=== PATIENT | male | born 1965 | race Caucasian/White ===

== ENCOUNTER 2017-01-15 22:43 | Emergency (ER) | payer SELFPAY ==
[~2017-01-15] VITALS: Ht 190.5 cm; Wt 93.0 kg
[~2017-01-15 22:43] MED LIST: CYCL-36 PO; IBUP800T23 PO
[2017-01-15 22:45] VITALS: BP 154/90; PULSE 69; RESP 15; TEMP 98.2; O2SAT 97
--- NOTE | 2017-01-16 00:26 | PD ---
HPI Chief Complaint: Complaint Time Seen by Provider: 00:21 Travel History International Travel<30 days: No Contact w/Intl Traveler<30days: No Traveled to known affect area: No History of Present Illness HPI 51yo M with no significant PMH presents to the ED with c/o gross hematuria for 2 weeks. Denies any fever, chest pain, sob, n/v, abdominal pain, back pain, focal weakness or numbness. Denies nay malignancy or weight loss. Pt has not been evaluated for this before. PFSH Past Medical History Arthritis: Yes Cardiovascular Problems: No Diminished Hearing: No Gastrointestinal Disorders: No Glaucoma: Yes Hepatitis: Yes (HEP C) Musculoskeletal: Yes (CHRONIC BACK PAIN) Neurologic: No Reproductive: No Respiratory: No Integumentary: Yes Immunizations Current: No Sleep Apnea: No Tetanus Vaccination: < 5 Years Influenza Vaccination: No Past Surgical History Abdominal Surgery: No Cardiac Surgery: No Ear Surgery: No Eye Surgery: No Genitourinary Surgery: No Gynecologic Surgery: No Joint Replacement: No (RIGHT LEG SX S/P FALL (2006)) Oral Surgery: No Thoracic Surgery: No Tonsillectomy: Yes Other Surgery: Yes (R+ ANKLE Sx) Social History Alcohol Use: No Tobacco Use: Yes Substance Use: No Allergies-Medications (Allergen,Severity, Reaction): Coded Allergies: codeine (Unverified Allergy, Mild, NAUSEA, 01/01/17) iodine (Unverified Allergy, Unknown, 01/01/17) potassium iodide (Unverified Allergy, Unknown, 01/01/17) povidone-iodine (Unverified Allergy, Unknown, 01/01/17) sodium iodide (Unverified Allergy, Unknown, 01/01/17) sodium iodide (Unverified Allergy, Unknown, 01/01/17) Reported Meds & Prescriptions Reported Meds & Active Scripts Active Review of Systems Except as stated in HPI: all other systems reviewed are Neg Physical Exam Narrative GENERAL: 51yo M not in distress. SKIN: Focused skin assessment warm/dry. HEAD: Atraumatic. Normocephalic. EYES: Pupils equal and round. No scleral icterus. No injection or drainage. ENT: No nasal bleeding or discharge. Mucous membranes pink and moist. NECK: Trachea midline. No JVD. CARDIOVASCULAR: Regular rate and rhythm. No murmur appreciated. RESPIRATORY: No accessory muscle use. Clear to auscultation. Breath sounds equal bilaterally. GASTROINTESTINAL: Abdomen soft, non-tender, nondistended. No rebound tenderness or guarding. MUSCULOSKELETAL: No obvious deformities. No clubbing. No cyanosis. No edema. NEUROLOGICAL: Awake and alert. No obvious cranial nerve deficits. Motor grossly within normal limits. Normal speech. PSYCHIATRIC: Appropriate mood and affect; insight and judgment normal. Data Data Last Documented VS Vital Signs Date Time Temp Pulse Resp B/P (MAP) Pulse Ox O2 Delivery O2 Flow Rate FiO2 01/16/17 00:17 16 01/15/17 22:45 98.2 69 154/90 (111) 97 Room Air Orders Orders Urinalysis - C+S If Indicated (01/16/17 00:24) Ed Poc Ultrasound (01/16/17 ) Basic Metabolic Panel (Bmp) (01/16/17 02:21) Ct Abd/Pel W/O Iv Contrast (01/16/17 ) Labs Laboratory Tests Test 01/16/17 00:30 01/16/17 01:15 Urine Color LIGHT-RED Urine Turbidity HAZY Urine pH 5.5 Urine Specific [place] 1.026 Urine Protein 30 mg/dL Urine Glucose (UA) NEG mg/dL Urine Ketones NEG mg/dL Urine Occult Blood LARGE Urine Nitrite NEG Urine Bilirubin NEG Urine Urobilinogen 2.0 MG/DL Urine Leukocyte Esterase NEG Urine RBC 53 /hpf Urine WBC 4 /hpf Urine Squamous Epithelial Cells 1 /hpf Urine Amorphous Sediment RARE Urine Bacteria RARE /hpf Urine Mucus MOD /lpf Microscopic Urinalysis Comment CULT NOT INDICATED Blood Urea Nitrogen 21 MG/DL Creatinine 1.29 MG/DL Random Glucose 74 MG/DL Calcium Level 9.2 MG/DL Sodium Level 143 MEQ/L Potassium Level 3.6 MEQ/L Chloride Level 107 MEQ/L Carbon Dioxide Level 29.1 MEQ/L Anion Gap 7 MEQ/L Estimat Glomerular Filtration Rate 59 ML/MIN [facility] Medical Decision Making Medical Screen Exam Complete: Yes Emergency Medical Condition: Yes Differential Diagnosis Bladder tumor vs. renal malignancy vs. UTI vs. nephrolithiasis Narrative Course 51yo M presents with gross hematuria for 2 weeks. Pt has no other symptoms. Has not seen a physician in years. Denies any pain. UA showed large occult blood. WBC 4. No culture indicated. Bedside US showed abnormal right kidney so CT a/p ordered to further evaluate this. BMP showed normal creatinine at 1.29. CTa/p showed complex cystic lesion arising from right kidney. It measures approximately 10cm. This ideally should be further characterized with renal protocol MRI with and without contrast. A renal neoplasm could have this appearance. I informed pt of this finding. Pt has no insurance. Will do mandatory referral for urology and have pt return to ED if worsening symptoms. Procedures Procedure Narrative Emergency department urinary tract ultrasound was performed with patient consent. Curvilinear probe was used in the transverse and sagittal views in the bilateral flank and suprapubic region showing abnormal right kidney. No hydronephrosis in left kidney. Diagnosis Primary Impression: Right renal mass Referrals: Blayne Arrieta MD call for appointment Gross hematuria with CT showing cystic lesion from right kidney. Possible renal neoplasm. Patient Instructions: General Instructions Departure Forms: Tests/Procedures Additional Instructions: Please follow up with urology. The manager of case management will call you for appointment. Return to the ED if symptoms worsen. Med/Other Pt SpecificInfo: No Change to Meds Disposition: 01 DISCHARGE HOME Condition: Stable JinSushila Jan 16, 2017 00:26
[2017-01-16 01:06] LABS: BACTERIA, URINE RARE /hpf; BLOOD, URINE LARGE (NEG); COMMENT (UR) CULT NOT INDICATED; CULTURE IF INDICATED CULT NOT INDICATED; GLUCOSE,URINE NEG (NEG); KETONE, URINE NEG (NEG); MUCUS URINE MOD /lpf (OCC); NITRITE,URINE NEG (NEG); PH, URINE 5.5 (5.0-8.5); SQUAMOUS EPITHELIAL CELL URINE 1 /hpf (0-5)
[2017-01-16 01:07] LABS: URINE COLOR LIGHT-RED (YELLW/STRAW)
[2017-01-16 03:06] LABS: BICARBONATE 29.1 MEQ/L (21.0-32.0); POTASSIUM 3.6 MEQ/L (3.5-5.1)
--- NOTE | 2017-01-16 03:24 | RADRPT ---
EXAM DATE/TIME: 01/16/2017 02:37 [facility] COMPARISON: No previous studies available for comparison. INDICATIONS : Hematuria for two weeks. ORAL CONTRAST: No oral contrast ingested. RADIATION DOSE: 9.96 CTDIvol (mGy) MEDICAL HISTORY : Hepatitis C. SURGICAL HISTORY : None. ENCOUNTER: Initial ACUITY: 2 weeks PAIN SCALE: 0/10 LOCATION: All quadrants. TECHNIQUE: Volumetric scanning of the abdomen and pelvis was performed. Using automated exposure control and ad justment of the mA and/or kV according to patient size, radiation dose was kept as low as reasonably achievable to obtain optimal diagnostic quality images. DICOM format image data is available electro nically for review and comparison. FINDINGS: LOWER LUNGS: The visualized lower lungs are clear. LIVER: Homogeneous density without lesion. There is no dilation of the biliary tree. No calcified gallston es. SPLEEN: Normal size without lesion. PANCREAS: Within normal limits. KIDNEYS: Right kidney appears larger than the left and appears to contain a complex cystic and possibly solid lesion with calcification. Left kidney demonstrates no hydronephrosis or solid mass. There is a 2 mm nonobstructing stone in the left lower pole collecting system. ADRENAL GLANDS: Within normal limits. VASCULAR: There is no aortic aneurysm. BOWEL/MESENTERY: The stomach, small bowel, and colon demonstrate no acute abnormality. There is no free intraperitone al air or fluid. ABDOMINAL WALL: Within normal limits. RETROPERITONEUM: There is no lymphadenopathy. BLADDER: No wall thickening or mass. REPRODUCTIVE: Within normal limits. INGUINAL: There is no lymphadenopathy or hernia. MUSCULOSKELETAL: No acute abnormality is identified. CONCLUSION: 1. Complex cystic lesion arising from the right kidney. It measures approximately 10 cm. Suggest boaz elating with any prior imaging study to assess for change. This ideally should be further characteriz ed with renal protocol MRI with and without intravenous contrast. A renal neoplasm could have this ap pearance. 2. There is a 2 mm nonobstructing left renal stone. Andrew Mcdaniel MD on January 16, 2017 at 3:19 Board Certified Radiologist. This report was verified electronically.
== END 2017-01-16 04:09 | disposition home or self-care (01) ==
LOC: NEPC 22:43
DX: N28.89 Other specified disorders of kidney and ureter (principal); R31.0 Gross hematuria; M13.80 Other specified arthritis, unspecified site; H40.9 Unspecified glaucoma; Z72.0 Tobacco use; Z86.19 Personal history of other infectious and parasitic diseases; Z88.5 Allergy status to narcotic agent; Z88.8 Allergy status to other drugs, medicaments and biological substances
CPT/HCPCS: 74176; 80048; 81001; 99285

== ENCOUNTER 2017-06-24 00:58 | Emergency (ER) | payer SELFPAY ==
[~2017-06-24] VITALS: Ht 188 cm; Wt 91.0 kg
[2017-06-24 00:59] VITALS: BP 144/77; PULSE 66; RESP 20; TEMP 99.6; O2SAT 97
[2017-06-24] MEDS ORDERED: CLINDAMYCIN 900 MG/NS PREMIX 50 ML IV ONE (01:30)
[2017-06-24] MEDS ORDERED: SODIUM CHLOR 0.9% 1000 ML INJ 1,000 ML IV ONE (01:30)
[2017-06-24] MEDS ORDERED: ceFAZolin 2 GM PREMIX 50 ML IV ONE (01:30)
--- NOTE | 2017-06-24 01:42 | PD ---
HPI Chief Complaint: Cold / Flu Symptoms Time Seen by Provider: 01:07 Travel History International Travel<30 days: No Contact w/Intl Traveler<30days: No Traveled to known affect area: No History of Present Illness HPI The patient is a 51 year old male who presents to the [facility] emergency department with a history of reportedly multiple complaints. The first complaint is having wounds on his arms that are not healing. He reports that they seem to be spreading. 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 He reports that they continually seem to crust, however they are not draining. He denies having any known fevers , however he has had chills. He reports that these wounds have been gradually worsening over the last 2 months. He denies having any prior history of known skin infections or MRSA. The patient does however report having a history of IV drug use. He last used heroin yesterday. The patient's other complaint today is intermittent hematuria. He reports that this happens 1-2 times per week since last year. He reports that he was diagnosed with a renal mass and attempted to follow-up with Dr. Solis as an outpatient, however the appointment was never made. The patient reports that he was given a mandatory follow-up through the case management system as he is uninsured. Otherwise on review of systems, the patient reports having generalized weakness. He denies having any worsening cough or congestion, neck pain, chest pain, shortness of breath, abdominal pain, vomiting, diarrhea, urinary symptoms, or other neurologic symptoms. PFSH Past Medical History Narrative Medical The patient's past medical history is significant for hepatitis C, chronic back pain, glaucoma, diagnosis of a renal mass during his last evaluation in the emergency department in December 2016, history of IV drug use Arthritis: Yes Cardiovascular Problems: No Diminished Hearing: No Gastrointestinal Disorders: No Glaucoma: Yes Hepatitis: Yes (HEP C) Musculoskeletal: Yes (CHRONIC BACK PAIN) Neurologic: No Reproductive: No Respiratory: No Integumentary: Yes Immunizations Current: No Sleep Apnea: No Tetanus Vaccination: < 5 Years Influenza Vaccination: No Past Surgical History Narrative Surgical The patient's past surgical history is significant for right leg ORIF, tonsillectomy Abdominal Surgery: No Cardiac Surgery: No Ear Surgery: No Eye Surgery: No Genitourinary Surgery: No Gynecologic Surgery: No Oral Surgery: No Thoracic Surgery: No Tonsillectomy: Yes Other Surgery: Yes (R+ ANKLE Sx) Social History Alcohol Use: No Tobacco Use: Yes (one pack per day) Substance Use: Yes (IV drug use of heroin) Allergies-Medications (Allergen,Severity, Reaction): Coded Allergies: codeine (Unverified Allergy, Mild, NAUSEA, 06/24/17) iodine (Unverified Allergy, Unknown, 06/24/17) potassium iodide (Unverified Allergy, Unknown, 06/24/17) povidone-iodine (Unverified Allergy, Unknown, 06/24/17) sodium iodide (Unverified Allergy, Unknown, 06/24/17) sodium iodide (Unverified Allergy, Unknown, 06/24/17) Reported Meds & Prescriptions Reported Meds & Active Scripts Active Clindamycin (Clindamycin HCl) 300 Mg Cap 300 Mg PO Q6H Keflex (Cephalexin) 500 Mg Cap 500 Mg PO Q6H Review of Systems Except as stated in HPI: all other systems reviewed are Neg General / Constitutional: Positive: Chills, No: Fever Eyes: No: Visual changes HENT: No: Headaches, Rhinorrhea, Congestion Cardiovascular: No: Chest Pain or Discomfort Respiratory: No: Cough, Shortness of Breath Gastrointestinal: No: Nausea, Vomiting, Diarrhea, Abdominal Pain Genitourinary: No: Dysuria Musculoskeletal: Positive: Myalgias, No: Pain Skin: No Rash Neurologic: No: Weakness, Focal Abnormalities, Change in Mentation, Slurred Speech, Sensory Disturbance Psychiatric: No: Depression Endocrine: No: Polydipsia Hematologic/Lymphatic: No: Easy Bruising Physical Exam Narrative General: The patient is a well-developed well-nourished male in no acute distress. Head and Neck exam: Head is normocephalic atraumatic. Eyes: EOMI, pupils are equal round and reactive to light. Nose: Midline septum with pink mucous membranes Mouth: Dentition unremarkable. Moist mucus membranes. Posterior oropharynx is not erythematous. No tonsillar hypertrophy. Uvula midline. Airway patent. Neck: No palpable lymphadenopathy. No nuchal rigidity. No thyromegaly. Cardiovascular: Regular rate and rhythm without murmurs, gallops, or rubs. Lungs: Clear to auscultation bilaterally. No wheezes, rhonchi, or rales. Abdomen: Soft, without tenderness to palpation in all 4 quadrants of the abdomen. No guarding, rebound, or rigidity. Normal bowel sounds are audible. No tenderness on palpation of McBurney's point. Extremities: No clubbing, cyanosis, or edema. 2+ pulses in all 4 extremities. On examination of bilateral upper extremities patient has erythematous papules and nodules without any underlying fluctuance with overlying crusting noted. Back: No spinous process tenderness to palpation. No costovertebral angle tenderness to palpation. Neurologic Exam: Grossly nonfocal. Skin Exam: In addition to the rash described on his extremities, the patient has a few crusted lesions on his face. Intact skin that is warm and dry. Data Data Last Documented VS Vital Signs Date Time Temp Pulse Resp B/P (MAP) Pulse Ox O2 Delivery O2 Flow Rate FiO2 06/24/17 03:27 59 16 137/78 (97) 100 Room Air 06/24/17 00:59 99.6 Orders Orders Electrocardiogram (06/24/17 01:09) Complete Blood Count With Diff (06/24/17 01:09) Comprehensive Metabolic Panel (06/24/17 01:09) Prothrombin Time / Inr (Pt) (06/24/17 01:09) Act Partial Throm Time (Ptt) (06/24/17 01:09) C-Reactive Protein (Crp) (06/24/17 01:09) Lipase (06/24/17 01:09) Urinalysis - C+S If Indicated (06/24/17 01:09) Magnesium (Mg) (06/24/17 01:09) Chest, Single Ap (06/24/17 01:09) Iv Access Insert/Monitor (06/24/17 01:09) Ecg Monitoring (06/24/17 01:09) Oximetry (06/24/17 01:09) Influenzae A/B Antigen (06/24/17 01:20) Sodium Chlor 0.9% 1000 Ml Inj (Ns 1000 M (06/24/17 01:30) Cefazolin 2 Gm Premix (Ancef 2 Gm Premix (06/24/17 01:30) Clindamycin 900 Mg/Ns Premix (Cleocin 90 (06/24/17 01:30) Ct Abd/Pel W/O Iv Contrast (06/24/17 03:16) Mandatory Outpatient Referral (06/24/17 03:26) Labs Laboratory Tests Test 06/24/17 01:36 06/24/17 02:00 White Blood Count 8.4 TH/MM3 Red Blood Count 3.90 MIL/MM3 Hemoglobin 11.8 GM/DL Hematocrit 34.1 % Mean Corpuscular Volume 87.3 FL Mean Corpuscular Hemoglobin 30.3 PG Mean Corpuscular Hemoglobin Concent 34.7 % Red Cell Distribution Width 14.0 % Platelet Count 240 TH/MM3 Mean Platelet Volume 7.9 FL Neutrophils (%) (Auto) 65.9 % Lymphocytes (%) (Auto) 20.5 % Monocytes (%) (Auto) 9.7 % Eosinophils (%) (Auto) 2.8 % Basophils (%) (Auto) 1.1 % Neutrophils # (Auto) 5.6 TH/MM3 Lymphocytes # (Auto) 1.7 TH/MM3 Monocytes # (Auto) 0.8 TH/MM3 Eosinophils # (Auto) 0.2 TH/MM3 Basophils # (Auto) 0.1 TH/MM3 CBC Comment DIFF FINAL Differential Comment Prothrombin Time 12.2 SEC Prothromb Time International Ratio 1.2 RATIO Activated Partial Thromboplast Time 31.0 SEC Blood Urea Nitrogen 16 MG/DL Creatinine 1.14 MG/DL Random Glucose 129 MG/DL Total Protein 7.7 GM/DL Albumin 3.0 GM/DL Calcium Level 8.3 MG/DL Magnesium Level 1.9 MG/DL Alkaline Phosphatase 48 U/L Aspartate Amino Transf (AST/SGOT) 51 U/L Alanine Aminotransferase (ALT/SGPT) 49 U/L Total Bilirubin 0.5 MG/DL Sodium Level 138 MEQ/L Potassium Level 3.7 MEQ/L Chloride Level 105 MEQ/L Carbon Dioxide Level 28.1 MEQ/L Anion Gap 5 MEQ/L Estimat Glomerular Filtration Rate 68 ML/MIN C-Reactive Protein 2.26 MG/DL Lipase 131 U/L Urine Color YELLOW Urine Turbidity CLEAR Urine pH 5.5 Urine Specific [place] 1.025 Urine Protein 30 mg/dL Urine Glucose (UA) NEG mg/dL Urine Ketones NEG mg/dL Urine Occult Blood MOD Urine Nitrite NEG Urine Bilirubin NEG Urine Urobilinogen 2.0 MG/DL Urine Leukocyte Esterase NEG Urine RBC 5 /hpf Urine WBC 3 /hpf Urine Mucus FEW /lpf Microscopic Urinalysis Comment CULT NOT INDICATED MDM Medical Decision Making Medical Screen Exam Complete: Yes Emergency Medical Condition: Yes Medical Record Reviewed: Yes Interpretation(s) Last Impressions Chest X-Ray 06/24/17 0109 Signed Impressions: Service Date/Time: Saturday, June 24, 2017 01:13 - CONCLUSION: No acute cardiopulmonary abnormality is identified. Andrew Mcdaniel MD Differential Diagnosis Impetigo, versus MRSA skin infection, versus cellulitis, versus abscess, versus bacteremia, versus sepsis Narrative Course During the course of the patients emergency department visit, the patients history, examination, and differential diagnosis were reviewed with the patient. The patient was placed on a general machine operator with oximetry and frequent blood pressure monitoring. The patient had IV access obtained and blood work sent for analysis. Luanne, the oil field caser patient registration specialist this evening was consulted regarding this patient's case. She did review the electronic medical record regarding the patient's referral to the aquatic director. He was referred to Dr. Solis, however according to her record on February 28 is documented that he was a no-show for his appointment. An EKG was done on arrival that shows a sinus rhythm, bradycardic at 59, no acute ST segment elevation or depression, T waves are inverted in V1, QRS duration is 89 ms, QTC 412 ms. The patient was initially provided normal saline 1 L IV fluid bolus, clindamycin 900 mg IV, Ancef 2 g IV. The patients laboratory studies were reviewed and remarkable for a white count of 8.4, hemoglobin 11.8, platelets 240 with 9.7 monocytes, CMP is remarkable for a glucose of 129, calcium 8.3, magnesium 1.9, AST 51 and a patient with a known history of hepatitis C, C-reactive protein 2.26, albumin 3.0, lipase 131, PT 12.2, PTT 31.0, urinalysis shows moderate occult blood, 5 RBCs, culture not indicated. Influenza testing is negative. Radiology studies were reviewed and remarkable for a chest x-ray that shows no acute cardiopulmonary abnormality. A CT scan of the abdomen and pelvis was done to further evaluate, CT scan of the abdomen and pelvis without contrast shows a heterogeneous partially calcified right renal mass lesion. It appears to be 12 cm. A renal neoplasm could have this appearance and may explain the hematuria. This finding was present on the prior study in is either stable to slightly increased in size. This ideally should be further characterized with nonemergent renal protocol MRI with and without IV contrast. The patient was given a copy of his CT scan findings. The patient is given an outpatient lab slip for a renal protocol MRI with and without IV contrast. The patient was given a mandatory follow-up with the urologist through case management system. The patient's blood work was discussed with him. His hemoglobin has been stable in spite of intermittent hematuria. The patient is instructed regarding the importance of following up with the urologist as previously instructed as soon as possible. The patient had another mandatory follow-up with the outpatient urologist placed through case management. Regarding the patient's rash, the patient was continued on clindamycin and Keflex. The patient is instructed regarding the importance of keeping his wounds clean and dry. The patient is instructed to follow-up with these daily a clinic in 2 days for reexamination. The patient is resting comfortably and feels better, is alert and in no distress. The patients results and examination findings were discussed with the patient. The repeat examination is unremarkable and benign. The history, exam, diagnostic testing, and current condition do not suggest any significant pathology to warrant further testing, continued ED treatment, admission, or surgical evaluation at this point. The vital signs have been stable. The patient does not have uncontrollable pain, intractable vomiting, or other significant symptoms. The patient's condition is stable and appropriate for discharge. The patient will pursue further outpatient evaluation with a primary care physician or other designated or consulting physician as indicated in the discharge instructions. The patient expressed understanding and was agreeable with this plan. Diagnosis Primary Impression: Impetigo Additional Impressions: Hematuria Qualified Codes: R31.0 - Gross hematuria Right kidney mass Referrals: [facility] 2 days Urologist call for appointment Patient Instructions: General Instructions, Hematuria (ED), Impetigo (ED) Med/Other Pt SpecificInfo: Prescription(s) given Scripts Clindamycin (Clindamycin) 300 Mg Cap 300 MG PO Q6H for Infection, #39 CAP 0 Refills Prov: Liliya Christian MD 06/24/17 Cephalexin (Keflex) 500 Mg Cap 500 MG PO Q6H for Infection, #39 CAP 0 Refills Prov: Liliya Christian MD 06/24/17 Disposition: 01 DISCHARGE HOME Condition: Stable Liliya Christian MD Jun 24, 2017 01:41
--- NOTE | 2017-06-24 01:43 | RADRPT ---
EXAM DATE/TIME: 06/24/2017 01:13 [facility] COMPARISON: No previous studies available for comparison. INDICATIONS : Bilateral upper extremity infections, right renal cyst. MEDICAL HISTORY : Hepatitis C. SURGICAL HISTORY : None. ENCOUNTER: Initial ACUITY: 1 day PAIN SCORE: 0/10 LOCATION: Bilateral chest FINDINGS: Portable AP view of the chest demonstrates a normal-sized cardiac silhouette. No effusion, consolidat ion, or pneumothorax is visualized. The bones and soft tissues demonstrate no acute abnormality. CONCLUSION: No acute cardiopulmonary abnormality is identified. Andrew Mcdaniel MD on June 24, 2017 at 1:41 Board Certified Radiologist. This report was verified electronically.
[2017-06-24 01:48] LABS: AUTOMATED NEUTROPHIL # 5.6 TH/MM3 (1.8-7.7); BASOPHIL # 0.1 TH/MM3 (0-0.2); BASOPHIL % 1.1 % (0.0-2.0); EOSINOPHIL # 0.2 TH/MM3 (0-0.4); EOSINOPHIL % 2.8 % (0.0-4.0); HEMATOCRIT 34.1 % (39.0-51.0); HEMOGLOBIN 11.8 GM/DL (13.0-17.0); LYMPH % 20.5 % (9.0-44.0); LYMPHOCYTE # 1.7 TH/MM3 (1.0-4.8); MEAN CELL VOLUME 87.3 FL (80.0-100.0); MEAN CORPUSCULAR HEMOGLOBIN 30.3 PG (27.0-34.0); MEAN CORPUSCULAR HGB CONC 34.7 % (32.0-36.0); MEAN PLATELET VOLUME 7.9 FL (7.0-11.0); MONO % 9.7 % (0.0-8.0); MONOCYTE # 0.8 TH/MM3 (0-0.9); NEUT % 65.9 % (16.0-70.0); PLATELET COUNT 240 TH/MM3 (150-450); WHITE BLOOD COUNT 8.4 TH/MM3 (4.0-11.0)
[2017-06-24 02:00] LABS: INTERNATIONAL NORMALIZED RATIO 1.2 RATIO; PROTHROMBIN TIME - PATIENT 12.2 SEC (9.8-11.6)
[2017-06-24 02:11] LABS: AST (GOT) 51 U/L (15-37); BICARBONATE 28.1 MEQ/L (21.0-32.0); BLOOD UREA NITROGEN 16 MG/DL (7-18); CALCIUM 8.3 MG/DL (8.5-10.1); CHLORIDE 105 MEQ/L (98-107); CREATININE 1.14 MG/DL (0.60-1.30); GLOMERULAR FILTRATION RATE 68 ML/MIN (>89); GLUCOSE,RANDOM 129 MG/DL (74-106); MAGNESIUM 1.9 MG/DL (1.5-2.5); SODIUM (NA) 138 MEQ/L (136-145)
[2017-06-24 02:15] LABS: ALKALINE PHOSPHATASE 48 U/L (45-117); ALT (GPT) 49 U/L (12-78); C-REACTIVE PROTEIN 2.26 MG/DL (0.00-0.30); TOTAL BILIRUBIN ADULT 0.5 MG/DL (0.2-1.0); TOTAL PROTEIN 7.7 GM/DL (6.4-8.2)
[2017-06-24 02:44] LABS: BILIRUBIN, URINE NEG (NEG); BLOOD, URINE MOD (NEG); GLUCOSE,URINE NEG (NEG); KETONE, URINE NEG (NEG); MUCUS URINE FEW /lpf (OCC); NITRITE,URINE NEG (NEG); PH, URINE 5.5 (5.0-8.5); URINE COLOR YELLOW (YELLW/STRAW); URINE LEUKOCYTE ESTERASE NEG (NEG)
[2017-06-24 02:50] VITALS: O2SAT 98
[2017-06-24 03:27] VITALS: BP 137/78; PULSE 59; RESP 16; O2SAT 100
--- NOTE | 2017-06-24 03:49 | RADRPT ---
EXAM DATE/TIME: 06/24/2017 03:31 [facility] COMPARISON: CT ABDOMEN & PELVIS W/O CONTRAST, January 16, 2017, 2:37. INDICATIONS : Hematuria past 3 months. ORAL CONTRAST: No oral contrast ingested. RADIATION DOSE: 6.69 CTDIvol (mGy) MEDICAL HISTORY : Hepatitis C. Right renal mass SURGICAL HISTORY : None. ENCOUNTER: Initial ACUITY: 3 months PAIN SCALE: 0/10 LOCATION: abdomen TECHNIQUE: Volumetric scanning of the abdomen and pelvis was performed. Using automated exposure control and ad justment of the mA and/or kV according to patient size, radiation dose was kept as low as reasonably achievable to obtain optimal diagnostic quality images. DICOM format image data is available electro nically for review and comparison. FINDINGS: LOWER LUNGS: There is dependent atelectasis bilaterally. LIVER: Homogeneous density without a lesion appreciated on this noncontrast examination. There is no dilati on of the biliary tree. Gallbladder is nonvisualized. SPLEEN: Normal size without lesion. PANCREAS: Not well-visualized but no definite abnormality is seen. KIDNEYS: There is a heterogeneous appearing mass at the mid and lower pole of the right kidney with areas of c alcification. It measures up to 12.2 cm. There is a stable 2 mm nonobstructing left renal stone. Uret ers are not adequately visualized. ADRENAL GLANDS: Not well-visualized but no definite abnormality is seen. VASCULAR: There is no aortic aneurysm. BOWEL/MESENTERY: The stomach, small bowel, and colon demonstrate no acute abnormality. There is no free intraperitone al air or fluid. ABDOMINAL WALL: Within normal limits. RETROPERITONEUM: There is no lymphadenopathy. BLADDER: No wall thickening or mass. REPRODUCTIVE: Within normal limits. INGUINAL: There is no lymphadenopathy or hernia. MUSCULOSKELETAL: There are degenerative changes of the lumbar spine. CONCLUSION: 1. There is a heterogeneous partially calcified right renal mass lesion. It measures up to 12 cm. A r enal neoplasm could have this appearance and may explain the hematuria. This finding was present on t he prior study and is either stable to slightly increased in size. This ideally should be further eli racterized with nonemergent renal protocol MRI with and without intravenous contrast. 2. Stable 2 mm nonobstructing left renal stone. Andrew Mcdaniel MD on June 24, 2017 at 3:43 Board Certified Radiologist. This report was verified electronically.
[2017-06-24] MEDS ORDERED: CLIN300C5 PO (04:03)
[2017-06-24] MEDS ORDERED: CEPH-460 PO (04:03)
--- NOTE | 2017-06-24 22:05 | EKG ---
Date Performed: 06/24/2017 Time Performed: 01:33:08 PTAGE: 51 years EKG: SINUS BRADYCARDIA BORDERLINE ECG PREVIOUS TRACING : 01/06/2013 11.55 DOCTOR: Yao Ruth Interpretating Date/Time 06/24/2017 22:00:26
== END 2017-06-24 04:15 | disposition home or self-care (01) ==
LOC: NEPC 00:58
DX: L01.00 Impetigo, unspecified (principal); R31.0 Gross hematuria; N28.89 Other specified disorders of kidney and ureter; F17.200 Nicotine dependence, unspecified, uncomplicated; B19.20 Unspecified viral hepatitis C without hepatic coma; R53.1 Weakness; R00.1 Bradycardia, unspecified
CPT/HCPCS: 71045; 74176; 80053; 81001; 83690; 83735; 85025; 85610; 85730; 86140; 87804; 93005; 96361; 96374; 96375; 99285; J0690; J7030

== ENCOUNTER 2017-11-12 18:41 | Emergency (ER) | payer SELFPAY ==
[~2017-11-12] VITALS: Ht 188 cm; Wt 90.5 kg
[~2017-11-12 18:41] MED LIST changes: +CEPH-460 PO; +CLIN300C5 PO; -CYCL-36 PO; -IBUP800T23 PO
[2017-11-12 18:46] VITALS: BP 127/60; PULSE 64; RESP 18; TEMP 98.1; O2SAT 96
--- NOTE | 2017-11-12 20:06 | PD ---
HPI Chief Complaint: Skin Problem Time Seen by Provider: 19:51 Travel History International Travel<30 days: No Contact w/Intl Traveler<30days: No Traveled to known affect area: No History of Present Illness HPI 52-year-old male presents to the emergency department with complaint of abscess to his right antecubital area 2 days secondary to IV drug use. Denies fever, vomiting. Denies paresthesias, loss of sensation, decreased range of motion, decreased strength to the affected extremity. Has not taken any medications or try any treatments to alleviate his symptoms. Rates pain 2/10. Worse with palpation to the area. Better without any pressure to the area. Allergies as listed on the chart. No primary care provider. Denies significant past medical history. Does state that he thinks he probably has hepatitis C, but has not been diagnosed. Has no other medical complaints. No other modifying factors or associated signs and symptoms. PFSH Past Medical History Arthritis: Yes Cardiovascular Problems: No Diminished Hearing: No Gastrointestinal Disorders: No Glaucoma: Yes Hepatitis: Yes (HEP C) Musculoskeletal: Yes (CHRONIC BACK PAIN) Neurologic: No Reproductive: No Respiratory: No Integumentary: Yes Immunizations Current: No Sleep Apnea: No Past Surgical History Abdominal Surgery: No Cardiac Surgery: No Ear Surgery: No Eye Surgery: No Genitourinary Surgery: No Gynecologic Surgery: No Oral Surgery: No Thoracic Surgery: No Tonsillectomy: Yes Other Surgery: Yes (R+ ANKLE Sx) Social History Alcohol Use: No Tobacco Use: Yes (one pack per day) Substance Use: Yes (IV drug use of heroin) Allergies-Medications (Allergen,Severity, Reaction): Coded Allergies: codeine (Unverified Allergy, Mild, NAUSEA, 11/12/17) iodine (Unverified Allergy, Unknown, 11/12/17) potassium iodide (Unverified Allergy, Unknown, 11/12/17) povidone-iodine (Unverified Allergy, Unknown, 11/12/17) sodium iodide (Unverified Allergy, Unknown, 11/12/17) sodium iodide (Unverified Allergy, Unknown, 11/12/17) Reported Meds & Prescriptions Reported Meds & Active Scripts Active Ibuprofen 800 Mg Tab 800 Mg PO Q6HR PRN Bactrim DS (Sulfamethoxazole-Trimethoprim) 800-160 Mg Tab 1 Tab PO BID 10 Days Clindamycin (Clindamycin HCl) 300 Mg Cap 300 Mg PO Q6H Keflex (Cephalexin) 500 Mg Cap 500 Mg PO Q6H Review of Systems Except as stated in HPI: all other systems reviewed are Neg Physical Exam Narrative GENERAL: Well-nourished, well-developed patient, in no acute distress ; afebrile, nontoxic-appearing SKIN: There is an indurated area to the right antecubital which measures about 4 cm in diameter. It is fluctuant and there is pointing and a minimal amount of purulent drainage. There is a zone of inflammation around it but no lymphangitis. No palpable lymphadenopathy to the right inner bicep area or right axilla. Multiple track lang noted to bilateral arms. HEAD: Atraumatic. Normocephalic. EYES: Pupils equal and round. No scleral icterus. No injection or drainage. ENT: Mucosa pink and moist. Airway patent. NECK: Trachea midline. CARDIOVASCULAR: Regular rate. RESPIRATORY: No accessory muscle use. GASTROINTESTINAL: Flat. MUSCULOSKELETAL: No obvious deformities. No clubbing. No cyanosis. No edema. NEUROLOGICAL: Awake and alert. Oriented 3. No obvious cranial nerve deficits. Motor grossly within normal limits. Normal speech. PSYCHIATRIC: Appropriate mood and affect; insight and judgment normal. Data Data Last Documented VS Vital Signs Date Time Temp Pulse Resp B/P (MAP) Pulse Ox O2 Delivery O2 Flow Rate FiO2 11/12/17 18:46 98.1 64 18 127/60 (82) 96 Orders Orders Lidocaine Pf 1% Inj (Xylocaine-Mpf 1% In (11/12/17 20:15) Sulfamet-Trimeth Ds 800-160 Mg (Bactrim (11/12/17 20:15) Ibuprofen (Motrin) (11/12/17 20:15) Wound Culture And Gram Stain (11/12/17 20:07) Ed Discharge Order (11/12/17 20:15) [facility] Medical Decision Making Medical Screen Exam Complete: Yes Emergency Medical Condition: Yes Medical Record Reviewed: Yes Differential Diagnosis Abscess, IV site infiltration, hematoma, cellulitis Narrative Course 52-year-old male with an abscess to his right antecubital secondary to IV drug use. He is afebrile and nontoxic-appearing. Denies fever, vomiting. No lymphangitis. No lymphadenopathy to the right upper arm or axilla. See my procedure note for incision and drainage. Wound culture pending. Bactrim, ibuprofen administered in the ER. Instructed patient to return to the emergency department in 48 hours for abscess recheck and packing removal. Patient verbalized understanding and agreement. Instructed patient to follow up with primary care provider. Patient verbalizes understanding and agreement with treatment plan. Patient is medically cleared and stable for discharge. Discussed reasons to return to the emergency department. Patient agrees with treatment plan. The patients vital signs are stable and the patient is stable for outpatient follow-up and treatment. Patient discharged home, stable and in no acute distress. Procedures Procedure Narrative INCISION AND DRAINAGE OF ABSCESS: The area was prepped and was sterilely draped. A subcutaneous wheal of 1 % Xylocaine with a total number 3 mL was used to anesthetize the area properly. A number 11 scalpel was used to make a 1 -cm incision across the area of the abscess. The abscess was drained, complex loculations were broken down, and irrigated with normal saline. Cultures were obtained. Quarter inch iodoform packing was placed in the wound. Sterile dressing applied. Patient advised to have packing removed in two days. Diagnosis Primary Impression: Abscess of right arm Additional Impression: IV drug user Referrals: [facility] Primary Care Physician Patient Instructions: Abscess (ED), Abscess Follow-up (ED), Abscess Incision and Drainage (DC), General Instructions Additional Instructions: Complete full course of antibiotics Warm compresses to the affected area Keep area clean and dry Ibuprofen or Tylenol as directed and as needed for pain and inflammation Return to the emergency department in 48 hours for packing removal and abscess recheck Follow-up with primary care provider Return to emergency department immediately with worsening of symptoms Med/Other Pt SpecificInfo: Prescription(s) given Scripts Ibuprofen (Ibuprofen) 800 Mg Tab 800 MG PO Q6HR Y for PAIN, #30 TAB 0 Refills Prov: Va Ojeda 11/12/17 Sulfamethoxazole-Trimethoprim (Bactrim DS) 800-160 Mg Tab 1 TAB PO BID for Infection for 10 Days, #20 TAB 0 Refills Prov: Va Ojeda 11/12/17 Disposition: 01 DISCHARGE HOME Condition: Stable Va Ojeda Nov 12, 2017 20:06
[2017-11-12] MEDS ORDERED: BACT800T5 PO (20:15)
[2017-11-12] MEDS ORDERED: SULFAMETHOXAZOLE-TRIMETHOPRIM DS 800-160 MG TAB PO ONE (20:15)
[2017-11-12] MEDS ORDERED: IBUPROFEN 800 MG TAB PO ONE (20:15)
[2017-11-12] MEDS ORDERED: IBUP1TAB7 PO (20:15)
[2017-11-12] MEDS ORDERED: LIDOCAINE HCL 1% PF 30 ML VIAL INFIL ONE (20:15)
== END 2017-11-12 20:41 | disposition home or self-care (01) ==
LOC: NEPK 18:41
DX: L02.413 Cutaneous abscess of right upper limb (principal); B96.1 Klebsiella pneumoniae [K. pneumoniae] as the cause of diseases classified elsewhere; B95.7 Other staphylococcus as the cause of diseases classified elsewhere; F19.90 Other psychoactive substance use, unspecified, uncomplicated; F17.200 Nicotine dependence, unspecified, uncomplicated; Z87.19 Personal history of other diseases of the digestive system; Z87.39 Personal history of other diseases of the musculoskeletal system and connective tissue
CPT/HCPCS: 10060; 86403; 87070; 87077; 87186

== ENCOUNTER 2017-12-20 07:29 | Inpatient (IN) ==
[2017-12-20] MEDS ORDERED: Acetaminophen 325 MG Tablet PO ONE (07:56)
[2017-12-20] MEDS ORDERED: Sod Chloride 0.9% Inj 1,000 ML IV.SIG SCH (08:00)
--- NOTE | 2017-12-20 08:08 | ED ---
HPI General Chief complaint: Urogenital-Male Stated complaint: Abdominal Pain Time Seen by Provider: 12/20/17 07:56 Source: patient and EMS Mode of arrival: EMS Limitations: no limitations History of Present Illness HPI narrative: Patient is a 52 year old male who comes in complaining of abdominal pain and difficulty urinating. He says he was recently diagnosed with kidney cancer and has been urinating blood. He says he has not been able to urinate for the past day.Patient was found to be febrile by EMS, but he did not know he was febrile until then. He denies cough or cold symptoms. Denies any chest pain. He is a heroin abuser and last used IV drugs 3 days ago. He denies nausea or vomiting. Severity is moderate. Related Data Previous Rx's Medication Instructions Recorded baclofen 10 mg PO TID #30 tab 12/19/17 diclofenac sodium 75 mg PO BID #20 tab 12/19/17 lidocaine [Lidoderm] 1 patch TOPICAL DAILY #30 each 12/19/17 Allergies Allergy/AdvReac Type Severity Reaction Status Date / Time codeine Allergy Mild Itching Verified 12/20/17 07:49 iodine Allergy Unknown unknown Verified 12/20/17 07:49 potassium iodide Allergy Unknown unknown Verified 12/20/17 07:49 povidone-iodine Allergy Unknown unknown Verified 12/20/17 07:49 sodium iodide Allergy Unknown unknown Verified 12/20/17 07:49 sodium iodide Allergy Unknown unknown Verified 12/20/17 07:49 Review of Systems Except as stated in HPI: all other systems reviewed are negative Constitutional Reports fever(s) ENT Denies dizziness Cardiovascular Denies chest pain and Denies dyspnea Respiratory Denies cough Gastrointestinal Reports abdominal pain, Denies nausea and Denies vomiting Genitourinary Reports hematuria Musculoskeletal Denies myalgias and Denies arthralgias Integumentary/Breasts Reports lesions Neurologic Denies focal weakness PMFSH Medical History Medical History Ankle fracture, right (Acute) Heroin abuse (Acute) Kidney malignancy (Acute) Kidney mass (Acute) Social History Social History Substance History: Active Abuse Second Hand Smoke Exposure: Yes Smoking Status: Current every day smoker (1 pack/day x 30 years) Tobacco Type: Cigarettes How Often Do You Have a Drink Containing Alcohol: Never Recent Travel in [facility] within the Last 8 Weeks: No Recent Out of Country Travel within the Last 8 Weeks: No Substance Abuse Detail Heroin: Substance Use Status: Active Route Used Substance Abuse: Intravenously Reason for Use: Get High Immunization History Tetanus Immunization: <5 Years Hx Influenza Vaccine This Season: Yes Exam Narrative Exam Narrative: GENERAL: Awake and alert, in no acute distress. SKIN: Focused skin assessment warm/dry. Patient appears jaundice. HEAD: Atraumatic. Normocephalic. EYES: Pupils equal and round. No scleral icterus. ENT: Mucous membranes pink and moist. NECK: Trachea midline. No JVD. CARDIOVASCULAR: Regular rate and rhythm. No murmur appreciated. RESPIRATORY: No accessory muscle use. Clear to auscultation. Breath sounds equal bilaterally. GASTROINTESTINAL: Abdomen distended, tender to palpation over the bladder. MUSCULOSKELETAL: No obvious deformities. No clubbing. No cyanosis. No edema. NEUROLOGICAL: Awake and alert. No obvious cranial nerve deficits. Motor grossly within normal limits. Normal speech. PSYCHIATRIC: Appropriate mood and affect; insight and judgment normal. Course Initial Documented Vital Signs Temperature 98.3 F 12/20/17 07:40 Pulse Rate 79 12/20/17 07:40 Respiratory Rate 16 12/20/17 07:40 Blood Pressure 118/71 12/20/17 07:40 Pulse Oximetry 100 12/20/17 07:40 Last Documented Vital Signs Temperature 101.8 F H 12/20/17 16:00 Pulse Rate 76 12/20/17 16:00 Respiratory Rate 17 12/20/17 18:21 Blood Pressure 196/94 H 12/20/17 16:00 Pulse Oximetry 96 12/20/17 16:00 Medical Decision Making MDM Narrative Medical decision making narrative: A 52-year-old male who comes in complaining of abdominal pain and inability to urinate. Exam shows a distended, tender bladder. IV established, labs sent. Labs concerning for elevated white blood cell count. Patient is febrile. Patient given Tylenol, IV fluids, antibiotics. Chest x-ray shows possible left-sided pneumonia. Patient will be admitted for further management. Differential Diagnosis Differential Diagnosis: Sepsis versus pneumonia versus endocarditis versus UTI versus urinary obstruction Medical Records Medical records reviewed: Yes I reviewed the patient's medical records. Lab Data Lab results reviewed: Yes I reviewed the patient's lab results. Result diagrams: 12/20/17 16:58 12/20/17 08:10 Lab Results 12/20/17 12/20/17 12/20/17 Range/Units 08:10 08:10 08:10 WBC 21.3 H (4.0-11.0) th/mm3 RBC 3.24 L (4.50-5.90) mil/mm3 Hgb 9.4 L (13.0-17.0) gm/dL Hct 28.2 L (39.0-51.0) % MCV 87.0 (80.0-100.0) fL MCH 29.1 (27.0-34.0) pg MCHC 33.4 (32.0-36.0) % RDW 14.8 (11.6-17.2) % Plt Count 249 (150-450) th/mm3 MPV 8.3 (7.0-11.0) fL Neut % (Auto) 88.6 H (16.0-70.0) % Lymph % (Auto) 4.6 L (9.0-44.0) % Bond % (Auto) 6.2 (0.0-8.0) % Eos % (Auto) 0.1 (0.0-4.0) % Baso % (Auto) 0.5 (0.0-2.0) % Neut # (Auto) 18.9 H (1.8-7.7) th/mm3 Lymph # (Auto) 1.0 (1.0-4.8) th/mm3 Bond # (Auto) 1.3 H (0.0-0.9) th/mm3 Eos # (Auto) 0.0 (0.0-0.4) th/mm3 Baso # (Auto) 0.1 (0.0-0.2) th/mm3 WBC Differential . Differential Comment Auto diff final PT 12.7 H (9.8-11.6) sec INR 1.3 Ratio APTT 31.1 H (24.3-30.1) sec Sodium 136 (136-145) meq/L Potassium 3.8 (3.5-5.1) meq/L Chloride 103 (98-107) meq/L Carbon Dioxide 25.3 (21.0-32.0) meq/L Anion Gap 8 (5-15) meq/L BUN 12 (7-18) mg/dL Creatinine 1.35 H (0.60-1.30) mg/dL Estimated GFR 56 L (>89) mL/min Random Glucose 124 H (74-106) mg/dL Lactic Acid (0.4-2.0) mmol/L Calcium 8.3 L (8.5-10.1) mg/dL Total Bilirubin 0.9 (0.2-1.0) mg/dL AST 44 H (15-37) U/L ALT 36 (12-78) U/L Alkaline Phosphatase 55 (45-117) U/L Total Creatine Kinase 193 (39-308) U/L CK-MB (CK-2) 1.2 (0.5-3.6) ng/mL Troponin I 0.04 (0.02-0.05) ng/mL Total Protein 7.9 (6.4-8.2) g/dL Albumin 2.7 L (3.4-5.0) g/dL Lipase (73-393) U/L Urine Color (Yellw/Straw) Urine Clarity (Clear) Urine pH (5.0-8.5) Ur Specific [place] (1.002-1.035) Urine Protein (Neg-Trace) mg/dL Urine Glucose (UA) (Negative) mg/dL Urine Ketones (Negative) mg/dL Urine Occult Blood (Negative) Urine Nitrate (Negative) Urine Bilirubin (Negative) Urine Urobilinogen (Less than 2) mg/dL Ur Leukocyte Esterase (Negative) Urine RBC (0-3) /hpf Urine WBC (0-5) /hpf Ur Squamous Epith Cells (0-5) /hpf Urine Bacteria (None) /hpf Micro UA Comment Urine Culture Comments 12/20/17 12/20/17 12/20/17 Range/Units 08:10 08:10 08:10 WBC (4.0-11.0) th/mm3 RBC (4.50-5.90) mil/mm3 Hgb (13.0-17.0) gm/dL Hct (39.0-51.0) % MCV (80.0-100.0) fL MCH (27.0-34.0) pg MCHC (32.0-36.0) % RDW (11.6-17.2) % Plt Count (150-450) th/mm3 MPV (7.0-11.0) fL Neut % (Auto) (16.0-70.0) % Lymph % (Auto) (9.0-44.0) % Bond % (Auto) (0.0-8.0) % Eos % (Auto) (0.0-4.0) % Baso % (Auto) (0.0-2.0) % Neut # (Auto) (1.8-7.7) th/mm3 Lymph # (Auto) (1.0-4.8) th/mm3 Bond # (Auto) (0.0-0.9) th/mm3 Eos # (Auto) (0.0-0.4) th/mm3 Baso # (Auto) (0.0-0.2) th/mm3 WBC Differential Differential Comment PT (9.8-11.6) sec INR Ratio APTT (24.3-30.1) sec Sodium (136-145) meq/L Potassium (3.5-5.1) meq/L Chloride (98-107) meq/L Carbon Dioxide (21.0-32.0) meq/L Anion Gap (5-15) meq/L BUN (7-18) mg/dL Creatinine (0.60-1.30) mg/dL Estimated GFR (>89) mL/min Random Glucose (74-106) mg/dL Lactic Acid 2.1 H (0.4-2.0) mmol/L Calcium (8.5-10.1) mg/dL Total Bilirubin (0.2-1.0) mg/dL AST (15-37) U/L ALT (12-78) U/L Alkaline Phosphatase (45-117) U/L Total Creatine Kinase 195 (39-308) U/L CK-MB (CK-2) (0.5-3.6) ng/mL Troponin I (0.02-0.05) ng/mL Total Protein (6.4-8.2) g/dL Albumin (3.4-5.0) g/dL Lipase 69 L (73-393) U/L Urine Color Red (Yellw/Straw) Urine Clarity Cloudy H (Clear) Urine pH 6.0 (5.0-8.5) Ur Specific [place] 1.016 (1.002-1.035) Urine Protein 100 H (Neg-Trace) mg/dL Urine Glucose (UA) 50 (Negative) mg/dL Urine Ketones Negative (Negative) mg/dL Urine Occult Blood Large H (Negative) Urine Nitrate Negative (Negative) Urine Bilirubin Negative (Negative) Urine Urobilinogen Less than 2 (Less than 2) mg/dL Ur Leukocyte Esterase Negative (Negative) Urine RBC (0-3) /hpf Urine WBC 3 (0-5) /hpf Ur Squamous Epith Cells 2 (0-5) /hpf Urine Bacteria Moderate H (None) /hpf Micro UA Comment Culture indicated Urine Culture Comments Culture indicated 12/20/17 12/20/17 12/20/17 Range/Units 15:55 15:55 16:58 WBC (4.0-11.0) th/mm3 RBC (4.50-5.90) mil/mm3 Hgb 9.2 L (13.0-17.0) gm/dL Hct 27.4 L (39.0-51.0) % MCV (80.0-100.0) fL MCH (27.0-34.0) pg MCHC (32.0-36.0) % RDW (11.6-17.2) % Plt Count (150-450) th/mm3 MPV (7.0-11.0) fL Neut % (Auto) (16.0-70.0) % Lymph % (Auto) (9.0-44.0) % Bond % (Auto) (0.0-8.0) % Eos % (Auto) (0.0-4.0) % Baso % (Auto) (0.0-2.0) % Neut # (Auto) (1.8-7.7) th/mm3 Lymph # (Auto) (1.0-4.8) th/mm3 Bond # (Auto) (0.0-0.9) th/mm3 Eos # (Auto) (0.0-0.4) th/mm3 Baso # (Auto) (0.0-0.2) th/mm3 WBC Differential Differential Comment PT (9.8-11.6) sec INR Ratio APTT (24.3-30.1) sec Sodium (136-145) meq/L Potassium (3.5-5.1) meq/L Chloride (98-107) meq/L Carbon Dioxide (21.0-32.0) meq/L Anion Gap (5-15) meq/L BUN (7-18) mg/dL Creatinine (0.60-1.30) mg/dL Estimated GFR (>89) mL/min Random Glucose (74-106) mg/dL Lactic Acid 1.3 (0.4-2.0) mmol/L Calcium (8.5-10.1) mg/dL Total Bilirubin (0.2-1.0) mg/dL AST (15-37) U/L ALT (12-78) U/L Alkaline Phosphatase (45-117) U/L Total Creatine Kinase 106 (39-308) U/L CK-MB (CK-2) (0.5-3.6) ng/mL Troponin I 0.03 (0.02-0.05) ng/mL Total Protein (6.4-8.2) g/dL Albumin (3.4-5.0) g/dL Lipase (73-393) U/L Urine Color (Yellw/Straw) Urine Clarity (Clear) Urine pH (5.0-8.5) Ur Specific [place] (1.002-1.035) Urine Protein (Neg-Trace) mg/dL Urine Glucose (UA) (Negative) mg/dL Urine Ketones (Negative) mg/dL Urine Occult Blood (Negative) Urine Nitrate (Negative) Urine Bilirubin (Negative) Urine Urobilinogen (Less than 2) mg/dL Ur Leukocyte Esterase (Negative) Urine RBC (0-3) /hpf Urine WBC (0-5) /hpf Ur Squamous Epith Cells (0-5) /hpf Urine Bacteria (None) /hpf Micro UA Comment Urine Culture Comments Imaging Data Radiologist's impression: Abdomen/Pelvis CT 12/20/17 00:00 CONCLUSION: 1. Redemonstration of heterogeneous soft tissue mass arising from the inferior pole of the right kidney which appears grossly stable in size measuring up to 12.1 cm and contains coarse calcifications. 2. There is hyperdense material noted in the right renal collecting system and proximal ureter as well as dependently in the bladder. In the absence of recent contrast administration, findings are concerning for hemorrhage into the renal collecting system with bilateral hematoma. Clinical correlation is recommended. 3. Diffuse mesenteric edema and trace ascites. Head CT 12/20/17 00:00 CONCLUSION: Negative CT Head non contrast. . Chest X-Ray 12/20/17 07:56 CONCLUSION: 1. Subtle patchy airspace opacities in the left lower lung zone concerning for developing pneumonia in the appropriate clinical setting. Consider formal PA and lateral views if there is continued clinical uncertainty. Discharge Plan Discharge Disposition Patient Disposition: 30 Still Patient Discharge Condition Condition: Stable Discharge Details Diagnosis: Acute urinary obstruction, Pneumonia, Fever Physicians Team ED Provider: Jessica Roldan Primary Care Provider: Primary Care Jerri Soliman Attending Provider: Jesus Meyer Interventions Interventions: ED Discharge Assessment Last Done: 12/20/17 13:31 Vital Signs Last Done: 12/20/17 07:40 Status ED Status: Left Department Discharge Information Discharge Date/Time: 12/20/17 13:31
[2017-12-20 08:35] LABS: Baso # (Auto) 0.1 th/mm3 (0.0-0.2); Baso % (Auto) 0.5 % (0.0-2.0); Eos % (Auto) 0.1 % (0.0-4.0); Hematocrit 28.2 % (39.0-51.0); Hemoglobin 9.4 gm/dL (13.0-17.0); Lymph % (Auto) 4.6 % (9.0-44.0); Mean Corpuscular HGB Conc 33.4 % (32.0-36.0); Mean Corpuscular Hemoglobin 29.1 pg (27.0-34.0); Mean Platelet Volume 8.3 fL (7.0-11.0); Mono # (Auto) 1.3 th/mm3 (0.0-0.9); Mono % (Auto) 6.2 % (0.0-8.0); Neut # (Auto) 18.9 th/mm3 (1.8-7.7); Neut % (Auto) 88.6 % (16.0-70.0); Platelet Count 249 th/mm3 (150-450); Red Blood Count 3.24 mil/mm3 (4.50-5.90); Red Cell Distribution Width 14.8 % (11.6-17.2); White Blood Count 21.3 th/mm3 (4.0-11.0)
--- NOTE | 2017-12-20 08:41 | XR ---
EXAM DATE: 12/20/2017 8:29 AM EDT AGE/SEX: 52 years / Male INDICATIONS: Abdominal pain, fever, hematuria, and hematochezia. CLINICAL DATA: This is the patient's initial encounter. Patient reports that signs and symptoms have been present for 1 week and indicates a pain score of 9/10. MEDICAL/SURGICAL HISTORY: Hepatitis C. None. [place] [facility] [place]. . FINDINGS: Subtle patchy airspace opacities in the left lower lung zone. Cardiomediastinal contours are stable. Bony thorax is intact. CONCLUSION: 1. Subtle patchy airspace opacities in the left lower lung zone concerning for developing pneumonia in the appropriate clinical setting. Consider formal PA and lateral views if there is continued clini michelle uncertainty. Electronically signed by: Johnnie Roger MD 12/20/2017 8:39 AM EDT
[2017-12-20 08:45] LABS: Activated Partial Thrombo Time 31.1 sec (24.3-30.1); INR 1.3 Ratio; Prothrombin Time 12.7 sec (9.8-11.6)
[2017-12-20 08:58] LABS: Bacteria,Urine Moderate /hpf; Bilirubin,Urine Negative (Negative); Clarity,Urine Cloudy (Clear); Color,Urine Red (Yellw/Straw); Glucose,Urine (UA) 50 mg/dL (Negative); Leukocyte Esterase,Urine Negative (Negative); Nitrite,Urine Negative (Negative); Specific Gravity,Urine 1.016 (1.002-1.035); Squamous Epithelial Cell,Urine 2 /hpf (0-5)
[2017-12-20] MEDS ORDERED: Vancomycin Inj 1 GM/200 ML PIGGYBACK IV.SIG ONE (09:02)
[2017-12-20] MEDS ORDERED: Azithromycin Inj 500 MG in Sodium Chlor 0.9% Inj 250 ML IV.SIG ONE (09:02)
[2017-12-20 09:15] LABS: Albumin 2.7 g/dL (3.4-5.0); Anion Gap 8 meq/L (5-15); Aspartate Aminotransferase 44 U/L (15-37); Blood Urea Nitrogen 12 mg/dL (7-18); Calcium 8.3 mg/dL (8.5-10.1); Carbon Dioxide 25.3 meq/L (21.0-32.0); Chloride 103 meq/L (98-107); Glomerular Filtration Rate 56 mL/min (>89); Glucose,Random 124 mg/dL (74-106); Potassium 3.8 meq/L (3.5-5.1); Sodium 136 meq/L (136-145)
[2017-12-20] MEDS ORDERED: Vancomycin Inj 1,000 MG in Sodium Chlor 0.9% Inj 250 ML IV.SIG ONE (09:15)
[2017-12-20 09:16] LABS: Alanine Aminotransferase 36 U/L (12-78)
[2017-12-20 09:20] LABS: Alkaline Phosphatase 55 U/L (45-117); Creatine Kinase 193 U/L (39-308); Total Protein 7.9 g/dL (6.4-8.2); Troponin I 0.04 ng/mL (0.02-0.05)
[2017-12-20 09:35] LABS: Creatine Kinase MB 1.2 ng/mL (0.5-3.6)
--- NOTE | 2017-12-20 10:54 | P.HPFP ---
History of Present Illness Primary Care Physician: No Primary Care Physician <Jesus Meyer - 12/21/17 20:04> No Primary Care Physician <Sharri Canseco - 12/20/17 19:00> History of Present Illness: 52 y/o M, IVDU with hx of Renal Cell Carcinoma, presents meeting SEPSIS criteria and is found to have lung consolidation, renal hemorrhage and gross hematuria. Pt comes in because of no urination x 24 hours. The last time he urinated was yesterday morning and it was only a small amount. This has happened once before and he was admitted to the [facility] and left AMA. He has had decreased urination for about 3 months now. He has been having burning with urination and he thinks he had a UTI when he was at the hospital 1 month ago. He has not been experiencing any chills. He has been feeling increased fatigue, SOB - with productive black mucous starting 1 month ago. Patient complains of abdominal pain that is throbbing, he cannot characterize it well. He feels abdominal pain to light touch and also can feel the pain when he moves. His most severe pain is in his back between his scapula; he states the pain is so bad that he cannot sit up at all. He has had exquisite back pain 1 day. Denies any sick contacts. Denies CP. Denies any cough or shortness of breath. Denies any confusion or change in mental status. <Sharri Canseco - 12/20/17 19:00> - Diagnosis (1) Sepsis (2) Bacteremia (3) Renal hemorrhage, right (4) Renal cell carcinoma (5) IVDU (intravenous drug user) (6) Elevated serum creatinine (7) Nutrition, metabolism, and development symptoms <Jesus Meyer - 12/21/17 20:04> (1) Sepsis (2) Pneumonia (3) Renal hemorrhage, right (4) Renal cell carcinoma (5) IVDU (intravenous drug user) (6) Elevated serum creatinine (7) Nutrition, metabolism, and development symptoms <Sharri Canseco - 12/20/17 18:55> Inpatient Certification: I certify that the inpatient services were ordered in accordance with Medicare regulations governing the order. This includes certification that hospital inpatient services are reasonable and necessary and in the case of services not specified as inpatient-only under 42 CFR 419.22(n), that they are appropriately provided as inpatient services in accordance to with the 2-midnight benchmark under 43 CFR 412.3(e) <Jesus Meyer 12/21/17 19:53> Review of Systems Constitutional: Reports daytime sleepiness, Denies body ache(s) <Sharri Canseco 12/20/17 11:17> Eyes: Denies blurry vision [facility]> Cardiovascular: Denies chest pain, Denies chest pain at rest, Denies excessive sweating <Sharri Canseco 12/20/17 11:17> Respiratory: Reports change in phlegm color [facility] 12/20/17 11:17> Gastrointestinal: Reports abdominal pain, Denies black, tarry stools, Denies change in bowel habits <Sharri Canseco 12/20/17 11:17> Genitourinary: Reports blood in urine (x 3 months), Reports decreased urination <Sharri aCnseco 12/20/17 11:17> Musculoskeletal: Reports abnormal walking (walking awkward because of belly pain ) <Sharri Canseco 12/20/17 11:17> Psychiatric: Denies confusion, Denies memory loss, Denies mood swings <Sharri Canseco 12/20/17 11:17> PMFSH - History History Provided By: Patient <Sharri Canseco 12/20/17 10:54> - Medical History Medical History: Medical History (Last Updated 12/20/17 @ 11:16 by Sharri Canseco MD, R2) Ankle fracture, right Heroin abuse Kidney malignancy Kidney mass <BetsyJesus 12/21/17 19:53> Medical History (Last Updated 12/20/17 @ 11:16 by Sharri Canseco MD, R2) Ankle fracture, right Heroin abuse Kidney malignancy Kidney mass <Sharri Canseco 12/20/17 11:17> - Tobacco History Second Hand Smoke Exposure: Yes <Sharri Canseco 12/20/17 10:54> Tobacco Use In Past 30 Days: Yes <Sharri Canseco 12/20/17 10:54> Smoking Status: Current every day smoker (1 pack/day x 30 years) <Sharri Canseco 12/20/17 11:17> Tobacco Type: Cigarettes <Sharri Canseco 12/20/17 10:54> - Alcohol History How Often Do You Have a Drink Containing Alcohol: Never <Sharri Canseco 08/04 10:54> - Substance Use History Substance History: Active Abuse <Sharri Canseco 12/20/17 10:54> - Substance Use Type Heroin Status: Active <Sharri Canseco 12/20/17 10:54> Route Used: Intravenously <Sharri Canseco 12/20/17 10:54> Reason for Use: Get High <Sharri Canseco 12/20/17 10:54> - Travel History Recent Travel in the [facility] Within the Last 8 Weeks: No <Sharri Canseco 10:54> Recent Travel Out of the Country Within the Last 8 Weeks: No <Sharri Canseco 12/20/17 10:54> - Immunization History Tetanus Immunization: <5 Years <Sharri Canseco 12/20/17 10:54> Hx Influenza Vaccine This Season: Yes <Sharri Canseco 12/20/17 10:54> Medications and Allergies Allergies Allergy/AdvReac Type Severity Reaction Status Date / Time codeine Allergy Mild Itching Verified 12/20/17 07:49 iodine Allergy Unknown unknown Verified 12/20/17 07:49 potassium iodide Allergy Unknown unknown Verified 12/20/17 07:49 povidone-iodine Allergy Unknown unknown Verified 12/20/17 07:49 sodium iodide Allergy Unknown unknown Verified 12/20/17 07:49 sodium iodide Allergy Unknown unknown Verified 12/20/17 07:49 <Jesus Meyer - 12/21/17 20:04> Active Medications: Active Medications Acetaminophen (Tylenol) 650 mg PO Q4H PRN PRN Reason: Temp > 100.4 Last Admin: 12/20/17 16:29 Dose: 650 mg Al Hydroxide/Mg Hydroxide (Milk Of Magnesia Liq) 30 ml PO Q12H PRN PRN Reason: Mild Constipation Albuterol (Duoneb Neb (Prn)) 1 ampul NEB Q4HR NEB PRN PRN Reason: SHORTNESS OF BREATH/WHEEZING Bisacodyl (Dulcolax Supp) 10 mg RECTAL DAILY PRN PRN Reason: SEVERE CONSITIPATION Enalaprilat (Vasotec Inj) 1.25 mg IV.PUSH Q6H PRN PRN Reason: HYPERTENSION Last Admin: 12/20/17 16:53 Dose: 1.25 mg Flumazenil (Romazecon Inj) 0.2 mg IV.PUSH Q1M PRN PRN Reason: OVERSEDATION Haloperidol Lactate (Haldol Inj) 1 mg IV.PUSH Q15M PRN PRN Reason: for severe agitation Sodium Chloride (Ns Inj) 1,000 mls @ 130 mls/hr IV.CONT .Q7H42M YRN Last Admin: 12/21/17 12:31 Dose: 130 mls/hr Pharmacy Profile Note (Vancomycin Consult Pharmacy) 0 mls @ 0 mls/hr OTHER UNSCH YRN Piperacillin/Tazobactam/Dextrose (Zosyn 4.5 Gm Premix) 4.5 gm in 100 mls @ 200 mls/hr IV.SIG Q6H YRN Last Infusion: 12/21/17 15:59 Dose: Infused Vancomycin HCl 1,250 mg/ (Sodium Chloride) 262.5 mls @ 250 mls/hr IV.SIG Q12H YRN Last Infusion: 12/21/17 13:48 Dose: Infused Hydromorphone/Sodium Chloride (Dilaudid Blocking Machine Operator Second Inj) 6 mg in 30 mls @ 0 mls/hr TRANSPORTATION JOB TITLES UNSCH PRN PRN Reason: per TRANSPORTATION JOB TITLES parameters Last Admin: 12/21/17 17:44 Dose: 0 mls/hr Lactulose (Lactulose Liq) 30 ml PO DAILY PRN PRN Reason: SEVERE CONSITIPATION Lorazepam (Ativan) 1 mg PO Q4H PRN PRN Reason: for CIWA 8-10 Lorazepam (Ativan Inj) 2 mg IV.PUSH Q2H PRN PRN Reason: for CIWA 11-14 Lorazepam (Ativan Inj) 2 mg IV.PUSH Q1H PRN PRN Reason: for CIWA 15-20 Lorazepam (Ativan Inj) 2 mg IV.PUSH Q15M PRN PRN Reason: for CIWA > 20 Lorazepam (Ativan Inj) 1 mg IV.PUSH Q4H PRN PRN Reason: for CIWA 8-10 Lorazepam (Ativan) 2 mg PO Q2H PRN PRN Reason: for CIWA 11-14 Metoclopramide HCl (Reglan Inj) 5 mg IV.PUSH Q6H PRN; Protocol PRN Reason: NAUSEA OR VOMITING Miscellaneous Information ([facility] Ordered Lab Info) 0 each OTHER ONCE ONE Stop: 12/22/17 21:46 Naloxone HCl (Narcan Inj) 0.4 mg IV.PUSH PRN PRN PRN Reason: SEE LABEL COMMENTS Sennosides (Senokot) 17.2 mg PO Q12H PRN PRN Reason: Moderate Constipation Temazepam (Restoril) 15 mg PO HS PRN PRN Reason: INSOMNIA <Jesus Meyer - 12/21/17 20:04> Active Medications Sodium Chloride (Ns Inj) 1,000 mls @ 0 mls/hr IV.SIG .Q0M YRN Last Admin: 12/20/17 08:24 Dose: 999 mls/hr <Sharri Canseco - 12/20/17 10:54> Exam Vital signs: Vital Signs 12/20/17 20:00 12/21/17 00:00 12/21/17 04:00 Temperature 98.0 F 98.1 F 97.9 F Pulse Rate 70 73 70 Respiratory Rate 14 14 14 Blood Pressure 120/62 119/61 152/86 H Pulse Oximetry 95 95 97 12/21/17 08:00 12/21/17 09:03 12/21/17 09:04 Temperature 97.4 F L Pulse Rate 61 Respiratory Rate 17 10 L 17 Blood Pressure 164/100 H Pulse Oximetry 97 12/21/17 12:00 12/21/17 13:47 12/21/17 15:44 Temperature 97.4 F L Pulse Rate 60 Respiratory Rate 17 17 16 Blood Pressure 161/96 H Pulse Oximetry 98 12/21/17 16:00 12/21/17 17:13 12/21/17 17:41 Temperature 98.0 F Pulse Rate 67 Respiratory Rate 17 18 Blood Pressure 156/94 H Pulse Oximetry 95 95 12/21/17 18:51 Temperature Pulse Rate Respiratory Rate 17 Blood Pressure Pulse Oximetry Intake & Output 12/21/17 12/21/17 12/22/17 06:59 18:59 06:59 Intake Total 2200 / 2200 1462.5 / 1462.5 Output Total 2375 / 2375 Balance 2200 / 2200 -912.5 / -912.5 Weight 80.3 kg Intake: IV 2200 / 2200 1462.5 / 1462.5 NS Inj 1,000 ML @ 130 mls/hr IV 1999 / 1999 1000 / 1000 .CONT .Q7H42M YRN Rx#:[id number] Zosyn 4.5 GM Premix 4.5 gm In 200 / 200 200 / 200 100 ml @ 200 mls/hr IV.SIG Q6H YRN Rx#:[id number] Vancomycin Inj 1,250 MG In NS 262.5 / 262.5 Inj 250 ML @ 250 mls/hr IV.SIG Q12H YRN Rx#:[id number] Output: Urine 2375 / 2375 Other: Post Void Residual 400 # Voids 1 Date of Last Bowel Movement 12/18/17 <Jesus Meyer - 12/21/17 20:04> Vital Signs 12/20/17 07:40 12/20/17 07:42 Temperature 98.3 F 101.6 F H Pulse Rate 79 75 Respiratory Rate 16 14 Blood Pressure 118/71 157/92 H Pulse Oximetry 100 96 Intake & Output 12/19/17 12/20/17 12/20/17 18:59 06:59 18:59 Weight 90.718 kg <Sharri Canseco - 12/20/17 10:54> - Constitutional mild distress <Sharri Canseco - 12/20/17 19:00> - Routine HEENT Exam Head: Present: normocephalic, atraumatic <Sharri Canseco - 12/20/17 19:00> ENT: Present: mucous membranes dry <Sharri Canseco - 12/20/17 19:00> - Routine Neck Exam Absent: full ROM (Pain with motion of the neck to left and right, no pain with up-and-down motion), carotid bruit, tenderness, swelling, meningismus <Sharri Canseco - 12/20/17 19:00> - Routine Chest/Breast/Axilla Exam Chest wall: Absent: tenderness <Sharri Canseco - 12/20/17 19:00> - Routine Respiratory Exam Present: CTA bilaterally (Auscultated anteriorly). Absent: accessory muscle use , decreased breath sounds, diminished air movement <Michellees,Sharri - 19:00> - Routine Cardiovascular Exam Present: RRR, S1, S2, murmur (Loud 4 out of 6 systolic murmur) <[facility] 12/20/17 19:00> - Routine Abdominal Exam Present: normoactive bowel sounds, tenderness (Tender to mild palpation in all quadrants), distended, rebound (Possible rebound tenderness). Absent: soft < [facility] 12/20/17 19:00> - Routine Extremities Exam Present: full ROM, pulses intact, normal capillary refill. Absent: cyanosis, clubbing, edema, calf tenderness, So's sign <[facility] 12/20/17 19: 00> - Routine Skin Exam Present: intact, lesions (Lesions over both arms where his injection sites were , biggest is 1 cm x 1 cm, erythematous but no drainage). Absent: cyanosis < [facility] 12/20/17 19:00> - Routine Neurological Exam Present: alert, oriented X3, CN II-XII intact, altered mental status (Falls asleep during conversation). Absent: pronator drift <[facility] 19:00> Results - Labs Result diagrams: 12/21/17 16:00 12/21/17 03:47 <Jesus Meyer - 12/21/17 20:04> Abnormal lab results 12/20/17 12/20/17 12/21/17 Range/Units 08:10 22:40 03:47 WBC 17.8 H (4.0-11.0) th/mm3 RBC 3.47 L (4.50-5.90) mil/mm3 Hgb 10.0 L 10.0 L (13.0-17.0) gm/dL Hct 29.8 L 29.7 L (39.0-51.0) % Neut % (Auto) 84.6 H (16.0-70.0) % Lymph % (Auto) 7.9 L (9.0-44.0) % Neut # (Auto) 15.1 H (1.8-7.7) th/mm3 Caroline # (Auto) 1.2 H (0.0-0.9) th/mm3 PT (9.8-11.6) sec Estimated GFR (>89) mL/min Calcium (8.5-10.1) mg/dL Albumin (3.4-5.0) g/dL Urine Opiates Screen Pos H (Neg) Urine Cocaine Screen Pos H (Neg) 12/21/17 12/21/17 12/21/17 Range/Units 03:47 03:47 11:26 WBC (4.0-11.0) th/mm3 RBC (4.50-5.90) mil/mm3 Hgb 10.8 L (13.0-17.0) gm/dL Hct 32.5 L (39.0-51.0) % Neut % (Auto) (16.0-70.0) % Lymph % (Auto) (9.0-44.0) % Neut # (Auto) (1.8-7.7) th/mm3 Caroline # (Auto) (0.0-0.9) th/mm3 PT 12.3 H (9.8-11.6) sec Estimated GFR 78 L (>89) mL/min Calcium 7.8 L (8.5-10.1) mg/dL Albumin 2.1 L D (3.4-5.0) g/dL Urine Opiates Screen (Neg) Urine Cocaine Screen (Neg) 12/21/17 Range/Units 16:00 WBC (4.0-11.0) th/mm3 RBC (4.50-5.90) mil/mm3 Hgb 10.9 L (13.0-17.0) gm/dL Hct 32.9 L (39.0-51.0) % Neut % (Auto) (16.0-70.0) % Lymph % (Auto) (9.0-44.0) % Neut # (Auto) (1.8-7.7) th/mm3 Caroline # (Auto) (0.0-0.9) th/mm3 PT (9.8-11.6) sec Estimated GFR (>89) mL/min Calcium (8.5-10.1) mg/dL Albumin (3.4-5.0) g/dL Urine Opiates Screen (Neg) Urine Cocaine Screen (Neg) Short CBC 08/03/18 08/04/18 08/04/18 Range/Units 22:40 03:47 11:26 WBC 17.8 H (4.0-11.0) th/mm3 Hgb 10.0 L 10.0 L 10.8 L (13.0-17.0) gm/dL Hct 29.8 L 29.7 L 32.5 L (39.0-51.0) % Plt Count 255 (150-450) th/mm3 12/21/17 Range/Units 16:00 WBC (4.0-11.0) th/mm3 Hgb 10.9 L (13.0-17.0) gm/dL Hct 32.9 L (39.0-51.0) % Plt Count (150-450) th/mm3 BMP 12/21/17 03:47 Sodium 136 Potassium 3.7 Chloride 102 Carbon Dioxide 24.2 BUN 14 Creatinine 1.01 Calcium 7.8 L Cardiac Enzymes 12/20/17 Range/Units 22:40 Troponin I 0.03 (0.02-0.05) ng/mL Liver Function 12/21/17 Range/Units 03:47 Total Bilirubin 0.9 (0.2-1.0) mg/dL AST 29 (15-37) U/L ALT 25 (12-78) U/L Alkaline Phosphatase 55 (45-117) U/L Albumin 2.1 L D (3.4-5.0) g/dL <Jesus Meyer - 12/21/17 20:04> Abnormal lab results 12/20/17 12/20/17 12/20/17 Range/Units 08:10 08:10 08:10 WBC 21.3 H (4.0-11.0) th/mm3 RBC 3.24 L (4.50-5.90) mil/mm3 Hgb 9.4 L (13.0-17.0) gm/dL Hct 28.2 L (39.0-51.0) % Neut % (Auto) 88.6 H (16.0-70.0) % Lymph % (Auto) 4.6 L (9.0-44.0) % Neut # (Auto) 18.9 H (1.8-7.7) th/mm3 Caroline # (Auto) 1.3 H (0.0-0.9) th/mm3 PT 12.7 H (9.8-11.6) sec APTT 31.1 H (24.3-30.1) sec Creatinine 1.35 H (0.60-1.30) mg/dL Estimated GFR 56 L (>89) mL/min Random Glucose 124 H (74-106) mg/dL Lactic Acid (0.4-2.0) mmol/L Calcium 8.3 L (8.5-10.1) mg/dL AST 44 H (15-37) U/L Albumin 2.7 L (3.4-5.0) g/dL Urine Clarity (Clear) Urine Protein (Neg-Trace) mg/dL Urine Occult Blood (Negative) Urine Bacteria (None) /hpf 12/20/17 12/20/17 Range/Units 08:10 08:10 WBC (4.0-11.0) th/mm3 RBC (4.50-5.90) mil/mm3 Hgb (13.0-17.0) gm/dL Hct (39.0-51.0) % Neut % (Auto) (16.0-70.0) % Lymph % (Auto) (9.0-44.0) % Neut # (Auto) (1.8-7.7) th/mm3 Caroline # (Auto) (0.0-0.9) th/mm3 PT (9.8-11.6) sec APTT (24.3-30.1) sec Creatinine (0.60-1.30) mg/dL Estimated GFR (>89) mL/min Random Glucose (74-106) mg/dL Lactic Acid 2.1 H (0.4-2.0) mmol/L Calcium (8.5-10.1) mg/dL AST (15-37) U/L Albumin (3.4-5.0) g/dL Urine Clarity Cloudy H (Clear) Urine Protein 100 H (Neg-Trace) mg/dL Urine Occult Blood Large H (Negative) Urine Bacteria Moderate H (None) /hpf Short CBC 12/20/17 Range/Units 08:10 WBC 21.3 H (4.0-11.0) th/mm3 Hgb 9.4 L (13.0-17.0) gm/dL Hct 28.2 L (39.0-51.0) % Plt Count 249 (150-450) th/mm3 BMP 12/20/17 08:10 Sodium 136 Potassium 3.8 Chloride 103 Carbon Dioxide 25.3 BUN 12 Creatinine 1.35 H Calcium 8.3 L Cardiac Enzymes 12/20/17 Range/Units 08:10 Total Creatine Kinase 193 (39-308) U/L CK-MB (CK-2) 1.2 (0.5-3.6) ng/mL Troponin I 0.04 (0.02-0.05) ng/mL Liver Function 12/20/17 Range/Units 08:10 Total Bilirubin 0.9 (0.2-1.0) mg/dL AST 44 H (15-37) U/L ALT 36 (12-78) U/L Alkaline Phosphatase 55 (45-117) U/L Albumin 2.7 L (3.4-5.0) g/dL Urine 12/20/17 Range/Units 08:10 Urine Color Red (Yellw/Straw) Urine Clarity Cloudy H (Clear) Urine pH 6.0 (5.0-8.5) Ur Specific [place] 1.016 (1.002-1.035) Urine Protein 100 H (Neg-Trace) mg/dL Urine Glucose (UA) 50 (Negative) mg/dL <Sharri Canseco - 12/20/17 10:54> - Imaging Impressions Chest X-Ray 12/21/17 06:00 CONCLUSION: Negative examination. <Jesus Meyer - 12/21/17 20:04> Impressions Chest X-Ray 12/20/17 07:56 CONCLUSION: 1. Subtle patchy airspace opacities in the left lower lung zone concerning for developing pneumonia in the appropriate clinical setting. Consider formal PA and lateral views if there is continued clinical uncertainty. <Sharri Canseco - 12/20/17 10:54> Caprini VTE Risk Assessment Caprini VTE Risk Assessment: No/Low Risk (score <= 1) <Sharri Canseco - 12/20 19:00> Caprini Risk Assessment Model: Point Value = 1 Point Value = 2 Point Value = 3 Point Value = 5 Age 41-60 Minor surgery BMI > 25 kg/m2 Swollen legs Varicose veins or History of unexplained or recurrent spontaneous Oral contraceptives or hormone replacement Sepsis (< 1 month) Serious lung disease, including pneumonia (< 1 month) Abnormal pulmonary function Acute myocardial infarction Congestive heart failure (< 1 month) History of inflammatory bowel disease Medical patient at bed rest Age 61-74 Arthroscopic surgery Major open surgery (> 45 min) Laparoscopic surgery (> 45 min) Malignancy Confined to bed (> 72 hours) Immobilizing plaster cast Central venous access Age >= 75 History of VTE Family history of VTE Factor V Leiden Prothrombin [id number] Lupus anticoagulant Anticardiolipin antibodies Elevated serum homocysteine Heparin-induced thrombocytopenia Other congenital or acquired thrombophilia Stroke (< 1 month) Elective arthroplasty Hip, pelvis, or leg fracture Acute spinal cord injury (< 1 month) <Jesus Meyer - 12/21/17 20:04> Point Value = 1 Point Value = 2 Point Value = 3 Point Value = 5 Age 41-60 Minor surgery BMI > 25 kg/m2 Swollen legs Varicose veins or History of unexplained or recurrent spontaneous Oral contraceptives or hormone replacement Sepsis (< 1 month) Serious lung disease, including pneumonia (< 1 month) Abnormal pulmonary function Acute myocardial infarction Congestive heart failure (< 1 month) History of inflammatory bowel disease Medical patient at bed rest Age 61-74 Arthroscopic surgery Major open surgery (> 45 min) Laparoscopic surgery (> 45 min) Malignancy Confined to bed (> 72 hours) Immobilizing plaster cast Central venous access Age >= 75 History of VTE Family history of VTE Factor V Leiden Prothrombin 26363H Lupus anticoagulant Anticardiolipin antibodies Elevated serum homocysteine Heparin-induced thrombocytopenia Other congenital or acquired thrombophilia Stroke (< 1 month) Elective arthroplasty Hip, pelvis, or leg fracture Acute spinal cord injury (< 1 month) <Sharri Canseco - 12/20/17 10:54> Prophylaxis Regimen: Total Risk Factor Score Risk Level Prophylaxis Regimen 0-1 Low Early ambulation 2 Moderate Order ONE of the following: *Sequential Compression Device (SCD) *Heparin 5000 units SQ BID 3-4 Higher Order ONE of the following medications: *Heparin 5000 units SQ TID *Enoxaparin/Lovenox 40 mg SQ daily (WT < 150 kg, CrCl > 30 mL/min) *Enoxaparin/Lovenox 30 mg SQ daily (WT < 150 kg, CrCl > 10-29 mL/min) *Enoxaparin/Lovenox 30 mg SQ BID (WT < 150 kg, CrCl > 30 mL/min) AND/OR *Sequential Compression Device (SCD) 5 or more Highest Order ONE of the following medications: *Heparin 5000 units SQ TID (Preferred with Epidurals) *Enoxaparin/Lovenox 40 mg SQ daily (WT < 150 kg, CrCl > 30 mL/min) *Enoxaparin/Lovenox 30 mg SQ daily (WT < 150 kg, CrCl > 10-29 mL/min) *Enoxaparin/Lovenox 30 mg SQ BID (WT < 150 kg, CrCl > 30 mL/min) AND *Sequential Compression Device (SCD) <Jesus Meyer - 12/21/17 20:04> Total Risk Factor Score Risk Level Prophylaxis Regimen 0-1 Low Early ambulation 2 Moderate Order ONE of the following: *Sequential Compression Device (SCD) *Heparin 5000 units SQ BID 3-4 Higher Order ONE of the following medications: *Heparin 5000 units SQ TID *Enoxaparin/Lovenox 40 mg SQ daily (WT < 150 kg, CrCl > 30 mL/min) *Enoxaparin/Lovenox 30 mg SQ daily (WT < 150 kg, CrCl > 10-29 mL/min) *Enoxaparin/Lovenox 30 mg SQ BID (WT < 150 kg, CrCl > 30 mL/min) AND/OR *Sequential Compression Device (SCD) 5 or more Highest Order ONE of the following medications: *Heparin 5000 units SQ TID (Preferred with Epidurals) *Enoxaparin/Lovenox 40 mg SQ daily (WT < 150 kg, CrCl > 30 mL/min) *Enoxaparin/Lovenox 30 mg SQ daily (WT < 150 kg, CrCl > 10-29 mL/min) *Enoxaparin/Lovenox 30 mg SQ BID (WT < 150 kg, CrCl > 30 mL/min) AND *Sequential Compression Device (SCD) <Sharri Canseco - 12/20/17 10:54> Assessment and Plan - Assessment (1) Sepsis Code(s): A41.9 - Sepsis, unspecified organism Status: Acute (2) Bacteremia Code(s): R78.81 - Bacteremia Status: Acute (3) Renal hemorrhage, right Code(s): N28.89 - Other specified disorders of kidney and ureter Status: Acute (4) Renal cell carcinoma Code(s): C64.9 - Malignant neoplasm of unspecified kidney, except renal pelvis Status: Acute (5) IVDU (intravenous drug user) Code(s): F19.90 - Other psychoactive substance use, unspecified, uncomplicated Status: Acute (6) Elevated serum creatinine Code(s): R79.89 - Other specified abnormal findings of blood chemistry Status : Acute (7) Nutrition, metabolism, and development symptoms Code(s): R63.8 - Other symptoms and signs concerning food and fluid intake Status: Acute <Jesus Meyer - 12/21/17 20:04> (1) Sepsis Code(s): A41.9 - Sepsis, unspecified organism Status: Acute Plan: Febrile, WBC 21, possible consolidation on chest x-ray Treating empirically with vancomycin and Zosyn -If blood cultures negative or clinical improvement, will treat with Rocephin and azithromycin for community-acquired pneumonia Follow-up blood cultures Follow-up urine cultures Follow-up influenza A/B antigen Follow-up pneumococcal and Legionella urinary antigens Follow-up PA and lateral chest x-ray tomorrow Sputum cultures Nebs as needed (2) Pneumonia Code(s): J18.9 - Pneumonia, unspecified organism Status: Acute Plan: See plan above Chest x-ray: Subtle airspace opacities in left lower lung zone concerning for developing pneumonia, consider formal PA and lateral views if uncertain (3) Renal hemorrhage, right Code(s): N28.89 - Other specified disorders of kidney and ureter Status: Acute Plan: History of renal cell carcinoma, right kidney with hemorrhage into the kidney, gross hematuria Associated with pain in back, neck, abdomen Follow-up recommendations of urology; maintain catheter, IV fluids, TRANSPORTATION JOB TITLES for pain control, bedrest, H&H every 6 hours. For large H&H drop, may need to consult interventional radiology for embolization. If gross hematuria worsens, will place three-way catheter catheter IV fluids at maintenance Dilaudid TRANSPORTATION JOB TITLES Hemoglobin 9.4, will transfuse 1 unit for hemoglobin less than 7.0, will call interventional radiology for any large drop in hemoglobin CT: Right kidney hemorrhage (4) Renal cell carcinoma Code(s): C64.9 - Malignant neoplasm of unspecified kidney, except renal pelvis Status: Acute Plan: We will consult oncology once acutely stabilized (5) IVDU (intravenous drug user) Code(s): F19.90 - Other psychoactive substance use, unspecified, uncomplicated Status: Acute Plan: Signs of sepsis, IV drug user, 4/6 murmur on exam Echocardiogram: Normal Follow-up UDS Continue to monitor for signs of withdrawal CIWA protocol (6) Elevated serum creatinine Code(s): R79.89 - Other specified abnormal findings of blood chemistry Status : Acute Plan: Creat 1.35, increased from baseline 1.14-1.29 on previous visits Dehydration vs malignancy related Continue to f/u Creat IV hydration Avoid NSAIDs (7) Nutrition, metabolism, and development symptoms Code(s): R63.8 - Other symptoms and signs concerning food and fluid intake Status: Acute Plan: Fluids: IV fluids at maintenance Electrolytes:Continue to f/u and replete as needed Nutrition: Swallow eval before PO DVT ppx: SCDs only <Sharri Canseco - 12/20/17 18:55> - Assessment and Plan 52 y/o M, IVDU with hx of Renal Cell Carcinoma, presents meeting SEPSIS criteria and is found to have lung consolidation, renal hemorrhage and gross hematuria. <Sharri Canseco - 12/20/17 19:00>
[2017-12-20] MEDS ORDERED: Acetaminophen 325 MG Tablet PO PRN (11:34)
[2017-12-20] MEDS ORDERED: Temazepam 15 MG Capsule PO PRN (11:34)
[2017-12-20] MEDS ORDERED: Bisacodyl 10 MG Supp RECTAL PRN (11:34)
[2017-12-20] MEDS ORDERED: Vancomycin Consult Pharmacy 1 EACH OTHER SCH (11:59)
--- NOTE | 2017-12-20 13:42 | CT ---
EXAM DATE: 12/20/2017 1:38 PM EDT AGE/SEX: 52 years / Male INDICATIONS: Altered mental status. CLINICAL DATA: This is the patient's initial encounter. Patient reports that signs and symptoms have been present for 1 day and indicates a pain score of 0/10. MEDICAL/SURGICAL HISTORY: . kidney cancer, heroin abuse None. RADIATION DOSE: 64.63 CTDI (mGy) COMPARISON: No prior exams available for comparison. TECHNIQUE: CT of the head without contrast. Using automated exposure control and adjustment of the mA and/or kV according to patient size, radiation dose was kept as low as reasonably achievable to ob tain optimal diagnostic quality images. DICOM format image data is available electronically for revi ew and comparison. FINDINGS: Cerebrum: The ventricles are normal for age. No evidence of midline shift, mass lesion, hemorrhage or acute infarction. No extraaxial fluid collections are seen. Posterior Fossa: The cerebellum and brainstem are intact. The 4th ventricle is midline. The cerebe llopontine angle is unremarkable. Extracranial: The visualized portion of the orbits is intact. Skull: The calvaria is intact. No evidence of skull fracture. CONCLUSION: Negative CT Head non contrast. . Electronically signed by: Andrew Villalta MD 12/20/2017 1:40 PM EDT
[2017-12-20 13:45] LABS: Lipase 69 U/L (73-393)
[2017-12-20 13:47] LABS: Creatine Kinase 195 U/L (39-308)
--- NOTE | 2017-12-20 14:00 | CT ---
EXAM DATE: 12/20/2017 1:36 PM EDT AGE/SEX: 52 years / Male INDICATIONS: Abdomen and back pain. CLINICAL DATA: This is the patient's initial encounter. Patient reports that signs and symptoms have been present for 1 day and indicates a pain score of 10/10. MEDICAL/SURGICAL HISTORY: . kidney cancer, heroin abuse None. RADIATION DOSE: 8.04 CTDI (mGy) COMPARISON: [facility] [place], CT ABDOMEN & PELVIS W/O CONTRAST, 06/24/2017. . TECHNIQUE: Multiple contiguous axial images were obtained through the abdomen. Images were obtained using multiple row detector helical technique. Using automated exposure control and adjustment of the mA and/or kV according to patient size, radiation dose was kept as low as reasonably achievable to o btain optimal diagnostic quality images. DICOM format image data is available electronically for rev iew and comparison. FINDINGS: LOWER LUNGS: Patchy airspace consolidation in the lung bases bilaterally. LIVER: The liver has a homogeneous density without space-occupying lesion. There is no dilation of t he biliary tree. SPLEEN: Homogeneous density without enlargement. PANCREAS: Unremarkable without mass or calcification. KIDNEYS: There is redemonstration of a heterogeneously isointense mass arising from the inferior ashu e of the right kidney measuring up to 12.1 cm. There are regions of punctate calcifications centrally within the mass and overall appearance of the mass is unchanged. There is uniformly hyperdense mater ial noted in the renal collecting system and proximal ureter. Stable 2 mm calyceal calculus in the in ferior left kidney. ADRENAL GLANDS: Unremarkable. AORTA: Nicky-aneurysmal. BOWEL/MESENTERY: There is diffuse mesenteric edema with very trace free fluid primarily in the deep pelvis. There is seen throughout marginally dilated colon. Small bowel loops are normal in caliber. T here is no definitive pneumatosis or free air. ABDOMINAL WALL: Intact. RETROPERITONEUM: No evidence of adenopathy in the retrocrural, para-aortic, or deep pelvic regions. BLADDER: Bladder is largely decompressed from catheter. There is however hyperdense material t hat is slightly more heterogeneous in the posterior dependent bladder. REPRODUCTIVE: No abnormal masses or calcifications seen. BONY STRUCTURES: No significant focal lytic or blastic bony lesions. CONCLUSION: 1. Redemonstration of heterogeneous soft tissue mass arising from the inferior pole of the right kid morgan which appears grossly stable in size measuring up to 12.1 cm and contains coarse calcifications. 2. There is hyperdense material noted in the right renal collecting system and proximal ureter as we ll as dependently in the bladder. In the absence of recent contrast administration, findings are conc erning for hemorrhage into the renal collecting system with bilateral hematoma. Clinical correlation is recommended. 3. Diffuse mesenteric edema and trace ascites. Electronically signed by: Johnnie Roger MD 12/20/2017 1:59 PM EDT
[2017-12-20] MEDS: Piperacil/Tazo 4.5 GM Premix 4.5 GM/100 ML BAG IV.SIG SCH ×2 (15:42→22:56)
[2017-12-20] MEDS ORDERED: HYDROmorphone PF Inj 1 MG/ML Ampul IV.PUSH ONE (15:50)
[2017-12-20] MEDS ORDERED: Naloxone Inj 0.4 MG/ML Vial IV.PUSH PRN (15:50)
--- NOTE | 2017-12-20 16:12 | MB ---
cc: Johnny Fung DO DATE: 12/20/2017 HISTORY OF PRESENT ILLNESS: Mr. Granados is a pleasant 53-year-old male who has a history of renal cell carcinoma with a 12 cm right renal mass, who presented with diminished urine output and fever with abdominal pain. [facility], but left A[facility]. He also was not making much urine at the time and presently he has a catheter in place, which is draining efrain type urine. A CT scan also indicates that he does have some bleeding from the right kidney as well as some blood within the bladder also. His 16-Dutch catheter is presently draining. PAST MEDICAL HISTORY: He does have a history of hepatitis C with heroin abuse, renal cell mass. PAST SURGICAL HISTORY: Right ankle surgery. SOCIAL HISTORY: Presently smokes tobacco 1 pack a day for 30 years, but he does have active substance abuse history. FAMILY HISTORY: No family history of prostate cancer is noted. ALLERGIES: CODEINE, IODINE, POTASSIUM. MEDICATIONS: Please refer to the chart. REVIEW OF SYSTEMS: Notes abdominal pain, fever, difficulty with urination. Denies gait disturbances, bleeding disorders, chest pain, shortness of breath. The remaining review of systems were reviewed and were negative. PHYSICAL EXAMINATION: VITAL SIGNS: Presently, his temperature is 100.4, heart rate 77, respiratory rate 18, blood pressure 170/89, 100% on room air. GENERAL: He is a well-developed, well-nourished 52-year-old male, in moderate distress. HEENT: Normocephalic, atraumatic. Pupils equal, round, regular and reactive to light. Extraocular movements intact. NECK: Supple. HEART: Regular rate and rhythm. LUNGS: Diminished breath sounds bilaterally. ABDOMEN: Tense some guarding. Pain with palpation on the right side with a mass palpated. GENITOURINARY: Normal phallus. Testes descended. EXTREMITIES: Show no evidence of cyanosis, clubbing or edema. NEUROLOGIC: Cranial nerves 2-12 are intact. LABORATORY DATA: White count 21.3, hemoglobin 9.4, hematocrit 28.2, platelet count of 249. Sodium 136, potassium 3.8, chloride 103, CO2 of 25.3, BUN of 12, creatinine 1.35, glucose of 124. PT is 12.7, INR 1.3, PTT is 31.1. Urinalysis shows 3 white cells, numerous red cells. IMAGING STUDIES: CT scan again shows a 12 cm right renal mass with hemorrhage into the mass as well as into the bladder with evidence of gross hematuria. Chest x-ray showed patchy airspace opacities in the left lower lung zone concerning for development of pneumonia, but no lesions are identified. ASSESSMENT AND PLAN: A 52-year-old male with history of renal cell carcinoma involving the right kidney with hemorrhage into the kidney, as well as development of gross hematuria. Recommend maintaining the catheter now and start IV fluids. Would recommend a PROTOTYPE FABRICATOR for better pain control. The patient requires bedrest and serial hemoglobin and hematocrit every 8 hours. If bleeding becomes significant and hemoglobin drops, will need interventional radiology consultation with embolization and if gross hematuria worsens with clot retention, we will place a 22-Dutch 3-way catheter and start the patient on CBI if necessary. At present, we will continue with present drainage at this time. We will follow with you, and thank you for the consult and allowing me to participate in the care of this patient. DO BEVERLEY Henry/BEN , 03:52 PM , 03:58 PM
[2017-12-20 16:50] LABS: Troponin I 0.03 ng/mL (0.02-0.05)
[2017-12-20] MEDS ORDERED: HYDROmorphone PF Inj 2 MG/ML Vial IV.PUSH ONE (17:00)
[2017-12-20] MEDS: HYDROmorphone PCA Inj 6 MG/30 ML PCA.VIAL PCA PRN (17:06)
[2017-12-20] MEDS: Sod Chloride 0.9% Inj 1,000 ML IV.CONT SCH ×2 (17:29→22:56)
[2017-12-20 17:38] LABS: Hematocrit 27.4 % (39.0-51.0); Hemoglobin 9.2 gm/dL (13.0-17.0)
--- NOTE | 2017-12-20 17:39 | ECHRPT ---
Indication: CEREBRAL EMBOLISM CONCLUSIONS The left ventricular systolic function is normal with an estimated ejection fraction in the range of 60-65%. Normal left ventricular size. Wall thickness is normal. No regional wall motion abnormalities are present. Trace mitral valve regurgitation. There is trace tricuspid valve regurgitation. The estimated pulmonary arterial pressure is 30.3 mmHg. BP: / HR: Rhythm: Sinus MEASUREMENTS (Male / Female) Normal Values Technical Quality:Good 2D ECHO LV Diastolic Diameter PLAX 5.8 cm 4.2 - 5.9 / 3.9 - 5.3 cm LV Systolic Diameter PLAX 4.0 cm IVS Diastolic Thickness 1.2 cm 0.6 - 1.0 / 0.6 - 0.9 cm LVPW Diastolic Thickness 1.1 cm 0.6 - 1.0 / 0.6 - 0.9 cm LV Relative Wall Thickness 0.4 RV Internal Dim ED PLAX 2.7 cm LVOT Diameter 2.2 cm LA Systolic Diameter LX 3.5 cm 3.0 - 4.0 / 2.7 - 3.8 cm LV Ejection Fraction MOD 4C 67.1 % LV Ejection Fraction 4C AL 68.5 % M-MODE Aortic Root Diameter MM 2.4 cm LA Systolic Diameter MM 3.6 cm LA Ao Ratio MM 1.5 AV Cusp Separation MM 1.9 cm DOPPLER AV Peak Velocity 164.0 cm/s AV Peak Gradient 10.8 mmHg LVOT Peak Velocity 143.0 cm/s LVOT Peak Gradient 8.2 mmHg AV Area Cont Eq pk 3.3 cm MV Area PHT 5.5 cm Mitral E Point Velocity 108.0 cm/s Mitral A Point Velocity 87.9 cm/s Mitral E to A Ratio 1.2 LV E' Lateral Velocity 12.1 cm/s Mitral E to LV E' Lateral Ratio 8.9 LV E' Septal Velocity 8.5 cm/s Mitral E to LV E' Septal Ratio 12.7 TR Peak Velocity 225.0 cm/s TR Peak Gradient 20.3 mmHg Right Atrial Pressure 10.0 mmHg Pulmonary Artery Systolic Pressu 30.3 mmHg Right Ventricular Systolic Press 30.3 mmHg PV Peak Velocity 143.0 cm/s PV Peak Gradient 8.2 mmHg FINDINGS LEFT VENTRICLE The left ventricular systolic function is normal with an estimated ejection fraction in the range of 60-65%. Normal left ventricular size. Wall thickness is normal. No regional wall motion abnormalities are present. RIGHT VENTRICLE Normal right ventricular size and systolic function. LEFT ATRIUM The left atrial size is normal. RIGHT ATRIUM The right atrial size is normal. ATRIAL SEPTUM Normal atrial septal thickness without atrial level shunting by limited color doppler interrogation. AORTA The aortic root and proximal ascending aorta are normal in size on limited imaging. MITRAL VALVE Structurally normal mitral valve. Trace mitral valve regurgitation. AORTIC VALVE Trileaflet aortic valve. No aortic valve stenosis or regurgitation. TRICUSPID VALVE Structurally normal tricuspid valve. There is trace tricuspid valve regurgitation. The estimated pulmonary arterial pressure is 30.3 mmHg. PULMONARY VALVE No pulmonary valve regurgitation or stenosis. VESSELS The inferior vena cava is normal in size. PERICARDIUM No pericardial effusion. Lui Martino MD, FACC, FSCAI (Electronically Signed) Final Date:20 December 2017 17:38
[2017-12-20] MEDS ORDERED: LORazepam 1 MG Tablet PO PRN (18:45)
[2017-12-20] MEDS ORDERED: Haloperidol Inj 5 MG/ML Ampul IV.PUSH PRN (18:45)
[2017-12-20 20:53] LABS: Amphetamine Screen,Urine Neg (Neg); Barbiturate Screen,Urine Neg (Neg); Cannabinoid Screen,Urine Neg (Neg); Cocaine Screen,Urine Pos (Neg)
[2017-12-20 20:54] LABS: Opiate Screen,Urine Pos (Neg)
[2017-12-20 22:50] LABS: Hematocrit 29.8 % (39.0-51.0)
[2017-12-21] MEDS: HYDROmorphone PCA Inj 6 MG/30 ML PCA.VIAL PCA PRN ×5 (03:17→21:43)
[2017-12-21 04:24] LABS: Baso # (Auto) 0.1 th/mm3 (0.0-0.2); Baso % (Auto) 0.3 % (0.0-2.0); Eos # (Auto) 0.1 th/mm3 (0.0-0.4); Eos % (Auto) 0.4 % (0.0-4.0); Hematocrit 29.7 % (39.0-51.0); Lymph # (Auto) 1.4 th/mm3 (1.0-4.8); Lymph % (Auto) 7.9 % (9.0-44.0); Mean Corpuscular HGB Conc 33.6 % (32.0-36.0); Mean Corpuscular Hemoglobin 28.8 pg (27.0-34.0); Mean Corpuscular Volume 85.8 fL (80.0-100.0); Mean Platelet Volume 7.8 fL (7.0-11.0); Mono # (Auto) 1.2 th/mm3 (0.0-0.9); Mono % (Auto) 6.8 % (0.0-8.0); Neut # (Auto) 15.1 th/mm3 (1.8-7.7); Neut % (Auto) 84.6 % (16.0-70.0); Platelet Count 255 th/mm3 (150-450); Red Blood Count 3.47 mil/mm3 (4.50-5.90); Red Cell Distribution Width 14.9 % (11.6-17.2); White Blood Count 17.8 th/mm3 (4.0-11.0)
[2017-12-21 04:33] LABS: INR 1.2 Ratio; Prothrombin Time 12.3 sec (9.8-11.6)
[2017-12-21 05:00] LABS: Alanine Aminotransferase 25 U/L (12-78); Albumin 2.1 g/dL (3.4-5.0); Alkaline Phosphatase 55 U/L (45-117); Anion Gap 10 meq/L (5-15); Aspartate Aminotransferase 29 U/L (15-37); Blood Urea Nitrogen 14 mg/dL (7-18); Calcium 7.8 mg/dL (8.5-10.1); Carbon Dioxide 24.2 meq/L (21.0-32.0); Chloride 102 meq/L (98-107); Glomerular Filtration Rate 78 mL/min (>89); Glucose,Random 92 mg/dL (74-106); Potassium 3.7 meq/L (3.5-5.1); Sodium 136 meq/L (136-145)
[2017-12-21] MEDS: Piperacil/Tazo 4.5 GM Premix 4.5 GM/100 ML BAG IV.SIG SCH ×4 (05:15→21:36)
--- NOTE | 2017-12-21 08:48 | XR ---
EXAM DATE: 12/21/2017 8:40 AM EDT AGE/SEX: 52 years / Male INDICATIONS: Short of Breath CLINICAL DATA: This is the patient's subsequent encounter. Patient reports that signs and symptoms h ave been present for 2 days and indicates a pain score of 7/10. MEDICAL/SURGICAL HISTORY: Hepatitis C. None. COMPARISON: [facility] – [place], CHEST 1V SINGLE AP, 12/20/2017. . FINDINGS: A single AP view of the chest demonstrates the lungs to be symmetrically hypoinflated without evidenc e of mass, infiltrate or effusion. The cardiomediastinal contours are unremarkable. Osseous structu res are intact. CONCLUSION: Negative examination. Electronically signed by: Verna Horner MD 12/21/2017 8:46 AM EDT
[2017-12-21] MEDS: Sod Chloride 0.9% Inj 1,000 ML IV.CONT SCH ×3 (09:06→21:36)
[2017-12-21] MEDS: Vancomycin Inj 1,250 MG in Sodium Chlor 0.9% Inj 250 ML IV.SIG SCH ×2 (09:49→21:36)
--- NOTE | 2017-12-21 11:15 | P.PNFP ---
Subjective Interval history: Patient seen and examined bedside this morning. 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 He is feeling severe pain in his back and neck. He no longer has any abdominal pain. Denies any nausea vomiting. He is feeling chills and sweats. No chest pain or shortness of breath. <Sharri Canseco - 12/21/17 11:15> Results - Labs Result diagrams: 12/21/17 16:00 12/21/17 03:47 <Jesus Meyer - 12/21/17 20:02> Abnormal lab results 12/20/17 12/20/17 12/21/17 Range/Units 08:10 22:40 03:47 WBC 17.8 H (4.0-11.0) th/mm3 RBC 3.47 L (4.50-5.90) mil/mm3 Hgb 10.0 L 10.0 L (13.0-17.0) gm/dL Hct 29.8 L 29.7 L (39.0-51.0) % Neut % (Auto) 84.6 H (16.0-70.0) % Lymph % (Auto) 7.9 L (9.0-44.0) % Neut # (Auto) 15.1 H (1.8-7.7) th/mm3 [place] # (Auto) 1.2 H (0.0-0.9) th/mm3 PT (9.8-11.6) sec Estimated GFR (>89) mL/min Calcium (8.5-10.1) mg/dL Albumin (3.4-5.0) g/dL Urine Opiates Screen Pos H (Neg) Urine Cocaine Screen Pos H (Neg) 12/21/17 12/21/17 12/21/17 Range/Units 03:47 03:47 11:26 WBC (4.0-11.0) th/mm3 RBC (4.50-5.90) mil/mm3 Hgb 10.8 L (13.0-17.0) gm/dL Hct 32.5 L (39.0-51.0) % Neut % (Auto) (16.0-70.0) % Lymph % (Auto) (9.0-44.0) % Neut # (Auto) (1.8-7.7) th/mm3 [place] # (Auto) (0.0-0.9) th/mm3 PT 12.3 H (9.8-11.6) sec Estimated GFR 78 L (>89) mL/min Calcium 7.8 L (8.5-10.1) mg/dL Albumin 2.1 L D (3.4-5.0) g/dL Urine Opiates Screen (Neg) Urine Cocaine Screen (Neg) 12/21/17 Range/Units 16:00 WBC (4.0-11.0) th/mm3 RBC (4.50-5.90) mil/mm3 Hgb 10.9 L (13.0-17.0) gm/dL Hct 32.9 L (39.0-51.0) % Neut % (Auto) (16.0-70.0) % Lymph % (Auto) (9.0-44.0) % Neut # (Auto) (1.8-7.7) th/mm3 [place] # (Auto) (0.0-0.9) th/mm3 PT (9.8-11.6) sec Estimated GFR (>89) mL/min Calcium (8.5-10.1) mg/dL Albumin (3.4-5.0) g/dL Urine Opiates Screen (Neg) Urine Cocaine Screen (Neg) Short CBC 12/20/17 12/21/17 12/21/17 Range/Units 22:40 03:47 11:26 WBC 17.8 H (4.0-11.0) th/mm3 Hgb 10.0 L 10.0 L 10.8 L (13.0-17.0) gm/dL Hct 29.8 L 29.7 L 32.5 L (39.0-51.0) % Plt Count 255 (150-450) th/mm3 12/21/17 Range/Units 16:00 WBC (4.0-11.0) th/mm3 Hgb 10.9 L (13.0-17.0) gm/dL Hct 32.9 L (39.0-51.0) % Plt Count (150-450) th/mm3 BMP 12/21/17 03:47 Sodium 136 Potassium 3.7 Chloride 102 Carbon Dioxide 24.2 BUN 14 Creatinine 1.01 Calcium 7.8 L Cardiac Enzymes 12/20/17 Range/Units 22:40 Troponin I 0.03 (0.02-0.05) ng/mL Liver Function 12/21/17 Range/Units 03:47 Total Bilirubin 0.9 (0.2-1.0) mg/dL AST 29 (15-37) U/L ALT 25 (12-78) U/L Alkaline Phosphatase 55 (45-117) U/L Albumin 2.1 L D (3.4-5.0) g/dL <Jesus Meyer - 12/21/17 20:02> Abnormal lab results 12/20/17 12/20/17 12/20/17 Range/Units 08:10 08:10 16:58 WBC (4.0-11.0) th/mm3 RBC (4.50-5.90) mil/mm3 Hgb 9.2 L (13.0-17.0) gm/dL Hct 27.4 L (39.0-51.0) % Neut % (Auto) (16.0-70.0) % Lymph % (Auto) (9.0-44.0) % Neut # (Auto) (1.8-7.7) th/mm3 [place] # (Auto) (0.0-0.9) th/mm3 PT (9.8-11.6) sec Estimated GFR (>89) mL/min Calcium (8.5-10.1) mg/dL Albumin (3.4-5.0) g/dL Lipase 69 L (73-393) U/L Urine Opiates Screen Pos H (Neg) Urine Cocaine Screen Pos H (Neg) 12/20/17 12/21/17 12/21/17 Range/Units 22:40 03:47 03:47 WBC 17.8 H (4.0-11.0) th/mm3 RBC 3.47 L (4.50-5.90) mil/mm3 Hgb 10.0 L 10.0 L (13.0-17.0) gm/dL Hct 29.8 L 29.7 L (39.0-51.0) % Neut % (Auto) 84.6 H (16.0-70.0) % Lymph % (Auto) 7.9 L (9.0-44.0) % Neut # (Auto) 15.1 H (1.8-7.7) th/mm3 [place] # (Auto) 1.2 H (0.0-0.9) th/mm3 PT 12.3 H (9.8-11.6) sec Estimated GFR (>89) mL/min Calcium (8.5-10.1) mg/dL Albumin (3.4-5.0) g/dL Lipase (73-393) U/L Urine Opiates Screen (Neg) Urine Cocaine Screen (Neg) 12/21/17 Range/Units 03:47 WBC (4.0-11.0) th/mm3 RBC (4.50-5.90) mil/mm3 Hgb (13.0-17.0) gm/dL Hct (39.0-51.0) % Neut % (Auto) (16.0-70.0) % Lymph % (Auto) (9.0-44.0) % Neut # (Auto) (1.8-7.7) th/mm3 [place] # (Auto) (0.0-0.9) th/mm3 PT (9.8-11.6) sec Estimated GFR 78 L (>89) mL/min Calcium 7.8 L (8.5-10.1) mg/dL Albumin 2.1 L D (3.4-5.0) g/dL Lipase (73-393) U/L Urine Opiates Screen (Neg) Urine Cocaine Screen (Neg) Short CBC 12/20/17 12/20/17 12/21/17 Range/Units 16:58 22:40 03:47 WBC 17.8 H (4.0-11.0) th/mm3 Hgb 9.2 L 10.0 L 10.0 L (13.0-17.0) gm/dL Hct 27.4 L 29.8 L 29.7 L (39.0-51.0) % Plt Count 255 (150-450) th/mm3 BMP 12/21/17 03:47 Sodium 136 Potassium 3.7 Chloride 102 Carbon Dioxide 24.2 BUN 14 Creatinine 1.01 Calcium 7.8 L Cardiac Enzymes 12/20/17 12/20/17 12/20/17 Range/Units 08:10 15:55 22:40 Total Creatine Kinase 195 106 (39-308) U/L Troponin I 0.03 0.03 (0.02-0.05) ng/mL Liver Function 12/21/17 Range/Units 03:47 Total Bilirubin 0.9 (0.2-1.0) mg/dL AST 29 (15-37) U/L ALT 25 (12-78) U/L Alkaline Phosphatase 55 (45-117) U/L Albumin 2.1 L D (3.4-5.0) g/dL <Sharri Canseco - 12/21/17 11:15> - Imaging Impressions Chest X-Ray 12/21/17 06:00 CONCLUSION: Negative examination. <Jesus Meyer - 12/21/17 20:02> Impressions Abdomen/Pelvis CT 12/20/17 00:00 CONCLUSION: 1. Redemonstration of heterogeneous soft tissue mass arising from the inferior pole of the right kidney which appears grossly stable in size measuring up to 12.1 cm and contains coarse calcifications. 2. There is hyperdense material noted in the right renal collecting system and proximal ureter as well as dependently in the bladder. In the absence of recent contrast administration, findings are concerning for hemorrhage into the renal collecting system with bilateral hematoma. Clinical correlation is recommended. 3. Diffuse mesenteric edema and trace ascites. Head CT 12/20/17 00:00 CONCLUSION: Negative CT Head non contrast. . Chest X-Ray 12/21/17 06:00 CONCLUSION: Negative examination. <Sharri Canseco - 12/21/17 11:15> Physical Exam Vital signs: Vital Signs 12/21/17 00:00 12/21/17 04:00 12/21/17 08:00 Temperature 98.1 F 97.9 F 97.4 F L Pulse Rate 73 70 61 Respiratory Rate 14 14 17 Blood Pressure 119/61 152/86 H 164/100 H Pulse Oximetry 95 97 97 12/21/17 09:03 12/21/17 09:04 12/21/17 12:00 Temperature 97.4 F L Pulse Rate 60 Respiratory Rate 10 L 17 17 Blood Pressure 161/96 H Pulse Oximetry 98 12/21/17 13:47 12/21/17 15:44 12/21/17 16:00 Temperature 98.0 F Pulse Rate 67 Respiratory Rate 17 16 17 Blood Pressure 156/94 H Pulse Oximetry 95 12/21/17 17:13 12/21/17 17:41 12/21/17 18:51 Temperature Pulse Rate Respiratory Rate 18 17 Blood Pressure Pulse Oximetry 95 Intake & Output 12/21/17 12/21/17 12/22/17 06:59 18:59 06:59 Intake Total 2200 / 2200 1462.5 / 1462.5 Output Total 2375 / 2375 Balance 2200 / 2200 -912.5 / -912.5 Weight 80.3 kg Intake: IV 2200 / 2200 1462.5 / 1462.5 NS Inj 1,000 ML @ 130 mls/hr IV 2000 / 2000 1000 / 1000 .CONT .Q7H42M [facility] Rx#:[id number] Zosyn 4.5 GM Premix 4.5 gm In 200 / 200 200 / 200 100 ml @ 200 mls/hr IV.SIG Q6H [facility] Rx#:[id number] Vancomycin Inj 1,250 MG In NS 262.5 / 262.5 Inj 250 ML @ 250 mls/hr IV.SIG Q12H [facility] Rx#:[id number] Output: Urine 2375 / 2375 Other: Post Void Residual 400 # Voids 1 Date of Last Bowel Movement 12/18/17 <Jesus Meyer - 12/21/17 20:02> Vital Signs 12/20/17 12:28 12/20/17 16:00 12/20/17 18:21 Temperature 101.8 F H Pulse Rate 76 Respiratory Rate 20 17 Blood Pressure 196/94 H Pulse Oximetry 100 96 12/20/17 20:00 12/21/17 00:00 12/21/17 04:00 Temperature 98.0 F 98.1 F 97.9 F Pulse Rate 70 73 70 Respiratory Rate 14 14 14 Blood Pressure 120/62 119/61 152/86 H Pulse Oximetry 95 95 97 12/21/17 08:00 12/21/17 09:03 12/21/17 09:04 Temperature 97.4 F L Pulse Rate 61 Respiratory Rate 17 10 L 17 Blood Pressure 164/100 H Pulse Oximetry 97 Intake & Output 12/20/17 12/21/17 12/21/17 18:59 06:59 18:59 Intake Total 2300 / 2300 2200 / 2200 100 / 100 Output Total 1400 / 1400 Balance 900 / 900 2200 / 2200 100 / 100 Weight 80.3 kg 80.3 kg Intake: IV 1700 / 1700 2200 / 2200 100 / 100 NS Inj 1,000 ML @ 130 mls/hr IV 1999 / 1999 .CONT .Q7H42M [facility] Rx#:[id number] Azithromycin Inj 500 MG In NS 250 / 250 Inj 250 ML @ 250 mls/hr IV.SIG ONCE ONE Rx#:[id number] Zosyn 4.5 GM Premix 4.5 gm In 100 / 100 200 / 200 100 / 100 100 ml @ 200 mls/hr IV.SIG Q6H [facility] Rx#:[id number] NS Inj 1,000 ML @ Wide Open IV. 1000 / 1000 SIG .Q0M [facility] Rx#:[id number] Vancomycin Inj 1,000 MG In NS 250 / 250 Inj 250 ML @ 200 mls/hr IV.SIG ONCE ONE Rx#:[id number] Rocephin Inj 2,000 MG In NS Inj 100 / 100 100 ML @ 200 mls/hr IV.SIG ONCE ONE Rx#:[id number] Oral 600 / 600 Output: Urine Amount (Catheter) 1400 / 1400 Indwelling Urethral Catheter 1400 / 1400 Other: Post Void Residual 400 # Voids 1 Date of Last Bowel Movement 12/18/17 12/18/17 <Sharri Canseco - 12/21/17 11:15> - Constitutional no acute distress <Sharri Canseco 12/21/17 11:15> - Routine Respiratory Exam Present: CTA bilaterally. Absent: accessory muscle use, decreased breath sounds <Sharri Canseco 12/21/17 11:15> - Routine Cardiovascular Exam Present: RRR, S1, S2, murmur (4 out of 6 systolic murmur on exam, similar to previous exams) <Sharri Canseco 12/21/17 11:15> - Routine Abdominal Exam Present: soft, normoactive bowel sounds, distended (Less distended than yesterday, no tenderness on abdominal palpation). Absent: tenderness <Sharri Canseco 12/21/17 11:15> - Routine Extremities Exam Absent: clubbing, edema <Sharri Canseco 12/21/17 11:15> - Urinary Catheter Management Indwelling Urethral Catheter Cath placed during this visit: no <Jesus Meyer 12/21/17 20:02> yes <Sharri Canseco 12/21/17 11:15> Reason for continuing: Gross Hematuria <Sharri Canseco - 12/21/17 11:15> Insertion date: 12/20/17 <Sharri Canseco - 12/21/17 11:15> Insertion time: 08:10 <Sharri Canseco - 12/21/17 11:15> Assessment and Plan - Assessment (1) Sepsis Code(s): A41.9 - Sepsis, unspecified organism Status: Acute (2) Bacteremia Code(s): R78.81 - Bacteremia Status: Acute (3) Renal hemorrhage, right Code(s): N28.89 - Other specified disorders of kidney and ureter Status: Acute (4) Renal cell carcinoma Code(s): C64.9 - Malignant neoplasm of unspecified kidney, except renal pelvis Status: Acute (5) IVDU (intravenous drug user) Code(s): F19.90 - Other psychoactive substance use, unspecified, uncomplicated Status: Acute (6) Elevated serum creatinine Code(s): R79.89 - Other specified abnormal findings of blood chemistry Status : Acute (7) Nutrition, metabolism, and development symptoms Code(s): R63.8 - Other symptoms and signs concerning food and fluid intake Status: Acute <Jesus Meyer - 12/21/17 20:02> (1) Sepsis Code(s): A41.9 - Sepsis, unspecified organism Status: Acute Plan: Afebrile since 12/20 at 1600 WBC improved slightly to 17.8, bacteremia with gram- positive cocci as below On admission: Febrile, WBC 21 possible consolidation on initial chest x-ray, however repeat chest x-ray shows no infiltrate or effusion Blood cultures: Preliminary growing gram-positive cocci in pairs and clusters, follow-up ID Continue Vanc & Zosyn (12/20 - ) Follow-up blood cultures final micro Follow-up urine cultures: No growth in 24 hours Follow-up pneumococcal and Legionella urinary antigens: Presumptive negative (2) Bacteremia Code(s): R78.81 - Bacteremia Status: Acute Plan: See plan above (3) Renal hemorrhage, right Code(s): N28.89 - Other specified disorders of kidney and ureter Status: Acute Plan: History of renal cell carcinoma, right kidney with hemorrhage into the kidney, gross hematuria Associated with pain in back, neck, abdomen Follow-up recommendations of urology; maintain catheter, IV fluids, RPG PROGRAMMER ANALYST for pain control, bedrest, H&H every 6 hours. For large H&H drop, may need to consult interventional radiology for embolization. If gross hematuria worsens, will place three-way catheter catheter IV fluids at maintenance Dilaudid [employer] PROGRAMMER ANALYST Hemoglobin 9.4, will transfuse 1 unit for hemoglobin less than 7.0, will call interventional radiology for any large drop in hemoglobin CT: Right kidney hemorrhage (4) Renal cell carcinoma Code(s): C64.9 - Malignant neoplasm of unspecified kidney, except renal pelvis Status: Acute Plan: We will consult oncology once acutely stabilized (5) IVDU (intravenous drug user) Code(s): F19.90 - Other psychoactive substance use, unspecified, uncomplicated Status: Acute Plan: Signs of sepsis, IV drug user, 4/6 murmur on exam, bacteremia positive Echocardiogram: Normal UDS: Positive opiates, positive cocaine Continue to monitor for signs of withdrawal CIWA protocol (6) Elevated serum creatinine Code(s): R79.89 - Other specified abnormal findings of blood chemistry Status : Acute Plan: Resolved with IV hydration, creatinine 1.01 on 12/21 Creat 1.35, increased from baseline 1.14-1.29 on previous visits Dehydration vs malignancy related Continue to f/u Creat IV hydration Avoid NSAIDs (7) Nutrition, metabolism, and development symptoms Code(s): R63.8 - Other symptoms and signs concerning food and fluid intake Status: Acute Plan: Fluids: IV fluids at maintenance Electrolytes:Continue to f/u and replete as needed Nutrition: Swallow eval before PO DVT ppx: SCDs only, hemorrhages contraindication to anticoagulation <Sharri Canseco - 12/21/17 11:05> - Assessment and Plan 52 y/o M, IVDU with hx of Renal Cell Carcinoma, presents meeting SEPSIS criteria and is found to have lung consolidation, renal hemorrhage and gross hematuria. <Sharri Canseco 12/21/17 11:15> Discharge Planning: Pending IV antibiotic treatment plan for bacteremia, will likely need to DC on IV transfusion plan, and the long-term plan for large renal hemorrhage <Sharri Canseco 12/21/17 11:15> - Attending Attestation The exam, history, and the medical decision-making described in the above note were completed with the assistance of the resident physician. I reviewed and agree with the findings presented. I attest that I had a [id number] encounter with the patient on the same day, and personally performed and documented my assessment and findings in the medical record.Zeny CESAR <Jesus Meyer - 12/21/17 20:02>
[2017-12-21 12:01] LABS: Hematocrit 32.5 % (39.0-51.0); Hemoglobin 10.8 gm/dL (13.0-17.0)
--- NOTE | 2017-12-21 13:36 | P.PNURO ---
Subjective Patient symptoms today: Pt seen and examined. Feeling better. Hungry Objective Vital Signs: Vital Signs 12/20/17 16:00 12/20/17 18:21 12/20/17 20:00 Temperature 101.8 F H 98.0 F Pulse Rate 76 70 Respiratory Rate 20 17 14 Blood Pressure 196/94 H 120/62 Pulse Oximetry 96 95 12/21/17 00:00 12/21/17 04:00 12/21/17 08:00 Temperature 98.1 F 97.9 F 97.4 F L Pulse Rate 73 70 61 Respiratory Rate 14 14 17 Blood Pressure 119/61 152/86 H 164/100 H Pulse Oximetry 95 97 97 12/21/17 09:03 12/21/17 09:04 12/21/17 12:00 Temperature 97.4 F L Pulse Rate 60 Respiratory Rate 10 L 17 17 Blood Pressure 161/96 H Pulse Oximetry 98 Intake & Output 12/20/17 12/21/17 12/21/17 18:59 06:59 18:59 Intake Total 2300 / 2300 2200 / 2200 1100 / 1100 Output Total 1400 / 1400 Balance 900 / 900 2200 / 2200 1100 / 1100 Weight 80.3 kg 80.3 kg Intake: IV 1700 / 1700 2200 / 2200 1100 / 1100 NS Inj 1,000 ML @ 130 mls/hr IV 2000 / 2000 1000 / 1000 .CONT .Q7H42M [facility] Rx#:[id number] Azithromycin Inj 500 MG In NS 250 / 250 Inj 250 ML @ 250 mls/hr IV.SIG ONCE ONE Rx#:[id number] Zosyn 4.5 GM Premix 4.5 gm In 100 / 100 200 / 200 100 / 100 100 ml @ 200 mls/hr IV.SIG Q6H [facility] Rx#:[id number] NS Inj 1,000 ML @ Wide Open IV. 1000 / 1000 SIG .Q0M [facility] Rx#:[id number] Vancomycin Inj 1,000 MG In NS 250 / 250 Inj 250 ML @ 200 mls/hr IV.SIG ONCE ONE Rx#:[id number] Rocephin Inj 2,000 MG In NS Inj 100 / 100 100 ML @ 200 mls/hr IV.SIG ONCE ONE Rx#:[id number] Oral 600 / 600 Output: Urine Amount (Catheter) 1400 / 1400 Indwelling Urethral Catheter 1400 / 1400 Other: Post Void Residual 400 # Voids 1 Date of Last Bowel Movement 12/18/17 12/18/17 Result Diagrams: 12/21/17 11:26 12/21/17 03:47 Imaging: Impressions Abdomen/Pelvis CT 12/20/17 00:00 CONCLUSION: 1. Redemonstration of heterogeneous soft tissue mass arising from the inferior pole of the right kidney which appears grossly stable in size measuring up to 12.1 cm and contains coarse calcifications. 2. There is hyperdense material noted in the right renal collecting system and proximal ureter as well as dependently in the bladder. In the absence of recent contrast administration, findings are concerning for hemorrhage into the renal collecting system with bilateral hematoma. Clinical correlation is recommended. 3. Diffuse mesenteric edema and trace ascites. Head CT 12/20/17 00:00 CONCLUSION: Negative CT Head non contrast. . Chest X-Ray 12/21/17 06:00 CONCLUSION: Negative examination. Medications and IVs: Active Medications Generic Name Dose Route Start Last Admin Trade Name Freq PRN Reason Stop Dose Admin Acetaminophen 650 mg 12/20/17 11:34 12/20/17 16:29 Tylenol PO 650 mg Q4H PRN Administration Temp > 100.4 Al Hydroxide/Mg Hydroxide 30 ml 12/20/17 11:34 Milk Of Magnesia Liq PO Q12H PRN Mild Constipation Albuterol 1 ampul 12/20/17 18:35 Duoneb Neb (Prn) NEB Q4HR NEB PRN SHORTNESS OF BREATH/WHEEZING Bisacodyl 10 mg 12/20/17 11:34 Dulcolax Supp RECTAL DAILY PRN SEVERE CONSITIPATION Enalaprilat 1.25 mg 12/20/17 16:43 12/20/17 16:53 Vasotec Inj IV.PUSH 1.25 mg Q6H PRN Administration HYPERTENSION Flumazenil 0.2 mg 12/20/17 18:45 Romazecon Inj IV.PUSH Q1M PRN OVERSEDATION Haloperidol Lactate 1 mg 12/20/17 18:45 Haldol Inj IV.PUSH Q15M PRN for severe agitation Sodium Chloride 1,000 mls @ 130 mls/hr 12/20/17 12:00 12/21/17 12:31 Ns Inj IV.CONT 130 mls/hr .Q7H42M [facility] Administration Pharmacy Profile Note 0 mls @ 0 mls/hr 12/20/17 11:59 Vancomycin Consult Pharmacy OTHER UNSCH YRN As Directed Piperacillin/Tazobactam/Dextrose 4.5 gm in 100 mls @ 200 mls/hr 12/20/17 14: 00 12/21/17 10:18 Zosyn 4.5 Gm Premix IV.SIG Infused Q6H [facility] Infusion Vancomycin HCl 1,250 mg/ 262.5 mls @ 250 mls/hr 12/21/17 10:00 12/21/17 09:49 Sodium Chloride IV.SIG 250 mls/hr Q12H [facility] Administration Hydromorphone/Sodium Chloride 6 mg in 30 mls @ 0 mls/hr 12/21/17 11:18 12:15 Dilaudid Hand Spring Repairer Inj TIRE BAGGER 0 mls/hr UNSCH PRN Administration per TIRE BAGGER parameters 0 MG/HR Lactulose 30 ml 12/20/17 11:34 Lactulose Liq PO DAILY PRN SEVERE CONSITIPATION Lorazepam 1 mg 12/20/17 18:45 Ativan PO Q4H PRN for CIWA 8-10 Lorazepam 2 mg 12/20/17 18:45 Ativan Inj IV.PUSH Q2H PRN for CIWA 11-14 Lorazepam 2 mg 12/20/17 18:45 Ativan Inj IV.PUSH Q1H PRN for CIWA 15-20 Lorazepam 2 mg 12/20/17 18:45 Ativan Inj IV.PUSH Q15M PRN for CIWA > 20 Lorazepam 1 mg 12/20/17 18:45 Ativan Inj IV.PUSH Q4H PRN for CIWA 8-10 Lorazepam 2 mg 12/20/17 18:45 Ativan PO Q2H PRN for CIWA 11-14 Metoclopramide HCl 5 mg 12/20/17 11:34 Reglan Inj IV.PUSH Q6H PRN NAUSEA OR VOMITING Protocol Miscellaneous Information 0 each 12/22/17 21:45 [facility] Ordered Lab Info OTHER 12/22/17 21:46 ONCE ONE Naloxone HCl 0.4 mg 12/20/17 15:50 Narcan Inj IV.PUSH PRN PRN SEE LABEL COMMENTS Sennosides 17.2 mg 12/20/17 11:34 Senokot PO Q12H PRN Moderate Constipation Temazepam 15 mg 12/20/17 11:34 Restoril PO HS PRN INSOMNIA Objective Remarks: Abd:soft,less tender and less distended Urine is clearing Assessment and Plan - Plan Right renal bleed due to RCC Continue supportive measures for now. Hgb stable at 10.
--- NOTE | 2017-12-21 14:00 | ECG ---
Date Performed: 12/20/2017 Time Performed: 20:19:27 PTAGE: 52 years EKG: Sinus rhythm WITH OCCASIONAL VENTRICULAR PREMATURE COMPLEXES BORDERLINE ECG PREVIOUS TRACING : 12/20/2017 15.22 DOCTOR: Franny Guerrero Interpretating Date/Time 12/21/2017 13:58:41
--- NOTE | 2017-12-21 14:21 | ECG ---
Date Performed: 12/20/2017 Time Performed: 15:22:01 PTAGE: 52 years EKG: Sinus rhythm NORMAL ECG Since the PREVIOUS TRACING , no significant change noted PREVIOUS TRACIN06/24/2017 01.33 DOCTOR: Franny Guerrero Interpretating Date/Time 12/21/2017 14:19:42
[2017-12-21 16:20] LABS: Hematocrit 32.9 % (39.0-51.0); Hemoglobin 10.9 gm/dL (13.0-17.0)
[2017-12-21 22:53] LABS: Hemoglobin 11.1 gm/dL (13.0-17.0)
[2017-12-22] MEDS: HYDROmorphone PCA Inj 6 MG/30 ML PCA.VIAL PCA PRN ×3 (02:50→17:43)
[2017-12-22] MEDS: Piperacil/Tazo 4.5 GM Premix 4.5 GM/100 ML BAG IV.SIG SCH ×4 (02:54→20:10)
--- NOTE | 2017-12-22 03:49 | P.PNADD ---
Addendum to Inpatient Note Additional information: 52 year old male H diabetes admitted for lymphedema infection. Complained of sharp chest pain 10/10 that began an hour ago. Started with back spasms and now sharp pain in center of his chest. Spreading to his left arm. History of IV drug and alcohol abuse and tobacco use. Complaining of some shortness of breath , palpitations, and diaphoresis. According to nursing CWA 1-2 throughout today. VS: 175/101 HR 83 O2 97% Exam: General: anxious, distress Cardiac: RRR no murmurs Extremities: 2+radial pulses bilaterally Pulm: clear breath sounds bilaterally, no wheezes or rales MSK: tenderness to palpation of center of chest but no tenderness with pressure of stethoscope, no peripheral edema A/P: 52 year old male [facility] diabetes admitted for lymphedema infection presenting with chest pain. DDx aortic dissection, OK, withdrawl, PE, musculoskeletal, anxiety. EKG not suggestive of OK. Troponins ordered. Pressures elevated acutely and back pain suggesting possible dissection. x-ray and CTA chest pending. No shortness of breath on exam and O2 saturation wnl so PE less likely. -Pain regimen dilaudid 6mg PRN taking 1-2 hrs -EKG: no ST elevations, some peak T waves -Troponin and CK stat -Chest x-ray wet read: bilateral infiltrates, possible mediastinal widening, waiting official read -CTA chest; allergy to contrast (itching); given Benadryl
[2017-12-22] MEDS: Sod Chloride 0.9% Inj 1,000 ML IV.CONT SCH ×3 (04:16→17:49)
--- NOTE | 2017-12-22 04:49 | XR ---
EXAM DATE: 12/22/2017 3:35 AM EDT AGE/SEX: 52 years / Male INDICATIONS: Increased chest pain and shortness of breath. CLINICAL DATA: This is the patient's subsequent encounter. Patient reports that signs and symptoms h ave been present for 1 day and indicates a pain score of 10/10. MEDICAL/SURGICAL HISTORY: . Hepatitis C. None. COMPARISON: [facility], CHEST 1V SINGLE AP, 12/21/2017. [facility], CHEST 1V SINGLE AP, 12/20/2017. . FINDINGS: There is a nonconsolidative infiltrate in the left lower lung which causes a blurring of the left hea rt border. Both hemidiaphragms well delineated. The heart is normal in size. The right lung is clear. CONCLUSION: Small infiltrate in the lingula without consolidation. Electronically signed by: Kenton Frankel MD 12/22/2017 4:48 AM EDT
--- NOTE | 2017-12-22 05:01 | CT ---
EXAM DATE: 12/22/2017 4:51 AM EDT AGE/SEX: 52 years / Male INDICATIONS: Abdomen and back pain. Evaluate for aneurysm. CLINICAL DATA: This is the patient's subsequent encounter. Patient reports that signs and symptoms h ave been present for 2 days and indicates a pain score of 7/10. MEDICAL/SURGICAL HISTORY: . Renal cancer Substance abuse None. RADIATION DOSE: 16.84 CTDI (mGy) [place] [facility] [place]EL[place]/O CONTRAST[place] 12/20/2017. . TECHNIQUE: Volumetric scanning was performed using a multi-row detector CT scanner during bolus infu sourav of 100 ml Omnipaque 350 (iohexol) nonionic water-soluble contrast as a single exam dose. The d dilma was post processed with a variety of visualization algorithms including full volume maximum inten sity projection, multi-planar sliding thin slab reformation, curved planar reformation, and surface r endering techniques. Using automated exposure control and adjustment of the mA and/or kV according t o patient size, radiation dose was kept as low as reasonably achievable to obtain optimal diagnostic quality images. DICOM format image data is available electronically for review and comparison. FINDINGS: Lungs: Bilateral subsegmental consolidation or atelectasis with air bronchograms. No significant ple ural effusion. Mediastinum: No abnormally enlarged lymph nodes by CT criteria. No axillary or hilar abnormalities a re identified. Abdomen: The liver, gallbladder, pancreas, and spleen are grossly intact. The left kidney is a vanna l appearance. Prior CT scans have demonstrated a greater than 12 cm mass arising from the right kidne y. There is a heterogeneous pattern of enhancement scattered throughout this mass and the blood suppl y arises from the right renal artery confirming that this is a renal tumor. Mild amount of ascites ab out the upper abdomen tracking into the pelvis Pelvis: catheter. Moderate amount of free fluid similar to prior. Thoracic Aorta: The thoracic aortic root is normal with normal branching of the great vessels. Ther e is no evidence of aneurysm or dissection. Abdominal Aorta: The aorta is normal in caliber without aneurysm or dissection. The renal arteries are patent bilaterally. The proximal celiac and superior mesenteric arteries are patent and normal i n diameter. Pelvic Vessels: The internal iliac and external iliac vessels are patent without aneurysm or stenosi s. CONCLUSION: 1. Normal CTA of the thoracic and abdominal aorta. 2. Greater than 12 cm right renal mass derives its blood supply from the right renal artery. Electronically signed by: Kenton Frankel MD 12/22/2017 5:00 AM EDT
[2017-12-22 05:19] LABS: Baso # (Auto) 0.1 th/mm3 (0.0-0.2); Baso % (Auto) 0.5 % (0.0-2.0); Eos # (Auto) 0.2 th/mm3 (0.0-0.4); Eos % (Auto) 1.3 % (0.0-4.0); Hematocrit 29.6 % (39.0-51.0); Hemoglobin 10.1 gm/dL (13.0-17.0); Lymph # (Auto) 1.3 th/mm3 (1.0-4.8); Lymph % (Auto) 7.9 % (9.0-44.0); Mean Corpuscular Hemoglobin 29.1 pg (27.0-34.0); Mean Corpuscular Volume 85.5 fL (80.0-100.0); Mean Platelet Volume 7.8 fL (7.0-11.0); Mono # (Auto) 1.1 th/mm3 (0.0-0.9); Neut # (Auto) 13.5 th/mm3 (1.8-7.7); Neut % (Auto) 83.3 % (16.0-70.0); Platelet Count 287 th/mm3 (150-450); Red Blood Count 3.46 mil/mm3 (4.50-5.90); Red Cell Distribution Width 15.3 % (11.6-17.2); White Blood Count 16.2 th/mm3 (4.0-11.0)
[2017-12-22 05:26] LABS: Troponin I 0.02 ng/mL (0.02-0.05)
[2017-12-22 05:33] LABS: Albumin 1.9 g/dL (3.4-5.0); Anion Gap 10 meq/L (5-15); Aspartate Aminotransferase 30 U/L (15-37); Blood Urea Nitrogen 18 mg/dL (7-18); Calcium 7.9 mg/dL (8.5-10.1); Carbon Dioxide 21.8 meq/L (21.0-32.0); Chloride 99 meq/L (98-107); Glomerular Filtration Rate 76 mL/min (>89); Glucose,Random 102 mg/dL (74-106); Potassium 3.8 meq/L (3.5-5.1); Sodium 131 meq/L (136-145)
[2017-12-22 05:34] LABS: Alanine Aminotransferase 21 U/L (12-78)
[2017-12-22 05:37] LABS: Alkaline Phosphatase 48 U/L (45-117); Total Protein 6.6 g/dL (6.4-8.2)
--- NOTE | 2017-12-22 08:40 | ECG ---
Date Performed: 12/22/2017 Time Performed: 03:34:14 PTAGE: 52 years EKG: Sinus rhythm Septal T wave changes are nonspecific Borderline ECG Since the PREVIOUS TRACING , no significant change noted PREVIOUS TRACIN12/20/2017 20.19 DOCTOR: Franny Guerrero Interpretating Date/Time 12/22/2017 08:39:13
--- NOTE | 2017-12-22 10:56 | P.PNFP ---
Subjective Interval history: Patient seen and examined bedside this morning. Patient was seen overnight for chest pain. He states that his severe back pain and neck pain is not radiating to the chest. He does not have any abdominal pain. ACS workup was done and repeat CT was done, revealing no abnormalities. He states that the Dilaudid SECRETARIAL TEACHER is not enough pain medication for his pain. He has been eating and drinking small amounts without difficulty. He continues to be bedrest. Results - Labs Result diagrams: 12/22/17 04:47 12/22/17 04:47 Abnormal lab results 12/21/17 12/21/17 12/21/17 Range/Units 11:26 16:00 22:23 WBC (4.0-11.0) th/mm3 RBC (4.50-5.90) mil/mm3 Hgb 10.8 L 10.9 L 11.1 L (13.0-17.0) gm/dL Hct 32.5 L 32.9 L 33.0 L (39.0-51.0) % Neut % (Auto) (16.0-70.0) % Lymph % (Auto) (9.0-44.0) % Neut # (Auto) (1.8-7.7) th/mm3 Grady # (Auto) (0.0-0.9) th/mm3 Sodium (136-145) meq/L Estimated GFR (>89) mL/min Calcium (8.5-10.1) mg/dL Total Creatine Kinase (39-308) U/L Albumin (3.4-5.0) g/dL 12/22/17 12/22/17 12/22/17 Range/Units 04:47 04:47 04:47 WBC 16.2 H (4.0-11.0) th/mm3 RBC 3.46 L (4.50-5.90) mil/mm3 Hgb 10.1 L (13.0-17.0) gm/dL Hct 29.6 L (39.0-51.0) % Neut % (Auto) 83.3 H (16.0-70.0) % Lymph % (Auto) 7.9 L (9.0-44.0) % Neut # (Auto) 13.5 H (1.8-7.7) th/mm3 Grady # (Auto) 1.1 H (0.0-0.9) th/mm3 Sodium 131 L (136-145) meq/L Estimated GFR 76 L (>89) mL/min Calcium 7.9 L (8.5-10.1) mg/dL Total Creatine Kinase 32 L (39-308) U/L Albumin 1.9 L (3.4-5.0) g/dL Short CBC 12/21/17 12/21/17 12/21/17 Range/Units 11:26 16:00 22:23 WBC (4.0-11.0) th/mm3 Hgb 10.8 L 10.9 L 11.1 L (13.0-17.0) gm/dL Hct 32.5 L 32.9 L 33.0 L (39.0-51.0) % Plt Count (150-450) th/mm3 12/22/17 Range/Units 04:47 WBC 16.2 H (4.0-11.0) th/mm3 Hgb 10.1 L (13.0-17.0) gm/dL Hct 29.6 L (39.0-51.0) % Plt Count 287 (150-450) th/mm3 BMP 12/22/17 04:47 Sodium 131 L Potassium 3.8 Chloride 99 Carbon Dioxide 21.8 BUN 18 Creatinine 1.03 Calcium 7.9 L Cardiac Enzymes 12/22/17 Range/Units 04:47 Total Creatine Kinase 32 L (39-308) U/L Troponin I 0.02 (0.02-0.05) ng/mL Liver Function 12/22/17 Range/Units 04:47 Total Bilirubin 0.7 (0.2-1.0) mg/dL AST 30 (15-37) U/L ALT 21 (12-78) U/L Alkaline Phosphatase 48 (45-117) U/L Albumin 1.9 L (3.4-5.0) g/dL - Imaging Impressions Thoracic Aorta CT 12/22/17 00:00 CONCLUSION: 1. Normal CTA of the thoracic and abdominal aorta. 2. Greater than 12 cm right renal mass derives its blood supply from the right renal artery. Chest X-Ray 12/22/17 03:12 CONCLUSION: Small infiltrate in the lingula without consolidation. Physical Exam Vital signs: Vital Signs 12/21/17 12:00 12/21/17 13:47 12/21/17 15:44 Temperature 97.4 F L Pulse Rate 60 Respiratory Rate 17 17 16 Blood Pressure 161/96 H Pulse Oximetry 98 12/21/17 16:00 12/21/17 17:13 12/21/17 17:41 Temperature 98.0 F Pulse Rate 67 Respiratory Rate 17 18 Blood Pressure 156/94 H Pulse Oximetry 95 95 12/21/17 18:51 12/21/17 20:25 12/22/17 00:16 Temperature 98.6 F 100.6 F H Pulse Rate 68 68 Respiratory Rate 17 18 17 Blood Pressure 168/90 H 168/94 H Pulse Oximetry 96 95 12/22/17 03:00 12/22/17 06:00 12/22/17 08:00 Temperature 98.1 F Pulse Rate 83 66 Respiratory Rate 22 17 Blood Pressure 175/101 H 200/102 H 171/97 H Pulse Oximetry 97 97 Intake & Output 12/21/17 12/22/17 12/22/17 18:59 06:59 18:59 Intake Total 1462.5 / 1462.5 1560 / 1560 Output Total 2375 / 2375 2199 / 0 Balance -912.5 / -912.5 -640 / -640 Weight 80 kg Intake: IV 1462.5 / 1462.5 1200 / 1200 NS Inj 1,000 ML @ 130 mls/hr IV 1000 / 1000 1000 / 1000 .CONT .Q7H42M YRN Rx#:[id number] Zosyn 4.5 GM Premix 4.5 gm In 200 / 200 200 / 200 100 ml @ 200 mls/hr IV.SIG Q6H YRN Rx#:[id number] Vancomycin Inj 1,250 MG In NS 262.5 / 262.5 Inj 250 ML @ 250 mls/hr IV.SIG Q12H YRN Rx#:[id number] Oral 360 / 360 Output: Urine 2375 / 2375 Urine Amount (Catheter) 2199 / 2199 Indwelling Urethral Catheter 2199 / 2199 - Constitutional mild distress - Routine HEENT Exam Head: Present: normocephalic - Detailed Chest Wall Exam Chest wall: Absent: crepitus, rib tenderness, costochondral junction tenderness - Routine Respiratory Exam Present: CTA bilaterally. Absent: accessory muscle use, decreased breath sounds - Routine Cardiovascular Exam Present: RRR, S1, S2. Absent: murmur - Routine Abdominal Exam Present: soft, normoactive bowel sounds. Absent: tenderness, guarding, firm - Routine Extremities Exam Absent: clubbing, edema - Urinary Catheter Management Indwelling Urethral Catheter Cath placed during this visit: yes Reason for continuing: Gross Hematuria Insertion date: 12/20/17 Insertion time: 08:10 Assessment and Plan - Assessment (1) Sepsis Code(s): A41.9 - Sepsis, unspecified organism Status: Acute Plan: Afebrile since 12/20 at 1600, WBC improving slightly daily from 21-16 today, bacteremia with MSSA On admission: Febrile, WBC 21 possible consolidation on initial chest x-ray, however repeat chest x-ray shows no infiltrate or effusion Blood cultures: Preliminary methicillin sensitive Staphylococcus aureus, follow- up final ID Continue Vanc & Zosyn (12/20 - ) Follow-up blood cultures final micro Follow-up urine cultures: No growth in 48 hours Follow-up pneumococcal and Legionella urinary antigens: Negative (2) Bacteremia Code(s): R78.81 - Bacteremia Status: Acute Plan: See plan above (3) Renal hemorrhage, right Code(s): N28.89 - Other specified disorders of kidney and ureter Status: Acute Plan: History of renal cell carcinoma, right kidney with hemorrhage into the kidney, gross hematuria Associated with pain in back, neck, abdomen Follow-up recommendations of urology; maintain catheter, IV fluids, SECRETARIAL TEACHER for pain control, bedrest, H&H every 6 hours. For large H&H drop, may need to consult interventional radiology for embolization. If gross hematuria worsens, will place three-way catheter catheter IV fluids at maintenance Dilaudid SECRETARIAL TEACHER, adding baclofen for pain management Hemoglobin stable 48 hours at 10.1 this morning, will transfuse 1 unit for hemoglobin less than 7.0, will call interventional radiology for any large drop in hemoglobin CT: Right kidney hemorrhage (4) Renal cell carcinoma Code(s): C64.9 - Malignant neoplasm of unspecified kidney, except renal pelvis Status: Acute Plan: We will consult oncology once acutely stabilized (5) IVDU (intravenous drug user) Code(s): F19.90 - Other psychoactive substance use, unspecified, uncomplicated Status: Acute Plan: Signs of sepsis, IV drug user, 4/6 murmur on exam, bacteremia positive Echocardiogram: Normal UDS: Positive opiates, positive cocaine Continue to monitor for signs of withdrawal CIWA protocol (6) Elevated serum creatinine Code(s): R79.89 - Other specified abnormal findings of blood chemistry Status : Acute Plan: Resolved with IV hydration, creatinine 1.01 on 12/21 Creat 1.35, increased from baseline 1.14-1.29 on previous visits Dehydration vs malignancy related Continue to f/u Creat IV hydration Avoid NSAIDs (7) Nutrition, metabolism, and development symptoms Code(s): R63.8 - Other symptoms and signs concerning food and fluid intake Status: Acute Plan: Fluids: IV fluids at maintenance, p.o. fluids as tolerated Electrolytes: Slightly hyponatremic with sodium 131, follow-up repeat CMP stat and will DC IV fluids for continued hyponatremia Nutrition: P.o. as tolerated DVT ppx: SCDs only, hemorrhages contraindication to anticoagulation - Assessment and Plan 52 y/o M, IVDU with hx of Renal Cell Carcinoma, presents meeting SEPSIS criteria and is found to have lung consolidation, renal hemorrhage and gross hematuria. Discharge Planning: Pending IV antibiotic treatment plan for bacteremia, will likely need to DC on IV transfusion plan, and the long-term plan for large renal hemorrhage
[2017-12-22] MEDS ORDERED: Naloxone Inj 0.4 MG/ML Vial IV.PUSH PRN (11:09)
[2017-12-22] MEDS: Vancomycin Inj 1,250 MG in Sodium Chlor 0.9% Inj 250 ML IV.SIG SCH ×2 (11:41→23:55)
[2017-12-22 12:35] LABS: Alanine Aminotransferase 24 U/L (12-78); Anion Gap 7 meq/L (5-15); Aspartate Aminotransferase 24 U/L (15-37); Blood Urea Nitrogen 17 mg/dL (7-18); Calcium 7.8 mg/dL (8.5-10.1); Carbon Dioxide 27.2 meq/L (21.0-32.0); Chloride 99 meq/L (98-107); Glomerular Filtration Rate 80 mL/min (>89); Glucose,Random 101 mg/dL (74-106); Potassium 3.9 meq/L (3.5-5.1); Sodium 133 meq/L (136-145)
[2017-12-22 12:38] LABS: Alkaline Phosphatase 81 U/L (45-117)
--- NOTE | 2017-12-22 12:57 | P.PNURO ---
Subjective Patient symptoms today: Pt seen and examined. c/o some chest pain. VS are stable. B/P is elevated. Objective Vital Signs: Vital Signs 12/21/17 13:47 12/21/17 15:44 12/21/17 16:00 Temperature 98.0 F Pulse Rate 67 Respiratory Rate 17 16 17 Blood Pressure 156/94 H Pulse Oximetry 95 12/21/17 17:13 12/21/17 17:41 12/21/17 18:51 Temperature Pulse Rate Respiratory Rate 18 17 Blood Pressure Pulse Oximetry 95 12/21/17 20:25 12/22/17 00:16 12/22/17 03:00 Temperature 98.6 F 100.6 F H Pulse Rate 68 68 83 Respiratory Rate 18 17 22 Blood Pressure 168/90 H 168/94 H 175/101 H Pulse Oximetry 96 95 97 12/22/17 06:00 12/22/17 08:00 12/22/17 12:00 Temperature 98.1 F 98.1 F Pulse Rate 66 64 Respiratory Rate 17 17 Blood Pressure 200/102 H 171/97 H 179/99 H Pulse Oximetry 97 98 Intake & Output 12/21/17 12/22/17 12/22/17 18:59 06:59 18:59 Intake Total 1462.5 / 1462.5 2560 / 2560 262.5 / 262.5 Output Total 2375 / 2375 2200 / 2200 Balance -912.5 / -912.5 360 / 360 262.5 / 262.5 Weight 80 kg Intake: IV 1462.5 / 1462.5 2200 / 2200 262.5 / 262.5 NS Inj 1,000 ML @ 130 mls/hr IV 1000 / 1000 1999 / 1999 .CONT .Q7H42M YRN Rx#:[id number] Zosyn 4.5 GM Premix 4.5 gm In 200 / 200 200 / 200 100 ml @ 200 mls/hr IV.SIG Q6H YRN Rx#:[id number] Vancomycin Inj 1,250 MG In NS 262.5 / 262.5 262.5 / 262.5 Inj 250 ML @ 250 mls/hr IV.SIG Q12H YRN Rx#:[id number] Oral 360 / 360 Output: Urine 2375 / 2375 Urine Amount (Catheter) 0 / 0 Indwelling Urethral Catheter 2199 / 2200 Result Diagrams: 12/22/17 04:47 12/22/17 12:05 Imaging: Impressions Thoracic Aorta CT 12/22/17 00:00 CONCLUSION: 1. Normal CTA of the thoracic and abdominal aorta. 2. Greater than 12 cm right renal mass derives its blood supply from the right renal artery. Chest X-Ray 12/22/17 03:12 CONCLUSION: Small infiltrate in the lingula without consolidation. Medications and IVs: Active Medications Generic Name Dose Route Start Last Admin Trade Name Freq PRN Reason Stop Dose Admin Acetaminophen 650 mg 12/20/17 11:34 12/20/17 16:29 Tylenol PO 650 mg Q4H PRN Administration Temp > 100.4 Hydrocodone Bitart/Acetaminophen 1 tab 12/22/17 12:00 12/22/17 11:41 Procious 5/325 PO 1 tab Q6H YRN Administration Al Hydroxide/Mg Hydroxide 30 ml 12/20/17 11:34 Milk Of Magnesia Liq PO Q12H PRN Mild Constipation Albuterol 1 ampul 12/20/17 18:35 Duoneb Neb (Prn) NEB Q4HR NEB PRN SHORTNESS OF BREATH/WHEEZING Baclofen 5 mg 12/22/17 11:00 Lioresal PO Q8HR YRN Bisacodyl 10 mg 12/20/17 11:34 Dulcolax Supp RECTAL DAILY PRN SEVERE CONSITIPATION Diphenhydramine HCl 25 mg 12/22/17 03:51 12/22/17 04:15 Benadryl PO 25 mg Q6H PRN Administration ITCHING Enalaprilat 1.25 mg 12/20/17 16:43 12/20/17 16:53 Vasotec Inj IV.PUSH 1.25 mg Q6H PRN Administration HYPERTENSION Flumazenil 0.2 mg 12/20/17 18:45 Romazecon Inj IV.PUSH Q1M PRN OVERSEDATION Haloperidol Lactate 1 mg 12/20/17 18:45 Haldol Inj IV.PUSH Q15M PRN for severe agitation Sodium Chloride 1,000 mls @ 130 mls/hr 12/20/17 12:00 12/22/17 11:44 Ns Inj IV.CONT 130 mls/hr .Q7H42M YRN Administration Pharmacy Profile Note 0 mls @ 0 mls/hr 12/20/17 11:59 Vancomycin Consult Pharmacy OTHER UNSCH YRN As Directed Piperacillin/Tazobactam/Dextrose 4.5 gm in 100 mls @ 200 mls/hr 12/20/17 14: 00 12/22/17 08:18 Zosyn 4.5 Gm Premix IV.SIG 100 mls/hr Q6H YRN Administration Vancomycin HCl 1,250 mg/ 262.5 mls @ 250 mls/hr 12/21/17 10:00 12/22/17 11:41 Sodium Chloride IV.SIG 250 mls/hr Q12H YRN Administration Hydromorphone/Sodium Chloride 6 mg in 30 mls @ 0 mls/hr 12/21/17 11:18 08:13 Dilaudid Tax Accountant Inj BENCH LATHE OPERATOR 0 mls/hr UNSCH PRN Administration per BENCH LATHE OPERATOR parameters 0 MG/HR Lactulose 30 ml 12/20/17 11:34 Lactulose Liq PO DAILY PRN SEVERE CONSITIPATION Lorazepam 1 mg 12/20/17 18:45 Ativan PO Q4H PRN for CIWA 8-10 Lorazepam 2 mg 12/20/17 18:45 Ativan Inj IV.PUSH Q2H PRN for CIWA 11-14 Lorazepam 2 mg 12/20/17 18:45 Ativan Inj IV.PUSH Q1H PRN for CIWA 15-20 Lorazepam 2 mg 12/20/17 18:45 Ativan Inj IV.PUSH Q15M PRN for CIWA > 20 Lorazepam 1 mg 12/20/17 18:45 Ativan Inj IV.PUSH Q4H PRN for CIWA 8-10 Lorazepam 2 mg 12/20/17 18:45 Ativan PO Q2H PRN for CIWA 11-14 Metoclopramide HCl 5 mg 12/20/17 11:34 Reglan Inj IV.PUSH Q6H PRN NAUSEA OR VOMITING Protocol Miscellaneous 1 each 12/22/17 11:07 Pill Splitter OTHER UNSCH PRN SEE LABEL COMMENTS Miscellaneous Information 0 each 12/22/17 21:45 [facility] Ordered Lab Info OTHER 12/22/17 21:46 ONCE ONE Naloxone HCl 0.4 mg 12/20/17 15:50 Narcan Inj IV.PUSH PRN PRN SEE LABEL COMMENTS Naloxone HCl 0.4 mg 12/22/17 11:09 Narcan Inj IV.PUSH UNSCH PRN SEE LABEL COMMENTS Sennosides 17.2 mg 12/20/17 11:34 Senokot PO Q12H PRN Moderate Constipation Temazepam 15 mg 12/20/17 11:34 Restoril PO HS PRN INSOMNIA Objective Remarks: Abd:soft,less tender and less distended Urine is clearing 8/ Abd:soft,less tender and less distended Urine is clearing Assessment and Plan - Plan Right renal bleed due to RCC Continue supportive measures for now. Hgb stable at 10. 8/5 52 y.o. with right RCC with hemorrhage. Hbg has been stable. Pt with CP and elevated B/P Continue with conservative measures for now. Tolerating diet. Pt will need medical/cardiac clearance prior to OR intervention. This can be done as an outpt. If to be done during this admission will need clearance first.
[2017-12-22] MEDS: Baclofen 10 MG Tablet PO SCH ×3 (14:05→23:56)
[2017-12-22] MEDS ORDERED: Pharmacy Ordered Lab Info OTHER ONE (21:45)
[2017-12-23] MEDS: Sod Chloride 0.9% Inj 1,000 ML IV.CONT SCH ×4 (02:35→23:46)
[2017-12-23] MEDS: Piperacil/Tazo 4.5 GM Premix 4.5 GM/100 ML BAG IV.SIG SCH ×4 (02:35→21:31)
[2017-12-23] MEDS: HYDROmorphone PCA Inj 6 MG/30 ML PCA.VIAL PCA PRN ×4 (03:58→23:45)
[2017-12-23] MEDS: Baclofen 10 MG Tablet PO SCH ×3 (05:39→21:31)
--- NOTE | 2017-12-23 08:54 | P.PNURO ---
Subjective Patient symptoms today: PT seen and examined.c/o back pain. No abdominal pain. Objective Vital Signs: Vital Signs 12/22/17 12:00 12/22/17 16:00 12/22/17 20:00 Temperature 98.1 F 98.0 F Pulse Rate 64 62 68 Respiratory Rate 17 17 Blood Pressure 179/99 H 183/102 H Pulse Oximetry 98 97 12/22/17 20:13 12/22/17 21:07 12/23/17 00:15 Temperature 97.9 F 98.4 F Pulse Rate 68 62 Respiratory Rate 17 17 Blood Pressure 190/109 H 181/99 H 187/103 H Pulse Oximetry 95 98 12/23/17 02:17 12/23/17 02:29 Temperature 98.5 F Pulse Rate 71 Respiratory Rate 20 20 Blood Pressure 174/96 H Pulse Oximetry 95 Intake & Output 12/22/17 12/23/17 12/23/17 18:59 06:59 18:59 Intake Total 2845.0 / 2845.0 1680 / 1680 Output Total 3975 / 3975 3000 / 3000 Balance -1130.0 / -1130.0 -1320 / -1320 Weight 80 kg Intake: IV 1725.0 / 1725.0 1100 / 1100 NS Inj 1,000 ML @ 130 mls/hr IV 1000 / 1000 1000 / 1000 .CONT .Q7H42M YRN Rx#:[id number] Zosyn 4.5 GM Premix 4.5 gm In 200 / 200 100 / 100 100 ml @ 200 mls/hr IV.SIG Q6H YRN Rx#:[id number] Vancomycin Inj 1,250 MG In NS 525.0 / 525.0 Inj 250 ML @ 250 mls/hr IV.SIG Q12H YRN Rx#:[id number] Oral 1120 / 1120 580 / 580 Output: Urine 3975 / 3975 Urine Amount (Catheter) 3000 / 3000 Indwelling Urethral Catheter 3000 / 3000 Other: # Bowel Movements 1 Result Diagrams: 12/22/17 04:47 12/22/17 12:05 Imaging: Impressions Chest X-Ray 12/21/17 06:00 CONCLUSION: Negative examination. Medications and IVs: Active Medications Generic Name Dose Route Start Last Admin Trade Name Freq PRN Reason Stop Dose Admin Acetaminophen 650 mg 12/20/17 11:34 08/03/18 16:29 Tylenol PO 650 mg Q4H PRN Administration Temp > 100.4 Hydrocodone Bitart/Acetaminophen 1 tab 12/22/17 12:00 12/23/17 05:38 Thurston 5/325 PO 1 tab Q6H YRN Administration Al Hydroxide/Mg Hydroxide 30 ml 12/20/17 11:34 Milk Of Magnesia Liq PO Q12H PRN Mild Constipation Albuterol 1 ampul 12/20/17 18:35 Duoneb Neb (Prn) NEB Q4HR NEB PRN SHORTNESS OF BREATH/WHEEZING Baclofen 5 mg 12/22/17 11:00 12/23/17 05:39 Lioresal PO 5 mg Q8HR YRN Administration Bisacodyl 10 mg 12/20/17 11:34 Dulcolax Supp RECTAL DAILY PRN SEVERE CONSITIPATION Diphenhydramine HCl 25 mg 12/22/17 03:51 12/22/17 04:15 Benadryl PO 25 mg Q6H PRN Administration ITCHING Enalaprilat 1.25 mg 12/20/17 16:43 12/23/17 01:17 Vasotec Inj IV.PUSH 1.25 mg Q6H PRN Administration HYPERTENSION Flumazenil 0.2 mg 12/20/17 18:45 Romazecon Inj IV.PUSH Q1M PRN OVERSEDATION Haloperidol Lactate 1 mg 12/20/17 18:45 Haldol Inj IV.PUSH Q15M PRN for severe agitation Sodium Chloride 1,000 mls @ 130 mls/hr 12/20/17 12:00 12/23/17 02:35 Ns Inj IV.CONT 130 mls/hr .Q7H42M YRN Administration Pharmacy Profile Note 0 mls @ 0 mls/hr 12/20/17 11:59 Vancomycin Consult Pharmacy OTHER [facility] As Directed Piperacillin/Tazobactam/Dextrose 4.5 gm in 100 mls @ 200 mls/hr 12/20/17 14: 00 12/23/17 03:45 Zosyn 4.5 Gm Premix IV.SIG 0 mls/hr Q6H YRN Infusion Vancomycin HCl 1,250 mg/ 262.5 mls @ 250 mls/hr 12/21/17 10:00 12/22/17 23:55 Sodium Chloride IV.SIG 250 mls/hr Q12H YRN Administration Hydromorphone/Sodium Chloride 6 mg in 30 mls @ 0 mls/hr 12/21/17 11:18 05:49 Dilaudid Egg Breaking Machine Operator Inj ASSISTANT PRODUCER 0 mls/hr UNSCH PRN Administration per ASSISTANT PRODUCER parameters 0 MG/HR Lactulose 30 ml 12/20/17 11:34 Lactulose Liq PO DAILY PRN SEVERE CONSITIPATION Lorazepam 1 mg 12/20/17 18:45 Ativan PO Q4H PRN for CIWA 8-10 Lorazepam 2 mg 12/20/17 18:45 Ativan Inj IV.PUSH Q2H PRN for CIWA 11-14 Lorazepam 2 mg 12/20/17 18:45 Ativan Inj IV.PUSH Q1H PRN for CIWA 15-20 Lorazepam 2 mg 12/20/17 18:45 Ativan Inj IV.PUSH Q15M PRN for CIWA > 20 Lorazepam 1 mg 12/20/17 18:45 Ativan Inj IV.PUSH Q4H PRN for CIWA 8-10 Lorazepam 2 mg 12/20/17 18:45 Ativan PO Q2H PRN for CIWA 11-14 Metoclopramide HCl 5 mg 12/20/17 11:34 Reglan Inj IV.PUSH Q6H PRN NAUSEA OR VOMITING Protocol Miscellaneous 1 each 12/22/17 11:07 Pill Splitter OTHER UNSCH PRN SEE LABEL COMMENTS Naloxone HCl 0.4 mg 12/20/17 15:50 Narcan Inj IV.PUSH PRN PRN SEE LABEL COMMENTS Naloxone HCl 0.4 mg 12/22/17 11:09 Narcan Inj IV.PUSH UNSCH PRN SEE LABEL COMMENTS Sennosides 17.2 mg 12/20/17 11:34 Senokot PO Q12H PRN Moderate Constipation Temazepam 15 mg 12/20/17 11:34 Restoril PO HS PRN INSOMNIA Objective Remarks: Abd:soft,less tender and less distended Urine is clearing 8 Abd:soft,less tender and less distended Urine is clearing 8/6 Abd:soft,less tender and less distended Urine is blood tinged Assessment and Plan - Plan Right renal bleed due to RCC Continue supportive measures for now. Hgb stable at 10. 8/5 52 y.o. with right RCC with hemorrhage. Hbg has been stable. Pt with CP and elevated B/P Continue with conservative measures for now. Tolerating diet. Pt will need medical/cardiac clearance prior to OR intervention. This can be done as an outpt. If to be done during this admission will need clearance first. 12/23 52 y.o. with right RCC with hemorrhage. Hbg has been stable. Pt to get OOB today to be irrigated to help clear urine.
--- NOTE | 2017-12-23 09:21 | P.PNFP ---
Subjective Interval history: Patient was seen and examined at bedside this morning. Overnight, patient had bouts of hypertension with systolic blood pressures in the 190s. He was asymptomatic and given clonidine 0.1 mg one time dose. This morning his blood pressure remains high in the 190s systolic and Vasotec was given early in an attempt to control the blood pressures. He still remains asymptomatic. In regards to his overall pain, he states that his pain is feeling much better today. He still complains of chest pain, but is is less painful than yesterday. The location of his pain is in the middle of his chest and it does not radiate. He continues to inquire about his renal mass, and when he will have surgery for it. He denies any shortness of breath, abdominal pain, leg pain. is still in place and draining well. All questions and concerns were answered at bedside. Results - Labs Result diagrams: 12/23/17 09:16 12/23/17 09:16 Abnormal lab results 12/22/17 12/22/17 Range/Units 12:05 22:00 Sodium 133 L (136-145) meq/L Estimated GFR 80 L (>89) mL/min Calcium 7.8 L (8.5-10.1) mg/dL Albumin 2.0 L (3.4-5.0) g/dL Vancomycin Trough 13.4 H (5.0-10.0) mcg/mL BMP 12/22/17 12:05 Sodium 133 L Potassium 3.9 Chloride 99 Carbon Dioxide 27.2 BUN 17 Creatinine 0.99 Calcium 7.8 L Liver Function 12/22/17 Range/Units 12:05 Total Bilirubin 0.6 (0.2-1.0) mg/dL AST 24 (15-37) U/L ALT 24 (12-78) U/L Alkaline Phosphatase 81 (45-117) U/L Albumin 2.0 L (3.4-5.0) g/dL - Imaging Impressions Chest X-Ray 12/21/17 06:00 CONCLUSION: Negative examination. Physical Exam Vital signs: Vital Signs 12/22/17 12:00 12/22/17 16:00 12/22/17 20:00 Temperature 98.1 F 98.0 F Pulse Rate 64 62 68 Respiratory Rate 17 17 Blood Pressure 179/99 H 183/102 H Pulse Oximetry 98 97 12/22/17 20:13 12/22/17 21:07 12/23/17 00:15 Temperature 97.9 F 98.4 F Pulse Rate 68 62 Respiratory Rate 17 17 Blood Pressure 190/109 H 181/99 H 187/103 H Pulse Oximetry 95 98 12/23/17 02:17 12/23/17 02:29 Temperature 98.5 F Pulse Rate 71 Respiratory Rate 20 20 Blood Pressure 174/96 H Pulse Oximetry 95 Intake & Output 12/22/17 12/23/17 12/23/17 18:59 06:59 18:59 Intake Total 2845.0 / 2845.0 1680 / 1680 Output Total 3975 / 3975 3000 / 3000 Balance -1130.0 / -1130.0 -1320 / -1320 Weight 80 kg Intake: IV 1725.0 / 1725.0 1100 / 1100 NS Inj 1,000 ML @ 130 mls/hr IV 1000 / 1000 1000 / 1000 .CONT .Q7H42M YRN Rx#:[id number] Zosyn 4.5 GM Premix 4.5 gm In 200 / 200 100 / 100 100 ml @ 200 mls/hr IV.SIG Q6H YRN Rx#:[id number] Vancomycin Inj 1,250 MG In NS 525.0 / 525.0 Inj 250 ML @ 250 mls/hr IV.SIG Q12H YRN Rx#:[id number] Oral 1120 / 1120 580 / 580 Output: Urine 3975 / 3975 Urine Amount (Catheter) 3000 / 3000 Indwelling Urethral Catheter 3000 / 3000 Other: # Bowel Movements 1 - Routine HEENT Exam Head: Present: normocephalic, atraumatic - Detailed Chest Wall Exam Comments: Parasternal tenderness to palpation. - Routine Respiratory Exam Present: CTA bilaterally Comments: Anterior auscultation. Patient unable to sit up due to pain. - Routine Cardiovascular Exam Present: RRR, S1, S2, murmur Comments: Grade 3 out of 5 systolic murmur appreciated over the left sternal border. - Routine Abdominal Exam Present: normoactive bowel sounds, distended - Routine Neurological Exam Present: alert, oriented X3 - Urinary Catheter Management Indwelling Urethral Catheter Cath placed during this visit: yes Reason for continuing: Gross Hematuria Insertion date: 12/20/17 Insertion time: 08:10 Assessment and Plan - Assessment (1) Sepsis Code(s): A41.9 - Sepsis, unspecified organism Status: Acute Plan: Afebrile since 12/20 at 1600, WBC improving slightly daily from 21-16 yesterday, bacteremia with MSSA. Pending a.m. labs. On admission: Febrile, WBC 21 possible consolidation on initial chest x-ray, however repeat chest x-ray shows no infiltrate or effusion Blood cultures: Final methicillin sensitive Staphylococcus aureus, pansensitive. Continue Vanc & Zosyn (12/20 -day 4) Blood cultures reordered today. urine cultures: No growth in 48 hours Follow-up pneumococcal and Legionella urinary antigens: Negative (2) Bacteremia Code(s): R78.81 - Bacteremia Status: Acute Plan: See plan above (3) Hypertension Code(s): I10 - Essential (primary) hypertension Status: Acute Plan: Patient has had episodes of hypertension overnight, systolics [id number]. No history of hypertension per patient. Possibly due to withdrawal versus chronic hypertension. Vasotec 1.25 mg q6 as needed for systolics above 180. Clonidine 0.1 mg every 6 as needed for systolics above 160. Continue to monitor vital signs every 4. (4) Renal hemorrhage, right Code(s): N28.89 - Other specified disorders of kidney and ureter Status: Acute Plan: History of renal cell carcinoma, right kidney with hemorrhage into the kidney, gross hematuria Associated with pain in back, neck, abdomen Follow-up recommendations of urology; maintain catheter, IV fluids, COMMISSIONED DEFENCE FORCE OFFICER for pain control, bedrest, H&H every 6 hours. For large H&H drop, may need to consult interventional radiology for embolization. If gross hematuria worsens, will place three-way catheter catheter IV fluids at maintenance Dilaudid COMMISSIONED DEFENCE FORCE OFFICER, [place] 5 mg, baclofen for pain management Hemoglobin stable 48 hours at 10.1 this morning, will transfuse 1 unit for hemoglobin less than 7.0, will call interventional radiology for any large drop in hemoglobin CT: Right kidney hemorrhage (5) Renal cell carcinoma Code(s): C64.9 - Malignant neoplasm of unspecified kidney, except renal pelvis Status: Acute Plan: We will consult oncology once acutely stabilized (6) IVDU (intravenous drug user) Code(s): F19.90 - Other psychoactive substance use, unspecified, uncomplicated Status: Acute Plan: Signs of sepsis, IV drug user, 4/6 murmur on exam, bacteremia positive Echocardiogram: Normal UDS: Positive opiates, positive cocaine Continue to monitor for signs of withdrawal CIWA protocol (7) Elevated serum creatinine Code(s): R79.89 - Other specified abnormal findings of blood chemistry Status : Acute Plan: Resolved with IV hydration, creatinine 0.99 on 86 Creat 1.35, increased from baseline 1.14-1.29 on previous visits Dehydration vs malignancy related Continue to f/u Creat IV hydration Avoid NSAIDs (8) Nutrition, metabolism, and development symptoms Code(s): R63.8 - Other symptoms and signs concerning food and fluid intake Status: Acute Plan: Fluids: IV fluids at maintenance, p.o. fluids as tolerated Electrolytes: Slightly hyponatremic with sodium 133, increased from 131, follow- up repeat CMP. Continue to monitor. Nutrition: P.o. as tolerated DVT ppx: SCDs only, hemorrhages contraindication to anticoagulation - Assessment and Plan 52 y/o M, IVDU with hx of Renal Cell Carcinoma, presents meeting SEPSIS criteria and is found to have lung consolidation, renal hemorrhage and gross hematuria.
[2017-12-23] MEDS: Vancomycin Inj 1,250 MG in Sodium Chlor 0.9% Inj 250 ML IV.SIG SCH (09:55)
[2017-12-23 09:56] LABS: Baso # (Auto) 0.1 th/mm3 (0.0-0.2); Eos # (Auto) 0.1 th/mm3 (0.0-0.4); Eos % (Auto) 1.2 % (0.0-4.0); Hematocrit 32.2 % (39.0-51.0); Lymph # (Auto) 1.5 th/mm3 (1.0-4.8); Lymph % (Auto) 13.3 % (9.0-44.0); Mean Corpuscular HGB Conc 34.2 % (32.0-36.0); Mean Corpuscular Hemoglobin 28.8 pg (27.0-34.0); Mean Corpuscular Volume 84.2 fL (80.0-100.0); Mean Platelet Volume 7.8 fL (7.0-11.0); Mono # (Auto) 0.9 th/mm3 (0.0-0.9); Mono % (Auto) 7.5 % (0.0-8.0); Neut # (Auto) 8.8 th/mm3 (1.8-7.7); Platelet Count 334 th/mm3 (150-450); Red Blood Count 3.82 mil/mm3 (4.50-5.90); White Blood Count 11.4 th/mm3 (4.0-11.0)
[2017-12-23 10:24] LABS: Albumin 2.1 g/dL (3.4-5.0); Anion Gap 10 meq/L (5-15); Aspartate Aminotransferase 28 U/L (15-37); Blood Urea Nitrogen 13 mg/dL (7-18); Calcium 8.3 mg/dL (8.5-10.1); Carbon Dioxide 24.5 meq/L (21.0-32.0); Chloride 101 meq/L (98-107); Glomerular Filtration Rate Greater Than 89 mL/min (>89); Glucose,Random 127 mg/dL (74-106); Potassium 3.5 meq/L (3.5-5.1); Sodium 135 meq/L (136-145)
[2017-12-23 10:40] LABS: Alanine Aminotransferase 21 U/L (12-78); Alkaline Phosphatase 42 U/L (45-117); Total Protein 7.2 g/dL (6.4-8.2)
[2017-12-23] MEDS: Vancomycin Inj 1,500 MG in Sodium Chlor 0.9% Inj 500 ML IV.SIG SCH (21:31)
[2017-12-24] MEDS: Piperacil/Tazo 4.5 GM Premix 4.5 GM/100 ML BAG IV.SIG SCH ×4 (01:55→21:43)
[2017-12-24] MEDS: HYDROmorphone PCA Inj 6 MG/30 ML PCA.VIAL PCA PRN (04:04)
[2017-12-24] MEDS: Baclofen 10 MG Tablet PO SCH ×3 (05:04→21:43)
--- NOTE | 2017-12-24 08:59 | P.PNFP ---
Subjective Interval history: Patient seen and examined at bedside this morning. He states that he is doing well today and that his pain is well controlled. Overnight he had an episode of lower abdominal pain that resolved with a passage of a blood clots through the catheter. He still complains of intermittent chest pain that is present when he touches his sternum. His is draining light red blood and is become clearer than yesterday. He denies any shortness of breath, abdominal pain , fevers, night sweats, chills, leg pain. Results - Labs Result diagrams: 12/24/17 14:37 12/24/17 14:37 Abnormal lab results 12/23/17 12/23/17 12/23/17 Range/Units 09:16 09:16 09:50 WBC 11.4 H (4.0-11.0) th/mm3 RBC 3.82 L (4.50-5.90) mil/mm3 Hgb 11.0 L (13.0-17.0) gm/dL Hct 32.2 L (39.0-51.0) % Neut % (Auto) 77.0 H (16.0-70.0) % Neut # (Auto) 8.8 H (1.8-7.7) th/mm3 Sodium 135 L (136-145) meq/L POC Glucose 137 H (68-110) mg/dl Random Glucose 127 H (74-106) mg/dL Calcium 8.3 L (8.5-10.1) mg/dL Alkaline Phosphatase 42 L (45-117) U/L Albumin 2.1 L (3.4-5.0) g/dL Short CBC 12/23/17 Range/Units 09:16 WBC 11.4 H (4.0-11.0) th/mm3 Hgb 11.0 L (13.0-17.0) gm/dL Hct 32.2 L (39.0-51.0) % Plt Count 334 (150-450) th/mm3 BMP 12/23/17 09:16 Sodium 135 L Potassium 3.5 Chloride 101 Carbon Dioxide 24.5 BUN 13 Creatinine 0.88 Calcium 8.3 L Liver Function 12/23/17 Range/Units 09:16 Total Bilirubin 0.6 (0.2-1.0) mg/dL AST 28 (15-37) U/L ALT 21 (12-78) U/L Alkaline Phosphatase 42 L (45-117) U/L Albumin 2.1 L (3.4-5.0) g/dL Physical Exam Vital signs: Vital Signs 12/23/17 10:30 12/23/17 12:00 12/23/17 16:00 Temperature 97.5 F L 98.0 F Pulse Rate 63 77 Respiratory Rate 16 20 18 Blood Pressure 181/102 H 142/89 H Pulse Oximetry 97 96 12/23/17 20:00 12/24/17 03:56 12/24/17 04:00 Temperature 98 F 98 F Pulse Rate 63 59 L 57 L Respiratory Rate 18 18 17 Blood Pressure 189/99 H 190/95 H 178/98 H Pulse Oximetry 97 97 12/24/17 06:00 12/24/17 08:00 12/24/17 08:33 Temperature 98.7 F Pulse Rate 61 Respiratory Rate 18 20 Blood Pressure 181/98 H 185/99 H Pulse Oximetry 92 L Intake & Output 12/23/17 12/24/17 12/24/17 18:59 06:59 18:59 Intake Total 3680 / 3680 1200 / 1200 Output Total 3975 / 3975 5400 / 5400 Balance -295 / -295 -4200 / -4200 Intake: IV 2200 / 2200 1200 / 1200 NS Inj 1,000 ML @ 130 mls/hr IV 2000 / 2000 1000 / 1000 .CONT .Q7H42M YRN Rx#:[id number] Zosyn 4.5 GM Premix 4.5 gm In 200 / 200 200 / 200 100 ml @ 200 mls/hr IV.SIG Q6H YRN Rx#:[id number] Oral 1480 / 1480 Output: Urine 3975 / 3975 Urine Amount (Catheter) 5400 / 5400 Indwelling Urethral Catheter 5400 / 5400 Other: Post Void Residual 400 Bladder Irrigation Fluid - Amount Instilled Indwelling Urethral Catheter 100 # Voids 1 Date of Last Bowel Movement 12/18/17 # Bowel Movements 0 Narrative: Well-appearing male, laying comfortably in bed, in no acute distress. - Constitutional no acute distress - Routine HEENT Exam Head: Present: normocephalic, atraumatic - Detailed Chest Wall Exam Comments: Parasternal tenderness to palpation. - Routine Respiratory Exam Present: CTA bilaterally - Routine Cardiovascular Exam Present: RRR, S1, S2, murmur Comments: Grade 3 out of 5 systolic murmur appreciated over the left sternal border. - Routine Abdominal Exam Present: soft, normoactive bowel sounds - Urinary Catheter Management Indwelling Urethral Catheter Cath placed during this visit: yes Reason for continuing: Hourly intake/output Insertion date: 12/20/17 Insertion time: 08:10 Assessment and Plan - Assessment (1) Sepsis Code(s): A41.9 - Sepsis, unspecified organism Status: Acute Plan: Afebrile since 12/20 at 1600, WBC trending downwards from 11.4-11 today. Bacteremia with MSSA. Resolving. Repeat blood cultures: Negative day 1 preliminary. Continue Vanc & Zosyn (12/20 -day 5) On admission: Febrile, WBC 21 possible consolidation on initial chest x-ray, however repeat chest x-ray shows no infiltrate or effusion Blood cultures: Final methicillin sensitive Staphylococcus aureus, pansensitive. urine cultures: No growth in 48 hours Follow-up pneumococcal and Legionella urinary antigens: Negative (2) Bacteremia Code(s): R78.81 - Bacteremia Status: Acute Plan: See plan above (3) Hypertension Code(s): I10 - Essential (primary) hypertension Status: Acute Plan: Patient still continues to have episodes of hypertension overnight, systolics [id number]. Asymptomatic. No history of hypertension per patient. Possibly due to withdrawal versus chronic hypertension. Vasotec 1.25 mg q6 prn Clonidine 0.1 mg scheduled every 12. Continue to monitor vital signs every 4. (4) Costochondritis Code(s): M94.0 - Chondrocostal junction syndrome [[place]] Status: Acute Plan: Sternal chest pain that is elicited with palpation parasternally. Continue with pain control: Dilaudid PROTECTION CONSULTANT, [place], baclofen. Unable to give NSAIDs for therapy due to kidney function. Continue to monitor. (5) Renal hemorrhage, right Code(s): N28.89 - Other specified disorders of kidney and ureter Status: Acute Plan: History of renal cell carcinoma, right kidney with hemorrhage into the kidney, gross hematuria Associated with pain in back, neck, abdomen Follow-up recommendations of urology; maintain catheter, IV fluids, PROTECTION CONSULTANT for pain control, bedrest, H&H every 6 hours. For large H&H drop, may need to consult interventional radiology for embolization. If gross hematuria worsens, will place three-way catheter catheter: Now draining light red to clear urine. IV fluids at maintenance Dilaudid PROTECTION CONSULTANT, [place] 5 mg, baclofen for pain management Hemoglobin stable. CT: Right kidney hemorrhage (6) Renal cell carcinoma Code(s): C64.9 - Malignant neoplasm of unspecified kidney, except renal pelvis Status: Acute Plan: We will consult oncology once acutely stabilized (7) IVDU (intravenous drug user) Code(s): F19.90 - Other psychoactive substance use, unspecified, uncomplicated Status: Acute Plan: Signs of sepsis, IV drug user, 4/6 murmur on exam, bacteremia positive Echocardiogram: Normal UDS: Positive opiates, positive cocaine Continue to monitor for signs of withdrawal CIWA protocol (8) Elevated serum creatinine Code(s): R79.89 - Other specified abnormal findings of blood chemistry Status : Resolved Plan: Resolved with IV hydration, creatinine 0.99 on 6 Creat 1.35, increased from baseline 1.14-1.29 on previous visits Dehydration vs malignancy related Continue to f/u Creat IV hydration Avoid NSAIDs (9) Nutrition, metabolism, and development symptoms Code(s): R63.8 - Other symptoms and signs concerning food and fluid intake Status: Acute Plan: Fluids: IV fluids at maintenance, p.o. fluids as tolerated Electrolytes: Monitor and replete as needed. Nutrition: P.o. as tolerated DVT ppx: SCDs only, hemorrhages contraindication to anticoagulation - Assessment and Plan 52 y/o M, IVDU with hx of Renal Cell Carcinoma, presents meeting SEPSIS criteria and is found to have lung consolidation, renal hemorrhage and gross hematuria.
[2017-12-24] MEDS: Sod Chloride 0.9% Inj 1,000 ML IV.CONT SCH ×2 (09:26→16:13)
--- NOTE | 2017-12-24 09:35 | P.PNURO ---
Subjective Patient symptoms today: Pt seen and examined. Feels better. No abdominal pain. Urine now clear. Objective Vital Signs: Vital Signs 12/23/17 10:30 12/23/17 12:00 12/23/17 16:00 Temperature 97.5 F L 98.0 F Pulse Rate 63 77 Respiratory Rate 16 20 18 Blood Pressure 181/102 H 142/89 H Pulse Oximetry 97 96 12/23/17 20:00 12/24/17 03:56 12/24/17 04:00 Temperature 98 F 98 F Pulse Rate 63 59 L 57 L Respiratory Rate 18 18 17 Blood Pressure 189/99 H 190/95 H 178/98 H Pulse Oximetry 97 97 12/24/17 06:00 12/24/17 08:00 12/24/17 08:33 Temperature 98.7 F Pulse Rate 61 Respiratory Rate 18 20 Blood Pressure 181/98 H 185/99 H Pulse Oximetry 92 L Intake & Output 12/23/17 12/24/17 12/24/17 18:59 06:59 18:59 Intake Total 3680 / 3680 1200 / 1200 1000 / 1000 Output Total 3975 / 3975 5400 / 5400 Balance -295 / -295 -4200 / -4200 1000 / 1000 Intake: IV 2200 / 2200 1200 / 1200 1000 / 1000 NS Inj 1,000 ML @ 130 mls/hr IV 2000 / 2000 1000 / 1000 1000 / 1000 .CONT .Q7H42M [facility] Rx#:[id number] Zosyn 4.5 GM Premix 4.5 gm In 200 / 200 200 / 200 100 ml @ 200 mls/hr IV.SIG Q6H [facility] Rx#:[id number] Oral 1480 / 1480 Output: Urine 3975 / 3975 Urine Amount (Catheter) 5400 / 5400 Indwelling Urethral Catheter 5400 / 5400 Other: Post Void Residual 400 Bladder Irrigation Fluid - Amount Instilled Indwelling Urethral Catheter 100 # Voids 1 Date of Last Bowel Movement 12/18/17 # Bowel Movements 0 Result Diagrams: 12/23/17 09:16 12/23/17 09:16 Medications and IVs: Active Medications Generic Name Dose Route Start Last Admin Trade Name Freq PRN Reason Stop Dose Admin Acetaminophen 650 mg 12/20/17 11:34 12/20/17 16:29 Tylenol PO 650 mg Q4H PRN Administration Temp > 100.4 Hydrocodone Bitart/Acetaminophen 1 tab 12/22/17 12:00 12/24/17 05:03 [place] 5/325 PO 1 tab Q6H YRN Administration Al Hydroxide/Mg Hydroxide 30 ml 12/20/17 11:34 Milk Of Magnesia Liq PO Q12H PRN Mild Constipation Albuterol 1 ampul 12/20/17 18:35 Duoneb Neb (Prn) NEB Q4HR NEB PRN SHORTNESS OF BREATH/WHEEZING Baclofen 5 mg 12/22/17 11:00 12/24/17 05:04 Lioresal PO 5 mg Q8HR YRN Administration Bisacodyl 10 mg 12/20/17 11:34 Dulcolax Supp RECTAL DAILY PRN SEVERE CONSITIPATION Clonidine HCl 0.1 mg 12/23/17 10:33 12/24/17 08:32 Catapres PO 0.1 mg Q6H PRN Administration BLOOD PRESSURE MANAGEMENT Clonidine HCl 0.1 mg 12/24/17 09:00 12/24/17 09:27 Catapres PO Not Given Q12HR [facility] Diphenhydramine HCl 25 mg 12/22/17 03:51 12/22/17 04:15 Benadryl PO 25 mg Q6H PRN Administration ITCHING Enalaprilat 1.25 mg 12/20/17 16:43 12/24/17 04:04 Vasotec Inj IV.PUSH 1.25 mg Q6H PRN Administration HYPERTENSION Flumazenil 0.2 mg 12/20/17 18:45 Romazecon Inj IV.PUSH Q1M PRN OVERSEDATION Haloperidol Lactate 1 mg 12/20/17 18:45 Haldol Inj IV.PUSH Q15M PRN for severe agitation Sodium Chloride 1,000 mls @ 130 mls/hr 12/20/17 12:00 12/24/17 09:26 Ns Inj IV.CONT 130 mls/hr .Q7H42M YRN Administration Pharmacy Profile Note 0 mls @ 0 mls/hr 12/20/17 11:59 Vancomycin Consult Pharmacy OTHER UNSCH YRN As Directed Piperacillin/Tazobactam/Dextrose 4.5 gm in 100 mls @ 200 mls/hr 12/20/17 14: 00 12/24/17 08:32 Zosyn 4.5 Gm Premix IV.SIG 200 mls/hr Q6H YRN Administration Hydromorphone/Sodium Chloride 6 mg in 30 mls @ 0 mls/hr 12/21/17 11:18 04:04 Dilaudid Pellet Mill Operator Inj MANAGER NUCLEAR 0 mls/hr UNSCH PRN Administration per MANAGER NUCLEAR parameters 0 MG/HR Vancomycin HCl 1,500 mg/ 515 mls @ 250 mls/hr 12/23/17 22:00 12/23/17 21:31 Sodium Chloride IV.SIG 250 mls/hr Q12H YRN Administration Lactulose 30 ml 12/20/17 11:34 Lactulose Liq PO DAILY PRN SEVERE CONSITIPATION Lorazepam 1 mg 12/20/17 18:45 Ativan PO Q4H PRN for CIWA 8-10 Lorazepam 2 mg 12/20/17 18:45 Ativan Inj IV.PUSH Q2H PRN for CIWA 11-14 Lorazepam 2 mg 12/20/17 18:45 Ativan Inj IV.PUSH Q1H PRN for CIWA 15-20 Lorazepam 2 mg 12/20/17 18:45 Ativan Inj IV.PUSH Q15M PRN for CIWA > 20 Lorazepam 1 mg 12/20/17 18:45 Ativan Inj IV.PUSH Q4H PRN for CIWA 8-10 Lorazepam 2 mg 12/20/17 18:45 Ativan PO Q2H PRN for CIWA 11-14 Metoclopramide HCl 5 mg 12/20/17 11:34 Reglan Inj IV.PUSH Q6H PRN NAUSEA OR VOMITING Protocol Miscellaneous 1 each 12/22/17 11:07 Pill Splitter OTHER UNSCH PRN SEE LABEL COMMENTS Miscellaneous Information 0 each 12/25/17 09:45 [facility] [place] [facility] Ordered Lab Info OTHER 12/25/17 09:46 ONCE ONE Naloxone HCl 0.4 mg 12/20/17 15:50 Narcan Inj IV.PUSH PRN PRN SEE LABEL COMMENTS Naloxone HCl 0.4 mg 12/22/17 11:09 Narcan Inj IV.PUSH UNSCH PRN SEE LABEL COMMENTS Sennosides 17.2 mg 12/20/17 11:34 Senokot PO Q12H PRN Moderate Constipation Temazepam 15 mg 12/20/17 11:34 Restoril PO HS PRN INSOMNIA Objective Remarks: Abd:soft,less tender and less distended Urine is clearing 12/22 Abd:soft,less tender and less distended Urine is clearing 12/23 Abd:soft,less tender and less distended Urine is blood tinged 12/24 Abd:soft,nt,nd with clear urine Assessment and Plan - Plan Right renal bleed due to RCC Continue supportive measures for now. Hgb stable at 10. 12/22 52 y.o. with right RCC with hemorrhage. Hbg has been stable. Pt with CP and elevated B/P Continue with conservative measures for now. Tolerating diet. Pt will need medical/cardiac clearance prior to OR intervention. This can be done as an outpt. If to be done during this admission will need clearance first. 12/23 52 y.o. with right RCC with hemorrhage. Hbg has been stable. Pt to get OOB today to be irrigated to help clear urine. 12/24 52 y.o male with h/o RCC with hemorrhage. No further active bleeding. Void trial today. Pt OOB Stop MANAGER NUCLEAR PT to f/u as outpt for right radical nephrectomy. No evidence of metastatic disease.
[2017-12-24] MEDS: Vancomycin Inj 1,500 MG in Sodium Chlor 0.9% Inj 500 ML IV.SIG SCH ×2 (11:01→21:43)
[2017-12-24] MEDS ORDERED: HYDROmorphone PF Inj 2 MG/ML Vial IV.PUSH PRN (11:44)
[2017-12-24 15:01] LABS: Baso # (Auto) 0.1 th/mm3 (0.0-0.2); Baso % (Auto) 0.7 % (0.0-2.0); Eos # (Auto) 0.2 th/mm3 (0.0-0.4); Eos % (Auto) 1.9 % (0.0-4.0); Hematocrit 30.6 % (39.0-51.0); Hemoglobin 10.3 gm/dL (13.0-17.0); Lymph # (Auto) 1.6 th/mm3 (1.0-4.8); Lymph % (Auto) 14.4 % (9.0-44.0); Mean Corpuscular HGB Conc 33.8 % (32.0-36.0); Mean Corpuscular Hemoglobin 28.9 pg (27.0-34.0); Mean Corpuscular Volume 85.6 fL (80.0-100.0); Mean Platelet Volume 7.5 fL (7.0-11.0); Mono % (Auto) 9.6 % (0.0-8.0); Neut % (Auto) 73.4 % (16.0-70.0); Platelet Count 348 th/mm3 (150-450); Red Blood Count 3.57 mil/mm3 (4.50-5.90); Red Cell Distribution Width 15.3 % (11.6-17.2)
[2017-12-24 15:23] LABS: Calcium 8.1 mg/dL (8.5-10.1); Carbon Dioxide 26.3 meq/L (21.0-32.0); Potassium 3.5 meq/L (3.5-5.1)
[2017-12-25] MEDS: Piperacil/Tazo 4.5 GM Premix 4.5 GM/100 ML BAG IV.SIG SCH ×4 (03:33→21:00)
[2017-12-25] MEDS: Baclofen 10 MG Tablet PO SCH ×3 (06:13→21:01)
[2017-12-25] MEDS ORDERED: Pharmacy Ordered Lab Info OTHER ONE (09:45)
--- NOTE | 2017-12-25 09:55 | P.PNURO ---
Subjective Patient symptoms today: Pt seen and examined. States that his hematuria has returned. Will await bladder scan results. May need [address] weinberg. Objective Vital Signs: Vital Signs 12/24/17 12:00 12/24/17 13:17 12/24/17 16:00 Temperature 99.4 F 98.5 F Pulse Rate 56 L 55 L Respiratory Rate 16 20 18 Blood Pressure 163/98 H 156/85 H Pulse Oximetry 99 97 12/24/17 16:12 12/24/17 20:00 12/25/17 04:00 Temperature 97.8 F 97.9 F Pulse Rate 57 L 54 L Respiratory Rate 20 16 16 Blood Pressure 145/89 H 126/74 Pulse Oximetry 97 98 Intake & Output 12/24/17 12/25/17 12/25/17 18:59 06:59 18:59 Intake Total 3455 / 3455 1100 / 1100 100 / 100 Balance 3455 / 3455 1100 / 1100 100 / 100 Intake: IV 2715 / 2715 1100 / 1100 100 / 100 NS Inj 1,000 ML @ 130 mls/hr IV 2000 / 2000 1000 / 1000 .CONT .Q7H42M YRN Rx#:[id number] Zosyn 4.5 GM Premix 4.5 gm In 200 / 200 100 / 100 100 / 100 100 ml @ 200 mls/hr IV.SIG Q6H YRN Rx#:[id number] Vancomycin Inj 1,500 MG In NS 515 / 515 Inj 500 ML @ 250 mls/hr IV.SIG Q12H YRN Rx#:[id number] Oral 740 / 740 Other: # Voids 2 # Bowel Movements 1 1 Result Diagrams: 12/24/17 14:37 12/24/17 14:37 Medications and IVs: Active Medications Generic Name Dose Route Start Last Admin Trade Name Freq PRN Reason Stop Dose Admin Acetaminophen 650 mg 12/20/17 11:34 12/20/17 16:29 Tylenol PO 650 mg Q4H PRN Administration Temp > 100.4 Hydrocodone Bitart/Acetaminophen 1 tab 12/22/17 12:00 12/24/17 23:37 [place] 5/325 PO 1 tab Q6H YRN Administration Al Hydroxide/Mg Hydroxide 30 ml 12/20/17 11:34 Milk Of Magnesia Liq PO Q12H PRN Mild Constipation Albuterol 1 ampul 12/20/17 18:35 Duoneb Neb (Prn) NEB Q4HR NEB PRN SHORTNESS OF BREATH/WHEEZING Baclofen 5 mg 12/22/17 11:00 12/25/17 06:13 Lioresal PO 5 mg Q8HR YRN Administration Bisacodyl 10 mg 12/20/17 11:34 Dulcolax Supp RECTAL DAILY PRN SEVERE CONSITIPATION Clonidine HCl 0.1 mg 12/23/17 10:33 12/24/17 08:32 Catapres PO 0.1 mg Q6H PRN Administration BLOOD PRESSURE MANAGEMENT Clonidine HCl 0.1 mg 12/24/17 09:00 12/25/17 08:22 Catapres PO 0.1 mg Q12HR YRN Administration Diphenhydramine HCl 25 mg 12/22/17 03:51 12/22/17 04:15 Benadryl PO 25 mg Q6H PRN Administration ITCHING Enalaprilat 1.25 mg 12/20/17 16:43 12/24/17 04:04 Vasotec Inj IV.PUSH 1.25 mg Q6H PRN Administration HYPERTENSION Flumazenil 0.2 mg 12/20/17 18:45 Romazecon Inj IV.PUSH Q1M PRN OVERSEDATION Haloperidol Lactate 1 mg 12/20/17 18:45 Haldol Inj IV.PUSH Q15M PRN for severe agitation Hydromorphone HCl 1 mg 12/24/17 11:44 Dilaudid Pf Inj IV.PUSH Q4H PRN SEE COMMENTS Sodium Chloride 1,000 mls @ 130 mls/hr 12/20/17 12:00 12/25/17 06:59 Ns Inj IV.CONT Infused .Q7H42M [facility] Infusion Pharmacy Profile Note 0 mls @ 0 mls/hr 12/20/17 11:59 Vancomycin Consult Pharmacy OTHER UNSCH [facility] As Directed Piperacillin/Tazobactam/Dextrose 4.5 gm in 100 mls @ 200 mls/hr 12/20/17 14: 00 12/25/17 08:19 Zosyn 4.5 Gm Premix IV.SIG 200 mls/hr Q6H YRN Administration Vancomycin HCl 1,500 mg/ 515 mls @ 250 mls/hr 12/23/17 22:00 12/24/17 21:43 Sodium Chloride IV.SIG 250 mls/hr Q12H YRN Administration Lactulose 30 ml 12/20/17 11:34 Lactulose Liq PO DAILY PRN SEVERE CONSITIPATION Lorazepam 1 mg 12/20/17 18:45 Ativan PO Q4H PRN for CIWA 8-10 Lorazepam 2 mg 12/20/17 18:45 Ativan Inj IV.PUSH Q2H PRN for CIWA 11-14 Lorazepam 2 mg 12/20/17 18:45 Ativan Inj IV.PUSH Q1H PRN for CIWA 15-20 Lorazepam 2 mg 12/20/17 18:45 Ativan Inj IV.PUSH Q15M PRN for CIWA > 20 Lorazepam 1 mg 12/20/17 18:45 Ativan Inj IV.PUSH Q4H PRN for CIWA 8-10 Lorazepam 2 mg 12/20/17 18:45 Ativan PO Q2H PRN for CIWA 11-14 Metoclopramide HCl 5 mg 12/20/17 11:34 Reglan Inj IV.PUSH Q6H PRN NAUSEA OR VOMITING Protocol Miscellaneous 1 each 12/22/17 11:07 Pill Splitter OTHER UNSCH PRN SEE LABEL COMMENTS Naloxone HCl 0.4 mg 12/20/17 15:50 Narcan Inj IV.PUSH PRN PRN SEE LABEL COMMENTS Naloxone HCl 0.4 mg 12/22/17 11:09 Narcan Inj IV.PUSH UNSCH PRN SEE LABEL COMMENTS Sennosides 17.2 mg 12/20/17 11:34 Senokot PO Q12H PRN Moderate Constipation Temazepam 15 mg 12/20/17 11:34 Restoril PO HS PRN INSOMNIA Objective Remarks: Abd:soft,less tender and less distended Urine is clearing 12/22 Abd:soft,less tender and less distended Urine is clearing 12/23 Abd:soft,less tender and less distended Urine is blood tinged 12/24 Abd:soft,nt,nd Weinberg with clear urine 12/25 Abd:soft,nt,nd Assessment and Plan - Plan Right renal bleed due to RCC Continue supportive measures for now. Hgb stable at 10. 8/5 52 y.o. with right RCC with hemorrhage. Hbg has been stable. Pt with CP and elevated B/P Continue with conservative measures for now. Tolerating diet. Pt will need medical/cardiac clearance prior to OR intervention. This can be done as an outpt. If to be done during this admission will need clearance first. 12/23 52 y.o. with right RCC with hemorrhage. Hbg has been stable. Pt to get OOB today Weinberg to be irrigated to help clear urine. 12/24 52 y.o male with h/o RCC with hemorrhage. No further active bleeding. Void trial today. Pt OOB Stop [facility]IDAR[facility] PT to f/u as outpt for right radical nephrectomy. No evidence of metastatic disease. 12/25 52 y.o male with h/o RCC with hemorrhage. Will check H/H now Bladder scan pt. If >600cc will need weinberg. May need embolization by IR if still bleeding
--- NOTE | 2017-12-25 10:45 | P.PNFP ---
Subjective Interval history: Patient seen and examined this morning. No acute events overnight. Patient reports feeling about the same as yesterday. Reports pain is 7 out of 10. Mainly his right lower groin. Endorses hematuria. States pain is improving. 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 Denies any chest pain, shortness of breath, leg pain. Results - Labs Result diagrams: 12/24/17 14:37 12/24/17 14:37 Abnormal lab results 12/24/17 12/24/17 Range/Units 14:37 14:37 RBC 3.57 L (4.50-5.90) mil/mm3 Hgb 10.3 L (13.0-17.0) gm/dL Hct 30.6 L (39.0-51.0) % Neut % (Auto) 73.4 H (16.0-70.0) % [place] % (Auto) 9.6 H (0.0-8.0) % Neut # (Auto) 8.0 H (1.8-7.7) th/mm3 [place] # (Auto) 1.0 H (0.0-0.9) th/mm3 Estimated GFR 76 L (>89) mL/min Calcium 8.1 L (8.5-10.1) mg/dL Short CBC 12/24/17 Range/Units 14:37 WBC 11.0 (4.0-11.0) th/mm3 Hgb 10.3 L (13.0-17.0) gm/dL Hct 30.6 L (39.0-51.0) % Plt Count 348 (150-450) th/mm3 BMP 12/24/17 14:37 Sodium 140 Potassium 3.5 Chloride 107 Carbon Dioxide 26.3 BUN 13 Creatinine 1.03 Calcium 8.1 L Physical Exam Vital signs: Vital Signs 12/24/17 12:00 12/24/17 13:17 12/24/17 16:00 Temperature 99.4 F 98.5 F Pulse Rate 56 L 55 L Respiratory Rate 16 20 18 Blood Pressure 163/98 H 156/85 H Pulse Oximetry 99 97 12/24/17 16:12 12/24/17 20:00 12/25/17 04:00 Temperature 97.8 F 97.9 F Pulse Rate 57 L 54 L Respiratory Rate 20 16 16 Blood Pressure 145/89 H 126/74 Pulse Oximetry 97 98 12/25/17 08:00 Temperature 98.0 F Pulse Rate 49 L Respiratory Rate 16 Blood Pressure 108/66 Pulse Oximetry 97 Intake & Output 12/24/17 12/25/17 12/25/17 18:59 06:59 18:59 Intake Total 3455 / 3455 1100 / 1100 100 / 100 Balance 3455 / 3455 1100 / 1100 100 / 100 Intake: IV 2715 / 2715 1100 / 1100 100 / 100 NS Inj 1,000 ML @ 130 mls/hr IV 2000 / 2000 1000 / 1000 .CONT .Q7H42M YRN Rx#:[id number] Zosyn 4.5 GM Premix 4.5 gm In 200 / 200 100 / 100 100 / 100 100 ml @ 200 mls/hr IV.SIG Q6H YRN Rx#:[id number] Vancomycin Inj 1,500 MG In NS 515 / 515 Inj 500 ML @ 250 mls/hr IV.SIG Q12H YRN Rx#:[id number] Oral 740 / 740 Other: # Voids 2 # Bowel Movements 1 1 Narrative: GENERAL: SKIN: Warm and dry. CARDIOVASCULAR: Regular rate and rhythm. RESPIRATORY: No accessory muscle use. Clear to auscultation. Breath sounds equal bilaterally. GASTROINTESTINAL: Abdomen soft, nondistended. Hepatic and splenic margins not palpable. Mildly tender in RLQ. MUSCULOSKELETAL: Extremities without clubbing, cyanosis, or edema. NEUROLOGICAL: Awake and alert. PSYCHIATRIC: Appropriate mood and affect; insight and judgment normal. - Urinary Catheter Management Indwelling Urethral Catheter Cath placed during this visit: yes, but has since been removed by the nurse Reason for continuing: Hourly intake/output Insertion date: 12/20/17 Insertion time: 08:10 Removal date: 12/24/17 Removal time: 11:00 Assessment and Plan - Assessment (1) Sepsis Code(s): A41.9 - Sepsis, unspecified organism Status: Acute Plan: Afebrile since 12/20 at 1600, WBC trending downwards from 11.4-11 today. Bacteremia with MSSA. Resolving. Repeat blood cultures: Negative day 1 preliminary. Continue Vanc & Zosyn (12/20 - ) On admission: Febrile, WBC 21 possible consolidation on initial chest x-ray, however repeat chest x-ray shows no infiltrate or effusion Blood cultures: Final methicillin sensitive Staphylococcus aureus, pansensitive. urine cultures: No growth in 48 hours Follow-up pneumococcal and Legionella urinary antigens: Negative (2) Bacteremia Code(s): R78.81 - Bacteremia Status: Acute Plan: See plan above repeat blood cultures NGTD (3) Hypertension Code(s): I10 - Essential (primary) hypertension Status: Acute Plan: Improving BP overnight, down to 108/66 this AM Vasotec 1.25 mg q6 prn Clonidine 0.1 mg scheduled every 12. Continue to monitor vital signs every 4. (4) Costochondritis Code(s): M94.0 - Chondrocostal junction syndrome [Tietze] Status: Acute Plan: Sternal chest pain that is elicited with palpation parasternally. Continue with pain control: [place], baclofen. Unable to give NSAIDs for therapy due to kidney function. Continue to monitor. (5) Renal hemorrhage, right Code(s): N28.89 - Other specified disorders of kidney and ureter Status: Acute Plan: History of renal cell carcinoma, right kidney with hemorrhage into the kidney, gross hematuria Associated with pain in back, neck, abdomen Follow-up recommendations of urology; maintain catheter, IV fluids, BIOINFORMAT[employer] ENGINEER for pain control, bedrest, H&H every 6 hours. For large H&H drop, may need to consult interventional radiology for embolization. If gross hematuria worsens, will place three-way catheter catheter: Now draining light red to clear urine. IV fluids at maintenance [place] 5 mg, baclofen for pain management Hemoglobin stable. CT: Right kidney hemorrhage (6) Renal cell carcinoma Code(s): C64.9 - Malignant neoplasm of unspecified kidney, except renal pelvis Status: Acute Plan: We will consult oncology once acutely stabilized (7) IVDU (intravenous drug user) Code(s): F19.90 - Other psychoactive substance use, unspecified, uncomplicated Status: Acute Plan: Signs of sepsis, IV drug user, 4/6 murmur on exam, bacteremia positive Echocardiogram: Normal UDS: Positive opiates, positive cocaine Continue to monitor for signs of withdrawal CIWA protocol (8) Nutrition, metabolism, and development symptoms Code(s): R63.8 - Other symptoms and signs concerning food and fluid intake Status: Acute Plan: Fluids: IV fluids at maintenance, p.o. fluids as tolerated Electrolytes: Monitor and replete as needed. Nutrition: P.o. as tolerated DVT ppx: SCDs only, hemorrhages contraindication to anticoagulation - Assessment and Plan 52 y/o M, IVDU with hx of Renal Cell Carcinoma, presents meeting SEPSIS criteria and is found to have lung consolidation, renal hemorrhage and gross hematuria.
[2017-12-25 11:53] LABS: Hematocrit 25.9 % (39.0-51.0); Hemoglobin 8.7 gm/dL (13.0-17.0); Mean Corpuscular HGB Conc 33.4 % (32.0-36.0); Mean Corpuscular Hemoglobin 28.8 pg (27.0-34.0); Mean Corpuscular Volume 86.3 fL (80.0-100.0); Mean Platelet Volume 7.7 fL (7.0-11.0); Platelet Count 329 th/mm3 (150-450); Red Blood Count 3.01 mil/mm3 (4.50-5.90); Red Cell Distribution Width 15.2 % (11.6-17.2)
[2017-12-25] MEDS ORDERED: Vancomycin Inj 1,500 MG in Sodium Chlor 0.9% Inj 500 ML IV.SIG SCH (14:00)
[2017-12-25] MEDS: Sod Chloride 0.9% Inj 1,000 ML IV.CONT SCH (15:44)
[2017-12-25 16:04] LABS: Activated Partial Thrombo Time 26.9 sec (24.3-30.1); INR 1.1 Ratio
[2017-12-25 20:32] LABS: Hematocrit 25.9 % (39.0-51.0); Hemoglobin 8.9 gm/dL (13.0-17.0)
[2017-12-26 04:47] LABS: Baso # (Auto) 0.1 th/mm3 (0.0-0.2); Baso % (Auto) 1.3 % (0.0-2.0); Eos # (Auto) 0.3 th/mm3 (0.0-0.4); Eos % (Auto) 2.8 % (0.0-4.0); Hemoglobin 9.6 gm/dL (13.0-17.0); Lymph # (Auto) 2.2 th/mm3 (1.0-4.8); Lymph % (Auto) 20.6 % (9.0-44.0); Mean Corpuscular HGB Conc 34.3 % (32.0-36.0); Mean Corpuscular Hemoglobin 29.2 pg (27.0-34.0); Mean Platelet Volume 7.9 fL (7.0-11.0); Mono # (Auto) 0.9 th/mm3 (0.0-0.9); Mono % (Auto) 8.3 % (0.0-8.0); Neut # (Auto) 7.3 th/mm3 (1.8-7.7); Platelet Count 396 th/mm3 (150-450); Red Blood Count 3.29 mil/mm3 (4.50-5.90); Red Cell Distribution Width 15.2 % (11.6-17.2); White Blood Count 10.9 th/mm3 (4.0-11.0)
[2017-12-26 05:01] LABS: Calcium 8.7 mg/dL (8.5-10.1); Carbon Dioxide 24.8 meq/L (21.0-32.0); Potassium 3.7 meq/L (3.5-5.1)
[2017-12-26] MEDS: Baclofen 10 MG Tablet PO SCH ×3 (05:38→21:00)
[2017-12-26] MEDS: Vancomycin Inj 1,250 MG in Sodium Chlor 0.9% Inj 250 ML IV.SIG SCH ×2 (05:38→16:32)
[2017-12-26] MEDS: Piperacil/Tazo 4.5 GM Premix 4.5 GM/100 ML BAG IV.SIG SCH ×4 (05:44→19:39)
--- NOTE | 2017-12-26 10:42 | P.PNFP ---
Subjective Interval history: Patient seen and examined this morning bedside. Patient continues to state that his pain is much improved from days prior. He has been n.p.o. since midnight in anticipation of the procedure with IR today. He has been up and walking, however has not yet gotten the shower. He denies any new chest pains or difficulties breathing. No acute events overnight. No fever/chills. Results - Labs Result diagrams: 12/26/17 03:58 12/26/17 03:58 Abnormal lab results 12/25/17 12/25/17 12/25/17 Range/Units 10:30 13:17 19:22 RBC 3.01 L (4.50-5.90) mil/mm3 Hgb 8.7 L 8.9 L (13.0-17.0) gm/dL Hct 25.9 L 25.9 L (39.0-51.0) % [place] % (Auto) (0.0-8.0) % Estimated GFR (>89) mL/min Vancomycin Trough 18.9 H (5.0-10.0) mcg/mL 12/26/17 12/26/17 Range/Units 03:58 03:58 RBC 3.29 L (4.50-5.90) mil/mm3 Hgb 9.6 L (13.0-17.0) gm/dL Hct 28.0 L (39.0-51.0) % [place] % (Auto) 8.3 H (0.0-8.0) % Estimated GFR 84 L (>89) mL/min Vancomycin Trough (5.0-10.0) mcg/mL Short CBC 12/25/17 12/25/17 12/26/17 Range/Units 10:30 19:22 03:58 WBC 10.0 10.9 (4.0-11.0) th/mm3 Hgb 8.7 L 8.9 L 9.6 L (13.0-17.0) gm/dL Hct 25.9 L 25.9 L 28.0 L (39.0-51.0) % Plt Count 329 396 (150-450) th/mm3 BMP 12/26/17 03:58 Sodium 139 Potassium 3.7 Chloride 107 Carbon Dioxide 24.8 BUN 16 Creatinine 0.95 Calcium 8.7 Physical Exam Vital signs: Vital Signs 12/25/17 12:00 08/08/18 20:00 12/25/17 20:39 Temperature 97.8 F 98.1 F Pulse Rate 48 L 53 L Respiratory Rate 18 18 18 Blood Pressure 117/73 153/80 H Pulse Oximetry 98 97 12/26/17 00:07 12/26/17 04:44 Temperature 97.6 F 97.7 F Pulse Rate 86 54 L Respiratory Rate 18 18 Blood Pressure 136/77 154/94 H Pulse Oximetry 99 97 Intake & Output 12/25/17 12/26/17 12/26/17 18:59 06:59 18:59 Intake Total 300 / 300 100 / 100 Output Total 1200 / 1200 2800 / 2800 Balance -900 / -900 -2700 / -2700 Weight 80 kg Intake: IV 300 / 300 100 / 100 Zosyn 4.5 GM Premix 4.5 gm In 300 / 300 100 / 100 100 ml @ 200 mls/hr IV.SIG Q6H YRN Rx#:[id number] Output: Urine 1200 / 1200 2800 / 2800 Other: # Voids 3 Date of Last Bowel Movement 12/18/17 - Constitutional no acute distress - Detailed Chest Wall Exam Comments: Patient's mild chest pain is easily reproduced on palpation of the chest wall - Routine Respiratory Exam Present: CTA bilaterally - Routine Cardiovascular Exam Present: RRR, S1, S2. Absent: murmur - Routine Abdominal Exam Present: soft, normoactive bowel sounds, tenderness (Patient continues to have tenderness to deep palpation over right lower quadrant) - Routine Skin Exam Present: intact. Absent: cyanosis, erythema - Routine Neurological Exam Present: alert, oriented X3, CN II-XII intact - Urinary Catheter Management Indwelling Urethral Catheter Cath placed during this visit: yes, but has since been removed by the nurse Reason for continuing: Hourly intake/output Insertion date: 12/20/17 Insertion time: 08:10 Removal date: 12/24/17 Removal time: 11:00 Assessment and Plan - Assessment (1) Sepsis Code(s): A41.9 - Sepsis, unspecified organism Status: Acute Plan: Afebrile since 12/20 at 1600, WBC trending downwards from 11.4-10.9 today. Bacteremia with MSSA on 12/20. Resolving. Repeat blood cultures: Negative day 2 preliminary. Continue Vanc & Zosyn (12/20 - ) On admission: Febrile, WBC 21 possible consolidation on initial chest x-ray, however repeat chest x-ray shows no infiltrate or effusion Blood cultures: Final methicillin sensitive Staphylococcus aureus, pansensitive. urine cultures: No growth in 48 hours Follow-up pneumococcal and Legionella urinary antigens: Negative (2) Bacteremia Code(s): R78.81 - Bacteremia Status: Acute Plan: See plan above repeat blood cultures NGTD (3) Hypertension Code(s): I10 - Essential (primary) hypertension Status: Acute Plan: Improving BP Vasotec 1.25 mg q6 prn Clonidine 0.1 mg scheduled every 12. Continue to monitor vital signs every 4. (4) Costochondritis Code(s): M94.0 - Chondrocostal junction syndrome [Tietze] Status: Acute Plan: Sternal chest pain that is elicited with palpation parasternally. Continue with pain control: [place], baclofen. Unable to give NSAIDs for therapy due to kidney function. Continue to monitor. (5) Renal hemorrhage, right Code(s): N28.89 - Other specified disorders of kidney and ureter Status: Acute Plan: History of renal cell carcinoma, right kidney with hemorrhage into the kidney, gross hematuria Associated with pain in back, neck, abdomen Follow-up recommendations of urology; H&H dropped yesterday to 8.7 from 10.3, failed voiding trial yesterday, with bladder scan over 800 cc, three-way catheter placed, going to IR for embolization today and will discuss right radical nephrectomy following. IV fluids at maintenance [place] 5 mg, baclofen for pain management Hemoglobin stable. CT: Right kidney hemorrhage (6) Renal cell carcinoma Code(s): C64.9 - Malignant neoplasm of unspecified kidney, except renal pelvis Status: Acute Plan: urology for right radical nephrectomy We will consider consult to oncology for management (7) IVDU (intravenous drug user) Code(s): F19.90 - Other psychoactive substance use, unspecified, uncomplicated Status: Acute Plan: Signs of sepsis, IV drug user, 4/6 murmur on exam, bacteremia positive Echocardiogram: Normal UDS: Positive opiates, positive cocaine Continue to monitor for signs of withdrawal CIWA protocol (8) Nutrition, metabolism, and development symptoms Code(s): R63.8 - Other symptoms and signs concerning food and fluid intake Status: Acute Plan: Fluids: IV fluids at maintenance, p.o. fluids as tolerated Electrolytes: Monitor and replete as needed. Nutrition: P.o. as tolerated DVT ppx: SCDs only, hemorrhages contraindication to anticoagulation - Assessment and Plan 52 y/o M, IVDU with hx of Renal Cell Carcinoma, presents meeting SEPSIS criteria and is found to have lung consolidation, renal hemorrhage and gross hematuria. Discharge Planning: Pending IV antibiotic treatment plan for bacteremia, will likely need to DC on IV transfusion plan, and the long-term plan for large renal hemorrhage
[2017-12-26] MEDS ORDERED: fentaNYL Citrate Inj 250 MCG/5 ML Ampul ONE (11:24)
[2017-12-26] MEDS ORDERED: Ketorolac Inj 30 MG/ML (IVP) Vial ONE ×2 (12:38→13:29)
[2017-12-26] MEDS ORDERED: fentaNYL Citrate Inj 100 MCG/2 ML Ampul ONE (13:23)
--- NOTE | 2017-12-26 14:21 | P.RAD ---
Post Procedure Progress Note - Pre Procedure Diagnosis (1) Renal hemorrhage, right (2) Renal cell carcinoma - Post Procedure Diagnosis (1) Renal hemorrhage, right (2) Renal cell carcinoma - Procedure Information Procedure Date: 12/26/17 Supervising Radiologist: Davion Srivastava MD Estimated blood loss (mL): 5 Anesthesia: Analgesia, Conscious Sedation, Other - Plan of Activity Patient to Unit: ROPU Patient Condition: Good See PACS Report for procedural detail/treatment. Vascular - Arterial Procedure right Renal Procedure: Embolization (Main and 2 accessory vessels to right kidney. Main vessel showed no normal vascularity and was entirely embolized. LP accessory showed norm vascularity inferiorly. 2 more proximal branches selectively embolized. Upper pole accessory appeared to supply normal upper pole parenchyma )
[2017-12-26] MEDS ORDERED: Naloxone Inj 0.4 MG/ML Vial IV.PUSH PRN (14:25)
[2017-12-26] MEDS: Sod Chloride 0.9% Inj 1,000 ML IV.CONT SCH ×3 (20:53→21:00)
[2017-12-27] MEDS: Piperacil/Tazo 4.5 GM Premix 4.5 GM/100 ML BAG IV.SIG SCH ×4 (01:44→20:17)
[2017-12-27] MEDS: Vancomycin Inj 1,250 MG in Sodium Chlor 0.9% Inj 250 ML IV.SIG SCH ×2 (03:00→17:01)
[2017-12-27 03:19] LABS: Alanine Aminotransferase 26 U/L (12-78); Albumin 1.9 g/dL (3.4-5.0); Anion Gap 6 meq/L (5-15); Aspartate Aminotransferase 32 U/L (15-37); Blood Urea Nitrogen 17 mg/dL (7-18); Calcium 8.3 mg/dL (8.5-10.1); Carbon Dioxide 25.5 meq/L (21.0-32.0); Chloride 110 meq/L (98-107); Glomerular Filtration Rate 78 mL/min (>89); Glucose,Random 87 mg/dL (74-106); Potassium 3.8 meq/L (3.5-5.1); Sodium 141 meq/L (136-145)
[2017-12-27 03:21] LABS: Alkaline Phosphatase 35 U/L (45-117); Total Protein 6.4 g/dL (6.4-8.2); Vancomycin,Trough 15.4 mcg/mL (5.0-10.0)
[2017-12-27] MEDS ORDERED: Pharmacy Ordered Lab Info OTHER ONE (03:45)
[2017-12-27 06:09] LABS: Baso # (Auto) 0.1 th/mm3 (0.0-0.2); Baso % (Auto) 1.1 % (0.0-2.0); Eos # (Auto) 0.2 th/mm3 (0.0-0.4); Eos % (Auto) 2.2 % (0.0-4.0); Hematocrit 24.8 % (39.0-51.0); Hemoglobin 8.3 gm/dL (13.0-17.0); Lymph % (Auto) 21.6 % (9.0-44.0); Mean Corpuscular HGB Conc 33.7 % (32.0-36.0); Mean Platelet Volume 7.9 fL (7.0-11.0); Mono # (Auto) 0.9 th/mm3 (0.0-0.9); Mono % (Auto) 9.6 % (0.0-8.0); Neut # (Auto) 6.1 th/mm3 (1.8-7.7); Neut % (Auto) 65.5 % (16.0-70.0); Platelet Count 347 th/mm3 (150-450); Red Blood Count 2.88 mil/mm3 (4.50-5.90); Red Cell Distribution Width 15.6 % (11.6-17.2); White Blood Count 9.3 th/mm3 (4.0-11.0)
[2017-12-27] MEDS: HYDROmorphone PCA Inj 6 MG/30 ML PCA.VIAL PCA PRN ×3 (06:33→21:36)
[2017-12-27] MEDS: Baclofen 10 MG Tablet PO SCH ×3 (06:34→21:45)
[2017-12-27] MEDS: Sod Chloride 0.9% Inj 1,000 ML IV.CONT SCH ×4 (06:34→20:17)
--- NOTE | 2017-12-27 08:17 | IR ---
EXAM DATE: 12/26/2017 2:45 PM EDT AGE/SEX: 52 years / Male INDICATIONS: Patient presents with kidney cancer in need of embolization to control bleeding. CLINICAL DATA: This is the patient's initial encounter. Patient reports that signs and symptoms have been present for 1 week and indicates a pain score of 4/10. MEDICAL/SURGICAL HISTORY: . Kidney cancer, heroin abuse . COMPARISON: [facility], CTA THOR ABD AORTA W CONTRAST W 3D, 12/22/2017. . FLUORO TIME (min): 21.3 IMAGE SERIES: 16 ACCESS SITE: Right femoral artery SEDATION TIME (min): 110 CONTRAST (cc): 100cc Visipaque (iodixanol) right jugular where is Mr. Hinojosa is extensive mural thrombus within the patient's is Dr. Srivastava radiology suite to the nurse taking care of Mr. Hinojosa and [address] Srivastava radiology Mr. Hinojosa was doing helica l disease is his hematuria D the heart but is not bright red of the orbits. [place] of [place] is 2 no evidence of CABG are again thank you very much MEDICATION(S): 6.5mg midazolam (Versed) IV 325mcg fentanyl (Sublimaze) IV 60mg Toradol DEVICE(S): Right accessory renal artery .018 3mmx2.mm tornado Right accessory renal artery .018 3mmx2.mm tornado Right renal artery PVA Right renal artery .035 [id number] tornado Right renal artery 035 [id number] tornado Right renal artery Gelfoam . . PROCEDURE : 1. Ultrasound-guided puncture of the access site. 2. Conscious sedation with continuous EKG and Oximetry monitoring. 3. Angiography of the upper pole accessory right renal artery. 4. Angiography of the main right renal artery 5. Angiography of the second-order branch vessels of the lower pole accessory x2. 6. PVA and coil embolization of the second-order branch vessels of the lower pole accessory vessel x 2. 7. PVA, Gelfoam and coil embolization of the main right renal artery. 8. Vascular closure device-Perclose, right common femoral artery. The risks, benefits and alternatives to the procedure were explained and verbal and written consent w as obtained. The site was prepped in sterile fashion. Full sterile technique was used, including ca p, mask, sterile gloves and gown and a large sterile sheet. Hand hygiene and 2% chlorhexidine and/or betadine/alcohol prep was utilized per protocol for cutaneous antisepsis. Sterile gel and sterile p robe cover were utilized for ultrasound guidance. The skin and subcutaneous tissues were infiltrated with local anesthetic solution. With ultrasound and fluoroscopic guidance the selected artery was punctured and a vascular sheath was placed. A hook catheter was used to select the upper pole accessory right renal artery. Contrast injection sh owed normal branching vessels to the upper pole with no tumoral vascularity. The hook catheter was then moved to the lower pole accessory branch. Contrast injection showed 3 al r branches. The proximal and middle branches both appear to supply tumoral vascularity to the large r ight renal mass. The lower pole branch showed normal branching vasculature to the lower pole of the [place]. A high flow renegade microcatheter was used to select each of the proximal 2 branches. Each br anch was injected with positive contrast to confirm position then embolized with 200-500 um PVA parti cles and 3 mm Tornado coils. Final run showed effective embolization of the 2 abnormal branches with preservation of flow to the normal appearing inferior pole. The hook catheter was then used to select the main right renal artery. Contrast injection showed exte nsive abnormal tumoral vascularity throughout the territory of the main right renal artery. Therefore , the entire vein was embolized with a large amount of 200 500 um PVA followed up by a series of 7 mm Tornado coils and Gelfoam to cessation of antegrade flow. The puncture site was closed with the closure device listed above hemostasis was obtained. The patien t tolerated the procedure well and there were no complications. Conscious sedation was performed with the prescribed dosages and duration as above in the presence of an independent trained radiology nurse to assist in the monitoring of the patient. EKG and oximetry remained stable throughout the procedure. CONCLUSION: 1. Patient has a main right with 2 accessory renal arteries. The upper pole accessory appears to sup ply a normal upper pole cortex. 2. The lower pole accessory appear to supply the normal lower pole with 2 branch vessels showing virgilio oral vascularity. The 2 branch vessels were subselected and embolized as described above. 3. Main right renal artery shows extensive tumoral vascularity. The entire vessel was embolized with a series of PVA particles, Gelfoam and coils as detailed above. Electronically signed by: Davion Srivastava MD 12/27/2017 8:16 AM EDT
--- NOTE | 2017-12-27 11:09 | P.PNFP ---
Subjective Interval history: Patient seen and evaluated at bedside this morning. He went to IR yesterday and had his embolization of R kidney procedure with no complications. Patient is laying comfortably in bed and denies any pain. He is interested in learning more about the methadone clinic, and is inquiring about his surgery for his kidneys. He denies any chest pain, shortness of breath, abdominal pain, problems with urination or defecation. The has been removed, he states that his urinary discharge is still bloody but not as bloody as it was initially. <Salma Davenport - 12/27/17 11:58> Results - Labs Result diagrams: 12/27/17 04:48 12/27/17 02:45 <Jesus Meyer - 12/27/17 16:15> Abnormal lab results 12/27/17 12/27/17 Range/Units 02:45 04:48 RBC 2.88 L (4.50-5.90) mil/mm3 Hgb 8.3 L (13.0-17.0) gm/dL Hct 24.8 L (39.0-51.0) % [place] % (Auto) 9.6 H (0.0-8.0) % Chloride 110 H (98-107) meq/L Estimated GFR 78 L (>89) mL/min Calcium 8.3 L (8.5-10.1) mg/dL Alkaline Phosphatase 35 L (45-117) U/L Albumin 1.9 L (3.4-5.0) g/dL Vancomycin Trough 15.4 H (5.0-10.0) mcg/mL Short CBC 12/27/17 Range/Units 04:48 WBC 9.3 (4.0-11.0) th/mm3 Hgb 8.3 L (13.0-17.0) gm/dL Hct 24.8 L (39.0-51.0) % Plt Count 347 (150-450) th/mm3 BMP 12/27/17 02:45 Sodium 141 Potassium 3.8 Chloride 110 H Carbon Dioxide 25.5 BUN 17 Creatinine 1.01 Calcium 8.3 L Liver Function 12/27/17 Range/Units 02:45 Total Bilirubin 0.3 (0.2-1.0) mg/dL AST 32 (15-37) U/L ALT 26 (12-78) U/L Alkaline Phosphatase 35 L (45-117) U/L Albumin 1.9 L (3.4-5.0) g/dL <Jesus Meyer - 12/27/17 16:15> Abnormal lab results 12/27/17 12/27/17 Range/Units 02:45 04:48 RBC 2.88 L (4.50-5.90) mil/mm3 Hgb 8.3 L (13.0-17.0) gm/dL Hct 24.8 L (39.0-51.0) % [place] % (Auto) 9.6 H (0.0-8.0) % Chloride 110 H (98-107) meq/L Estimated GFR 78 L (>89) mL/min Calcium 8.3 L (8.5-10.1) mg/dL Alkaline Phosphatase 35 L (45-117) U/L Albumin 1.9 L (3.4-5.0) g/dL Vancomycin Trough 15.4 H (5.0-10.0) mcg/mL Short CBC 12/27/17 Range/Units 04:48 WBC 9.3 (4.0-11.0) th/mm3 Hgb 8.3 L (13.0-17.0) gm/dL Hct 24.8 L (39.0-51.0) % Plt Count 347 (150-450) th/mm3 BMP 12/27/17 02:45 Sodium 141 Potassium 3.8 Chloride 110 H Carbon Dioxide 25.5 BUN 17 Creatinine 1.01 Calcium 8.3 L Liver Function 12/27/17 Range/Units 02:45 Total Bilirubin 0.3 (0.2-1.0) mg/dL AST 32 (15-37) U/L ALT 26 (12-78) U/L Alkaline Phosphatase 35 L (45-117) U/L Albumin 1.9 L (3.4-5.0) g/dL <Salma Davenport - 12/27/17 11:09> - Imaging Impressions Renal Arteriogram 12/26/17 00:00 CONCLUSION: 1. Patient has a main right with 2 accessory renal arteries. The upper pole accessory appears to supply a normal upper pole cortex. 2. The lower pole accessory appear to supply the normal lower pole with 2 branch vessels showing tumoral vascularity. The 2 branch vessels were subselected and embolized as described above. 3. Main right renal artery shows extensive tumoral vascularity. The entire vessel was embolized with a series of PVA particles, Gelfoam and coils as detailed above. <Jesus Meyer - 12/27/17 16:15> Impressions Renal Arteriogram 12/26/17 00:00 CONCLUSION: 1. Patient has a main right with 2 accessory renal arteries. The upper pole accessory appears to supply a normal upper pole cortex. 2. The lower pole accessory appear to supply the normal lower pole with 2 branch vessels showing tumoral vascularity. The 2 branch vessels were subselected and embolized as described above. 3. Main right renal artery shows extensive tumoral vascularity. The entire vessel was embolized with a series of PVA particles, Gelfoam and coils as detailed above. <Salma Davenport - 12/27/17 11:09> Physical Exam Vital signs: Vital Signs 12/26/17 20:00 12/27/17 00:00 12/27/17 04:00 Temperature 97.9 F 97.7 F 98.1 F Pulse Rate 49 L 67 65 Respiratory Rate 18 18 18 Blood Pressure 129/77 132/73 142/84 H Pulse Oximetry 98 99 96 12/27/17 08:00 12/27/17 08:16 12/27/17 12:00 Temperature 97.8 F 97.9 F Pulse Rate 50 L 50 L Respiratory Rate 16 16 16 Blood Pressure 139/85 123/78 Pulse Oximetry 98 99 12/27/17 13:45 12/27/17 16:03 Temperature Pulse Rate Respiratory Rate 20 18 Blood Pressure Pulse Oximetry Intake & Output 12/26/17 12/27/17 12/27/17 18:59 06:59 18:59 Intake Total 100 / 100 1965.0 / 1965.0 1100 / 1100 Output Total 450 / 450 1500 / 1500 600 / 600 Balance -350 / -350 465.0 / 465.0 500 / 500 Weight 81 kg Intake: IV 100 / 100 1725.0 / 1725.0 1100 / 1100 NS Inj 1,000 ML @ 130 mls/hr IV 1000 / 1000 1000 / 1000 .CONT .Q7H42M YRN Rx#:[id number] Zosyn 4.5 GM Premix 4.5 gm In 100 / 100 200 / 200 100 / 100 100 ml @ 200 mls/hr IV.SIG Q6H YRN Rx#:[id number] Vancomycin Inj 1,250 MG In NS 525.0 / 525.0 Inj 250 ML @ 250 mls/hr IV.SIG Q12H YRN Rx#:[id number] Oral 240 / 240 Output: Urine 450 / 450 1500 / 1500 600 / 600 Other: Date of Last Bowel Movement 12/25/17 # Bowel Movements 0 <Jesus Meyer - 12/27/17 16:15> Vital Signs 12/26/17 14:00 12/26/17 14:30 12/26/17 16:00 Temperature 98.6 F 97.5 F L Pulse Rate 45 L 52 L 48 L Respiratory Rate 16 16 18 Blood Pressure 183/100 H 158/95 H 165/90 H Pulse Oximetry 99 96 99 12/26/17 20:00 12/27/17 00:00 12/27/17 04:00 Temperature 97.9 F 97.7 F 98.1 F Pulse Rate 49 L 67 65 Respiratory Rate 18 18 18 Blood Pressure 129/77 132/73 142/84 H Pulse Oximetry 98 99 96 12/27/17 08:00 12/27/17 08:16 Temperature 97.8 F Pulse Rate 50 L Respiratory Rate 16 16 Blood Pressure 139/85 Pulse Oximetry 98 Intake & Output 12/26/17 12/27/17 12/27/17 18:59 06:59 18:59 Intake Total 100 / 100 1965.0 / 1965.0 1000 / 1000 Output Total 450 / 450 1500 / 1500 600 / 600 Balance -350 / -350 465.0 / 465.0 400 / 400 Weight 81 kg Intake: IV 100 / 100 1725.0 / 1725.0 1000 / 1000 NS Inj 1,000 ML @ 130 mls/hr IV 1000 / 1000 1000 / 1000 .CONT .Q7H42M YRN Rx#:[id number] Zosyn 4.5 GM Premix 4.5 gm In 100 / 100 200 / 200 100 ml @ 200 mls/hr IV.SIG Q6H YRN Rx#:[id number] Vancomycin Inj 1,250 MG In NS 525.0 / 525.0 Inj 250 ML @ 250 mls/hr IV.SIG Q12H YRN Rx#:[id number] Oral 240 / 240 Output: Urine 450 / 450 1500 / 1500 600 / 600 Other: Date of Last Bowel Movement 12/25/17 # Bowel Movements 0 <Laqua,Salma - 12/27/17 11:09> - Routine HEENT Exam Head: Present: normocephalic, atraumatic <Salma Davenport - 12/27/17 11:09> - Routine Respiratory Exam Present: CTA bilaterally <Salma Davenport 12/27/17 11:09> - Routine Cardiovascular Exam Present: RRR, S1, S2, murmur <Salma Davenport 12/27/17 11:09> - Routine Abdominal Exam Present: soft, normoactive bowel sounds. Absent: tenderness, distended <Salma Davenport - 12/27/17 11:09> - Urinary Catheter Management Indwelling Urethral Catheter Cath placed during this visit: no <BetsyJesus - 12/27/17 16:15> yes, but has since been removed by the nurse <Salma Davenport - 12/27/17 11:59> Reason for continuing: Hourly intake/output <Salma Davenport - 12/27/17 11:09> Insertion date: 12/20/17 <Salma Davenport - 12/27/17 11:09> Insertion time: 08:10 <Salma Davenport - 12/27/17 11:09> Removal date: 12/24/17 <Salma Davenport - 12/27/17 11:09> Removal time: 11:00 <Salma Davenport - 12/27/17 11:09> Assessment and Plan - Assessment (1) Sepsis Code(s): A41.9 - Sepsis, unspecified organism Status: Acute (2) Bacteremia Code(s): R78.81 - Bacteremia Status: Acute (3) Hypertension Code(s): I10 - Essential (primary) hypertension Status: Acute (4) Costochondritis Code(s): M94.0 - Chondrocostal junction syndrome [Tietze] Status: Acute (5) Renal hemorrhage, right Code(s): N28.89 - Other specified disorders of kidney and ureter Status: Acute (6) Renal cell carcinoma Code(s): C64.9 - Malignant neoplasm of unspecified kidney, except renal pelvis Status: Acute (7) IVDU (intravenous drug user) Code(s): F19.90 - Other psychoactive substance use, unspecified, uncomplicated Status: Acute (8) Nutrition, metabolism, and development symptoms Code(s): R63.8 - Other symptoms and signs concerning food and fluid intake Status: Acute <Jesus Meyer - 12/27/17 16:15> (1) Sepsis Code(s): A41.9 - Sepsis, unspecified organism Status: Acute Plan: Afebrile since 12/20 at 1600, WBC trending downwards from 10.9 to 9.3 today. Bacteremia with MSSA on 12/20. Resolving. Repeat blood cultures: Negative day 4 preliminary. Continue Vanc & Zosyn (12/20 - ) for 10 days On admission: Febrile, WBC 21 possible consolidation on initial chest x-ray, however repeat chest x-ray shows no infiltrate or effusion Blood cultures: Final methicillin sensitive Staphylococcus aureus, pansensitive. urine cultures: No growth in 48 hours Follow-up pneumococcal and Legionella urinary antigens: Negative (2) Bacteremia Code(s): R78.81 - Bacteremia Status: Acute Plan: See plan above repeat blood cultures NGTD (3) Hypertension Code(s): I10 - Essential (primary) hypertension Status: Acute Plan: Improving BP Vasotec 1.25 mg q6 prn Clonidine 0.1 mg scheduled every 12. Continue to monitor vital signs every 4. (4) Costochondritis Code(s): M94.0 - Chondrocostal junction syndrome [Tietze] Status: Acute Plan: Sternal chest pain that is elicited with palpation parasternally. Continue with pain control: Mccune, baclofen. Unable to give NSAIDs for therapy due to kidney function. Continue to monitor. (5) Renal hemorrhage, right Code(s): N28.89 - Other specified disorders of kidney and ureter Status: Acute Plan: History of renal cell carcinoma, right kidney with hemorrhage into the kidney, gross hematuria Associated with pain in back, neck, abdomen s/p renal embolization of R kidney yesterday. Pt asymptomatic today, comfortable. removed. Voiding appropriately. Follow-up recommendations of urology to discuss right radical nephrectomy. IV fluids at maintenance Mccune 5 mg, baclofen for pain management Hemoglobin stable. CT: Right kidney hemorrhage (6) Renal cell carcinoma Code(s): C64.9 - Malignant neoplasm of unspecified kidney, except renal pelvis Status: Acute Plan: urology for right radical nephrectomy We will consider consult to oncology for management (7) IVDU (intravenous drug user) Code(s): F19.90 - Other psychoactive substance use, unspecified, uncomplicated Status: Acute Plan: Signs of sepsis, IV drug user, 4/6 murmur on exam, bacteremia positive Echocardiogram: Normal UDS: Positive opiates, positive cocaine Continue to monitor for signs of withdrawal CIWA protocol Discuss with Case Management about Methadone Clinic. (8) Nutrition, metabolism, and development symptoms Code(s): R63.8 - Other symptoms and signs concerning food and fluid intake Status: Acute Plan: Fluids: IV fluids at maintenance, p.o. fluids as tolerated Electrolytes: Monitor and replete as needed. Nutrition: P.o. as tolerated DVT ppx: SCDs only, hemorrhages contraindication to anticoagulation <Salma Davenport - 12/27/17 11:59> - Assessment and Plan 52 y/o M, IVDU with hx of Renal Cell Carcinoma, presents meeting SEPSIS criteria and is found to have lung consolidation, renal hemorrhage and gross hematuria. <Salma Davenport - 12/27/17 11:09> - Attending Attestation The exam, history, and the medical decision-making described in the above note were completed with the assistance of the resident physician. I reviewed and agree with the findings presented. I attest that I had a [id number] encounter with the patient on the same day, and personally performed and documented my assessment and findings in the medical record.Zeny CESAR <Jesus Meyer - 12/27/17 16:15>
--- NOTE | 2017-12-27 23:59 | P.CON ---
History of Present Illness Service: Oncology Consult date: 12/27/17 Primary Care Provider: No Primary Care Physician History of Present Illness: This is a 52-year-old male who is homeless. He presented to the emergency department with abdominal pain and hematuria. He states that he was found to have a kidney mass approximately 1 year ago. He does not have established health care. He states that at that time he had presented to the [facility] in [facility]. On admission he was found to be septic and had lung consolidation. He was found to have positive blood cultures with MSSA on 2017. He has been treated with broad-spectrum antibiotics. Patient was seen by urology. He has undergone right radical nephrectomy. I do not see any pathology results thus far. The patient admits to smoking 1 pack of cigarettes every day for the past 30+ years. He also has a history of IV drug abuse. Review of Systems All other systems reviewed negative except as stated in HPI PMFSH - History History Provided By: Patient - Medical History Medical History: Medical History (Last Reviewed 12/27/17 @ 23:59 by Garett Marroquin MD) Ankle fracture, right Heroin abuse Kidney malignancy Kidney mass - Tobacco History Second Hand Smoke Exposure: Yes Tobacco Use In Past 30 Days: Yes Smoking Status: Current every day smoker (1 pack/day x 30 years) Tobacco Type: Cigarettes - Alcohol History How Often Do You Have a Drink Containing Alcohol: Never - Substance Use History Substance History: Active Abuse - Substance Use Type Heroin Status: Active Route Used: Intravenously Reason for Use: Get High - Travel History Recent Travel in the [place] Within the Last 8 Weeks: No Recent Travel Out of the Country Within the Last 8 Weeks: No - Immunization History Tetanus Immunization: <5 Years Hx Influenza Vaccine This Season: Yes Medications and Allergies Active Medications: Active Medications Acetaminophen (Tylenol) 650 mg PO Q4H PRN PRN Reason: Temp > 100.4 Last Admin: 12/20/17 16:29 Dose: 650 mg Hydrocodone Bitart/Acetaminophen ([place] 5/325) 1 tab PO Q6H YRN Last Admin: 12/27/17 23:47 Dose: Not Given Al Hydroxide/Mg Hydroxide (Milk Of Magnesia Liq) 30 ml PO Q12H PRN PRN Reason: Mild Constipation Albuterol (Duoneb Neb (Prn)) 1 ampul NEB Q4HR NEB PRN PRN Reason: SHORTNESS OF BREATH/WHEEZING Baclofen (Lioresal) 5 mg PO Q8HR [facility] Last Admin: 12/27/17 21:45 Dose: 5 mg Bisacodyl (Dulcolax Supp) 10 mg RECTAL DAILY PRN PRN Reason: SEVERE CONSITIPATION Clonidine HCl (Catapres) 0.1 mg PO Q6H PRN PRN Reason: BLOOD PRESSURE MANAGEMENT Last Admin: 12/26/17 16:32 Dose: 0.1 mg Clonidine HCl (Catapres) 0.1 mg PO Q12HR [facility] Last Admin: 12/27/17 21:44 Dose: Not Given Diphenhydramine HCl (Benadryl) 25 mg PO Q6H PRN PRN Reason: ITCHING Last Admin: 12/22/17 04:15 Dose: 25 mg Enalaprilat (Vasotec Inj) 1.25 mg IV.PUSH Q6H PRN PRN Reason: HYPERTENSION Last Admin: 12/24/17 04:04 Dose: 1.25 mg Flumazenil (Romazecon Inj) 0.2 mg IV.PUSH Q1M PRN PRN Reason: OVERSEDATION Haloperidol Lactate (Haldol Inj) 1 mg IV.PUSH Q15M PRN PRN Reason: for severe agitation Hydromorphone HCl (Dilaudid Pf Inj) 1 mg IV.PUSH Q4H PRN PRN Reason: SEE COMMENTS Sodium Chloride (Ns Inj) 1,000 mls @ 130 mls/hr IV.CONT .Q7H42M [facility] Last Admin: 12/27/17 20:17 Dose: 130 mls/hr Pharmacy Profile Note (Vancomycin Consult Pharmacy) 0 mls @ 0 mls/hr OTHER UNSCH [facility] Piperacillin/Tazobactam/Dextrose (Zosyn 4.5 Gm Premix) 4.5 gm in 100 mls @ 200 mls/hr IV.SIG Q6H [facility] Last Admin: 12/27/17 20:17 Dose: 200 mls/hr Vancomycin HCl 1,250 mg/ (Sodium Chloride) 262.5 mls @ 250 mls/hr IV.SIG Q12H [facility] Last Infusion: 12/27/17 19:16 Dose: Infused Hydromorphone/Sodium Chloride (Dilaudid [employer] Worker Inj) 6 mg in 30 mls @ 0 mls/hr [employer] UNSCH PRN PRN Reason: per [employer]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 parameters Last Admin: 12/27/17 21:36 Dose: 0 mls/hr Lactulose (Lactulose Liq) 30 ml PO DAILY PRN PRN Reason: SEVERE CONSITIPATION Lorazepam (Ativan) 1 mg PO Q4H PRN PRN Reason: for CIWA 8-10 Lorazepam (Ativan Inj) 2 mg IV.PUSH Q2H PRN PRN Reason: for CIWA 11-14 Lorazepam (Ativan Inj) 2 mg IV.PUSH Q1H PRN PRN Reason: for CIWA 15-20 Lorazepam (Ativan Inj) 2 mg IV.PUSH Q15M PRN PRN Reason: for CIWA > 20 Lorazepam (Ativan Inj) 1 mg IV.PUSH Q4H PRN PRN Reason: for CIWA 8-10 Lorazepam (Ativan) 2 mg PO Q2H PRN PRN Reason: for CIWA 11-14 Metoclopramide HCl (Reglan Inj) 5 mg IV.PUSH Q6H PRN; Protocol PRN Reason: NAUSEA OR VOMITING Miscellaneous (Pill Splitter) 1 each OTHER UNSCH PRN PRN Reason: SEE LABEL COMMENTS Miscellaneous Information ([facility] Ordered Lab Info) 0 each OTHER ONCE ONE Stop: 12/29/17 03:46 Naloxone HCl (Narcan Inj) 0.4 mg IV.PUSH PRN PRN PRN Reason: SEE LABEL COMMENTS Sennosides (Senokot) 17.2 mg PO Q12H PRN PRN Reason: Moderate Constipation Temazepam (Restoril) 15 mg PO HS PRN PRN Reason: INSOMNIA Allergies Allergy/AdvReac Type Severity Reaction Status Date / Time codeine Allergy Mild Itching Verified 12/20/17 07:49 iodine Allergy Unknown unknown Verified 12/20/17 07:49 potassium iodide Allergy Unknown unknown Verified 12/20/17 07:49 povidone-iodine Allergy Unknown unknown Verified 12/20/17 07:49 sodium iodide Allergy Unknown unknown Verified 12/20/17 07:49 sodium iodide Allergy Unknown unknown Verified 12/20/17 07:49 Physical Exam Vital signs: Vital Signs 12/27/17 00:00 12/27/17 04:00 12/27/17 08:00 Temperature 97.7 F 98.1 F 97.8 F Pulse Rate 67 65 50 L Respiratory Rate 18 18 16 Blood Pressure 132/73 142/84 H 139/85 Pulse Oximetry 99 96 98 12/27/17 08:16 12/27/17 12:00 12/27/17 13:45 Temperature 97.9 F Pulse Rate 50 L Respiratory Rate 16 16 20 Blood Pressure 123/78 Pulse Oximetry 99 12/27/17 16:00 12/27/17 16:03 12/27/17 19:15 Temperature 98.4 F Pulse Rate 53 L Respiratory Rate 16 18 18 Blood Pressure 128/65 Pulse Oximetry 98 12/27/17 20:00 Temperature 98.3 F Pulse Rate 55 L Respiratory Rate 17 Blood Pressure 135/71 Pulse Oximetry 98 Intake & Output 12/27/17 12/27/17 12/28/17 06:59 18:59 06:59 Intake Total 1965.0 / 1965.0 3700 / 3700 1362.5 / 1362.5 Output Total 1500 / 1500 600 / 600 Balance 465.0 / 465.0 3100 / 3100 1362.5 / 1362.5 Weight 81 kg Intake: IV 1725.0 / 1725.0 2100 / 2100 1362.5 / 1362.5 NS Inj 1,000 ML @ 130 mls/hr IV 1000 / 1000 2000 / 2000 1000 / 1000 .CONT .Q7H42M YRN Rx#:[id number] Zosyn 4.5 GM Premix 4.5 gm In 200 / 200 100 / 100 100 / 100 100 ml @ 200 mls/hr IV.SIG Q6H YRN Rx#:[id number] Vancomycin Inj 1,250 MG In NS 525.0 / 525.0 262.5 / 262.5 Inj 250 ML @ 250 mls/hr IV.SIG Q12H YRN Rx#:[id number] Oral 240 / 240 1600 / 1600 Output: Urine 1500 / 1500 600 / 600 Other: # Voids 3 - Constitutional no acute distress, thin, cachectic - Routine HEENT Exam Head: Present: normocephalic - Routine Neck Exam Present: supple - Routine Respiratory Exam Present: CTA bilaterally - Routine Cardiovascular Exam Present: RRR, S1, S2 - Routine Abdominal Exam Present: soft, normoactive bowel sounds - Routine Extremities Exam Present: full ROM, pulses intact, normal capillary refill - Routine Skin Exam Present: intact, dry, warm - Routine Neurological Exam Present: alert, oriented X3, CN II-XII intact - Urinary Catheter Management Indwelling Urethral Catheter Cath placed during this visit: yes, but has since been removed by the nurse Reason for continuing: Hourly intake/output Insertion date: 12/20/17 Insertion time: 08:10 Removal date: 12/24/17 Removal time: 11:00 Assessment and Plan - Assessment (1) Sepsis Code(s): A41.9 - Sepsis, unspecified organism Status: Acute (2) Pneumonia Code(s): J18.9 - Pneumonia, unspecified organism Status: Acute (3) Renal hemorrhage, right Code(s): N28.89 - Other specified disorders of kidney and ureter Status: Acute (4) Renal cell carcinoma Code(s): C64.9 - Malignant neoplasm of unspecified kidney, except renal pelvis Status: Acute (5) IVDU (intravenous drug user) Code(s): F19.90 - Other psychoactive substance use, unspecified, uncomplicated Status: Acute (6) Elevated serum creatinine Code(s): R79.89 - Other specified abnormal findings of blood chemistry Status : Resolved (7) Nutrition, metabolism, and development symptoms Code(s): R63.8 - Other symptoms and signs concerning food and fluid intake Status: Acute (8) Acute urinary obstruction Code(s): N13.9 - Obstructive and reflux uropathy, unspecified Status: Acute - Plan Assessment/Plan: This is a 52-year-old male who is homeless. He presented to the emergency department with hematuria and abdominal pain. A CT scan revealed a right kidney mass with hemorrhage. He has undergone right-sided nephrectomy. Patient was found to be septic with MSSA bacteremia. He is currently being treated with IV antibiotics. He has a history of IV drug abus: #1 right kidney mass #1 right kidney mass consistent with renal cell carcinoma--however the final pathology results are pending. - I would recommend obtaining a CT scan of the chest to rule out any metastatic disease. This should be with contrast. - If the pathology and imaging reveals that this disease was localized to the kidney, no additional adjuvant treatment is indicated. - He will need to be followed-with serial CT scans in the outpatient setting. #2 MSSA bacteremia with sepsis -Currently treated with IV antibiotics #3 history of IV drug abuse #4 anemia which is normocytic, likely due to renal hemorrhage -Obtain anemia studies -Obtain a stool Hemoccult This patient will need a follow-up in the oncology clinic. once he is medically stable, he could be discharged from the hospital.
[2017-12-28] MEDS: Piperacil/Tazo 4.5 GM Premix 4.5 GM/100 ML BAG IV.SIG SCH ×4 (02:06→21:50)
[2017-12-28] MEDS: Vancomycin Inj 1,250 MG in Sodium Chlor 0.9% Inj 250 ML IV.SIG SCH ×2 (04:12→16:01)
[2017-12-28 05:33] LABS: % Iron Saturation 6.2 % (20-50)
[2017-12-28] MEDS: Baclofen 10 MG Tablet PO SCH ×4 (05:50→21:56)
[2017-12-28] MEDS: Sod Chloride 0.9% Inj 1,000 ML IV.CONT SCH ×4 (05:50→21:51)
--- NOTE | 2017-12-28 10:55 | CT ---
EXAM DATE: 12/28/2017 10:48 AM EDT AGE/SEX: 52 years / Male INDICATIONS: Renal cell carcinoma staging. CLINICAL DATA: This is the patient's initial encounter. Patient reports that signs and symptoms have been present for 1 day and indicates a pain score of 0/10. MEDICAL/SURGICAL HISTORY: Renal cell carcinoma. None. RADIATION DOSE: 8.92 CTDI (mGy) COMPARISON: [facility], CT ABDOMEN & PELVIS W/O CONTRAST, 12/20/2017. . TECHNIQUE: Multiple contiguous axial images were obtained through the chest without contrast. Image s were obtained in suspended respiration using multiple row detector helical technique. Using automa padmini exposure control and adjustment of the mA and/or kV according to patient size, radiation dose was kept as low as reasonably achievable to obtain optimal diagnostic quality images. DICOM format imag e data is available electronically for review and comparison. FINDINGS: Lungs: Minimal bibasilar consolidation Mediastinum: There is good visualization of the great vessels of the middle mediastinum. No evidenc e of mediastinal or hilar adenopathy/mass. Pleurae: Tiny bilateral pleural effusions. Axillae: Unremarkable. Bony Structures: Unremarkable. Miscellaneous: The examination was extended to include the upper abdomen, and both adrenal glands ar e normal in size and configuration. Abnormal appearance of right kidney not completely visualized. CONCLUSION: 1. Minimal bibasilar consolidation. 2. Tiny bilateral pleural effusions. 3. No masses are seen. Electronically signed by: Moses Chiu MD 12/28/2017 10:54 AM EDT
[2017-12-28 15:24] LABS: Baso # (Auto) 0.1 th/mm3 (0.0-0.2); Eos # (Auto) 0.2 th/mm3 (0.0-0.4); Eos % (Auto) 1.3 % (0.0-4.0); Hematocrit 28.2 % (39.0-51.0); Hemoglobin 9.7 gm/dL (13.0-17.0); Lymph # (Auto) 1.8 th/mm3 (1.0-4.8); Lymph % (Auto) 12.6 % (9.0-44.0); Mean Corpuscular HGB Conc 34.2 % (32.0-36.0); Mean Corpuscular Hemoglobin 28.9 pg (27.0-34.0); Mean Corpuscular Volume 84.5 fL (80.0-100.0); Mean Platelet Volume 7.9 fL (7.0-11.0); Mono # (Auto) 1.5 th/mm3 (0.0-0.9); Mono % (Auto) 10.1 % (0.0-8.0); Neut # (Auto) 10.9 th/mm3 (1.8-7.7); Platelet Count 469 th/mm3 (150-450); Red Blood Count 3.34 mil/mm3 (4.50-5.90); Red Cell Distribution Width 15.2 % (11.6-17.2); White Blood Count 14.6 th/mm3 (4.0-11.0)
--- NOTE | 2017-12-28 15:25 | CT ---
EXAM DATE: 12/28/2017 3:18 PM EDT AGE/SEX: 52 years / Male INDICATIONS: Right lower quadrant pain, patient states pain has been severe since renal embolization yesterday. CLINICAL DATA: This is the patient's initial encounter. Patient reports that signs and symptoms have been present for 2 days and indicates a pain score of 10/10. MEDICAL/SURGICAL HISTORY: Hypertension. Renal cell carcinoma. Substance abuse. None. RADIATION DOSE: 15.13 CTDI (mGy) COMPARISON: [facility], CT ABDOMEN & PELVIS W/O CONTRAST, 12/20/2017. . TECHNIQUE: Multiple contiguous axial images were obtained through the abdomen. Images were obtained using multiple row detector helical technique. Using automated exposure control and adjustment of the mA and/or kV according to patient size, radiation dose was kept as low as reasonably achievable to o btain optimal diagnostic quality images. DICOM format image data is available electronically for rev iew and comparison. Lack of IV contrast limits the diagnosis for certain organ pathology. FINDINGS: Lower Lungs: Bibasilar atelectasis. Liver: The liver has a homogeneous density without space-occupying lesion. There is no dilation of th e biliary tree. Stable compared to the prior study. No evidence of ascites. Spleen: Homogeneous density without enlargement. Pancreas: Unremarkable without mass or calcification. Kidneys: Status post embolization of the right kidney. Right kidney is prominent in size but stable compared to the prior examination. The left kidney is grossly unremarkable. No hydronephrosis. Adrenal Glands: Unremarkable. Aorta: The aorta and proximal iliac vessels are grossly unremarkable without aneurysmal dilation. Bowel/Mesentery: The bowel loops are grossly unremarkable. The cecum and sigmoid colon have a normal configuration. There is a moderate amount of stool throughout the colon. There is no evidence of ирина e air. No free fluid is seen. Abdominal Wall: There is nonspecific edema throughout the body wall suggestive of some anasarca. Retroperitoneum: No evidence of adenopathy in the retrocrural, para-aortic, or deep pelvic regions. Bladder: There continues to be either residual contrast or stone in the base of the urinary bladder. Otherwise, the urinary bladder is unremarkable. Reproductive Organs: No abnormal masses or calcifications seen. Inguinal: The inguinal region is unremarkable without evidence of adenopathy. Bony Structures: Unremarkable. CONCLUSION: 1. Status post embolization of the right kidney without significant change compared to the prior exa mination. No free fluid or loculated fluid collections are seen in the abdomen. 2. Bibasilar atelectasis. 3. Nonspecific edema throughout the body wall suggestive of anasarca. 4. Residual contrast versus stone in the base of the urinary bladder. Electronically signed by: Michael Malagon MD 12/28/2017 3:24 PM EDT
[2017-12-28 15:44] LABS: Calcium 8.5 mg/dL (8.5-10.1); Potassium 3.2 meq/L (3.5-5.1)
[2017-12-28] MEDS: HYDROmorphone PCA Inj 6 MG/30 ML PCA.VIAL PCA PRN ×2 (16:18→23:21)
--- NOTE | 2017-12-28 19:56 | P.PNFP ---
Subjective Interval history: Patient seen and examined bedside this morning. Patient is continuing to eat and drink without difficulty. He is ambulating and has taken a shower. He denies any abdominal pain. His pain is well managed on his current medications. Denies any chest pain, shortness of breath, dizziness. No acute events overnight. <Sharri Canseco - 12/28/17 19:55> Results - Labs Result diagrams: 12/28/17 14:16 12/28/17 14:16 <Amber Navarrete - 12/29/17 11:37> Abnormal lab results 12/28/17 12/28/17 12/29/17 Range/Units 14:16 14:16 03:50 WBC 14.6 H (4.0-11.0) th/mm3 RBC 3.34 L (4.50-5.90) mil/mm3 Hgb 9.7 L (13.0-17.0) gm/dL Hct 28.2 L (39.0-51.0) % Plt Count 469 H D (150-450) th/mm3 Neut % (Auto) 75.0 H (16.0-70.0) % [place] % (Auto) 10.1 H (0.0-8.0) % Neut # (Auto) 10.9 H (1.8-7.7) th/mm3 [place] # (Auto) 1.5 H (0.0-0.9) th/mm3 Potassium 3.2 L (3.5-5.1) meq/L Estimated GFR 74 L (>89) mL/min Vancomycin Trough 16.1 H (5.0-10.0) mcg/mL Short CBC 12/28/17 Range/Units 14:16 WBC 14.6 H (4.0-11.0) th/mm3 Hgb 9.7 L (13.0-17.0) gm/dL Hct 28.2 L (39.0-51.0) % Plt Count 469 H D (150-450) th/mm3 BMP 12/28/17 14:16 Sodium 138 Potassium 3.2 L Chloride 101 D Carbon Dioxide 29.0 BUN 12 Creatinine 1.06 Calcium 8.5 <Amber Navarrete - 12/29/17 11:37> Abnormal lab results 12/28/17 12/28/17 12/28/17 Range/Units 04:29 14:16 14:16 WBC 14.6 H (4.0-11.0) th/mm3 RBC 3.34 L (4.50-5.90) mil/mm3 Hgb 9.7 L (13.0-17.0) gm/dL Hct 28.2 L (39.0-51.0) % Plt Count 469 H D (150-450) th/mm3 Neut % (Auto) 75.0 H (16.0-70.0) % [place] % (Auto) 10.1 H (0.0-8.0) % Neut # (Auto) 10.9 H (1.8-7.7) th/mm3 [place] # (Auto) 1.5 H (0.0-0.9) th/mm3 Potassium 3.2 L (3.5-5.1) meq/L Estimated GFR 74 L (>89) mL/min Iron 18 L (65-175) mcg/dL % Saturation 6.2 L (20-50) % Vitamin B12 1264 H (193-986) pg/mL Short CBC 12/28/17 Range/Units 14:16 WBC 14.6 H (4.0-11.0) th/mm3 Hgb 9.7 L (13.0-17.0) gm/dL Hct 28.2 L (39.0-51.0) % Plt Count 469 H D (150-450) th/mm3 BMP 12/28/17 14:16 Sodium 138 Potassium 3.2 L Chloride 101 D Carbon Dioxide 29.0 BUN 12 Creatinine 1.06 Calcium 8.5 <Sharri Canseco - 12/28/17 19:55> - Imaging Impressions Abdomen/Pelvis CT 12/28/17 14:33 CONCLUSION: 1. Status post embolization of the right kidney without significant change compared to the prior examination. No free fluid or loculated fluid collections are seen in the abdomen. 2. Bibasilar atelectasis. 3. Nonspecific edema throughout the body wall suggestive of anasarca. 4. Residual contrast versus stone in the base of the urinary bladder. <Amber Navarrete - 12/29/17 11:37> Impressions Chest CT 12/28/17 00:00 CONCLUSION: 1. Minimal bibasilar consolidation. 2. Tiny bilateral pleural effusions. 3. No masses are seen. Abdomen/Pelvis CT 12/28/17 14:33 CONCLUSION: 1. Status post embolization of the right kidney without significant change compared to the prior examination. No free fluid or loculated fluid collections are seen in the abdomen. 2. Bibasilar atelectasis. 3. Nonspecific edema throughout the body wall suggestive of anasarca. 4. Residual contrast versus stone in the base of the urinary bladder. <Sharri Canseco - 12/28/17 19:55> Physical Exam Vital signs: Vital Signs 12/28/17 12:00 12/28/17 12:09 12/28/17 16:00 Temperature 99.3 F 98.5 F Pulse Rate 64 67 Respiratory Rate 20 18 18 Blood Pressure 160/93 H 166/94 H Pulse Oximetry 95 97 12/28/17 20:00 12/29/17 00:00 12/29/17 04:00 Temperature 99.0 F 97.8 F 98.1 F Pulse Rate 55 L 56 L 54 L Respiratory Rate 16 16 16 Blood Pressure 133/66 132/70 108/60 Pulse Oximetry 97 97 97 Intake & Output 12/28/17 12/29/17 12/29/17 18:59 06:59 18:59 Intake Total 2362.5 / 2362.5 2100 / 2100 1362.5 / 1362.5 Output Total 800 / 800 400 / 400 Balance 1562.5 / 1562.5 1700 / 1700 1362.5 / 1362.5 Intake: IV 2362.5 / 2362.5 2099 / 2099 1362.5 / 1362.5 NS Inj 1,000 ML @ 130 mls/hr IV 1999 / 1999 1999 / 1999 1000 / 1000 .CONT .Q7H42M YRN Rx#:[id number] Zosyn 4.5 GM Premix 4.5 gm In 100 / 100 100 / 100 100 / 100 100 ml @ 200 mls/hr IV.SIG Q6H YRN Rx#:[id number] Vancomycin Inj 1,250 MG In NS 262.5 / 262.5 262.5 / 262.5 Inj 250 ML @ 250 mls/hr IV.SIG Q12H YRN Rx#:[id number] Output: Urine 800 / 800 400 / 400 Other: # Voids 3 <Amber Navarrete - 12/29/17 11:37> Vital Signs 12/27/17 20:00 12/28/17 00:00 12/28/17 04:00 Temperature 98.3 F 98.5 F 98.6 F Pulse Rate 56 L 58 L 65 Respiratory Rate 17 17 17 Blood Pressure 135/71 157/81 H 135/82 Pulse Oximetry 98 95 94 L 12/28/17 07:51 12/28/17 08:30 12/28/17 12:00 Temperature 98.4 F 99.3 F Pulse Rate 56 L 64 Respiratory Rate 18 16 20 Blood Pressure 147/85 H 160/93 H Pulse Oximetry 98 95 12/28/17 12:09 12/28/17 16:00 Temperature 98.5 F Pulse Rate 67 Respiratory Rate 18 18 Blood Pressure 166/94 H Pulse Oximetry 97 Intake & Output 12/28/17 12/28/17 12/29/17 06:59 18:59 06:59 Intake Total 3065.0 / 3065.0 1999 Output Total 2500 / 2500 800 / 800 Balance 565.0 / 565.0 1200 / 1200 Weight 81.5 kg Intake: IV 2825.0 / 2825.0 1999 NS Inj 1,000 ML @ 130 mls/hr IV 1999 .CONT .Q7H42M YRN Rx#:[id number] Zosyn 4.5 GM Premix 4.5 gm In 300 / 300 100 ml @ 200 mls/hr IV.SIG Q6H YRN Rx#:[id number] Vancomycin Inj 1,250 MG In NS 525.0 / 525.0 Inj 250 ML @ 250 mls/hr IV.SIG Q12H YRN Rx#:[id number] Oral 240 / 240 Output: Urine 2500 / 2500 800 / 800 Other: # Voids 3 <Sharri Canseco - 12/28/17 19:55> - Constitutional no acute distress <Sharri Canseco - 12/28/17 19:55> - Routine HEENT Exam Head: Present: normocephalic <Sharri Canseco - 12/28/17 19:55> - Routine Respiratory Exam Present: CTA bilaterally. Absent: accessory muscle use, decreased breath sounds , respiratory distress <Sharri Canseco - 12/28/17 19:55> - Routine Cardiovascular Exam Present: RRR, S1, S2, murmur (4 out of 6 holosystolic murmur) <Sharri Canseco 12/28/17 19:55> - Routine Abdominal Exam Present: soft, normoactive bowel sounds. Absent: tenderness <AjithSharri 12/28/17 19:55> - Routine Neurological Exam Present: alert, oriented X3 <Sharri Canseco 12/28/17 19:55> - Urinary Catheter Management Indwelling Urethral Catheter Cath placed during this visit: no <LandonAmber M - 12/29/17 11:37> yes, but has since been removed by the nurse <MatheusnikostuSharri 12/28/17 19:55> Reason for continuing: Hourly intake/output <AjithSharri 12/28/17 19:55> Insertion date: 12/20/17 <MatheusnikostuMarkieSharri 12/28/17 19:55> Insertion time: 08:10 <MatheusnikostuMarkieSharri 12/28/17 19:55> Removal date: 12/24/17 <MatheusnikostuSharri 12/28/17 19:55> Removal time: 11:00 <MatheusnikostuSharri 12/28/17 19:55> Assessment and Plan - Assessment (1) Sepsis Code(s): A41.9 - Sepsis, unspecified organism Status: Acute (2) Bacteremia Code(s): R78.81 - Bacteremia Status: Acute (3) Hypertension Code(s): I10 - Essential (primary) hypertension Status: Acute (4) Renal hemorrhage, right Code(s): N28.89 - Other specified disorders of kidney and ureter Status: Acute (5) Renal cell carcinoma Code(s): C64.9 - Malignant neoplasm of unspecified kidney, except renal pelvis Status: Acute (6) IVDU (intravenous drug user) Code(s): F19.90 - Other psychoactive substance use, unspecified, uncomplicated Status: Acute (7) Nutrition, metabolism, and development symptoms Code(s): R63.8 - Other symptoms and signs concerning food and fluid intake Status: Acute <LandonZhenAmber M - 12/29/17 11:37> (1) Sepsis Code(s): A41.9 - Sepsis, unspecified organism Status: Acute Plan: Afebrile since 12/20 at 1600, WBC increased to 14.6 today, from 9.3 yesterday Bacteremia with MSSA on 12/20. Repeat blood cultures 12/23: Negative day 5, final negative Continue Vanc & Zosyn (12/20 - ) On admission: Febrile, WBC 21 possible consolidation on initial chest x-ray, however repeat chest x-ray shows no infiltrate or effusion Blood cultures: Final methicillin sensitive Staphylococcus aureus, pansensitive. urine cultures: No growth in 48 hours Follow-up pneumococcal and Legionella urinary antigens: Negative (2) Bacteremia Code(s): R78.81 - Bacteremia Status: Acute Plan: See plan above repeat blood cultures NGTD (3) Hypertension Code(s): I10 - Essential (primary) hypertension Status: Acute Plan: Borderline BPs over the last 24 hours Vasotec 1.25 mg q6 prn Clonidine 0.1 mg scheduled every 12 --> increase to clonidine 0.1 mg every 8 hours scheduled Continue to monitor vital signs every 4. (4) Costochondritis Code(s): M94.0 - Chondrocostal junction syndrome [Tietze] Status: Acute Plan: Sternal chest pain that is elicited with palpation parasternally. Continue with pain control: [place], baclofen, Dilaudid KENO DEALER available for pain. Unable to give NSAIDs for therapy due to kidney function. Continue to monitor. (5) Renal hemorrhage, right Code(s): N28.89 - Other specified disorders of kidney and ureter Status: Acute Plan: History of renal cell carcinoma, right kidney with hemorrhage into the kidney, gross hematuria Associated with pain in back, neck, abdomen s/p renal embolization of R kidney on 12/26. Pt asymptomatic today, comfortable. removed. Voiding appropriately. Follow-up recommendations of urology to discuss right radical nephrectomy. IV fluids at maintenance [place] 5 mg, baclofen for pain management Hemoglobin stable. CT: Right kidney hemorrhage (6) Renal cell carcinoma Code(s): C64.9 - Malignant neoplasm of unspecified kidney, except renal pelvis Status: Acute Plan: urology for right radical nephrectomy Follow-up recommendations of oncology, continue to follow-up pathology and CT scans for metastasis (7) IVDU (intravenous drug user) Code(s): F19.90 - Other psychoactive substance use, unspecified, uncomplicated Status: Acute Plan: Signs of sepsis, IV drug user, 4/6 murmur on exam, bacteremia positive Echocardiogram: Normal UDS: Positive opiates, positive cocaine Continue to monitor for signs of withdrawal CIWA protocol Discuss with Case Management about Methadone Clinic. (8) Nutrition, metabolism, and development symptoms Code(s): R63.8 - Other symptoms and signs concerning food and fluid intake Status: Acute Plan: Fluids: IV fluids at maintenance, p.o. fluids as tolerated Electrolytes: Monitor and replete as needed. Nutrition: P.o. as tolerated DVT ppx: SCDs only, hemorrhages contraindication to anticoagulation <Sharri Canseco - 12/28/17 19:40> - Assessment and Plan 52 y/o M, IVDU with hx of Renal Cell Carcinoma, presents meeting SEPSIS criteria and is found to have lung consolidation, renal hemorrhage and gross hematuria. <Sharri Canseco - 12/28/17 19:55> Discharge Planning: Pending IV antibiotic treatment plan for bacteremia, will likely need to DC on IV transfusion plan, and the long-term plan for large renal hemorrhage <Sharri Canseco - 12/28/17 19:55> - Attending Attestation The exam, history, and the medical decision-making described in the above note were completed with the assistance of the resident physician. I reviewed and agree with the findings presented. I attest that I had a [id number] encounter with the patient on the same day, and personally performed and documented my assessment and findings in the medical record. When I saw him later in the day he had new excruciating abdominal pain and went back on his KENO DEALER pump. <Amber Navarrete - 12/29/17 11:37>
[2017-12-29] MEDS: Piperacil/Tazo 4.5 GM Premix 4.5 GM/100 ML BAG IV.SIG SCH ×4 (02:21→19:52)
[2017-12-29] MEDS: HYDROmorphone PCA Inj 6 MG/30 ML PCA.VIAL PCA PRN ×4 (03:27→18:12)
[2017-12-29] MEDS ORDERED: Pharmacy Ordered Lab Info OTHER ONE (03:45)
[2017-12-29] MEDS: Vancomycin Inj 1,250 MG in Sodium Chlor 0.9% Inj 250 ML IV.SIG SCH ×2 (03:50→17:08)
[2017-12-29] MEDS: Sod Chloride 0.9% Inj 1,000 ML IV.CONT SCH ×4 (05:45→19:52)
[2017-12-29] MEDS: Baclofen 10 MG Tablet PO SCH ×3 (05:45→22:30)
--- NOTE | 2017-12-29 10:31 | P.PNFP ---
Subjective Interval history: Patient seen and examined this morning. No acute events overnight. 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 Still having pain in his right lower groin region. Denies any nausea or vomiting. Endorses appetite. Awaiting surgery. Denies any fever or chills, chest pain, shortness of breath, leg pain. <Silvestre Oneil - 12/29/17 10:30> Results - Labs Result diagrams: 12/28/17 14:16 12/28/17 14:16 <Amber Navarrete - 12/29/17 11:38> Abnormal lab results 12/28/17 12/28/17 12/29/17 Range/Units 14:16 14:16 03:50 WBC 14.6 H (4.0-11.0) th/mm3 RBC 3.34 L (4.50-5.90) mil/mm3 Hgb 9.7 L (13.0-17.0) gm/dL Hct 28.2 L (39.0-51.0) % Plt Count 469 H D (150-450) th/mm3 Neut % (Auto) 75.0 H (16.0-70.0) % [place] % (Auto) 10.1 H (0.0-8.0) % Neut # (Auto) 10.9 H (1.8-7.7) th/mm3 [place] # (Auto) 1.5 H (0.0-0.9) th/mm3 Potassium 3.2 L (3.5-5.1) meq/L Estimated GFR 74 L (>89) mL/min Vancomycin Trough 16.1 H (5.0-10.0) mcg/mL Short CBC 12/28/17 Range/Units 14:16 WBC 14.6 H (4.0-11.0) th/mm3 Hgb 9.7 L (13.0-17.0) gm/dL Hct 28.2 L (39.0-51.0) % Plt Count 469 H D (150-450) th/mm3 BMP 12/28/17 14:16 Sodium 138 Potassium 3.2 L Chloride 101 D Carbon Dioxide 29.0 BUN 12 Creatinine 1.06 Calcium 8.5 <Amber Navarrete - 12/29/17 11:38> Abnormal lab results 12/28/17 12/28/17 12/29/17 Range/Units 14:16 14:16 03:50 WBC 14.6 H (4.0-11.0) th/mm3 RBC 3.34 L (4.50-5.90) mil/mm3 Hgb 9.7 L (13.0-17.0) gm/dL Hct 28.2 L (39.0-51.0) % Plt Count 469 H D (150-450) th/mm3 Neut % (Auto) 75.0 H (16.0-70.0) % [place] % (Auto) 10.1 H (0.0-8.0) % Neut # (Auto) 10.9 H (1.8-7.7) th/mm3 [place] # (Auto) 1.5 H (0.0-0.9) th/mm3 Potassium 3.2 L (3.5-5.1) meq/L Estimated GFR 74 L (>89) mL/min Vancomycin Trough 16.1 H (5.0-10.0) mcg/mL Short CBC 12/28/17 Range/Units 14:16 WBC 14.6 H (4.0-11.0) th/mm3 Hgb 9.7 L (13.0-17.0) gm/dL Hct 28.2 L (39.0-51.0) % Plt Count 469 H D (150-450) th/mm3 BMP 12/28/17 14:16 Sodium 138 Potassium 3.2 L Chloride 101 D Carbon Dioxide 29.0 BUN 12 Creatinine 1.06 Calcium 8.5 <Silvestre Oneil - 12/29/17 10:30> - Imaging Impressions Abdomen/Pelvis CT 12/28/17 14:33 CONCLUSION: 1. Status post embolization of the right kidney without significant change compared to the prior examination. No free fluid or loculated fluid collections are seen in the abdomen. 2. Bibasilar atelectasis. 3. Nonspecific edema throughout the body wall suggestive of anasarca. 4. Residual contrast versus stone in the base of the urinary bladder. <Amber Navarrete - 12/29/17 11:38> Impressions Chest CT 12/28/17 00:00 CONCLUSION: 1. Minimal bibasilar consolidation. 2. Tiny bilateral pleural effusions. 3. No masses are seen. Abdomen/Pelvis CT 12/28/17 14:33 CONCLUSION: 1. Status post embolization of the right kidney without significant change compared to the prior examination. No free fluid or loculated fluid collections are seen in the abdomen. 2. Bibasilar atelectasis. 3. Nonspecific edema throughout the body wall suggestive of anasarca. 4. Residual contrast versus stone in the base of the urinary bladder. <Silvestre Oneil - 12/29/17 10:30> Physical Exam Vital signs: Vital Signs 12/28/17 12:00 12/28/17 12:09 12/28/17 16:00 Temperature 99.3 F 98.5 F Pulse Rate 64 67 Respiratory Rate 20 18 18 Blood Pressure 160/93 H 166/94 H Pulse Oximetry 95 97 12/28/17 20:00 12/29/17 00:00 12/29/17 04:00 Temperature 99.0 F 97.8 F 98.1 F Pulse Rate 55 L 56 L 54 L Respiratory Rate 16 16 16 Blood Pressure 133/66 132/70 108/60 Pulse Oximetry 97 97 97 Intake & Output 12/28/17 12/29/17 12/29/17 18:59 06:59 18:59 Intake Total 2362.5 / 2362.5 2100 / 2100 1362.5 / 1362.5 Output Total 800 / 800 400 / 400 Balance 1562.5 / 1562.5 1700 / 1700 1362.5 / 1362.5 Intake: IV 2362.5 / 2362.5 2100 / 2100 1362.5 / 1362.5 NS Inj 1,000 ML @ 130 mls/hr IV 1999 / 1999 1999 / 1999 1000 / 1000 .CONT .Q7H42M YRN Rx#:[id number] Zosyn 4.5 GM Premix 4.5 gm In 100 / 100 100 / 100 100 / 100 100 ml @ 200 mls/hr IV.SIG Q6H YRN Rx#:[id number] Vancomycin Inj 1,250 MG In NS 262.5 / 262.5 262.5 / 262.5 Inj 250 ML @ 250 mls/hr IV.SIG Q12H YRN Rx#:[id number] Output: Urine 800 / 800 400 / 400 Other: # Voids 3 <Amber Navarrete - 12/29/17 11:38> Vital Signs 12/28/17 12:00 12/28/17 12:09 12/28/17 16:00 Temperature 99.3 F 98.5 F Pulse Rate 64 67 Respiratory Rate 18 Blood Pressure 160/93 H 166/94 H Pulse Oximetry 95 97 12/28/17 20:00 12/29/17 00:00 12/29/17 04:00 Temperature 99.0 F 97.8 F 98.1 F Pulse Rate 55 L 56 L 54 L Respiratory Rate 16 16 16 Blood Pressure 133/66 132/70 108/60 Pulse Oximetry 97 97 97 Intake & Output 12/28/17 12/29/17 12/29/17 18:59 06:59 18:59 Intake Total 2362.5 / 2362.5 2100 / 2100 1362.5 / 1362.5 Output Total 800 / 800 400 / 400 Balance 1562.5 / 1562.5 1700 / 1700 1362.5 / 1362.5 Intake: IV 2362.5 / 2362.5 2099 / 2100 1362.5 / 1362.5 NS Inj 1,000 ML @ 130 mls/hr IV 1999 / 1999 1999 / 1999 1000 / 1000 .CONT .Q7H42M YRN Rx#:[id number] Zosyn 4.5 GM Premix 4.5 gm In 100 / 100 100 / 100 100 / 100 100 ml @ 200 mls/hr IV.SIG Q6H YRN Rx#:[id number] Vancomycin Inj 1,250 MG In NS 262.5 / 262.5 262.5 / 262.5 Inj 250 ML @ 250 mls/hr IV.SIG Q12H YRN Rx#:[id number] Output: Urine 800 / 800 400 / 400 Other: # Voids 3 <Silvestre Oneil - 12/29/17 10:30> Narrative: GENERAL: lying in bed, NAD SKIN: Warm and dry. CARDIOVASCULAR: Regular rate and rhythm. RESPIRATORY: No accessory muscle use. Clear to auscultation. Breath sounds equal bilaterally. GASTROINTESTINAL: Abdomen soft, nondistended. Tender in RLQ MUSCULOSKELETAL: Extremities without clubbing, cyanosis, or edema. BACK: Right CVA tenderness NEUROLOGICAL: Awake and alert. PSYCHIATRIC: Appropriate mood and affect; insight and judgment normal. <Silvestre Oneil - 12/29/17 10:30> - Urinary Catheter Management Indwelling Urethral Catheter Cath placed during this visit: no <Amber Navarrete - 12/29/17 11:38> yes, but has since been removed by the nurse <Silvestre Oneil - 12/29/17 10:30> Reason for continuing: Hourly intake/output <Silvestre Oneil - 12/29/17 10:30 > Insertion date: 12/20/17 <Silvestre Oneil - 12/29/17 10:30> Insertion time: 08:10 <Silvestre Oneil - 12/29/17 10:30> Removal date: 12/24/17 <Silvestre Oneil - 12/29/17 10:30> Removal time: 11:00 <Silvestre Oneil - 12/29/17 10:30> Assessment and Plan - Assessment (1) Sepsis Code(s): A41.9 - Sepsis, unspecified organism Status: Acute (2) Bacteremia Code(s): R78.81 - Bacteremia Status: Acute (3) Hypertension Code(s): I10 - Essential (primary) hypertension Status: Acute (4) Renal hemorrhage, right Code(s): N28.89 - Other specified disorders of kidney and ureter Status: Acute (5) Renal cell carcinoma Code(s): C64.9 - Malignant neoplasm of unspecified kidney, except renal pelvis Status: Acute (6) IVDU (intravenous drug user) Code(s): F19.90 - Other psychoactive substance use, unspecified, uncomplicated Status: Acute (7) Nutrition, metabolism, and development symptoms Code(s): R63.8 - Other symptoms and signs concerning food and fluid intake Status: Acute <Amber Navarrete - 12/29/17 11:38> (1) Sepsis Code(s): A41.9 - Sepsis, unspecified organism Status: Acute Plan: Afebrile since 12/20 at 1600, WBC elevated yesterday, awaiting CBC today Bacteremia with MSSA on 12/20. Repeat blood cultures 12/23: Negative day 5, final negative Continue Vanc & Zosyn (12/20 - ) ID consulted for possible antibiotic recs and possible surgery On admission: Febrile, WBC 21 possible consolidation on initial chest x-ray, however repeat chest x-ray shows no infiltrate or effusion Blood cultures: Final methicillin sensitive Staphylococcus aureus, pansensitive. urine cultures: No growth in 48 hours pneumococcal and Legionella urinary antigens: Negative (2) Bacteremia Code(s): R78.81 - Bacteremia Status: Acute Plan: See plan above repeat blood cultures NGTD (3) Hypertension Code(s): I10 - Essential (primary) hypertension Status: Acute Plan: Borderline BPs over the last 24 hours Vasotec 1.25 mg q6 prn Clonidine 0.1 mg scheduled every 12 --> increase to clonidine 0.1 mg every 8 hours scheduled Continue to monitor vital signs every 4. (4) Renal hemorrhage, right Code(s): N28.89 - Other specified disorders of kidney and ureter Status: Acute Plan: History of renal cell carcinoma, right kidney with hemorrhage into the kidney, gross hematuria Associated with pain in back, neck, abdomen s/p renal embolization of R kidney on 12/26. Pt asymptomatic today, comfortable. removed. Voiding appropriately. Follow-up recommendations of urology to discuss right radical nephrectomy. IV fluids at maintenance [place] 5 mg, baclofen for pain management Hemoglobin stable. CT: Right kidney hemorrhage (5) Renal cell carcinoma Code(s): C64.9 - Malignant neoplasm of unspecified kidney, except renal pelvis Status: Acute Plan: Urology for right radical nephrectomy Follow-up recommendations of oncology, continue to follow-up pathology and CT scans for metastasis (6) IVDU (intravenous drug user) Code(s): F19.90 - Other psychoactive substance use, unspecified, uncomplicated Status: Acute Plan: Signs of sepsis, IV drug user, 4/6 murmur on exam, bacteremia positive Echocardiogram: Normal UDS: Positive opiates, positive cocaine Continue to monitor for signs of withdrawal CIWA protocol Discuss with Case Management about Methadone Clinic. (7) Nutrition, metabolism, and development symptoms Code(s): R63.8 - Other symptoms and signs concerning food and fluid intake Status: Acute Plan: Fluids: IV fluids at maintenance, p.o. fluids as tolerated Electrolytes: Monitor and replete as needed. Nutrition: P.o. as tolerated DVT ppx: SCDs only, hemorrhages contraindication to anticoagulation <Silvestre Oneil - 12/29/17 10:20> - Assessment and Plan 52 y/o M, IVDU with hx of Renal Cell Carcinoma, presents meeting SEPSIS criteria and is found to have lung consolidation, renal hemorrhage and gross hematuria. <Silvestre Oneil - 12/29/17 10:30> - Attending Attestation The exam, history, and the medical decision-making described in the above note were completed with the assistance of the resident physician. I reviewed and agree with the findings presented. I attest that I had a [id number] encounter with the patient on the same day, and personally performed and documented my assessment and findings in the medical record. 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 He should be able to come off the pump and get back to normal once he has his nephrectomy. Will also consult infectious disease as he did have 4 out of 4 positive blood cultures for staph aureus fortunately not MRSA <Amber Navarrete - 12/29/17 11:38>
--- NOTE | 2017-12-29 10:55 | P.PNADD ---
Addendum to Inpatient Note Additional information: 52 y/o M, IVDU with hx of Renal Cell Carcinoma, presented for decreased urinary output met SEPSIS criteria and was found to have lung consolidation, renal hemorrhage and gross hematuria. Patient was febrile, white blood cell count of 21 and was started on vancomycin and Zosyn. Blood cultures came back positive for staph aureus. CT showed 12 cm renal cell carcinoma with right kidney hemorrhage. During his hospital course he was hypertensive which was controlled with scheduled Vasotec scheduled. Urology was consulted and recommended IV fluids, MANNEQUIN MOLD MAKER for pain control and to continue to monitor his H&H. He had a right kidney embolization done per urology recommendations. Urology also recommended a nephrectomy once patient was medically stable. Oncology was consulted and is aware of the case. He is currently stable, WC normal, continuing on vancomycin and Zosyn since 12/20. His second blood cultures have returned negative. Infectious disease was consulted to appreciate recommendations on length of antibiotic therapy. Awaiting urology's recommendation on possible nephrectomy whether inpatient or outpatient. Case management is working on a possible methadone clinic since patient has a history of IV drug use.
[2017-12-29] MEDS ORDERED: Potassium Chloride 10 MEQ ER Capsule PO ONE (11:00)
[2017-12-29 15:08] LABS: Baso # (Auto) 0.1 th/mm3 (0.0-0.2); Eos # (Auto) 0.3 th/mm3 (0.0-0.4); Eos % (Auto) 2.4 % (0.0-4.0); Hematocrit 24.1 % (39.0-51.0); Hemoglobin 8.2 gm/dL (13.0-17.0); Lymph % (Auto) 17.8 % (9.0-44.0); Mean Corpuscular HGB Conc 34.3 % (32.0-36.0); Mean Corpuscular Volume 84.6 fL (80.0-100.0); Mean Platelet Volume 7.8 fL (7.0-11.0); Mono # (Auto) 1.3 th/mm3 (0.0-0.9); Mono % (Auto) 11.3 % (0.0-8.0); Neut # (Auto) 7.6 th/mm3 (1.8-7.7); Neut % (Auto) 67.5 % (16.0-70.0); Platelet Count 384 th/mm3 (150-450); Red Blood Count 2.85 mil/mm3 (4.50-5.90); White Blood Count 11.3 th/mm3 (4.0-11.0)
[2017-12-29 15:47] LABS: Anion Gap 9 meq/L (5-15); Aspartate Aminotransferase 41 U/L (15-37); Blood Urea Nitrogen 11 mg/dL (7-18); Calcium 8.1 mg/dL (8.5-10.1); Carbon Dioxide 24.4 meq/L (21.0-32.0); Chloride 105 meq/L (98-107); Glomerular Filtration Rate 74 mL/min (>89); Glucose,Random 144 mg/dL (74-106); Potassium 3.7 meq/L (3.5-5.1); Sodium 138 meq/L (136-145)
[2017-12-29 15:48] LABS: Alanine Aminotransferase 30 U/L (12-78)
[2017-12-29 15:50] LABS: Alkaline Phosphatase 43 U/L (45-117)
[2017-12-30] MEDS: HYDROmorphone PCA Inj 6 MG/30 ML PCA.VIAL PCA PRN ×3 (00:23→17:07)
[2017-12-30] MEDS: Piperacil/Tazo 4.5 GM Premix 4.5 GM/100 ML BAG IV.SIG SCH ×3 (02:14→13:00)
[2017-12-30] MEDS: Sod Chloride 0.9% Inj 1,000 ML IV.CONT SCH ×3 (02:15→21:32)
[2017-12-30] MEDS: Vancomycin Inj 1,250 MG in Sodium Chlor 0.9% Inj 250 ML IV.SIG SCH (03:13)
[2017-12-30] MEDS: Baclofen 10 MG Tablet PO SCH ×3 (05:46→21:27)
--- NOTE | 2017-12-30 11:24 | P.CONID ---
History of Present Illness Service: ID Consult date: 12/30/17 Requesting Physician: Salma Davenport Reason for Consult: Katlin REIDA Primary Care Provider: No Primary Care Physician History of Present Illness: 52 yo male with advanced R renal cancer presented to the hospital with abdominal pain and difficulty urinating. He has a 12 cm right renal mass, He presented with diminished urine output and fever with abdominal pain. He was recently admitted in the past to [facility], but left AMA. He also was not making much urine at the time and presently he has a catheter in place, which is draining efrain type urine. A CT scan also indicates that he does have some bleeding from the right kidney as well as some blood within the bladder also. He underwent embolisation procedure and currently denies any bleeding His blood clx were positive for MSSA 08/21. Urine culture no growth Pt admittes to IVDU including right before admisision Denies back pain Repeat blood clx negative - final Review of Systems All other systems reviewed negative except as stated in HPI PMFSH - History History Provided By: Patient - Medical History Medical History: Medical History (Last Reviewed 12/30/17 @ 13:56 by Sherry Martino MD) Ankle fracture, right Heroin abuse Kidney malignancy Kidney mass - Tobacco History Second Hand Smoke Exposure: Yes Tobacco Use In Past 30 Days: Yes Smoking Status: Current every day smoker (1 pack/day x 30 years) Tobacco Type: Cigarettes - Alcohol History How Often Do You Have a Drink Containing Alcohol: Never - Substance Use History Substance History: Active Abuse - Substance Use Type Heroin Status: Active Route Used: Intravenously Reason for Use: Get High - Travel History Recent Travel in the [place] Within the Last 8 Weeks: No Recent Travel Out of the Country Within the Last 8 Weeks: No - Immunization History Tetanus Immunization: <5 Years Hx Influenza Vaccine This Season: Yes Medications and Allergies Active Medications: Active Medications Acetaminophen (Tylenol) 650 mg PO Q4H PRN PRN Reason: Temp > 100.4 Last Admin: 12/20/17 16:29 Dose: 650 mg Hydrocodone Bitart/Acetaminophen ([place] 5/325) 1 tab PO Q6H YRN Last Admin: 12/30/17 05:46 Dose: 1 tab Al Hydroxide/Mg Hydroxide (Milk Of Magnesia Liq) 30 ml PO Q12H PRN PRN Reason: Mild Constipation Albuterol (Duoneb Neb (Prn)) 1 ampul NEB Q4HR NEB PRN PRN Reason: SHORTNESS OF BREATH/WHEEZING Baclofen (Lioresal) 5 mg PO Q8HR [facility] Last Admin: 12/30/17 05:46 Dose: 5 mg Bisacodyl (Dulcolax Supp) 10 mg RECTAL DAILY PRN PRN Reason: SEVERE CONSITIPATION Clonidine HCl (Catapres) 0.1 mg PO Q6H PRN PRN Reason: BLOOD PRESSURE MANAGEMENT Last Admin: 12/28/17 12:49 Dose: 0.1 mg Clonidine HCl (Catapres) 0.1 mg PO Q8HR [facility] Last Admin: 12/30/17 05:47 Dose: Not Given Diphenhydramine HCl (Benadryl) 25 mg PO Q6H PRN PRN Reason: ITCHING Last Admin: 12/22/17 04:15 Dose: 25 mg Enalaprilat (Vasotec Inj) 1.25 mg IV.PUSH Q6H PRN PRN Reason: HYPERTENSION Last Admin: 12/24/17 04:04 Dose: 1.25 mg Flumazenil (Romazecon Inj) 0.2 mg IV.PUSH Q1M PRN PRN Reason: OVERSEDATION Haloperidol Lactate (Haldol Inj) 1 mg IV.PUSH Q15M PRN PRN Reason: for severe agitation Hydromorphone HCl (Dilaudid Pf Inj) 1 mg IV.PUSH Q4H PRN PRN Reason: SEE COMMENTS Sodium Chloride (Ns Inj) 1,000 mls @ 130 mls/hr IV.CONT .Q7H42M [facility] Last Admin: 12/30/17 02:15 Dose: 130 mls/hr Pharmacy Profile Note (Vancomycin Consult Pharmacy) 0 mls @ 0 mls/hr [facility] Piperacillin/Tazobactam/Dextrose (Zosyn 4.5 Gm Premix) 4.5 gm in 100 mls @ 200 mls/hr IV.SIG Q6H [facility] Last Admin: 12/30/17 09:27 Dose: 200 mls/hr Vancomycin HCl 1,250 mg/ (Sodium Chloride) 262.5 mls @ 250 mls/hr IV.SIG Q12H [facility] Last Admin: 12/30/17 03:13 Dose: 250 mls/hr Hydromorphone/Sodium Chloride (Dilaudid Test Fixture Assembler Inj) 6 mg in 30 mls @ 0 mls/hr [employer] UNSCH PRN PRN Reason: per [employer] parameters Last Admin: 12/30/17 10:50 Dose: 0 mls/hr Lactulose (Lactulose Liq) 30 ml PO DAILY PRN PRN Reason: SEVERE CONSITIPATION Lorazepam (Ativan) 1 mg PO Q4H PRN PRN Reason: for CIWA 8-10 Lorazepam (Ativan Inj) 2 mg IV.PUSH Q2H PRN PRN Reason: for CIWA 11-14 Lorazepam (Ativan Inj) 2 mg IV.PUSH Q1H PRN PRN Reason: for CIWA 15-20 Lorazepam (Ativan Inj) 2 mg IV.PUSH Q15M PRN PRN Reason: for CIWA > 20 Lorazepam (Ativan Inj) 1 mg IV.PUSH Q4H PRN PRN Reason: for CIWA 8-10 Lorazepam (Ativan) 2 mg PO Q2H PRN PRN Reason: for CIWA 11-14 Metoclopramide HCl (Reglan Inj) 5 mg IV.PUSH Q6H PRN; Protocol PRN Reason: NAUSEA OR VOMITING Miscellaneous (Pill Splitter) 1 each OTHER UNSCH PRN PRN Reason: SEE LABEL COMMENTS Naloxone HCl (Narcan Inj) 0.4 mg IV.PUSH PRN PRN PRN Reason: SEE LABEL COMMENTS Potassium Chloride (Klor-Con 10) 40 meq PO DAILY YRN Last Admin: 12/30/17 09:27 Dose: 40 meq Sennosides (Senokot) 17.2 mg PO Q12H PRN PRN Reason: Moderate Constipation Temazepam (Restoril) 15 mg PO HS PRN PRN Reason: INSOMNIA Allergies Allergy/AdvReac Type Severity Reaction Status Date / Time codeine Allergy Mild Itching Verified 12/20/17 07:49 iodine Allergy Unknown unknown Verified 12/20/17 07:49 potassium iodide Allergy Unknown unknown Verified 12/20/17 07:49 povidone-iodine Allergy Unknown unknown Verified 12/20/17 07:49 sodium iodide Allergy Unknown unknown Verified 12/20/17 07:49 sodium iodide Allergy Unknown unknown Verified 12/20/17 07:49 Exam Vital signs: Vital Signs 12/29/17 12:00 12/29/17 15:54 12/29/17 19:40 Temperature 98.3 F 99.4 F Pulse Rate 55 L 71 66 Respiratory Rate 18 18 Blood Pressure 109/70 116/68 Pulse Oximetry 98 98 12/29/17 20:00 12/29/17 23:10 12/30/17 00:00 Temperature 99.1 F 99.9 F H Pulse Rate 68 63 71 Respiratory Rate 18 18 Blood Pressure 132/77 128/63 Pulse Oximetry 98 95 12/30/17 04:00 12/30/17 08:00 Temperature 99.0 F 98.1 F Pulse Rate 84 59 L Respiratory Rate 18 17 Blood Pressure 140/75 128/77 Pulse Oximetry 99 97 Intake & Output 12/29/17 12/30/17 12/30/17 18:59 06:59 18:59 Intake Total 3722.5 / 3722.5 1465 / 1465 Output Total 1900 / 1900 1400 / 1400 Balance 1822.5 / 1822.5 65 / 65 Intake: IV 2562.5 / 2562.5 1465 / 1465 NS Inj 1,000 ML @ 130 mls/hr IV 1999 / 1999 1000 / 1000 .CONT .Q7H42M YRN Rx#:[id number] Zosyn 4.5 GM Premix 4.5 gm In 300 / 300 200 / 200 100 ml @ 200 mls/hr IV.SIG Q6H YRN Rx#:[id number] Vancomycin Inj 1,250 MG In NS 262.5 / 262.5 265 / 265 Inj 250 ML @ 250 mls/hr IV.SIG Q12H YRN Rx#:[id number] Oral 1160 / 1160 Output: Urine 1900 / 1900 1400 / 1400 Other: Date of Last Bowel Movement 12/29/17 # Bowel Movements 1 - Constitutional no acute distress, mild distress, thin - Routine HEENT Exam Head: Present: normocephalic, atraumatic Eye: Present: EOMI, PERRL ENT: Present: mucous membranes moist, oropharynx clear Comments: poor dentition - Routine Neck Exam Present: supple, full ROM - Routine Respiratory Exam Present: CTA bilaterally Comments: good effort - Routine Cardiovascular Exam Present: RRR, S1, S2 Comments: no murmurs, rubs or gallops - Routine Abdominal Exam Present: soft, normoactive bowel sounds Comments: not tender not disteded no organomegaly or masses - Routine Extremities Exam Comments: no cyanosis, clubbing or edema - Routine Skin Exam Present: intact, dry, warm - Routine Neurological Exam Present: alert, oriented X3, CN II-XII intact, moving all extremities, vision grossly intact, hearing grossly intact, normal speech - Routine Psychiatric Exam Present: normal affect, normal thought process Results - Labs CBC & Chem 7: 12/30/17 11:09 12/30/17 11:09 Labs: Laboratory Results - last 24 hr 12/29/17 12/29/17 14:18 14:18 WBC 11.3 H RBC 2.85 L Hgb 8.2 L Hct 24.1 L MCV 84.6 MCH 29.0 MCHC 34.3 RDW 15.0 Plt Count 384 MPV 7.8 Neut % (Auto) 67.5 Lymph % (Auto) 17.8 [place] % (Auto) 11.3 H Eos % (Auto) 2.4 Baso % (Auto) 1.0 Neut # (Auto) 7.6 Lymph # (Auto) 2.0 [place] # (Auto) 1.3 H Eos # (Auto) 0.3 Baso # (Auto) 0.1 WBC Differential . Differential Comment Auto diff final Sodium 138 Potassium 3.7 Chloride 105 Carbon Dioxide 24.4 Anion Gap 9 BUN 11 Creatinine 1.05 Estimated GFR 74 L Random Glucose 144 H Calcium 8.1 L Total Bilirubin 0.3 AST 41 H ALT 30 Alkaline Phosphatase 43 L Total Protein 7.0 D Albumin 2.0 L - Imaging Abdomen/Pelvis CT 12/20/17 00:00 CONCLUSION: 1. Redemonstration of heterogeneous soft tissue mass arising from the inferior pole of the right kidney which appears grossly stable in size measuring up to 12.1 cm and contains coarse calcifications. 2. There is hyperdense material noted in the right renal collecting system and proximal ureter as well as dependently in the bladder. In the absence of recent contrast administration, findings are concerning for hemorrhage into the renal collecting system with bilateral hematoma. Clinical correlation is recommended. 3. Diffuse mesenteric edema and trace ascites. Head CT 12/20/17 00:00 CONCLUSION: Negative CT Head non contrast. . Chest X-Ray 12/20/17 07:56 CONCLUSION: 1. Subtle patchy airspace opacities in the left lower lung zone concerning for developing pneumonia in the appropriate clinical setting. Consider formal PA and lateral views if there is continued clinical uncertainty. Chest X-Ray 12/21/17 06:00 CONCLUSION: Negative examination. Thoracic Aorta CT 12/22/17 00:00 CONCLUSION: 1. Normal CTA of the thoracic and abdominal aorta. 2. Greater than 12 cm right renal mass derives its blood supply from the right renal artery. Chest X-Ray 12/22/17 03:12 CONCLUSION: Small infiltrate in the lingula without consolidation. Renal Arteriogram 12/26/17 00:00 CONCLUSION: 1. Patient has a main right with 2 accessory renal arteries. The upper pole accessory appears to supply a normal upper pole cortex. 2. The lower pole accessory appear to supply the normal lower pole with 2 branch vessels showing tumoral vascularity. The 2 branch vessels were subselected and embolized as described above. 3. Main right renal artery shows extensive tumoral vascularity. The entire vessel was embolized with a series of PVA particles, Gelfoam and coils as detailed above. Chest CT 12/28/17 00:00 CONCLUSION: 1. Minimal bibasilar consolidation. 2. Tiny bilateral pleural effusions. 3. No masses are seen. Abdomen/Pelvis CT 12/28/17 14:33 CONCLUSION: 1. Status post embolization of the right kidney without significant change compared to the prior examination. No free fluid or loculated fluid collections are seen in the abdomen. 2. Bibasilar atelectasis. 3. Nonspecific edema throughout the body wall suggestive of anasarca. 4. Residual contrast versus stone in the base of the urinary bladder. Assessment and Plan - Plan Renal cancer MSSA sepsis on presentation - risk factors: active IVDU 2 D echo change zosyn , vanco to oxacillin
[2017-12-30 11:40] LABS: Hematocrit 24.2 % (39.0-51.0); Hemoglobin 8.3 gm/dL (13.0-17.0); Mean Corpuscular HGB Conc 34.3 % (32.0-36.0); Mean Corpuscular Volume 84.4 fL (80.0-100.0); Mean Platelet Volume 7.7 fL (7.0-11.0); Platelet Count 420 th/mm3 (150-450); Red Blood Count 2.87 mil/mm3 (4.50-5.90); Red Cell Distribution Width 15.1 % (11.6-17.2)
[2017-12-30 12:05] LABS: Calcium 8.2 mg/dL (8.5-10.1); Carbon Dioxide 27.7 meq/L (21.0-32.0); Potassium 3.8 meq/L (3.5-5.1)
--- NOTE | 2017-12-30 12:17 | P.PNFP ---
Subjective Interval history: Pt seen and evaluated this morning with attending physician and senior resident. Pt reports feeling well, and wants to know when he can leave. He is able to eat and drink without problems, ambulate, and is having regular BM and urine output. He reports pain is well controlled on VENEER MARKER. He denies any fever, chills, or shortness of breath. <Obdulio Aleja Spann V - 12/30/17 14:36> Results - Labs Result diagrams: 01/01/18 15:00 01/01/18 04:34 <Amber Navarrete M - 01/01/18 16:17> Abnormal lab results 01/01/18 01/01/18 01/01/18 Range/Units 04:34 04:34 15:00 RBC 2.56 L 2.91 L (4.50-5.90) mil/mm3 Hgb 7.5 L 8.3 L (13.0-17.0) gm/dL Hct 21.5 L 25.1 L (39.0-51.0) % Plt Count 458 H (150-450) th/mm3 Hale % (Auto) 10.6 H (0.0-8.0) % Estimated GFR 88 L (>89) mL/min Calcium 8.1 L (8.5-10.1) mg/dL AST 38 H (15-37) U/L Alkaline Phosphatase 36 L (45-117) U/L Albumin 1.8 L (3.4-5.0) g/dL Short CBC 01/01/18 01/01/18 Range/Units 04:34 15:00 WBC 7.6 7.6 (4.0-11.0) th/mm3 Hgb 7.5 L 8.3 L (13.0-17.0) gm/dL Hct 21.5 L 25.1 L (39.0-51.0) % Plt Count 420 458 H (150-450) th/mm3 BMP 01/01/18 04:34 Sodium 141 Potassium 3.6 Chloride 107 Carbon Dioxide 27.9 BUN 12 Creatinine 0.91 Calcium 8.1 L Liver Function 01/01/18 Range/Units 04:34 Total Bilirubin 0.3 (0.2-1.0) mg/dL AST 38 H (15-37) U/L ALT 32 (12-78) U/L Alkaline Phosphatase 36 L (45-117) U/L Albumin 1.8 L (3.4-5.0) g/dL <LandonAmber M - 01/01/18 16:17> Abnormal lab results 12/29/17 12/29/17 12/30/17 Range/Units 14:18 14:18 11:09 WBC 11.3 H (4.0-11.0) th/mm3 RBC 2.85 L 2.87 L (4.50-5.90) mil/mm3 Hgb 8.2 L 8.3 L (13.0-17.0) gm/dL Hct 24.1 L 24.2 L (39.0-51.0) % Hale % (Auto) 11.3 H (0.0-8.0) % Hale # (Auto) 1.3 H (0.0-0.9) th/mm3 Estimated GFR 74 L (>89) mL/min Random Glucose 144 H (74-106) mg/dL Calcium 8.1 L (8.5-10.1) mg/dL AST 41 H (15-37) U/L Alkaline Phosphatase 43 L (45-117) U/L Albumin 2.0 L (3.4-5.0) g/dL Short CBC 12/29/17 12/30/17 Range/Units 14:18 11:09 WBC 11.3 H 11.0 (4.0-11.0) th/mm3 Hgb 8.2 L 8.3 L (13.0-17.0) gm/dL Hct 24.1 L 24.2 L (39.0-51.0) % Plt Count 384 420 (150-450) th/mm3 [facility] 12/29/17 14:18 Sodium 138 Potassium 3.7 Chloride 105 Carbon Dioxide 24.4 BUN 11 Creatinine 1.05 Calcium 8.1 L Liver Function 12/29/17 Range/Units 14:18 Total Bilirubin 0.3 (0.2-1.0) mg/dL AST 41 H (15-37) U/L ALT 30 (12-78) U/L Alkaline Phosphatase 43 L (45-117) U/L Albumin 2.0 L (3.4-5.0) g/dL <Aleja Carroll V - 12/30/17 12:17> Physical Exam Vital signs: Vital Signs 12/31/17 20:00 12/31/17 20:13 01/01/18 00:00 Temperature 98.2 F 97.8 F Pulse Rate 56 L 63 55 L Respiratory Rate 18 18 Blood Pressure 113/66 Pulse Oximetry 97 97 01/01/18 00:33 01/01/18 01:19 01/01/18 04:00 Temperature 97.7 F Pulse Rate 51 L Respiratory Rate 17 17 18 Blood Pressure 121/75 Pulse Oximetry 98 01/01/18 06:33 01/01/18 08:00 01/01/18 12:00 Temperature 98.2 F 98.4 F Pulse Rate 58 L 54 L Respiratory Rate 17 16 18 Blood Pressure 142/82 H 137/78 Pulse Oximetry 98 98 01/01/18 12:05 Temperature Pulse Rate Respiratory Rate 18 Blood Pressure Pulse Oximetry Intake & Output 12/31/17 01/01/18 01/01/18 18:59 06:59 18:59 Intake Total 1812.5 / 1812.5 1640 / 1640 1200 / 1200 Output Total 1300 / 1300 600 / 600 Balance 1812.5 / 1812.5 340 / 340 600 / 600 Weight 84.6 kg Intake: IV 562.5 / 562.5 1400 / 1400 1200 / 1200 NS Inj 1,000 ML @ 130 mls/hr IV 1000 / 1000 1000 / 1000 .CONT .Q7H42M [facility] Rx#:[id number] Prostaphlin Inj 2 GM In NS Inj 200 / 200 400 / 400 200 / 200 100 ML @ 200 mls/hr IV.SIG Q4H YRN Rx#:[id number] Oral 1250 / 1250 240 / 240 Output: Urine 1300 / 1300 600 / 600 Other: Date of Last Bowel Movement 12/29/17 12/29/17 # Bowel Movements 1 <LandonAmber M - 01/01/18 16:17> Vital Signs 12/29/17 12:00 12/29/17 15:54 12/29/17 19:40 Temperature 98.3 F 99.4 F Pulse Rate 55 L 71 66 Respiratory Rate 18 18 Blood Pressure 109/70 116/68 Pulse Oximetry 98 98 12/29/17 20:00 12/29/17 23:10 12/30/17 00:00 Temperature 99.1 F 99.9 F H Pulse Rate 68 63 71 Respiratory Rate 18 18 Blood Pressure 132/77 128/63 Pulse Oximetry 98 95 12/30/17 04:00 12/30/17 08:00 12/30/17 09:27 Temperature 99.0 F 98.1 F Pulse Rate 84 59 L 59 L Respiratory Rate 18 17 Blood Pressure 140/75 128/77 Pulse Oximetry 99 97 Intake & Output 12/29/17 12/30/17 12/30/17 18:59 06:59 18:59 Intake Total 3722.5 / 3722.5 1465 / 1465 Output Total 1900 / 1900 1400 / 1400 Balance 1822.5 / 1822.5 65 / 65 Intake: IV 2562.5 / 2562.5 1465 / 1465 NS Inj 1,000 ML @ 130 mls/hr IV 2000 / 2000 1000 / 1000 .CONT .Q7H42M YRN Rx#:[id number] Zosyn 4.5 GM Premix 4.5 gm In 300 / 300 200 / 200 100 ml @ 200 mls/hr IV.SIG Q6H YRN Rx#:[id number] Vancomycin Inj 1,250 MG In NS 262.5 / 262.5 265 / 265 Inj 250 ML @ 250 mls/hr IV.SIG Q12H YRN Rx#:[id number] Oral 1160 / 1160 Output: Urine 1900 / 1900 1400 / 1400 Other: Date of Last Bowel Movement 12/29/17 12/29/17 # Bowel Movements 1 <Obdulio SpannGlenda - 12/30/17 14:36> Narrative: GENERAL: lying in bed, NAD, cooperative, alert. SKIN: Warm and dry. CARDIOVASCULAR: Regular rate and rhythm. RESPIRATORY: No accessory muscle use. Clear to auscultation. Breath sounds equal bilaterally. GASTROINTESTINAL: Abdomen soft, nondistended. non tender to palpation MUSCULOSKELETAL: Extremities without clubbing, cyanosis, or edema. NEUROLOGICAL: Awake and alert. PSYCHIATRIC: Appropriate mood and affect; insight and judgment normal. <Aleja Carroll V - 12/30/17 14:36> - Urinary Catheter Management Indwelling Urethral Catheter Cath placed during this visit: no <Amber Navarrete - 01/01/18 16:17> yes, but has since been removed by the nurse <Aleja Carroll V - 12/30/17 14:36> Reason for continuing: Hourly intake/output <Aleja Carroll V - 12/30/17 12:17> Insertion date: 12/20/17 <Aleja Carroll V - 12/30/17 12:17> Insertion time: 08:10 <Aleja Carroll V - 12/30/17 12:17> Removal date: 12/24/17 <Aleja Carroll V - 12/30/17 12:17> Removal time: 11:00 <Aleja Carroll V - 12/30/17 12:17> Assessment and Plan - Assessment (1) Sepsis Code(s): A41.9 - Sepsis, unspecified organism Status: Acute (2) Bacteremia Code(s): R78.81 - Bacteremia Status: Acute (3) Hypertension Code(s): I10 - Essential (primary) hypertension Status: Acute (4) Renal hemorrhage, right Code(s): N28.89 - Other specified disorders of kidney and ureter Status: Acute (5) Renal cell carcinoma Code(s): C64.9 - Malignant neoplasm of unspecified kidney, except renal pelvis Status: Acute (6) IVDU (intravenous drug user) Code(s): F19.90 - Other psychoactive substance use, unspecified, uncomplicated Status: Acute (7) Nutrition, metabolism, and development symptoms Code(s): R63.8 - Other symptoms and signs concerning food and fluid intake Status: Acute <Amber Navarrete - 01/01/18 16:17> (1) Sepsis Code(s): A41.9 - Sepsis, unspecified organism Status: Acute Plan: Afebrile since 12/20 at 1600, WBC normal today Bacteremia with MSSA on 12/20. Repeat blood cultures 12/23: Negative day 5, final negative Continue Vanc & Zosyn (12/20 - ) ID consulted for possible antibiotic recs On admission: Febrile, WBC 21 possible consolidation on initial chest x-ray, however repeat chest x-ray shows no infiltrate or effusion Blood cultures: Final methicillin sensitive Staphylococcus aureus, pansensitive. urine cultures: No growth in 48 hours pneumococcal and Legionella urinary antigens: Negative (2) Bacteremia Code(s): R78.81 - Bacteremia Status: Acute Plan: See plan above repeat blood cultures NGTD (3) Hypertension Code(s): I10 - Essential (primary) hypertension Status: Acute Plan: Good BP today. Highest BP in last 24 hrs 140/75 Vasotec 1.25 mg q6 prn (not used since 12/24) Clonidine 0.1 mg scheduled every 8 hours Continue to monitor vital signs every 4. (4) Renal hemorrhage, right Code(s): N28.89 - Other specified disorders of kidney and ureter Status: Acute Plan: History of renal cell carcinoma, right kidney with hemorrhage into the kidney, gross hematuria Associated with pain in back, neck, abdomen s/p renal embolization of R kidney on 12/26. Pt asymptomatic today, comfortable. Voiding appropriately. Urology recommendations proceed with right radical nephrectomy as outpatient. IV fluids at maintenance Neche 5 mg, baclofen for pain management Hemoglobin stable. CT: Right kidney hemorrhage (5) Renal cell carcinoma Code(s): C64.9 - Malignant neoplasm of unspecified kidney, except renal pelvis Status: Acute Plan: Urology for right radical nephrectomy as outpatient (6) IVDU (intravenous drug user) Code(s): F19.90 - Other psychoactive substance use, unspecified, uncomplicated Status: Acute Plan: Signs of sepsis, IV drug user, bacteremia positive Echocardiogram: Normal UDS: Positive opiates, positive cocaine Continue to monitor for signs of withdrawal Discuss with Case Management about Methadone Clinic. (7) Nutrition, metabolism, and development symptoms Code(s): R63.8 - Other symptoms and signs concerning food and fluid intake Status: Acute Plan: Fluids: IV fluids at maintenance, p.o. fluids as tolerated Electrolytes: Monitor and replete as needed. Nutrition: P.O. as tolerated DVT ppx: SCDs only, hemorrhages contraindication to anticoagulation <Aleja Carroll V - 12/30/17 14:13> - Assessment and Plan 52 y/o M, IVDU with hx of Renal Cell Carcinoma, presents meeting SEPSIS criteria and is found to have lung consolidation now resolved, renal hemorrhage and gross hematuria, also resolved. Urology to do nephrectomy as an outpatient, ID to give recommendations on duration of antibiotics . <Aleja Carroll V - 12/30/17 14:36> - Attending Attestation The exam, history, and the medical decision-making described in the above note were completed with the assistance of the resident physician. I reviewed and agree with the findings presented. I attest that I had a [id number] encounter with the patient on the same day, and personally performed and documented my assessment and findings in the medical record. he has episodes of severe pain from his kidney and then improves in between. appreciate help of Dr Fung. he may have endocarditis <Amber Navarrete - 01/01/18 16:17> <Aleja Carroll V - Last Filed: 12/30/17 14:13> (1) Sepsis Qualifiers: Sepsis type: methicillin susceptible Staphylococcus aureus Qualified Code(s) : A41.01 - Sepsis due to Methicillin susceptible Staphylococcus aureus <Amber Navarrete - Last Filed: 01/01/18 16:17> (1) Sepsis Qualifiers: Sepsis type: methicillin susceptible Staphylococcus aureus Qualified Code(s) : A41.01 - Sepsis due to Methicillin susceptible Staphylococcus aureus <Aleja Carroll V - Last Filed: 12/30/17 14:13> (1) Sepsis Qualifiers: Sepsis type: methicillin susceptible Staphylococcus aureus Qualified Code(s) : A41.01 - Sepsis due to Methicillin susceptible Staphylococcus aureus <Amber Navarrete - Last Filed: 01/01/18 16:17> (1) Sepsis Qualifiers: Sepsis type: methicillin susceptible Staphylococcus aureus Qualified Code(s) : A41.01 - Sepsis due to Methicillin susceptible Staphylococcus aureus
--- NOTE | 2017-12-30 12:48 | P.PNURO ---
Subjective Patient symptoms today: Pt seen and examined. Feels well. Urine now clear after embolization. Objective Vital Signs: Vital Signs 12/29/17 15:54 12/29/17 19:40 12/29/17 20:00 Temperature 99.4 F 99.1 F Pulse Rate 71 66 68 Respiratory Rate 18 18 Blood Pressure 116/68 132/77 Pulse Oximetry 98 98 12/29/17 23:10 12/30/17 00:00 12/30/17 04:00 Temperature 99.9 F H 99.0 F Pulse Rate 63 71 84 Respiratory Rate 18 18 Blood Pressure 128/63 140/75 Pulse Oximetry 95 99 12/30/17 08:00 12/30/17 09:27 12/30/17 12:00 Temperature 98.1 F 98.3 F Pulse Rate 59 L 59 L 61 Respiratory Rate 17 18 Blood Pressure 128/77 139/78 Pulse Oximetry 97 98 Intake & Output 12/29/17 12/30/17 12/30/17 18:59 06:59 18:59 Intake Total 3722.5 / 3722.5 1465 / 1465 Output Total 1900 / 1900 1400 / 1400 Balance 1822.5 / 1822.5 65 / 65 Intake: IV 2562.5 / 2562.5 1465 / 1465 NS Inj 1,000 ML @ 130 mls/hr IV 1999 / 1999 1000 / 1000 .CONT .Q7H42M YRN Rx#:[id number] Zosyn 4.5 GM Premix 4.5 gm In 300 / 300 200 / 200 100 ml @ 200 mls/hr IV.SIG Q6H YRN Rx#:[id number] Vancomycin Inj 1,250 MG In NS 262.5 / 262.5 265 / 265 Inj 250 ML @ 250 mls/hr IV.SIG Q12H YRN Rx#:[id number] Oral 1160 / 1160 Output: Urine 1900 / 1900 1400 / 1400 Other: Date of Last Bowel Movement 12/29/17 12/29/17 # Bowel Movements 1 Result Diagrams: 12/30/17 11:09 12/30/17 11:09 Medications and IVs: Active Medications Generic Name Dose Route Start Last Admin Trade Name Freq PRN Reason Stop Dose Admin Acetaminophen 650 mg 12/20/17 11:34 12/20/17 16:29 Tylenol PO 650 mg Q4H PRN Administration Temp > 100.4 Hydrocodone Bitart/Acetaminophen 1 tab 12/22/17 12:00 12/30/17 05:46 Poneto 5/325 PO 1 tab Q6H YRN Administration Al Hydroxide/Mg Hydroxide 30 ml 12/20/17 11:34 Milk Of Magnesia Liq PO Q12H PRN Mild Constipation Albuterol 1 ampul 12/20/17 18:35 Duoneb Neb (Prn) NEB Q4HR NEB PRN SHORTNESS OF BREATH/WHEEZING Baclofen 5 mg 12/22/17 11:00 12/30/17 05:46 Lioresal PO 5 mg Q8HR YRN Administration Bisacodyl 10 mg 12/20/17 11:34 Dulcolax Supp RECTAL DAILY PRN SEVERE CONSITIPATION Clonidine HCl 0.1 mg 12/23/17 10:33 12/28/17 12:49 Catapres PO 0.1 mg Q6H PRN Administration BLOOD PRESSURE MANAGEMENT Clonidine HCl 0.1 mg 12/28/17 22:00 12/30/17 05:47 Catapres PO Not Given Q8HR [facility] Diphenhydramine HCl 25 mg 12/22/17 03:51 12/22/17 04:15 Benadryl PO 25 mg Q6H PRN Administration ITCHING Enalaprilat 1.25 mg 12/20/17 16:43 12/24/17 04:04 Vasotec Inj IV.PUSH 1.25 mg Q6H PRN Administration HYPERTENSION Flumazenil 0.2 mg 12/20/17 18:45 Romazecon Inj IV.PUSH Q1M PRN OVERSEDATION Haloperidol Lactate 1 mg 12/20/17 18:45 Haldol Inj IV.PUSH Q15M PRN for severe agitation Hydromorphone HCl 1 mg 12/24/17 11:44 Dilaudid Pf Inj IV.PUSH Q4H PRN SEE COMMENTS Sodium Chloride 1,000 mls @ 130 mls/hr 12/20/17 12:00 12/30/17 02:15 Ns Inj IV.CONT 130 mls/hr .Q7H42M YRN Administration Pharmacy Profile Note 0 mls @ 0 mls/hr 12/20/17 11:59 Vancomycin Consult Pharmacy OTHER UNSCH [facility] As Directed Piperacillin/Tazobactam/Dextrose 4.5 gm in 100 mls @ 200 mls/hr 12/20/17 14: 00 12/30/17 09:27 Zosyn 4.5 Gm Premix IV.SIG 200 mls/hr Q6H YRN Administration Vancomycin HCl 1,250 mg/ 262.5 mls @ 250 mls/hr 12/26/17 04:00 12/30/17 03:13 Sodium Chloride IV.SIG 250 mls/hr Q12H YRN Administration Hydromorphone/Sodium Chloride 6 mg in 30 mls @ 0 mls/hr 12/26/17 14:25 10:50 Dilaudid Lead Generation Marketing Manager Inj OPERATIONAL ASSISTANT 0 mls/hr UNSCH PRN Administration per OPERATIONAL ASSISTANT parameters 0 MG/HR Lactulose 30 ml 12/20/17 11:34 Lactulose Liq PO DAILY PRN SEVERE CONSITIPATION Lorazepam 1 mg 12/20/17 18:45 Ativan PO Q4H PRN for CIWA 8-10 Lorazepam 2 mg 12/20/17 18:45 Ativan Inj IV.PUSH Q2H PRN for CIWA 11-14 Lorazepam 2 mg 12/20/17 18:45 Ativan Inj IV.PUSH Q1H PRN for CIWA 15-20 Lorazepam 2 mg 12/20/17 18:45 Ativan Inj IV.PUSH Q15M PRN for CIWA > 20 Lorazepam 1 mg 12/20/17 18:45 Ativan Inj IV.PUSH Q4H PRN for CIWA 8-10 Lorazepam 2 mg 12/20/17 18:45 Ativan PO Q2H PRN for CIWA 11-14 Metoclopramide HCl 5 mg 12/20/17 11:34 Reglan Inj IV.PUSH Q6H PRN NAUSEA OR VOMITING Protocol Miscellaneous 1 each 12/22/17 11:07 Pill Splitter OTHER UNSCH PRN SEE LABEL COMMENTS Naloxone HCl 0.4 mg 12/26/17 14:25 Narcan Inj IV.PUSH PRN PRN SEE LABEL COMMENTS Potassium Chloride 40 meq 12/28/17 19:45 12/30/17 09:27 Klor-Con 10 PO 40 meq DAILY YRN Administration Sennosides 17.2 mg 12/20/17 11:34 Senokot PO Q12H PRN Moderate Constipation Temazepam 15 mg 12/20/17 11:34 Restoril PO HS PRN INSOMNIA Objective Remarks: Abd:soft,less tender and less distended Urine is clearing 12/22 Abd:soft,less tender and less distended Urine is clearing 12/23 Abd:soft,less tender and less distended Urine is blood tinged 12/24 Abd:soft,nt,nd Weinberg with clear urine 12/25 Abd:soft,nt,nd 12/30 Abd:soft,nt,nd Urine now clear Assessment and Plan - Plan Right renal bleed due to RCC Continue supportive measures for now. Hgb stable at 10. 12/22 52 y.o. with right RCC with hemorrhage. Hbg has been stable. Pt with CP and elevated B/P Continue with conservative measures for now. Tolerating diet. Pt will need medical/cardiac clearance prior to OR intervention. This can be done as an outpt. If to be done during this admission will need clearance first. 12/23 52 y.o. with right RCC with hemorrhage. Hbg has been stable. Pt to get OOB today Weinberg to be irrigated to help clear urine. 12/24 52 y.o male with h/o RCC with hemorrhage. No further active bleeding. Void trial today. Pt OOB Stop OPERATIONAL ASSISTANT PT to f/u as outpt for right radical nephrectomy. No evidence of metastatic disease. 12/25 52 y.o male with h/o RCC with hemorrhage. Will check H/H now Bladder scan pt. If >600cc will need weinberg. May need embolization by IR if still bleeding 12/30 52 y.o. male with h/o RCC with hemorrhage s/p embolization Now voiding clear urine with stable Hgb. No evidence of metastatic disease F/U as outpt for right radical nephrectomy.
[2017-12-31] MEDS: HYDROmorphone PCA Inj 6 MG/30 ML PCA.VIAL PCA PRN ×2 (01:18→20:49)
[2017-12-31 06:02] LABS: Baso # (Auto) 0.1 th/mm3 (0.0-0.2); Baso % (Auto) 1.2 % (0.0-2.0); Eos # (Auto) 0.3 th/mm3 (0.0-0.4); Eos % (Auto) 2.7 % (0.0-4.0); Hematocrit 24.5 % (39.0-51.0); Hemoglobin 8.1 gm/dL (13.0-17.0); Lymph # (Auto) 1.7 th/mm3 (1.0-4.8); Lymph % (Auto) 17.2 % (9.0-44.0); Mean Corpuscular HGB Conc 33.2 % (32.0-36.0); Mean Corpuscular Hemoglobin 28.7 pg (27.0-34.0); Mean Corpuscular Volume 86.3 fL (80.0-100.0); Mean Platelet Volume 7.7 fL (7.0-11.0); Mono % (Auto) 10.7 % (0.0-8.0); Neut # (Auto) 6.6 th/mm3 (1.8-7.7); Neut % (Auto) 68.2 % (16.0-70.0); Platelet Count 429 th/mm3 (150-450); Red Blood Count 2.84 mil/mm3 (4.50-5.90); Red Cell Distribution Width 15.2 % (11.6-17.2); White Blood Count 9.7 th/mm3 (4.0-11.0)
[2017-12-31] MEDS: Baclofen 10 MG Tablet PO SCH ×3 (06:02→21:48)
[2017-12-31 06:26] LABS: Anion Gap 7 meq/L (5-15); Aspartate Aminotransferase 44 U/L (15-37); Blood Urea Nitrogen 10 mg/dL (7-18); Calcium 8.4 mg/dL (8.5-10.1); Carbon Dioxide 27.3 meq/L (21.0-32.0); Chloride 105 meq/L (98-107); Glomerular Filtration Rate 78 mL/min (>89); Glucose,Random 88 mg/dL (74-106); Potassium 3.8 meq/L (3.5-5.1); Sodium 139 meq/L (136-145)
[2017-12-31 06:31] LABS: Alanine Aminotransferase 30 U/L (12-78); Alkaline Phosphatase 41 U/L (45-117); Total Protein 7.4 g/dL (6.4-8.2)
[2017-12-31] MEDS: Sod Chloride 0.9% Inj 1,000 ML IV.CONT SCH ×3 (08:59→19:13)
--- NOTE | 2017-12-31 11:05 | P.PNFP ---
Subjective Interval history: Pt seen and evaluated this morning. He denies any complains. PT would like to know when he can leave and when could he shower. He denies shortness of breath, chest pain, nausea/vomiting, fevers, chills. He complains of continuos R side abdominal pain, but states is well controlled on medication. ID changed his medications yesterday and Nephrology wants to do the nephrectomy outpatient. Discussed with case management his discharge plan. CM states they cannot get him accommodations until he returns for outpatient procedure, but they are able to provide antibiotics upon discharge. <Aleja Carroll V - 12/31/17 11:05> Results - Labs Result diagrams: 01/01/18 15:00 01/01/18 04:34 <Amber Navarrete - 01/01/18 16:19> Abnormal lab results 01/01/18 01/01/18 01/01/18 Range/Units 04:34 04:34 15:00 RBC 2.56 L 2.91 L (4.50-5.90) mil/mm3 Hgb 7.5 L 8.3 L (13.0-17.0) gm/dL Hct 21.5 L 25.1 L (39.0-51.0) % Plt Count 458 H (150-450) th/mm3 [place] % (Auto) 10.6 H (0.0-8.0) % Estimated GFR 88 L (>89) mL/min Calcium 8.1 L (8.5-10.1) mg/dL AST 38 H (15-37) U/L Alkaline Phosphatase 36 L (45-117) U/L Albumin 1.8 L (3.4-5.0) g/dL Short CBC 01/01/18 01/01/18 Range/Units 04:34 15:00 WBC 7.6 7.6 (4.0-11.0) th/mm3 Hgb 7.5 L 8.3 L (13.0-17.0) gm/dL Hct 21.5 L 25.1 L (39.0-51.0) % Plt Count 420 458 H (150-450) th/mm3 BMP 01/01/18 04:34 Sodium 141 Potassium 3.6 Chloride 107 Carbon Dioxide 27.9 BUN 12 Creatinine 0.91 Calcium 8.1 L Liver Function 01/01/18 Range/Units 04:34 Total Bilirubin 0.3 (0.2-1.0) mg/dL AST 38 H (15-37) U/L ALT 32 (12-78) U/L Alkaline Phosphatase 36 L (45-117) U/L Albumin 1.8 L (3.4-5.0) g/dL <Amber Navarrete - 01/01/18 16:19> Abnormal lab results 12/30/17 12/30/17 12/31/17 Range/Units 11:09 11:09 05:21 RBC 2.87 L 2.84 L (4.50-5.90) mil/mm3 Hgb 8.3 L 8.1 L (13.0-17.0) gm/dL Hct 24.2 L 24.5 L (39.0-51.0) % [place] % (Auto) 10.7 H (0.0-8.0) % [place] # (Auto) 1.0 H (0.0-0.9) th/mm3 Anion Gap 4 L (5-15) meq/L Estimated GFR 83 L (>89) mL/min Calcium 8.2 L (8.5-10.1) mg/dL AST (15-37) U/L Alkaline Phosphatase (45-117) U/L Albumin (3.4-5.0) g/dL 12/31/17 Range/Units 05:21 RBC (4.50-5.90) mil/mm3 Hgb (13.0-17.0) gm/dL Hct (39.0-51.0) % [place] % (Auto) (0.0-8.0) % [place] # (Auto) (0.0-0.9) th/mm3 Anion Gap (5-15) meq/L Estimated GFR 78 L (>89) mL/min Calcium 8.4 L (8.5-10.1) mg/dL AST 44 H (15-37) U/L Alkaline Phosphatase 41 L (45-117) U/L Albumin 2.0 L (3.4-5.0) g/dL Short CBC 12/30/17 12/31/17 Range/Units 11:09 05:21 WBC 11.0 9.7 (4.0-11.0) th/mm3 Hgb 8.3 L 8.1 L (13.0-17.0) gm/dL Hct 24.2 L 24.5 L (39.0-51.0) % Plt Count 420 429 (150-450) th/mm3 BMP 12/30/17 12/31/17 11:09 05:21 Sodium 138 139 Potassium 3.8 3.8 Chloride 106 105 Carbon Dioxide 27.7 27.3 BUN 8 10 Creatinine 0.96 1.01 Calcium 8.2 L 8.4 L Liver Function 12/31/17 Range/Units 05:21 Total Bilirubin 0.4 (0.2-1.0) mg/dL AST 44 H (15-37) U/L ALT 30 (12-78) U/L Alkaline Phosphatase 41 L (45-117) U/L Albumin 2.0 L (3.4-5.0) g/dL <Obdulio SpannAlejaGlenda - 12/31/17 11:05> Physical Exam Vital signs: Vital Signs 12/31/17 20:00 12/31/17 20:13 01/01/18 00:00 Temperature 98.2 F 97.8 F Pulse Rate 56 L 63 55 L Respiratory Rate 18 18 Blood Pressure 113/66 Pulse Oximetry 97 97 01/01/18 00:33 01/01/18 01:19 01/01/18 04:00 Temperature 97.7 F Pulse Rate 51 L Respiratory Rate 17 17 18 Blood Pressure 121/75 Pulse Oximetry 98 01/01/18 06:33 01/01/18 08:00 01/01/18 12:00 Temperature 98.2 F 98.4 F Pulse Rate 58 L 54 L Respiratory Rate 17 16 18 Blood Pressure 142/82 H 137/78 Pulse Oximetry 98 98 01/01/18 12:05 Temperature Pulse Rate Respiratory Rate 18 Blood Pressure Pulse Oximetry Intake & Output 12/31/17 01/01/18 01/01/18 18:59 06:59 18:59 Intake Total 1812.5 / 1812.5 1640 / 1640 1200 / 1200 Output Total 1300 / 1300 600 / 600 Balance 1812.5 / 1812.5 340 / 340 600 / 600 Weight 84.6 kg Intake: IV 562.5 / 562.5 1400 / 1400 1200 / 1200 NS Inj 1,000 ML @ 130 mls/hr IV 1000 / 1000 1000 / 1000 .CONT .Q7H42M YRN Rx#:[id number] Prostaphlin Inj 2 GM In NS Inj 200 / 200 400 / 400 200 / 200 100 ML @ 200 mls/hr IV.SIG Q4H YRN Rx#:[id number] Oral 1250 / 1250 240 / 240 Output: Urine 1300 / 1300 600 / 600 Other: Date of Last Bowel Movement 12/29/17 12/29/17 # Bowel Movements 1 <Amber Navarrete M - 01/01/18 16:19> Vital Signs 12/30/17 12:00 12/30/17 16:00 12/30/17 20:00 Temperature 98.3 F 98.2 F 99.5 F Pulse Rate 61 62 64 Respiratory Rate 18 17 18 Blood Pressure 139/78 132/66 142/76 H Pulse Oximetry 98 97 96 12/31/17 00:00 12/31/17 01:50 12/31/17 04:00 Temperature 97.8 F Pulse Rate 60 53 L Respiratory Rate 18 18 Blood Pressure 134/95 H Pulse Oximetry 95 12/31/17 05:10 12/31/17 05:50 12/31/17 08:00 Temperature 98.6 F Pulse Rate 55 L 57 L Respiratory Rate 18 19 Blood Pressure 127/72 Pulse Oximetry 98 Intake & Output 12/30/17 12/31/17 12/31/17 18:59 06:59 18:59 Intake Total 2400 / 2400 2300 / 2300 Output Total 2200 / 2200 2024 Balance 200 / 200 275 / 275 Intake: IV 1200 / 1200 2300 / 2300 NS Inj 1,000 ML @ 130 mls/hr IV 1000 / 1000 1999 / 1999 .CONT .Q7H42M YRN Rx#:[id number] Prostaphlin Inj 2 GM In NS Inj 100 / 100 300 / 300 100 ML @ 200 mls/hr IV.SIG Q4H YRN Rx#:[id number] Zosyn 4.5 GM Premix 4.5 gm In 100 / 100 100 ml @ 200 mls/hr IV.SIG Q6H YRN Rx#:[id number] Oral 1200 / 1200 Output: Urine 2200 / 2200 2024 Other: Date of Last Bowel Movement 12/29/17 12/29/17 <Aleja Carroll V - 12/31/17 11:05> Narrative: Constitutional: In NAD, lying in bed, cooperative. Psychiatric: good judgement, normal mood and affect and active and alert. Head: normocephalic and atraumatic. Eyes: Lids and Conjunctivae non-injected and no discharge. PERRLA. EOMI. Sclerae non-icteric. Lungs: Normal respiratory effort, no dyspnea. No wheezing, rales/crackles, or rhonchi and breath sounds normal and good air movement. Cardiovascular: normal S1 and S2; no murmurs, rubs, or gallops; with regular rate and rythm. Abdomen: + BS. Tender to palpation or RLQ, improved. No guarding, or masses. Soft and non-distended. Musculoskeletal: normal movement of all extremities. No cyanosis or edema. Neurologic: Cranial Nerves: grossly intact. Skin: no rash, lesions, ulcer, or jaundice. <Obdulio SpannAleja Bradshaw 12/31/17 17:10> - Urinary Catheter Management Indwelling Urethral Catheter Cath placed during this visit: no <Amber Navarrete - 01/01/18 16:19> yes, but has since been removed by the nurse <Obdulio Spann Aleja Bradshaw 12/31/17 17:10> Reason for continuing: Hourly intake/output <Obdulio SpannAleja Bradshaw 12/31/17 11:05> Insertion date: 12/20/17 <Obduliokiran SpannAleja Bradshaw 12/31/17 11:05> Insertion time: 08:10 <bOdulio SpannAleja Bradshaw 12/31/17 11:05> Removal date: 12/24/17 <Obduilo SpannAleja Bradshaw 12/31/17 11:05> Removal time: 11:00 <Obdulio Spann,Aleja Bradshaw 12/31/17 11:05> Assessment and Plan - Assessment (1) Sepsis Code(s): A41.9 - Sepsis, unspecified organism Status: Acute (2) Bacteremia Code(s): R78.81 - Bacteremia Status: Acute (3) Hypertension Code(s): I10 - Essential (primary) hypertension Status: Acute (4) Renal hemorrhage, right Code(s): N28.89 - Other specified disorders of kidney and ureter Status: Acute (5) Renal cell carcinoma Code(s): C64.9 - Malignant neoplasm of unspecified kidney, except renal pelvis Status: Acute (6) IVDU (intravenous drug user) Code(s): F19.90 - Other psychoactive substance use, unspecified, uncomplicated Status: Acute (7) Nutrition, metabolism, and development symptoms Code(s): R63.8 - Other symptoms and signs concerning food and fluid intake Status: Acute <Amber Navarrete - 01/01/18 16:19> (1) Sepsis Code(s): A41.9 - Sepsis, unspecified organism Status: Acute Plan: Afebrile since 12/20 at 1600, WBC normal today Bacteremia with MSSA on 12/20. Repeat blood cultures 12/23: Negative day 5, final negative ID consulted - Change vanc and zosyn to oxacillin. Waiting for duration of treatment recommendations. On admission: Febrile, WBC 21 possible consolidation on initial chest x-ray, however repeat chest x-ray shows no infiltrate or effusion Blood cultures: Final methicillin sensitive Staphylococcus aureus, pansensitive. urine cultures: No growth in 48 hours pneumococcal and Legionella urinary antigens: Negative (2) Bacteremia Code(s): R78.81 - Bacteremia Status: Acute Plan: See plan above repeat blood cultures Negative Final (3) Hypertension Code(s): I10 - Essential (primary) hypertension Status: Acute Plan: Good BP today. Highest BP in last 24 hrs 142/76 Vasotec 1.25 mg q6 prn (not used since 12/24) Clonidine 0.1 mg scheduled every 8 hours Continue to monitor vital signs every 4. (4) Renal hemorrhage, right Code(s): N28.89 - Other specified disorders of kidney and ureter Status: Acute Plan: History of renal cell carcinoma, right kidney with hemorrhage into the kidney, gross hematuria Associated with pain in back, neck, abdomen s/p renal embolization of R kidney on 12/26. Pt asymptomatic today, comfortable. Voiding appropriately. Urology recommendations proceed with right radical nephrectomy as outpatient. IV fluids at maintenance Roundup 5 mg, baclofen for pain management Hemoglobin stable. CT: Right kidney hemorrhage and mass measuring 12.1 cm (5) Renal cell carcinoma Code(s): C64.9 - Malignant neoplasm of unspecified kidney, except renal pelvis Status: Acute Plan: Urology for right radical nephrectomy as outpatient (6) IVDU (intravenous drug user) Code(s): F19.90 - Other psychoactive substance use, unspecified, uncomplicated Status: Acute Plan: Signs of sepsis, IV drug user, bacteremia positive Echocardiogram: Normal UDS: Positive opiates, positive cocaine Continue to monitor for signs of withdrawal Discuss with Case Management about Methadone Clinic. (7) Nutrition, metabolism, and development symptoms Code(s): R63.8 - Other symptoms and signs concerning food and fluid intake Status: Acute Plan: Fluids: IV fluids at maintenance, p.o. fluids as tolerated Electrolytes: Monitor and replete as needed. Nutrition: P.O. as tolerated DVT ppx: SCDs only, hemorrhages contraindication to anticoagulation <Obdulio SpannGlenda - 12/31/17 17:06> - Assessment and Plan 52 y/o M, IVDU with hx of Renal Cell Carcinoma, presents meeting SEPSIS criteria and is found to have lung consolidation now resolved, renal hemorrhage and gross hematuria, also resolved. Urology to do nephrectomy as an outpatient, ID to give recommendations on duration of antibiotics . Case management working to arrange outpatient surgery. They cannot provide hotel accommodations or pain medicine, but they can help with antibiotics. 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 <Aleja Carroll V - 12/31/17 17:10> - Attending Attestation The exam, history, and the medical decision-making described in the above note were completed with the assistance of the resident physician. I reviewed and agree with the findings presented. I attest that I had a [id number] encounter with the patient on the same day, and personally performed and documented my assessment and findings in the medical record. needs HANNAH. he had 4/4 blood cultures positive. he has responded well to abx <Amber Navarrete M - 01/01/18 16:19> <ObdulioAleja West V - Last Filed: 12/31/17 17:06> (1) Sepsis Qualifiers: Sepsis type: methicillin susceptible Staphylococcus aureus Qualified Code(s) : A41.01 - Sepsis due to Methicillin susceptible Staphylococcus aureus <LandonAmber M - Last Filed: 01/01/18 16:19> (1) Sepsis Qualifiers: Sepsis type: methicillin susceptible Staphylococcus aureus Qualified Code(s) : A41.01 - Sepsis due to Methicillin susceptible Staphylococcus aureus <Aleja Carroll V - Last Filed: 12/31/17 17:06> (1) Sepsis Qualifiers: Sepsis type: methicillin susceptible Staphylococcus aureus Qualified Code(s) : A41.01 - Sepsis due to Methicillin susceptible Staphylococcus aureus <LandonAmber M - Last Filed: 01/01/18 16:19> (1) Sepsis Qualifiers: Sepsis type: methicillin susceptible Staphylococcus aureus Qualified Code(s) : A41.01 - Sepsis due to Methicillin susceptible Staphylococcus aureus
--- NOTE | 2017-12-31 15:08 | P.PNONC ---
Subjective Interval history: Patient lying in bed, in no acute distress. Nephrology has elected to do a right nephrectomy as an outpatient. We have discussed the need for follow-up with oncology if the pathology warrants. The patient verbalizes understanding and states that he will maintain appropriate medical follow-up. Objective Vital Signs/Intake & Output: Vital Signs 12/30/17 16:00 12/30/17 20:00 12/31/17 00:00 Temperature 98.2 F 99.5 F Pulse Rate 62 64 60 Respiratory Rate 17 18 Blood Pressure 132/66 142/76 H Pulse Oximetry 97 96 12/31/17 01:50 12/31/17 04:00 12/31/17 05:10 Temperature 97.8 F Pulse Rate 53 L 55 L Respiratory Rate 18 18 Blood Pressure 134/95 H Pulse Oximetry 95 12/31/17 05:50 12/31/17 08:00 12/31/17 12:00 Temperature 98.6 F 98.3 F Pulse Rate 57 L 63 Respiratory Rate 18 19 19 Blood Pressure 127/72 149/76 H Pulse Oximetry 98 98 Intake & Output 12/30/17 12/31/17 12/31/17 18:59 06:59 18:59 Intake Total 2400 / 2400 2300 / 2300 562.5 / 562.5 Output Total 2200 / 2200 2024 Balance 200 / 200 275 / 275 562.5 / 562.5 Intake: IV 1200 / 1200 2300 / 2300 562.5 / 562.5 NS Inj 1,000 ML @ 130 mls/hr IV 1000 / 1000 1999 / 1999 .CONT .Q7H42M YRN Rx#:[id number] Prostaphlin Inj 2 GM In NS Inj 100 / 100 300 / 300 200 / 200 100 ML @ 200 mls/hr IV.SIG Q4H YRN Rx#:[id number] Zosyn 4.5 GM Premix 4.5 gm In 100 / 100 100 ml @ 200 mls/hr IV.SIG Q6H YRN Rx#:[id number] Oral 1200 / 1200 Output: Urine 2200 / 2200 2024 Other: Date of Last Bowel Movement 12/29/17 12/29/17 Result Diagrams: 12/31/17 05:21 12/31/17 05:21 Laboratory Results: Laboratory Results - last 24 hr 12/31/17 12/31/17 05:21 05:21 WBC 9.7 RBC 2.84 L Hgb 8.1 L Hct 24.5 L MCV 86.3 MCH 28.7 MCHC 33.2 RDW 15.2 Plt Count 429 MPV 7.7 Neut % (Auto) 68.2 Lymph % (Auto) 17.2 [place] % (Auto) 10.7 H Eos % (Auto) 2.7 Baso % (Auto) 1.2 Neut # (Auto) 6.6 Lymph # (Auto) 1.7 [place] # (Auto) 1.0 H Eos # (Auto) 0.3 Baso # (Auto) 0.1 WBC Differential . Differential Comment Auto diff final Sodium 139 Potassium 3.8 Chloride 105 Carbon Dioxide 27.3 Anion Gap 7 BUN 10 Creatinine 1.01 Estimated GFR 78 L Random Glucose 88 Calcium 8.4 L Total Bilirubin 0.4 AST 44 H ALT 30 Alkaline Phosphatase 41 L Total Protein 7.4 Albumin 2.0 L Culture Results: Microbiology 12/23/17 14:10 Aerobic Blood Culture - Final Blood - Peripheral No growth in 5 days Anaerobic Blood Culture - Final No growth in 5 days 12/23/17 15:00 Aerobic Blood Culture - Final Blood - Peripheral No growth in 5 days Anaerobic Blood Culture - Final No growth in 5 days Medications: Active Medications Generic Name Dose Route Start Last Admin Trade Name Freq PRN Reason Stop Dose Admin Acetaminophen 650 mg 12/20/17 11:34 12/20/17 16:29 Tylenol PO 650 mg Q4H PRN Administration Temp > 100.4 Hydrocodone Bitart/Acetaminophen 1 tab 12/22/17 12:00 12/31/17 13:41 [place] 5/325 PO 1 tab Q6H YRN Administration Baclofen 5 mg 12/22/17 11:00 12/31/17 13:41 Lioresal PO 5 mg Q8HR YRN Administration Clonidine HCl 0.1 mg 12/23/17 10:33 12/28/17 12:49 Catapres PO 0.1 mg Q6H PRN Administration BLOOD PRESSURE MANAGEMENT Clonidine HCl 0.1 mg 12/28/17 22:00 12/31/17 13:41 Catapres PO 0.1 mg Q8HR YRN Administration Diphenhydramine HCl 25 mg 12/22/17 03:51 12/22/17 04:15 Benadryl PO 25 mg Q6H PRN Administration ITCHING Enalaprilat 1.25 mg 12/20/17 16:43 12/24/17 04:04 Vasotec Inj IV.PUSH 1.25 mg Q6H PRN Administration HYPERTENSION Sodium Chloride 1,000 mls @ 130 mls/hr 12/20/17 12:00 12/31/17 08:59 Ns Inj IV.CONT 130 mls/hr .Q7H42M YRN Administration Hydromorphone/Sodium Chloride 6 mg in 30 mls @ 0 mls/hr 12/26/17 14:25 01:18 Dilaudid Tonger Inj PEOPLESOFT HR DEVELOPER 0 mls/hr UNSCH PRN Administration per PEOPLESOFT HR DEVELOPER parameters 0 MG/HR Oxacillin Sodium 2 gm/ Sodium 100 mls @ 200 mls/hr 12/30/17 16:00 12/31/17 14 :23 Chloride IV.SIG Infused Q4H YRN Infusion Potassium Chloride 40 meq 12/28/17 19:45 12/31/17 08:59 Klor-Con 10 PO 40 meq DAILY YRN Administration Objective Remarks: GENERAL: Disheveled male patient, lying in bed, in no acute distress. SKIN: Warm and dry. Multiple scabs to bilateral arms. HEAD: Normocephalic. EYES: No scleral icterus. No injection or drainage. NECK: Supple, trachea midline. CARDIOVASCULAR: Regular rate and rhythm without murmurs. RESPIRATORY: Breath sounds equal bilaterally. No accessory muscle use. GASTROINTESTINAL: Abdomen soft, tender, nondistended. +BS EXTREMITIES: No cyanosis, or edema. MUSCULOSKELETAL: Adequate muscle tone. NEUROLOGICAL: No obvious focal deficit. Awake, alert, and oriented x3. PSYCHIATRIC: Appropriate mood and affect; insight and judgment normal. Assessment/Plan (1) Sepsis Code(s): A41.9 - Sepsis, unspecified organism Status: Acute (2) Pneumonia Code(s): J18.9 - Pneumonia, unspecified organism Status: Acute (3) Renal hemorrhage, right Code(s): N28.89 - Other specified disorders of kidney and ureter Status: Acute (4) Renal cell carcinoma Code(s): C64.9 - Malignant neoplasm of unspecified kidney, except renal pelvis Status: Acute (5) IVDU (intravenous drug user) Code(s): F19.90 - Other psychoactive substance use, unspecified, uncomplicated Status: Acute (6) Elevated serum creatinine Code(s): R79.89 - Other specified abnormal findings of blood chemistry Status : Resolved (7) Nutrition, metabolism, and development symptoms Code(s): R63.8 - Other symptoms and signs concerning food and fluid intake Status: Acute (8) Acute urinary obstruction Code(s): N13.9 - Obstructive and reflux uropathy, unspecified Status: Acute - Plan This is a pleasant 52-year-old male patient, who is reportedly homeless. He presented to the emergency department with hematuria and abdominal pain. CT scan revealed a right kidney mass with hemorrhage. The patient underwent embolization. Nephrology has decided to do a right nephrectomy as an outpatient. The patient was also found to be septic with MSSA bacteremia, currently being treated with IV antibiotics. He has a history of IV drug abuse. Plan: 1. CT chest negative for metastatic disease. 2. Nephrectomy planned as an outpatient basis. We therefore have no pathology at this time. I discussed with the patient that he will need close outpatient follow-up and possibly oncology follow-up once pathology is available. He verbalizes understanding. 3. We will sign off from an oncology standpoint at this time. Kindly call if needed. The patient will need close outpatient follow-up of the right kidney mass and once pathology is obtained may need oncology f/u. (1) Sepsis Qualifiers: Sepsis type: methicillin susceptible Staphylococcus aureus Qualified Code(s) : A41.01 - Sepsis due to Methicillin susceptible Staphylococcus aureus
[2018-01-01] MEDS: Sod Chloride 0.9% Inj 1,000 ML IV.CONT SCH ×3 (00:03→08:30)
[2018-01-01 05:24] LABS: Baso # (Auto) 0.1 th/mm3 (0.0-0.2); Baso % (Auto) 1.8 % (0.0-2.0); Eos # (Auto) 0.2 th/mm3 (0.0-0.4); Eos % (Auto) 3.2 % (0.0-4.0); Hematocrit 21.5 % (39.0-51.0); Hemoglobin 7.5 gm/dL (13.0-17.0); Lymph # (Auto) 1.7 th/mm3 (1.0-4.8); Lymph % (Auto) 22.2 % (9.0-44.0); Mean Corpuscular HGB Conc 35.1 % (32.0-36.0); Mean Corpuscular Hemoglobin 29.5 pg (27.0-34.0); Mean Corpuscular Volume 84.1 fL (80.0-100.0); Mean Platelet Volume 7.6 fL (7.0-11.0); Mono # (Auto) 0.8 th/mm3 (0.0-0.9); Mono % (Auto) 10.6 % (0.0-8.0); Neut # (Auto) 4.7 th/mm3 (1.8-7.7); Neut % (Auto) 62.2 % (16.0-70.0); Platelet Count 420 th/mm3 (150-450); Red Blood Count 2.56 mil/mm3 (4.50-5.90); Red Cell Distribution Width 15.2 % (11.6-17.2); White Blood Count 7.6 th/mm3 (4.0-11.0)
[2018-01-01 05:54] LABS: Alanine Aminotransferase 32 U/L (12-78); Albumin 1.8 g/dL (3.4-5.0); Anion Gap 6 meq/L (5-15); Aspartate Aminotransferase 38 U/L (15-37); Blood Urea Nitrogen 12 mg/dL (7-18); Calcium 8.1 mg/dL (8.5-10.1); Carbon Dioxide 27.9 meq/L (21.0-32.0); Chloride 107 meq/L (98-107); Glomerular Filtration Rate 88 mL/min (>89); Glucose,Random 97 mg/dL (74-106); Potassium 3.6 meq/L (3.5-5.1); Sodium 141 meq/L (136-145)
[2018-01-01 05:57] LABS: Alkaline Phosphatase 36 U/L (45-117); Total Protein 6.8 g/dL (6.4-8.2)
[2018-01-01] MEDS: Baclofen 10 MG Tablet PO SCH ×3 (06:02→21:08)
[2018-01-01] MEDS: Ferrous Sulfate 325 MG Tablet PO SCH ×2 (08:30→21:08)
[2018-01-01] MEDS: HYDROmorphone PCA Inj 6 MG/30 ML PCA.VIAL PCA PRN (11:33)
--- NOTE | 2018-01-01 11:35 | P.PNFP ---
Subjective Interval history: Pt doing well today, he has no complaints. He did mention he started to have blood on his urine last night and again this morning. He described it as "bright red". Patient states that this happens usually when he is ambulating but no when he is laying around. Patient still complains of pain well-controlled on pain medication. Patient denies fevers chills chest pain shortness of breath. No acute events overnight. <Obdulio SpannAlejaGlenda - 01/01/18 18:39> Results - Labs Result diagrams: 01/01/18 15:00 01/01/18 04:34 <Amber Navarrete M - 01/02/18 13:05> Abnormal lab results 01/01/18 01/01/18 01/01/18 Range/Units 15:00 15:45 18:43 RBC 2.91 L (4.50-5.90) mil/mm3 Hgb 8.3 L (13.0-17.0) gm/dL Hct 25.1 L (39.0-51.0) % Plt Count 458 H (150-450) th/mm3 Urine Clarity Hazy H (Clear) Urine Occult Blood Large H (Negative) Urine RBC 5 H (0-3) /hpf Urine Bacteria Occasional H (None) /hpf Urine Mucus Few H (Occasional) /lpf Urine Yeast Occasional H (None) /hpf MTS Gel Crossmatch See Detail Short CBC 01/01/18 Range/Units 15:00 WBC 7.6 (4.0-11.0) th/mm3 Hgb 8.3 L (13.0-17.0) gm/dL Hct 25.1 L (39.0-51.0) % Plt Count 458 H (150-450) th/mm3 Urine 01/01/18 Range/Units 15:45 Urine Color Yellow (Yellw/Straw) Urine Clarity Hazy H (Clear) Urine pH 7.0 (5.0-8.5) Ur Specific [place] 1.011 (1.002-1.035) Urine Protein Negative (Neg-Trace) mg/dL Urine Glucose (UA) Negative (Negative) mg/dL <Amber Navarrete - 01/02/18 13:05> Abnormal lab results 01/01/18 01/01/18 Range/Units 04:34 04:34 RBC 2.56 L (4.50-5.90) mil/mm3 Hgb 7.5 L (13.0-17.0) gm/dL Hct 21.5 L (39.0-51.0) % [place] % (Auto) 10.6 H (0.0-8.0) % Estimated GFR 88 L (>89) mL/min Calcium 8.1 L (8.5-10.1) mg/dL AST 38 H (15-37) U/L Alkaline Phosphatase 36 L (45-117) U/L Albumin 1.8 L (3.4-5.0) g/dL Short CBC 01/01/18 Range/Units 04:34 WBC 7.6 (4.0-11.0) th/mm3 Hgb 7.5 L (13.0-17.0) gm/dL Hct 21.5 L (39.0-51.0) % Plt Count 420 (150-450) th/mm3 BMP 01/01/18 04:34 Sodium 141 Potassium 3.6 Chloride 107 Carbon Dioxide 27.9 BUN 12 Creatinine 0.91 Calcium 8.1 L Liver Function 01/01/18 Range/Units 04:34 Total Bilirubin 0.3 (0.2-1.0) mg/dL AST 38 H (15-37) U/L ALT 32 (12-78) U/L Alkaline Phosphatase 36 L (45-117) U/L Albumin 1.8 L (3.4-5.0) g/dL <Aleja Carroll V - 01/01/18 11:35> Physical Exam Vital signs: Vital Signs 01/01/18 16:00 01/01/18 17:50 01/01/18 20:00 Temperature 98.6 F 98.1 F Pulse Rate 56 L 56 L Respiratory Rate 14 0 L 17 Blood Pressure 142/85 H 156/82 H Pulse Oximetry 98 99 01/02/18 00:00 01/02/18 03:50 01/02/18 04:00 Temperature 98.1 F 97.9 F 97.9 F Pulse Rate 55 L 49 L 53 L Respiratory Rate 20 18 20 Blood Pressure 144/83 H 132/71 144/82 H Pulse Oximetry 98 100 100 01/02/18 04:08 01/02/18 08:00 01/02/18 08:10 Temperature 97.6 F 97.8 F 97.8 F Pulse Rate 53 L 59 L 59 L Respiratory Rate 18 16 Blood Pressure 140/78 112/76 112/76 Pulse Oximetry 99 Intake & Output 01/01/18 01/02/18 01/02/18 18:59 06:59 18:59 Intake Total 5200 / 5200 740 / 740 400 / 400 Output Total 1500 / 1500 3250 / 3250 Balance 3700 / 3700 -2510 / -2510 400 / 400 Weight 78.9 kg Intake: IV 1800 / 1800 200 / 200 NS Inj 1,000 ML @ 130 mls/hr IV 1500 / 1500 .CONT .Q7H42M Y[facility] Rx#:[id number] Prostaphlin Inj 2 GM In NS Inj 300 / 300 200 / 200 100 ML @ 200 mls/hr IV.SIG Q4H [facility] Rx#:[id number] Oral 3400 / 3400 540 / 540 Intake (Blood Product) Amt 0 / 0 400 / 400 Rbc As-3 Leukoreduced Unit 0 / 0 [id number] Rbc As-3 Leukoreduced Unit 0 / 0 400 / 400 [id number] Output: Urine 1500 / 1500 3250 / 3250 Other: Date of Last Bowel Movement 12/29/17 12/29/17 <Amber Navarrete - 01/02/18 13:05> Vital Signs 12/31/17 12:00 12/31/17 16:00 12/31/17 20:00 Temperature 98.3 F 98.1 F 98.2 F Pulse Rate 63 67 56 L Respiratory Rate 19 19 18 Blood Pressure 149/76 H 131/63 Pulse Oximetry 98 99 97 12/31/17 20:13 01/01/18 00:00 01/01/18 00:33 Temperature 97.8 F Pulse Rate 63 55 L Respiratory Rate 18 17 Blood Pressure 113/66 Pulse Oximetry 97 01/01/18 01:19 01/01/18 04:00 01/01/18 06:33 Temperature 97.7 F Pulse Rate 51 L Respiratory Rate 17 18 17 Blood Pressure 121/75 Pulse Oximetry 98 01/01/18 08:00 Temperature 98.2 F Pulse Rate 58 L Respiratory Rate 16 Blood Pressure 142/82 H Pulse Oximetry 98 Intake & Output 12/31/17 01/01/18 01/01/18 18:59 06:59 18:59 Intake Total 1812.5 / 1812.5 1640 / 1640 1100 / 1100 Output Total 1300 / 1300 600 / 600 Balance 1812.5 / 1812.5 340 / 340 500 / 500 Weight 84.6 kg Intake: IV 562.5 / 562.5 1400 / 1400 1100 / 1100 NS Inj 1,000 ML @ 130 mls/hr IV 1000 / 1000 1000 / 1000 .CONT .Q7H42M [facility] Rx#:[id number] Prostaphlin Inj 2 GM In NS Inj 200 / 200 400 / 400 100 / 100 100 ML @ 200 mls/hr IV.SIG Q4H [facility] Rx#:[id number] Oral 1250 / 1250 240 / 240 Output: Urine 1300 / 1300 600 / 600 Other: Date of Last Bowel Movement 12/29/17 12/29/17 # Bowel Movements 1 <Aleja Carroll V - 01/01/18 11:35> Narrative: Constitutional: In NAD, lying in bed, cooperative. Psychiatric: good judgement, normal mood and affect and active and alert. Head: normocephalic and atraumatic. Eyes: Lids and Conjunctivae non-injected and no discharge. PERRLA. EOMI. Sclerae non-icteric. Lungs: Normal respiratory effort, no dyspnea. No wheezing, rales/crackles, or rhonchi and breath sounds normal and good air movement. Cardiovascular: normal S1 and S2; no murmurs, rubs, or gallops; with regular rate and rythm. Abdomen: + BS. Tender to palpation or RLQ. No guarding, or masses. Soft and non- distended. Musculoskeletal: normal movement of all extremities. No cyanosis or edema. Neurologic: Cranial Nerves: grossly intact. Skin: no rash, lesions, ulcer, or jaundice. <Aleja Carroll V - 01/01/18 18:39> - Urinary Catheter Management Indwelling Urethral Catheter Cath placed during this visit: no <Amber Navarrete - 01/02/18 13:05> yes, but has since been removed by the nurse <Aleja Carroll V - 01/01/18 18:39> Reason for continuing: Hourly intake/output <Aleja Carroll V 01/01/18 11:35> Insertion date: 12/20/17 <Aleja Carroll V - 01/01/18 11:35> Insertion time: 08:10 <Aleja Carroll V - 01/01/18 11:35> Removal date: 12/24/17 <Aleja Carroll V - 01/01/18 11:35> Removal time: 11:00 <Aleja Carroll V - 01/01/18 11:35> Assessment and Plan - Assessment (1) Sepsis Code(s): A41.9 - Sepsis, unspecified organism Status: Acute (2) Bacteremia Code(s): R78.81 - Bacteremia Status: Acute (3) Hypertension Code(s): I10 - Essential (primary) hypertension Status: Acute (4) Renal hemorrhage, right Code(s): N28.89 - Other specified disorders of kidney and ureter Status: Acute (5) Renal cell carcinoma Code(s): C64.9 - Malignant neoplasm of unspecified kidney, except renal pelvis Status: Acute (6) IVDU (intravenous drug user) Code(s): F19.90 - Other psychoactive substance use, unspecified, uncomplicated Status: Chronic (7) Nutrition, metabolism, and development symptoms Code(s): R63.8 - Other symptoms and signs concerning food and fluid intake Status: Acute <Amber Navarrete - 01/02/18 13:05> (1) Sepsis Code(s): A41.9 - Sepsis, unspecified organism Status: Acute Plan: Afebrile since 12/20 at 1600, WBC normal today Bacteremia with MSSA on 12/20. Repeat blood cultures 12/23: Negative day 5, final negative ID consulted -strong suspicious of endocarditis regardless of negative echo. Will consult cardiology for a HANNAH. If positive will require continuous IV antibiotic treatment. On admission: Febrile, WBC 21 possible consolidation on initial chest x-ray, however repeat chest x-ray shows no infiltrate or effusion Blood cultures: Final methicillin sensitive Staphylococcus aureus, pansensitive. Repeat blood cultures: Negative Final Urine cultures: No growth final pneumococcal and Legionella urinary antigens: Negative (2) Bacteremia Code(s): R78.81 - Bacteremia Status: Acute Plan: See plan above repeat blood cultures Negative Final (3) Hypertension Code(s): I10 - Essential (primary) hypertension Status: Acute Plan: Good BP today. Highest BP in last 24 hrs 142/85 Vasotec 1.25 mg q6 prn (not used since 12/24) Clonidine 0.1 mg scheduled every 8 hours Continue to monitor vital signs every 4. (4) Renal hemorrhage, right Code(s): N28.89 - Other specified disorders of kidney and ureter Status: Acute Plan: History of renal cell carcinoma, right kidney with hemorrhage into the kidney, gross hematuria Associated with pain in back, neck, abdomen s/p renal embolization of R kidney on 12/26. Urology recommendations proceed with right radical nephrectomy as outpatient. Patient complaining of new blood in urine since last night. 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 every 4 as needed for breakthrough pain (6) IVDU (intravenous drug user) Code(s): F19.90 - Other psychoactive substance use, unspecified, uncomplicated Status: Acute Plan: Signs of sepsis, IV drug user, bacteremia positive Echocardiogram: Normal -Follow-up HANNAH UDS: Positive opiates, positive cocaine Continue to monitor for signs of withdrawal Discuss with Case Management about Methadone Clinic. (7) Nutrition, metabolism, and development symptoms Code(s): R63.8 - Other symptoms and signs concerning food and fluid intake Status: Acute Plan: Fluids: IV fluids stopped, patient tolerating p.o. very well Electrolytes: Monitor and replete as needed. Nutrition: P.O. as tolerated DVT ppx: SCDs only, hemorrhages contraindication to anticoagulation <Aleja Carroll V - 01/01/18 18:24> - Assessment and Plan 52 y/o M, IVDU with hx of Renal Cell Carcinoma, presents meeting SEPSIS criteria and is found to have lung consolidation now resolved, renal hemorrhage and gross hematuria, also resolved. Urology to do nephrectomy as an outpatient, ID continues to have strong suspicions of endocarditis. Will proceed with a cardiology consult for a HANNAH. If positive, patient will require extra IV antibiotic treatment. If negative, patient will be discharged on p.o. medicine and will return as an outpatient for his procedure with urology. Patient switched today to p.o. pain control Case management working to arrange outpatient surgery. They cannot provide hotel accommodations or pain medicine, but they can help with antibiotics. <Aleja Carroll V - 01/01/18 18:39> - Attending Attestation The exam, history, and the medical decision-making described in the above note were completed with the assistance of the resident physician. I reviewed and agree with the findings presented. I attest that I had a [id number] encounter with the patient on the same day, and personally performed and documented my assessment and findings in the medical record. He will need a HANNAH based on having the 4 out of 4 positive blood cultures for MSSA. He did inject heroin several days prior to having this bacteremia. He does report intermittently having more blood in the urine versus just the efrain urine. <Amber Navarrete M - 01/02/18 13:05> <Aleja Carroll V - Last Filed: 01/01/18 18:24> (1) Sepsis Qualifiers: Sepsis type: methicillin susceptible Staphylococcus aureus Qualified Code(s) : A41.01 - Sepsis due to Methicillin susceptible Staphylococcus aureus <Amber Navarrete - Last Filed: 01/02/18 13:05> (1) Sepsis Qualifiers: Sepsis type: methicillin susceptible Staphylococcus aureus Qualified Code(s) : A41.01 - Sepsis due to Methicillin susceptible Staphylococcus aureus <Aleja Carroll V - Last Filed: 01/01/18 18:24> (1) Sepsis Qualifiers: Sepsis type: methicillin susceptible Staphylococcus aureus Qualified Code(s) : A41.01 - Sepsis due to Methicillin susceptible Staphylococcus aureus <Amber Navarrete M - Last Filed: 01/02/18 13:05> (1) Sepsis Qualifiers: Sepsis type: methicillin susceptible Staphylococcus aureus Qualified Code(s) : A41.01 - Sepsis due to Methicillin susceptible Staphylococcus aureus
--- NOTE | 2018-01-01 12:40 | P.PNURO ---
Subjective Patient symptoms today: Pt seen and examined. Urine is blood tinged. Not bright red. Feels ok at present. Objective Vital Signs: Vital Signs 12/31/17 16:00 12/31/17 20:00 12/31/17 20:13 Temperature 98.1 F 98.2 F Pulse Rate 67 56 L 63 Respiratory Rate 19 18 Blood Pressure 131/63 Pulse Oximetry 99 97 01/01/18 00:00 01/01/18 00:33 01/01/18 01:19 Temperature 97.8 F Pulse Rate 55 L Respiratory Rate 18 17 17 Blood Pressure 113/66 Pulse Oximetry 97 01/01/18 04:00 01/01/18 06:33 01/01/18 08:00 Temperature 97.7 F 98.2 F Pulse Rate 51 L 58 L Respiratory Rate 18 17 16 Blood Pressure 121/75 142/82 H Pulse Oximetry 98 98 Intake & Output 12/31/17 01/01/18 01/01/18 18:59 06:59 18:59 Intake Total 1812.5 / 1812.5 1640 / 1640 1100 / 1100 Output Total 1300 / 1300 600 / 600 Balance 1812.5 / 1812.5 340 / 340 500 / 500 Weight 84.6 kg Intake: IV 562.5 / 562.5 1400 / 1400 1100 / 1100 NS Inj 1,000 ML @ 130 mls/hr IV 1000 / 1000 1000 / 1000 .CONT .Q7H42M [facility] Rx#:[id number] Prostaphlin Inj 2 GM In NS Inj 200 / 200 400 / 400 100 / 100 100 ML @ 200 mls/hr IV.SIG Q4H [facility] Rx#:[id number] Oral 1250 / 1250 240 / 240 Output: Urine 1300 / 1300 600 / 600 Other: Date of Last Bowel Movement 12/29/17 12/29/17 # Bowel Movements 1 Result Diagrams: 01/01/18 04:34 01/01/18 04:34 Medications and IVs: Active Medications Generic Name Dose Route Start Last Admin Trade Name Freq PRN Reason Stop Dose Admin Acetaminophen 650 mg 12/20/17 11:34 12/20/17 16:29 Tylenol PO 650 mg Q4H PRN Administration Temp > 100.4 Hydrocodone Bitart/Acetaminophen 1 tab 12/22/17 12:00 01/01/18 11:33 [place]erson 5/325 PO 1 tab Q6H YRN Administration Al Hydroxide/Mg Hydroxide 30 ml 12/20/17 11:34 Milk Of Magnesia Liq PO Q12H PRN Mild Constipation Albuterol 1 ampul 12/20/17 18:35 Duoneb Neb (Prn) NEB Q4HR NEB PRN SHORTNESS OF BREATH/WHEEZING Baclofen 5 mg 12/22/17 11:00 01/01/18 06:02 Lioresal PO 5 mg Q8HR YRN Administration Bisacodyl 10 mg 12/20/17 11:34 Dulcolax Supp RECTAL DAILY PRN SEVERE CONSITIPATION Clonidine HCl 0.1 mg 12/23/17 10:33 12/28/17 12:49 Catapres PO 0.1 mg Q6H PRN Administration BLOOD PRESSURE MANAGEMENT Clonidine HCl 0.1 mg 12/28/17 22:00 01/01/18 06:04 Catapres PO Not Given Q8HR YRN Diphenhydramine HCl 25 mg 12/22/17 03:51 12/22/17 04:15 Benadryl PO 25 mg Q6H PRN Administration ITCHING Enalaprilat 1.25 mg 12/20/17 16:43 12/24/17 04:04 Vasotec Inj IV.PUSH 1.25 mg Q6H PRN Administration HYPERTENSION Ferrous Sulfate 325 mg 01/01/18 09:00 01/01/18 08:30 Ferosul PO 325 mg BID YRN Administration Flumazenil 0.2 mg 12/20/17 18:45 Romazecon Inj IV.PUSH Q1M PRN OVERSEDATION Haloperidol Lactate 1 mg 12/20/17 18:45 Haldol Inj IV.PUSH Q15M PRN for severe agitation Hydromorphone HCl 1 mg 12/24/17 11:44 Dilaudid Pf Inj IV.PUSH Q4H PRN SEE COMMENTS Oxacillin Sodium 2 gm/ Sodium 100 mls @ 200 mls/hr 12/30/17 16:00 01/01/18 11 :33 Chloride IV.SIG 200 mls/hr Q4H YRN Administration Lactulose 30 ml 12/20/17 11:34 Lactulose Liq PO DAILY PRN SEVERE CONSITIPATION Metoclopramide HCl 5 mg 12/20/17 11:34 Reglan Inj IV.PUSH Q6H PRN NAUSEA OR VOMITING Protocol Miscellaneous 1 each 12/22/17 11:07 Pill Splitter OTHER UNSCH PRN SEE LABEL COMMENTS Naloxone HCl 0.4 mg 12/26/17 14:25 Narcan Inj IV.PUSH PRN PRN SEE LABEL COMMENTS Potassium Chloride 40 meq 12/28/17 19:45 01/01/18 08:30 Klor-Con 10 PO 40 meq DAILY YRN Administration Sennosides 17.2 mg 12/20/17 11:34 Senokot PO Q12H PRN Moderate Constipation Temazepam 15 mg 12/20/17 11:34 Restoril PO HS PRN INSOMNIA Objective Remarks: Abd:soft,less tender and less distended Urine is clearing 12/22 Abd:soft,less tender and less distended Urine is clearing 12/23 Abd:soft,less tender and less distended Urine is blood tinged 12/24 Abd:soft,nt,nd [place]inberg with clear urine 12/25 Abd:soft,nt,nd 12/30 Abd:soft,nt,nd Urine now clear 01/01 ABd:soft,nt,nd URine: blood tinged. Assessment and Plan - Plan Right renal bleed due to RCC Continue supportive measures for now. Hgb stable at 10. 12/22 52 y.o. with right RCC with hemorrhage. Hbg has been stable. Pt with CP and elevated B/P Continue with conservative measures for now. Tolerating diet. Pt will need medical/cardiac clearance prior to OR intervention. This can be done as an outpt. If to be done during this admission will need clearance first. 12/23 52 y.o. with right RCC with hemorrhage. Hbg has been stable. Pt to get OOB today Weinberg to be irrigated to help clear urine. 12/24 52 y.o male with h/o RCC with hemorrhage. No further active bleeding. Void trial today. 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 No evidence of metastatic disease. 12/25 52 y.o male with h/o RCC with hemorrhage. Will check H/H now Bladder scan pt. If >600cc will need weinberg. May need embolization by IR if still bleeding 12/30 52 y.o. male with h/o RCC with hemorrhage s/p embolization Now voiding clear urine with stable Hgb. No evidence of metastatic disease F/U as outpt for right radical nephrectomy. 01/01 52 y.o. 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
[2018-01-01 15:55] LABS: Hematocrit 25.1 % (39.0-51.0); Hemoglobin 8.3 gm/dL (13.0-17.0); Mean Corpuscular HGB Conc 33.3 % (32.0-36.0); Mean Corpuscular Hemoglobin 28.6 pg (27.0-34.0); Mean Platelet Volume 7.8 fL (7.0-11.0); Platelet Count 458 th/mm3 (150-450); Red Blood Count 2.91 mil/mm3 (4.50-5.90); Red Cell Distribution Width 15.2 % (11.6-17.2); White Blood Count 7.6 th/mm3 (4.0-11.0)
[2018-01-01 16:57] LABS: Bacteria,Urine Occasional /hpf; Bilirubin,Urine Negative (Negative); Clarity,Urine Hazy (Clear); Color,Urine Yellow (Yellw/Straw); Glucose,Urine (UA) Negative (Negative); Leukocyte Esterase,Urine Negative (Negative); Mucus,Urine Few /lpf (Occasional); Nitrite,Urine Negative (Negative); Specific Gravity,Urine 1.011 (1.002-1.035); Squamous Epithelial Cell,Urine <1 /hpf (0-5)
[2018-01-01] MEDS ORDERED: Sodium Chlor 0.9% Inj 250 ML IV.SIG SCH (18:00)
--- NOTE | 2018-01-01 19:10 | P.PNID ---
Subjective Remarks: denies any back pain afebrile repeat blood clx negative Antibiotics: oxacillin Allergies/Adverse Reactions: Allergies codeine Allergy (Mild, Verified 12/20/17 07:49) Itching iodine Allergy (Unknown, Verified 12/20/17 07:49) unknown potassium iodide Allergy (Unknown, Verified 12/20/17 07:49) unknown povidone-iodine Allergy (Unknown, Verified 12/20/17 07:49) unknown sodium iodide Allergy (Unknown, Verified 12/20/17 07:49) unknown sodium iodide Allergy (Unknown, Verified 12/20/17 07:49) unknown Objective Vital Signs 12/31/17 20:00 12/31/17 20:13 01/01/18 00:00 Temperature 98.2 F 97.8 F Pulse Rate 56 L 63 55 L Respiratory Rate 18 18 Blood Pressure 113/66 Pulse Oximetry 97 97 01/01/18 00:33 01/01/18 01:19 01/01/18 04:00 Temperature 97.7 F Pulse Rate 51 L Respiratory Rate 17 17 18 Blood Pressure 121/75 Pulse Oximetry 98 01/01/18 06:33 01/01/18 08:00 01/01/18 12:00 Temperature 98.2 F 98.4 F Pulse Rate 58 L 54 L Respiratory Rate 17 16 18 Blood Pressure 142/82 H 137/78 Pulse Oximetry 98 98 01/01/18 12:05 01/01/18 16:00 01/01/18 17:50 Temperature 98.6 F Pulse Rate 56 L Respiratory Rate 18 14 0 L Blood Pressure 142/85 H Pulse Oximetry 98 Intake & Output 01/01/18 01/01/18 01/02/18 06:59 18:59 06:59 Intake Total 1640 / 1640 5200 / 5200 Output Total 1300 / 1300 1500 / 1500 Balance 340 / 340 3700 / 3700 Weight 84.6 kg Intake: IV 1400 / 1400 1800 / 1800 NS Inj 1,000 ML @ 130 mls/hr IV 1000 / 1000 1500 / 1500 .CONT .Q7H42M [facility] Rx#:[id number] Prostaphlin Inj 2 GM In NS Inj 400 / 400 300 / 300 100 ML @ 200 mls/hr IV.SIG Q4H [facility] Rx#:[id number] Oral 240 / 240 3400 / 3400 Output: Urine 1300 / 1300 1500 / 1500 Other: Date of Last Bowel Movement 12/29/17 01/01/18 06:07 Sputum - Expectorated Sputum Gram Stain - Final 01/01/18 06:07 Sputum - Expectorated Sputum Gram Stain - Pending 01/01/18 06:07 Sputum - Expectorated Sputum Sputum Culture - Pending Lab - Hematology Results 12/31/17 01/01/18 01/01/18 05:21 04:34 15:00 WBC 9.7 7.6 7.6 RBC 2.84 L 2.56 L 2.91 L Hgb 8.1 L 7.5 L 8.3 L Hct 24.5 L 21.5 L 25.1 L MCV 86.3 84.1 86.0 MCH 28.7 29.5 28.6 MCHC 33.2 35.1 33.3 RDW 15.2 15.2 15.2 Plt Count 429 420 458 H MPV 7.7 7.6 7.8 Neut % (Auto) 68.2 62.2 Lymph % (Auto) 17.2 22.2 [place] % (Auto) 10.7 H 10.6 H Eos % (Auto) 2.7 3.2 Baso % (Auto) 1.2 1.8 Neut # (Auto) 6.6 4.7 Lymph # (Auto) 1.7 1.7 [place] # (Auto) 1.0 H 0.8 Eos # (Auto) 0.3 0.2 Baso # (Auto) 0.1 0.1 WBC Differential . . Differential Comment Auto diff final Auto diff final Lab - Chemistry Results 12/31/17 01/01/18 05:21 04:34 Sodium 139 141 Potassium 3.8 3.6 Chloride 105 107 Carbon Dioxide 27.3 27.9 Anion Gap 7 6 BUN 10 12 Creatinine 1.01 0.91 Estimated GFR 78 L 88 L Random Glucose 88 97 Calcium 8.4 L 8.1 L Total Bilirubin 0.4 0.3 AST 44 H 38 H ALT 30 32 Alkaline Phosphatase 41 L 36 L Total Protein 7.4 6.8 D Albumin 2.0 L 1.8 L Imaging: ITS Impressions Head CT 12/20/17 00:00 CONCLUSION: Negative CT Head non contrast. . Thoracic Aorta CT 12/22/17 00:00 CONCLUSION: 1. Normal CTA of the thoracic and abdominal aorta. 2. Greater than 12 cm right renal mass derives its blood supply from the right renal artery. Chest X-Ray 12/22/17 03:12 CONCLUSION: Small infiltrate in the lingula without consolidation. Renal Arteriogram 12/26/17 00:00 CONCLUSION: 1. Patient has a main right with 2 accessory renal arteries. The upper pole accessory appears to supply a normal upper pole cortex. 2. The lower pole accessory appear to supply the normal lower pole with 2 branch vessels showing tumoral vascularity. The 2 branch vessels were subselected and embolized as described above. 3. Main right renal artery shows extensive tumoral vascularity. The entire vessel was embolized with a series of PVA particles, Gelfoam and coils as detailed above. Chest CT 12/28/17 00:00 CONCLUSION: 1. Minimal bibasilar consolidation. 2. Tiny bilateral pleural effusions. 3. No masses are seen. Abdomen/Pelvis CT 12/28/17 14:33 CONCLUSION: 1. Status post embolization of the right kidney without significant change compared to the prior examination. No free fluid or loculated fluid collections are seen in the abdomen. 2. Bibasilar atelectasis. 3. Nonspecific edema throughout the body wall suggestive of anasarca. 4. Residual contrast versus stone in the base of the urinary bladder. Physical Exam: GENERAL: NAD SKIN: Warm and dry. No embolic phenomena no splinter hemorrhages no skin abscesses HEAD: Atraumatic. Normocephalic. EYES: Pupils equal and round. No scleral icterus. No injection or drainage. ENT: No nasal bleeding or discharge. Mucous membranes pink and moist. NECK: Trachea midline. No JVD. CARDIOVASCULAR: Regular rate and rhythm. No palpable cords RESPIRATORY: No accessory muscle use. Clear to auscultation. Breath sounds equal bilaterally. GASTROINTESTINAL: Abdomen soft, non-tender, nondistended. Hepatic and splenic margins not palpable. MUSCULOSKELETAL: Extremities without clubbing, cyanosis, or edema. No obvious deformities. NEUROLOGICAL: Awake and alert. No obvious cranial nerve deficits. Motor grossly within normal limits. Five out of 5 muscle strength in the arms and legs. Normal speech. PSYCHIATRIC: Appropriate mood and affect; insight and judgment normal. Assessment and Plan - Plan Renal cancer MSSA sepsis on presentation - risk factors: active IVDU No back pain to suspect diskitis/osteo 2 D echo cont oxacillin HANNAH dw residents team
[2018-01-02] MEDS: Baclofen 10 MG Tablet PO SCH ×3 (05:52→21:55)
[2018-01-02] MEDS: Ferrous Sulfate 325 MG Tablet PO SCH ×2 (09:55→21:55)
--- NOTE | 2018-01-02 10:07 | P.PNURO ---
Subjective Patient symptoms today: Pt seen and examined. Feeling fine. Urine efrain in color. Receiving PRBC's at present. Objective Vital Signs: Vital Signs 01/01/18 12:00 01/01/18 12:05 01/01/18 16:00 Temperature 98.4 F 98.6 F Pulse Rate 54 L 56 L Respiratory Rate 18 18 14 Blood Pressure 137/78 142/85 H Pulse Oximetry 98 98 01/01/18 17:50 01/01/18 20:00 01/02/18 00:00 Temperature 98.1 F 98.1 F Pulse Rate 56 L 55 L Respiratory Rate 0 L 17 20 Blood Pressure 156/82 H 144/83 H Pulse Oximetry 99 98 01/02/18 03:50 01/02/18 04:00 01/02/18 04:08 Temperature 97.9 F 97.9 F 97.6 F Pulse Rate 49 L 53 L 53 L Respiratory Rate 18 20 18 Blood Pressure 132/71 144/82 H 140/78 Pulse Oximetry 100 100 01/02/18 08:00 01/02/18 08:10 Temperature 97.8 F 97.8 F Pulse Rate 59 L 59 L Respiratory Rate 16 Blood Pressure 112/76 112/76 Pulse Oximetry 99 Intake & Output 01/01/18 01/02/18 01/02/18 18:59 06:59 18:59 Intake Total 5200 / 5200 740 / 740 400 / 400 Output Total 1500 / 1500 3250 / 3250 Balance 3700 / 3700 -2510 / -2510 400 / 400 Weight 78.9 kg Intake: IV 1800 / 1800 200 / 200 NS Inj 1,000 ML @ 130 mls/hr IV 1500 / 1500 .CONT .Q7H42M [facility] Rx#:[id number] Prostaphlin Inj 2 GM In NS Inj 300 / 300 200 / 200 100 ML @ 200 mls/hr IV.SIG Q4H [facility] Rx#:[id number] Oral 3400 / 3400 540 / 540 Intake (Blood Product) Amt 0 / 0 400 / 400 Rbc As-3 Leukoreduced Unit 0 / 0 [id number] Rbc As-3 Leukoreduced Unit 0 / 0 400 / 400 [id number] Output: Urine 1500 / 1500 3250 / 3250 Other: Date of Last Bowel Movement 12/29/17 Result Diagrams: 01/01/18 15:00 01/01/18 04:34 Medications and IVs: Active Medications Generic Name Dose Route Start Last Admin Trade Name Freq PRN Reason Stop Dose Admin Acetaminophen 650 mg 12/20/17 11:34 12/20/17 16:29 Tylenol PO 650 mg Q4H PRN Administration Temp > 100.4 Hydrocodone Bitart/Acetaminophen 1 tab 01/01/18 18:00 01/02/18 05:52 [place] 10/325 PO 1 tab Q6H YRN Administration Al Hydroxide/Mg Hydroxide 30 ml 12/20/17 11:34 Milk Of Magnesia Liq PO Q12H PRN Mild Constipation Albuterol 1 ampul 12/20/17 18:35 Duoneb Neb (Prn) NEB Q4HR NEB PRN SHORTNESS OF BREATH/WHEEZING Baclofen 5 mg 12/22/17 11:00 01/02/18 05:52 Lioresal PO 5 mg Q8HR YRN Administration Bisacodyl 10 mg 12/20/17 11:34 Dulcolax Supp RECTAL DAILY PRN SEVERE CONSITIPATION Clonidine HCl 0.1 mg 12/23/17 10:33 12/28/17 12:49 Catapres PO 0.1 mg Q6H PRN Administration BLOOD PRESSURE MANAGEMENT Clonidine HCl 0.1 mg 12/28/17 22:00 01/02/18 05:52 Catapres PO 0.1 mg Q8HR YRN Administration Diphenhydramine HCl 25 mg 12/22/17 03:51 12/22/17 04:15 Benadryl PO 25 mg Q6H PRN Administration ITCHING Enalaprilat 1.25 mg 12/20/17 16:43 12/24/17 04:04 Vasotec Inj IV.PUSH 1.25 mg Q6H PRN Administration HYPERTENSION Ferrous Sulfate 325 mg 01/01/18 09:00 01/02/18 09:55 Ferosul PO 325 mg BID YRN Administration Flumazenil 0.2 mg 12/20/17 18:45 Romazecon Inj IV.PUSH Q1M PRN OVERSEDATION Haloperidol Lactate 1 mg 12/20/17 18:45 Haldol Inj IV.PUSH Q15M PRN for severe agitation Hydromorphone HCl 4 mg 01/01/18 17:50 Dilaudid PO Q4H PRN BREAKTHROUGH PAIN Oxacillin Sodium 2 gm/ Sodium 100 mls @ 200 mls/hr 12/30/17 16:00 01/02/18 09 :54 Chloride IV.SIG 200 mls/hr Q4H YRN Administration Sodium Chloride 250 mls @ 15 mls/hr 01/01/18 18:00 01/02/18 03:45 Ns Inj IV.SIG 01/02/18 10:39 15 mls/hr ONCE YRN Administration Lactulose 30 ml 12/20/17 11:34 Lactulose Liq PO DAILY PRN SEVERE CONSITIPATION Metoclopramide HCl 5 mg 12/20/17 11:34 Reglan Inj IV.PUSH Q6H PRN NAUSEA OR VOMITING Protocol Miscellaneous 1 each 12/22/17 11:07 Pill Splitter OTHER UNSCH PRN SEE LABEL COMMENTS Naloxone HCl 0.4 mg 12/26/17 14:25 Narcan Inj IV.PUSH PRN PRN SEE LABEL COMMENTS Potassium Chloride 40 meq 12/28/17 19:45 01/02/18 09:55 Klor-Con 10 PO 40 meq DAILY YRN Administration Sennosides 17.2 mg 12/20/17 11:34 Senokot PO Q12H PRN Moderate Constipation Temazepam 15 mg 12/20/17 11:34 Restoril PO HS PRN INSOMNIA Objective Remarks: Abd:soft,less tender and less distended Urine is clearing 12/22 Abd:soft,less tender and less distended Urine is clearing 12/23 Abd:soft,less tender and less distended Urine is blood tinged 12/24 Abd:soft,nt,nd Weinberg with clear urine 12/25 Abd:soft,nt,nd 12/30 Abd:soft,nt,nd Urine now clear 01/01 ABd:soft,nt,nd URine: blood tinged. 01/02 ABd:soft,nt,nd URine: efrain Assessment and Plan - Plan Right renal bleed due to RCC Continue supportive measures for now. Hgb stable at 10. 12/22 52 y.o. with right RCC with hemorrhage. Hbg has been stable. Pt with CP and elevated B/P Continue with conservative measures for now. Tolerating diet. Pt will need medical/cardiac clearance prior to OR intervention. This can be done as an outpt. If to be done during this admission will need clearance first. 12/23 52 y.o. with right RCC with hemorrhage. Hbg has been stable. Pt to get OOB today Weinberg to be irrigated to help clear urine. 12/24 52 y.o male with h/o RCC with hemorrhage. No further active bleeding. Void trial today. 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 No evidence of metastatic disease. 12/25 52 y.o male with h/o RCC with hemorrhage. Will check H/H now Bladder scan pt. If >600cc will need weinberg. May need embolization by IR if still bleeding 12/30 52 y.o. male with h/o RCC with hemorrhage s/p embolization Now voiding clear urine with stable Hgb. No evidence of metastatic disease F/U as outpt for right radical nephrectomy. 01/01 52 y.o. 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 male with h/o RCC with hemorrhage s/p embolization Pt receiving PRBC's For HANNAH today per ID
--- NOTE | 2018-01-02 10:44 | P.PNFP ---
Subjective Interval history: Patient seen and examined this morning. He states that he is doing about the same. He is eager to go home. He has had decreased blood in his urine. He states that now the bleeding is minimal and barely visible. He was getting his 2nd bag of pRBCs. He did have some night sweats last night, but no fever/chills. No CP, no shortness of breath, no abdominal pain, is urinating and stooling well. <Huma Arias G - 01/02/18 11:37> Results - Labs Result diagrams: 01/01/18 15:00 01/01/18 04:34 <Amber Navarrete - 01/02/18 13:07> Abnormal lab results 01/01/18 01/01/18 01/01/18 Range/Units 15:00 15:45 18:43 RBC 2.91 L (4.50-5.90) mil/mm3 Hgb 8.3 L (13.0-17.0) gm/dL Hct 25.1 L (39.0-51.0) % Plt Count 458 H (150-450) th/mm3 Urine Clarity Hazy H (Clear) Urine Occult Blood Large H (Negative) Urine RBC 5 H (0-3) /hpf Urine Bacteria Occasional H (None) /hpf Urine Mucus Few H (Occasional) /lpf Urine Yeast Occasional H (None) /hpf MTS Gel Crossmatch See Detail Short CBC 01/01/18 Range/Units 15:00 WBC 7.6 (4.0-11.0) th/mm3 Hgb 8.3 L (13.0-17.0) gm/dL Hct 25.1 L (39.0-51.0) % Plt Count 458 H (150-450) th/mm3 Urine 01/01/18 Range/Units 15:45 Urine Color Yellow (Yellw/Straw) Urine Clarity Hazy H (Clear) Urine pH 7.0 (5.0-8.5) Ur Specific [place] 1.011 (1.002-1.035) Urine Protein Negative (Neg-Trace) mg/dL Urine Glucose (UA) Negative (Negative) mg/dL <Amber Navarrete M - 01/02/18 13:07> Abnormal lab results 01/01/18 01/01/18 01/01/18 Range/Units 15:00 15:45 18:43 RBC 2.91 L (4.50-5.90) mil/mm3 Hgb 8.3 L (13.0-17.0) gm/dL Hct 25.1 L (39.0-51.0) % Plt Count 458 H (150-450) th/mm3 Urine Clarity Hazy H (Clear) Urine Occult Blood Large H (Negative) Urine RBC 5 H (0-3) /hpf Urine Bacteria Occasional H (None) /hpf Urine Mucus Few H (Occasional) /lpf Urine Yeast Occasional H (None) /hpf MTS Gel Crossmatch See Detail Short CBC 01/01/18 Range/Units 15:00 WBC 7.6 (4.0-11.0) th/mm3 Hgb 8.3 L (13.0-17.0) gm/dL Hct 25.1 L (39.0-51.0) % Plt Count 458 H (150-450) th/mm3 Urine 01/01/18 Range/Units 15:45 Urine Color Yellow (Yellw/Straw) Urine Clarity Hazy H (Clear) Urine pH 7.0 (5.0-8.5) Ur Specific [place] 1.011 (1.002-1.035) Urine Protein Negative (Neg-Trace) mg/dL Urine Glucose (UA) Negative (Negative) mg/dL <Huma Arias - 01/02/18 10:44> - Imaging Renal Arteriogram 12/26/17 00:00 CONCLUSION: 1. Patient has a main right with 2 accessory renal arteries. The upper pole accessory appears to supply a normal upper pole cortex. 2. The lower pole accessory appear to supply the normal lower pole with 2 branch vessels showing tumoral vascularity. The 2 branch vessels were subselected and embolized as described above. 3. Main right renal artery shows extensive tumoral vascularity. The entire vessel was embolized with a series of PVA particles, Gelfoam and coils as detailed above. Chest CT 12/28/17 00:00 CONCLUSION: 1. Minimal bibasilar consolidation. 2. Tiny bilateral pleural effusions. 3. No masses are seen. Abdomen/Pelvis CT 12/28/17 14:33 CONCLUSION: 1. Status post embolization of the right kidney without significant change compared to the prior examination. No free fluid or loculated fluid collections are seen in the abdomen. 2. Bibasilar atelectasis. 3. Nonspecific edema throughout the body wall suggestive of anasarca. 4. Residual contrast versus stone in the base of the urinary bladder. <Huma Arias - 01/02/18 11:37> Physical Exam Vital signs: Vital Signs 01/01/18 16:00 01/01/18 17:50 01/01/18 20:00 Temperature 98.6 F 98.1 F Pulse Rate 56 L 56 L Respiratory Rate 14 0 L 17 Blood Pressure 142/85 H 156/82 H Pulse Oximetry 98 99 01/02/18 00:00 01/02/18 03:50 01/02/18 04:00 Temperature 98.1 F 97.9 F 97.9 F Pulse Rate 55 L 49 L 53 L Respiratory Rate 20 18 20 Blood Pressure 144/83 H 132/71 144/82 H Pulse Oximetry 98 100 100 01/02/18 04:08 01/02/18 08:00 01/02/18 08:10 Temperature 97.6 F 97.8 F 97.8 F Pulse Rate 53 L 59 L 59 L Respiratory Rate 18 16 Blood Pressure 140/78 112/76 112/76 Pulse Oximetry 99 Intake & Output 01/01/18 01/02/18 01/02/18 18:59 06:59 18:59 Intake Total 5200 / 5200 740 / 740 400 / 400 Output Total 1500 / 1500 3250 / 3250 Balance 3700 / 3700 -2510 / -2510 400 / 400 Weight 78.9 kg Intake: IV 1800 / 1800 200 / 200 NS Inj 1,000 ML @ 130 mls/hr IV 1500 / 1500 .CONT .Q7H42M YRN Rx#:[id number] Prostaphlin Inj 2 GM In NS Inj 300 / 300 200 / 200 100 ML @ 200 mls/hr IV.SIG Q4H YRN Rx#:[id number] Oral 3400 / 3400 540 / 540 Intake (Blood Product) Amt 0 / 0 400 / 400 Rbc As-3 Leukoreduced Unit 0 / 0 [id number] Rbc As-3 Leukoreduced Unit 0 / 0 400 / 400 [id number] Output: Urine 1500 / 1500 3250 / 3250 Other: Date of Last Bowel Movement 12/29/17 12/29/17 <Amber Navarrete - 01/02/18 13:07> Vital Signs 01/01/18 12:00 01/01/18 12:05 01/01/18 16:00 Temperature 98.4 F 98.6 F Pulse Rate 54 L 56 L Respiratory Rate 18 18 14 Blood Pressure 137/78 142/85 H Pulse Oximetry 98 98 01/01/18 17:50 01/01/18 20:00 01/02/18 00:00 Temperature 98.1 F 98.1 F Pulse Rate 56 L 55 L Respiratory Rate 0 L 17 20 Blood Pressure 156/82 H 144/83 H Pulse Oximetry 99 98 01/02/18 03:50 01/02/18 04:00 01/02/18 04:08 Temperature 97.9 F 97.9 F 97.6 F Pulse Rate 49 L 53 L 53 L Respiratory Rate 18 20 18 Blood Pressure 132/71 144/82 H 140/78 Pulse Oximetry 100 100 01/02/18 08:00 01/02/18 08:10 Temperature 97.8 F 97.8 F Pulse Rate 59 L 59 L Respiratory Rate 16 Blood Pressure 112/76 112/76 Pulse Oximetry 99 Intake & Output 01/01/18 01/02/18 01/02/18 18:59 06:59 18:59 Intake Total 5200 / 5200 740 / 740 400 / 400 Output Total 1500 / 1500 3250 / 3250 Balance 3700 / 3700 -2510 / -2510 400 / 400 Weight 78.9 kg Intake: IV 1800 / 1800 200 / 200 NS Inj 1,000 ML @ 130 mls/hr IV 1500 / 1500 .CONT .Q7H42M [facility] Rx#:[id number] Prostaphlin Inj 2 GM In NS Inj 300 / 300 200 / 200 100 ML @ 200 mls/hr IV.SIG Q4H [facility] Rx#:[id number] Oral 3400 / 3400 540 / 540 Intake (Blood Product) Amt 0 / 0 400 / 400 Rbc As-3 Leukoreduced Unit 0 / 0 [id number] Rbc As-3 Leukoreduced Unit 0 / 0 400 / 400 [id number] Output: Urine 1500 / 1500 3250 / 3250 Other: Date of Last Bowel Movement 12/29/17 12/29/17 <Huma Arias - 01/02/18 10:44> Narrative: Constitutional: In NAD, lying in bed, in no acute distress. Psychiatric: good judgement, normal mood and affect and active and alert. Head: normocephalic and atraumatic. Eyes: Lids and Conjunctivae non-injected and no discharge. PERRLA. EOMI. Sclerae non-icteric. Lungs: Normal respiratory effort, no dyspnea. No wheezing, rales/crackles, or rhonchi and breath sounds normal and good air movement. Cardiovascular: normal S1 and S2; no murmurs, rubs, or gallops; with regular rate and rhythm. Abdomen: + BS. Non tender. No guarding, or masses. Soft and non-distended. Musculoskeletal: normal movement of all extremities. No cyanosis or edema. Neurologic: Cranial Nerves: grossly intact. Skin: no rash, lesions, ulcer, or jaundice. <Huma Arias - 01/02/18 11:37> - Urinary Catheter Management Indwelling Urethral Catheter Cath placed during this visit: no <Amber Navarrete - 01/02/18 13:07> yes, but has since been removed by the nurse <Huma Arias - 01/02/18 11:37> Reason for continuing: Hourly intake/output <Huma Arias - 01/02/18 10:44> Insertion date: 12/20/17 <Huma Arias - 01/02/18 10:44> Insertion time: 08:10 <Huma Arias - 01/02/18 10:44> Removal date: 12/24/17 <Huma Arias - 01/02/18 10:44> Removal time: 11:00 <Huma Arias - 01/02/18 10:44> Assessment and Plan - Assessment (1) Sepsis Code(s): A41.9 - Sepsis, unspecified organism Status: Acute (2) Bacteremia Code(s): R78.81 - Bacteremia Status: Acute (3) Hypertension Code(s): I10 - Essential (primary) hypertension Status: Acute (4) Renal hemorrhage, right Code(s): N28.89 - Other specified disorders of kidney and ureter Status: Acute (5) Renal cell carcinoma Code(s): C64.9 - Malignant neoplasm of unspecified kidney, except renal pelvis Status: Acute (6) IVDU (intravenous drug user) Code(s): F19.90 - Other psychoactive substance use, unspecified, uncomplicated Status: Chronic (7) Nutrition, metabolism, and development symptoms Code(s): R63.8 - Other symptoms and signs concerning food and fluid intake Status: Acute <Amber Navarrete - 01/02/18 13:07> (1) Sepsis Code(s): A41.9 - Sepsis, unspecified organism Status: Acute Plan: Afebrile since 12/20 at 1600, WBC normal today Bacteremia with MSSA on 12/20. Repeat blood cultures 12/23: negative ID consulted, appreciate recommendations -Strong suspicion of endocarditis due to positive blood cx x4. -Cardiology consulted for a HANNAH. If positive, will require continuous IV antibiotic treatment, likely for 6 weeks. -HANNAH will be scheduled for tomorrow afternoon. On admission: Febrile, WBC 21 possible consolidation on initial chest x-ray, however repeat chest x-ray shows no infiltrate or effusion Blood cultures: Final methicillin sensitive Staphylococcus aureus, pansensitive. Repeat blood cultures: Negative Final Urine cultures: No growth final pneumococcal and Legionella urinary antigens: Negative (2) Bacteremia Code(s): R78.81 - Bacteremia Status: Acute Plan: See plan above Repeat blood cultures drawn on 12/23 were negative (3) Hypertension Code(s): I10 - Essential (primary) hypertension Status: Acute Plan: Stable Vasotec 1.25 mg q6h prn (not used since 12/24) Clonidine 0.1 mg scheduled every 8 hours Continue to monitor vital signs every 4 hours. (4) Renal hemorrhage, right Code(s): N28.89 - Other specified disorders of kidney and ureter Status: Acute Plan: History of renal cell carcinoma, right kidney with hemorrhage into the kidney, gross hematuria Associated with pain in back, neck, abdomen s/p renal embolization of R kidney on 12/26. Urology recommendations proceed with right radical nephrectomy as outpatient. CT: Right kidney hemorrhage and mass measuring 12.1 cm Patient complaining of new blood in urine on 01/01. This has mostly resolved today. Continues to be asymptomatic. -Last Hb on 01/01 8.3. awaiting post transfusion CBC (5) Renal cell carcinoma Code(s): C64.9 - Malignant neoplasm of unspecified kidney, except renal pelvis Status: Acute Plan: Urology for right radical nephrectomy as outpatient Pain control: [place]ahl 10/325 po scheduled q6h Dilaudid 4 mg p.o. every 4 as needed for breakthrough pain (6) IVDU (intravenous drug user) Code(s): F19.90 - Other psychoactive substance use, unspecified, uncomplicated Status: Chronic Plan: Signs of sepsis, IV drug user, bacteremia positive Echocardiogram: Normal -Follow-up HANNAH UDS: Positive opiates, positive cocaine Continue to monitor for signs of withdrawal Discuss with Case Management about Methadone Clinic. (7) Nutrition, metabolism, and development symptoms Code(s): R63.8 - Other symptoms and signs concerning food and fluid intake Status: Acute Plan: Fluids: tolerating p.o. Electrolytes: Monitor and replete as needed. Nutrition: Regular diet DVT ppx: SCDs only, hemorrhages contraindication to anticoagulation <Huma Arias 01/02/18 10:53> - Assessment and Plan 52 y/o M, IVDU with hx of Renal Cell Carcinoma, presents meeting SEPSIS criteria and is found to have lung consolidation now resolved, renal hemorrhage and gross hematuria, also resolved. Urology to do nephrectomy as an outpatient, ID continues to have strong suspicions of endocarditis. HANNAH scheduled for tomorrow afternoon. If positive, patient will require extra IV antibiotic treatment. If negative, patient will be discharged on p.o. medicine and will return as an outpatient for his procedure with urology. Currently on p.o. pain control. Case management working to arrange outpatient surgery. They cannot provide hotel accommodations or pain medicine (we can provide rx), but they can help with antibiotics. <Huma Arias 01/02/18 11:37> Discussed Condition With: Dr. Navarrete, Dr. Mao, Dr. Pizano <Huma Arias 01/02/18 11:37> Discharge Planning: pending clinical course <Huma Arias 01/02/18 11:37> - Attending Attestation The exam, history, and the medical decision-making described in the above note were completed with the assistance of the resident physician. I reviewed and agree with the findings presented. I attest that I had a [id number] encounter with the patient on the same day, and personally performed and documented my assessment and findings in the medical record. We will need a determination of length of antibiotic and what antibiotic if needed prior to being able to discharge him. He stated that [facility] as his current lifestyle. <LandonAmber M - 01/02/18 13:07> <Huma Arias G - Last Filed: 01/02/18 10:53> (1) Sepsis Qualifiers: Sepsis type: methicillin susceptible Staphylococcus aureus Qualified Code(s) : A41.01 - Sepsis due to Methicillin susceptible Staphylococcus aureus <Amber Navarrete - Last Filed: 01/02/18 13:07> (1) Sepsis Qualifiers: Sepsis type: methicillin susceptible Staphylococcus aureus Qualified Code(s) : A41.01 - Sepsis due to Methicillin susceptible Staphylococcus aureus <Huma Arias G - Last Filed: 01/02/18 10:53> (1) Sepsis Qualifiers: Sepsis type: methicillin susceptible Staphylococcus aureus Qualified Code(s) : A41.01 - Sepsis due to Methicillin susceptible Staphylococcus aureus <Amber Navarrete - Last Filed: 01/02/18 13:07> (1) Sepsis Qualifiers: Sepsis type: methicillin susceptible Staphylococcus aureus Qualified Code(s) : A41.01 - Sepsis due to Methicillin susceptible Staphylococcus aureus
--- NOTE | 2018-01-02 12:28 | P.CONCA ---
<Yulia Canales N - Last Filed: 01/02/18 12:07> History of Present Illness Service: Cardiology Consult date: 01/02/18 Requesting Physician: Huma Arias Reason for Consult: Requesting HANNAH to rule out endocarditis Primary Care Provider: No Primary Care Physician History of Present Illness: This is a 52-year-old male with a history of renal cell carcinoma, IV drug use and heroin use. He denies any history of cardiac related issues. He denies any home medication use. He states that over the last 3 months he has been having chest pain, hematuria, fatigue, shortness of breath with productive black sputum starting 1 month ago. He states that he has had no urination over the last 24 hours. On presentation the patient met sepsis criteria. Currently the patient denies any shortness of breath, dizziness, palpitations, or pressure. Patient does complain of atypical chest pain that increases with inspiration. Review of Systems All other systems reviewed negative except as stated in HPI PMFSH - History History Provided By: Patient - Medical History Medical History: Medical History (Last Reviewed 12/30/17 @ 13:56 by Sherry Martino MD) Ankle fracture, right Heroin abuse Kidney malignancy Kidney mass - Tobacco History Second Hand Smoke Exposure: Yes Tobacco Use In Past 30 Days: Yes Smoking Status: Current every day smoker (1 pack/day x 30 years) Tobacco Type: Cigarettes - Alcohol History How Often Do You Have a Drink Containing Alcohol: Never - Substance Use History Substance History: Active Abuse - Substance Use Type Heroin Status: Active Route Used: Intravenously Reason for Use: Get High - Travel History Recent Travel in the [place] Within the Last 8 Weeks: No Recent Travel Out of the Country Within the Last 8 Weeks: No - Immunization History Tetanus Immunization: <5 Years Hx Influenza Vaccine This Season: Yes Medications and Allergies Allergies Allergy/AdvReac Type Severity Reaction Status Date / Time codeine Allergy Mild Itching Verified 12/20/17 07:49 iodine Allergy Unknown unknown Verified 12/20/17 07:49 potassium iodide Allergy Unknown unknown Verified 12/20/17 07:49 povidone-iodine Allergy Unknown unknown Verified 12/20/17 07:49 sodium iodide Allergy Unknown unknown Verified 12/20/17 07:49 sodium iodide Allergy Unknown unknown Verified 12/20/17 07:49 Active Medications: Active Medications Acetaminophen (Tylenol) 650 mg PO Q4H PRN PRN Reason: Temp > 100.4 Last Admin: 12/20/17 16:29 Dose: 650 mg Hydrocodone Bitart/Acetaminophen ([place] 10/325) 1 tab PO Q6H [facility] Last Admin: 01/02/18 05:52 Dose: 1 tab Al Hydroxide/Mg Hydroxide (Milk Of Magnesia Liq) 30 ml PO Q12H PRN PRN Reason: Mild Constipation Albuterol (Duoneb Neb (Prn)) 1 ampul NEB Q4HR NEB PRN PRN Reason: SHORTNESS OF BREATH/WHEEZING Baclofen (Lioresal) 5 mg PO Q8HR [facility] Last Admin: 01/02/18 05:52 Dose: 5 mg Bisacodyl (Dulcolax Supp) 10 mg RECTAL DAILY PRN PRN Reason: SEVERE CONSITIPATION Clonidine HCl (Catapres) 0.1 mg PO Q6H PRN PRN Reason: BLOOD PRESSURE MANAGEMENT Last Admin: 12/28/17 12:49 Dose: 0.1 mg Clonidine HCl (Catapres) 0.1 mg PO Q8HR [facility] Last Admin: 01/02/18 05:52 Dose: 0.1 mg Diphenhydramine HCl (Benadryl) 25 mg PO Q6H PRN PRN Reason: ITCHING Last Admin: 12/22/17 04:15 Dose: 25 mg Enalaprilat (Vasotec Inj) 1.25 mg IV.PUSH Q6H PRN PRN Reason: HYPERTENSION Last Admin: 12/24/17 04:04 Dose: 1.25 mg Ferrous Sulfate (Ferosul) 325 mg PO BID [facility] Last Admin: 01/02/18 09:55 Dose: 325 mg Flumazenil (Romazecon Inj) 0.2 mg IV.PUSH Q1M PRN PRN Reason: OVERSEDATION Haloperidol Lactate (Haldol Inj) 1 mg IV.PUSH Q15M PRN PRN Reason: for severe agitation Hydromorphone HCl (Dilaudid) 4 mg PO Q4H PRN PRN Reason: BREAKTHROUGH PAIN Oxacillin Sodium 2 gm/ Sodium (Chloride) 100 mls @ 200 mls/hr IV.SIG Q4H [facility] Last Admin: 01/02/18 09:54 Dose: 200 mls/hr Lactulose (Lactulose Liq) 30 ml PO DAILY PRN PRN Reason: SEVERE CONSITIPATION Metoclopramide HCl (Reglan Inj) 5 mg IV.PUSH Q6H PRN; Protocol PRN Reason: NAUSEA OR VOMITING Miscellaneous (Pill Splitter) 1 each OTHER UNSCH PRN PRN Reason: SEE LABEL COMMENTS Naloxone HCl (Narcan Inj) 0.4 mg IV.PUSH PRN PRN PRN Reason: SEE LABEL COMMENTS Potassium Chloride (Klor-Con 10) 40 meq PO DAILY [facility] Last Admin: 01/02/18 09:55 Dose: 40 meq Sennosides (Senokot) 17.2 mg PO Q12H PRN PRN Reason: Moderate Constipation Temazepam (Restoril) 15 mg PO HS PRN PRN Reason: INSOMNIA Exam Vital signs: Vital Signs 01/01/18 16:00 01/01/18 17:50 01/01/18 20:00 Temperature 98.6 F 98.1 F Pulse Rate 56 L 56 L Respiratory Rate 14 0 L 17 Blood Pressure 142/85 H 156/82 H Pulse Oximetry 98 99 01/02/18 00:00 01/02/18 03:50 01/02/18 04:00 Temperature 98.1 F 97.9 F 97.9 F Pulse Rate 55 L 49 L 53 L Respiratory Rate 20 18 20 Blood Pressure 144/83 H 132/71 144/82 H Pulse Oximetry 98 100 100 01/02/18 04:08 01/02/18 08:00 01/02/18 08:10 Temperature 97.6 F 97.8 F 97.8 F Pulse Rate 53 L 59 L 59 L Respiratory Rate 18 16 Blood Pressure 140/78 112/76 112/76 Pulse Oximetry 99 Intake & Output 01/01/18 01/02/18 01/02/18 18:59 06:59 18:59 Intake Total 5200 / 5200 740 / 740 400 / 400 Output Total 1500 / 1500 3250 / 3250 Balance 3700 / 3700 -2510 / -2510 400 / 400 Weight 78.9 kg Intake: IV 1800 / 1800 200 / 200 NS Inj 1,000 ML @ 130 mls/hr IV 1500 / 1500 .CONT .Q7H42M [facility] Rx#:[id number] Prostaphlin Inj 2 GM In NS Inj 300 / 300 200 / 200 100 ML @ 200 mls/hr IV.SIG Q4H [facility] Rx#:[id number] Oral 3400 / 3400 540 / 540 Intake (Blood Product) Amt 0 / 0 400 / 400 Rbc As-3 Leukoreduced Unit 0 / 0 [id number] Rbc As-3 Leukoreduced Unit 0 / 0 400 / 400 [id number] Output: Urine 1500 / 1500 3250 / 3250 Other: Date of Last Bowel Movement 12/29/17 12/29/17 - Constitutional no acute distress - Routine HEENT Exam Head: Present: normocephalic Eye: Present: PERRL ENT: Present: mucous membranes moist - Routine Neck Exam Present: full ROM - Routine Respiratory Exam Present: rhonchi - Routine Cardiovascular Exam Present: S1, S2. Absent: murmur, gallop, rubs - Routine Abdominal Exam Present: soft, normoactive bowel sounds - Routine Extremities Exam Present: full ROM, pulses intact, normal capillary refill. Absent: cyanosis, clubbing, edema - Routine Skin Exam Present: intact - Routine Neurological Exam Present: oriented X3 Results 01/01/18 15:00 01/01/18 04:34 CBC 01/01/18 Range/Units 15:00 WBC 7.6 (4.0-11.0) th/mm3 RBC 2.91 L (4.50-5.90) mil/mm3 Hgb 8.3 L (13.0-17.0) gm/dL Hct 25.1 L (39.0-51.0) % Plt Count 458 H (150-450) th/mm3 Intake and Output 01/01/18 01/02/18 01/02/18 22:59 06:59 14:59 Intake Total 4100 / 4100 640 / 640 400 / 400 Output Total 900 / 900 3250 / 3250 Balance 3200 / 3200 -2610 / -2610 400 / 400 Intake: IV 700 / 700 100 / 100 NS Inj 1,000 ML @ 130 mls/hr IV 500 / 500 .CONT .Q7H42M [facility] Rx#:[id number] Prostaphlin Inj 2 GM In NS Inj 200 / 200 100 / 100 100 ML @ 200 mls/hr IV.SIG Q4H [facility] Rx#:[id number] Oral 3400 / 3400 540 / 540 Intake (Blood Product) Amt 0 / 0 400 / 400 Rbc As-3 Leukoreduced Unit 0 / 0 [id number] Rbc As-3 Leukoreduced Unit 0 / 0 400 / 400 [id number] Output: Urine 900 / 900 3250 / 3250 Other: Date of Last Bowel Movement 12/29/17 Weight 78.9 kg Assessment and Plan - Assessment (1) Sepsis Code(s): A41.9 - Sepsis, unspecified organism Status: Acute (2) Pneumonia Code(s): J18.9 - Pneumonia, unspecified organism Status: Acute (3) Renal hemorrhage, right Code(s): N28.89 - Other specified disorders of kidney and ureter Status: Acute (4) Renal cell carcinoma Code(s): C64.9 - Malignant neoplasm of unspecified kidney, except renal pelvis Status: Acute (5) IVDU (intravenous drug user) Code(s): F19.90 - Other psychoactive substance use, unspecified, uncomplicated Status: Chronic - Plan Schedule patient for a HANNAH on January 03, 2018 to rule out endocarditis. Npo after midnight except for meds. Infectious disease evaluation in progress. The patient was seen and evaluated by Dr. Oswald who participated in care, management and decision making. <Johana Oswald - Last Filed: 01/02/18 19:07> History of Present Illness Primary Care Provider: No Primary Care Physician [facility] - Medical History Medical History: Medical History (Last Reviewed 12/30/17 @ 13:56 by Sherry Martino MD) Ankle fracture, right Heroin abuse Kidney malignancy Kidney mass Medications and Allergies Active Medications: Active Medications Acetaminophen (Tylenol) 650 mg PO Q4H PRN PRN Reason: Temp > 100.4 Last Admin: 12/20/17 16:29 Dose: 650 mg Hydrocodone Bitart/Acetaminophen ([place] 10/325) 1 tab PO Q6H [facility] Last Admin: 01/02/18 17:54 Dose: 1 tab Al Hydroxide/Mg Hydroxide (Milk Of Magnesia Liq) 30 ml PO Q12H PRN PRN Reason: Mild Constipation Albuterol (Duoneb Neb (Prn)) 1 ampul NEB Q4HR NEB PRN PRN Reason: SHORTNESS OF BREATH/WHEEZING Baclofen (Lioresal) 5 mg PO Q8HR [facility] Last Admin: 01/02/18 14:13 Dose: 5 mg Bisacodyl (Dulcolax Supp) 10 mg RECTAL DAILY PRN PRN Reason: SEVERE CONSITIPATION Clonidine HCl (Catapres) 0.1 mg PO Q6H PRN PRN Reason: BLOOD PRESSURE MANAGEMENT Last Admin: 12/28/17 12:49 Dose: 0.1 mg Clonidine HCl (Catapres) 0.1 mg PO Q8HR [facility] Last Admin: 01/02/18 14:13 Dose: 0.1 mg Diphenhydramine HCl (Benadryl) 25 mg PO Q6H PRN PRN Reason: ITCHING Last Admin: 12/22/17 04:15 Dose: 25 mg Enalaprilat (Vasotec Inj) 1.25 mg IV.PUSH Q6H PRN PRN Reason: HYPERTENSION Last Admin: 12/24/17 04:04 Dose: 1.25 mg Ferrous Sulfate (Ferosul) 325 mg PO BID [facility] Last Admin: 01/02/18 09:55 Dose: 325 mg Flumazenil (Romazecon Inj) 0.2 mg IV.PUSH Q1M PRN PRN Reason: OVERSEDATION Haloperidol Lactate (Haldol Inj) 1 mg IV.PUSH Q15M PRN PRN Reason: for severe agitation Hydromorphone HCl (Dilaudid) 4 mg PO Q4H PRN PRN Reason: BREAKTHROUGH PAIN Oxacillin Sodium 2 gm/ Sodium (Chloride) 100 mls @ 200 mls/hr IV.SIG Q4H [facility] Last Infusion: 01/02/18 18:00 Dose: Infused Lactulose (Lactulose Liq) 30 ml PO DAILY PRN PRN Reason: SEVERE CONSITIPATION Metoclopramide HCl (Reglan Inj) 5 mg IV.PUSH Q6H PRN; Protocol PRN Reason: NAUSEA OR VOMITING Miscellaneous (Pill Splitter) 1 each OTHER UNSCH PRN PRN Reason: SEE LABEL COMMENTS Naloxone HCl (Narcan Inj) 0.4 mg IV.PUSH PRN PRN PRN Reason: SEE LABEL COMMENTS Potassium Chloride (Klor-Con 10) 40 meq PO DAILY [facility] Last Admin: 01/02/18 09:55 Dose: 40 meq Sennosides (Senokot) 17.2 mg PO Q12H PRN PRN Reason: Moderate Constipation Temazepam (Restoril) 15 mg PO HS PRN PRN Reason: INSOMNIA Exam Vital signs: Vital Signs 01/01/18 20:00 01/02/18 00:00 01/02/18 03:50 Temperature 98.1 F 98.1 F 97.9 F Pulse Rate 56 L 55 L 49 L Respiratory Rate 17 20 18 Blood Pressure 156/82 H 144/83 H 132/71 Pulse Oximetry 99 98 100 01/02/18 04:00 01/02/18 04:08 01/02/18 08:00 Temperature 97.9 F 97.6 F 97.8 F Pulse Rate 53 L 53 L 59 L Respiratory Rate 20 18 16 Blood Pressure 144/82 H 140/78 112/76 Pulse Oximetry 100 99 01/02/18 08:10 01/02/18 08:20 01/02/18 12:00 Temperature 97.8 F 97.9 F 97.6 F Pulse Rate 59 L 50 L 58 L Respiratory Rate 18 18 Blood Pressure 112/76 117/69 142/78 H Pulse Oximetry 100 01/02/18 16:00 Temperature 97.8 F Pulse Rate 55 L Respiratory Rate 16 Blood Pressure 139/77 Pulse Oximetry 99 Intake & Output 01/02/18 01/02/18 01/03/18 06:59 18:59 06:59 Intake Total 740 / 740 3100 / 3100 Output Total 3250 / 3250 1600 / 1600 Balance -2510 / -2510 1500 / 1500 Weight 173 lb 15.115 oz Intake: IV 200 / 200 300 / 300 Prostaphlin Inj 2 GM In NS Inj 200 / 200 300 / 300 100 ML @ 200 mls/hr IV.SIG Q4H [facility] Rx#:[id number] Oral 540 / 540 2400 / 2400 Intake (Blood Product) Amt 0 / 0 400 / 400 Rbc As-3 Leukoreduced Unit 0 / 0 [id number] Rbc As-3 Leukoreduced Unit 0 / 0 400 / 400 [id number] Output: Urine 3250 / 3250 1600 / 1600 Other: Date of Last Bowel Movement 12/29/17 Results 01/02/18 13:18 01/02/18 13:18 Cardiac Enzymes 01/02/18 Range/Units 13:18 AST 46 H (15-37) U/L CBC 01/02/18 Range/Units 13:18 WBC 9.8 (4.0-11.0) th/mm3 RBC 3.66 L (4.50-5.90) mil/mm3 Hgb 10.4 L D (13.0-17.0) gm/dL Hct 31.1 L (39.0-51.0) % Plt Count 564 H (150-450) th/mm3 Comprehensive Metabolic Panel 01/02/18 Range/Units 13:18 Sodium 141 (136-145) meq/L Potassium 3.6 (3.5-5.1) meq/L Chloride 106 (98-107) meq/L Carbon Dioxide 27.4 (21.0-32.0) meq/L BUN 13 (7-18) mg/dL Creatinine 1.02 (0.60-1.30) mg/dL Calcium 8.8 (8.5-10.1) mg/dL AST 46 H (15-37) U/L ALT 40 (12-78) U/L Alkaline Phosphatase 47 (45-117) U/L Total Protein 8.3 H D (6.4-8.2) g/dL Albumin 2.2 L (3.4-5.0) g/dL Intake and Output 01/02/18 01/02/18 01/02/18 06:59 14:59 22:59 Intake Total 640 / 640 600 / 600 2500 / 2500 Output Total 3250 / 3250 1600 / 1600 Balance -2610 / -2610 600 / 600 900 / 900 Intake: IV 100 / 100 200 / 200 100 / 100 Prostaphlin Inj 2 GM In NS Inj 100 / 100 200 / 200 100 / 100 100 ML @ 200 mls/hr IV.SIG Q4H [facility] Rx#:[id number] Oral 540 / 540 2400 / 2400 Intake (Blood Product) Amt 0 / 0 400 / 400 Rbc As-3 Leukoreduced Unit 0 / 0 [id number] Rbc As-3 Leukoreduced Unit 0 / 0 400 / 400 [id number] Output: Urine 3250 / 3250 1600 / 1600 Other: Date of Last Bowel Movement 12/29/17 Weight 173 lb 15.115 oz Assessment and Plan - Assessment (1) Sepsis Code(s): A41.9 - Sepsis, unspecified organism Status: Acute (2) Pneumonia Code(s): J18.9 - Pneumonia, unspecified organism Status: Acute (3) Renal hemorrhage, right Code(s): N28.89 - Other specified disorders of kidney and ureter Status: Acute (4) Renal cell carcinoma Code(s): C64.9 - Malignant neoplasm of unspecified kidney, except renal pelvis Status: Acute (5) IVDU (intravenous drug user) Code(s): F19.90 - Other psychoactive substance use, unspecified, uncomplicated Status: Chronic - Attending Attestation Patient seen and examined. I reviewed and agree with the evaluation and plan as presented. ID evaluation. HANNAH tomorrow to evaluate for endocarditis. <Yulia Canales - Last Filed: 01/02/18 12:07> (1) Sepsis Qualifiers: Sepsis type: methicillin susceptible Staphylococcus aureus Qualified Code(s) : A41.01 - Sepsis due to Methicillin susceptible Staphylococcus aureus <Johana Oswald - Last Filed: 01/02/18 19:07> (1) Sepsis Qualifiers: Sepsis type: methicillin susceptible Staphylococcus aureus Qualified Code(s) : A41.01 - Sepsis due to Methicillin susceptible Staphylococcus aureus
[2018-01-02 13:59] LABS: Hematocrit 31.1 % (39.0-51.0); Hemoglobin 10.4 gm/dL (13.0-17.0); Mean Corpuscular HGB Conc 33.5 % (32.0-36.0); Mean Corpuscular Hemoglobin 28.6 pg (27.0-34.0); Mean Corpuscular Volume 85.2 fL (80.0-100.0); Mean Platelet Volume 7.5 fL (7.0-11.0); Platelet Count 564 th/mm3 (150-450); Red Blood Count 3.66 mil/mm3 (4.50-5.90); Red Cell Distribution Width 15.3 % (11.6-17.2); White Blood Count 9.8 th/mm3 (4.0-11.0)
[2018-01-02 14:24] LABS: Alanine Aminotransferase 40 U/L (12-78); Albumin 2.2 g/dL (3.4-5.0); Anion Gap 8 meq/L (5-15); Aspartate Aminotransferase 46 U/L (15-37); Blood Urea Nitrogen 13 mg/dL (7-18); Calcium 8.8 mg/dL (8.5-10.1); Carbon Dioxide 27.4 meq/L (21.0-32.0); Chloride 106 meq/L (98-107); Glomerular Filtration Rate 77 mL/min (>89); Glucose,Random 121 mg/dL (74-106); Potassium 3.6 meq/L (3.5-5.1); Sodium 141 meq/L (136-145)
[2018-01-02 14:26] LABS: Alkaline Phosphatase 47 U/L (45-117); Total Protein 8.3 g/dL (6.4-8.2)
[2018-01-03] MEDS: Baclofen 10 MG Tablet PO SCH ×3 (06:05→21:31)
--- NOTE | 2018-01-03 08:42 | P.PNFP ---
Subjective Interval history: Mr Granados is stable this morning. He does not have any new complaints of pain or other problems. We discussed him having his HANNAH and the reasons for that. He understands that he could have endocarditis and that the bacteria that he had staph aureus can cause multiple problems like discitis etc. I explained to him that he will likely need a minimum of 4 weeks of IV antibiotics but probably 6 weeks counting from the time of his last negative blood culture. We also discussed his renal cancer. He knows that if it metastasizes his prognosis is extremely poor but if he has it surgically removed that he can do very well. All his questions were answered. He does want to go home whenever he possibly can but is willing to do whatever it takes to stay healthy. Results - Labs Result diagrams: 01/03/18 11:01 01/03/18 11:01 Abnormal lab results 01/01/18 01/02/18 01/02/18 Range/Units 18:43 13:18 13:18 RBC 3.66 L (4.50-5.90) mil/mm3 Hgb 10.4 L D (13.0-17.0) gm/dL Hct 31.1 L (39.0-51.0) % Plt Count 564 H (150-450) th/mm3 Estimated GFR 77 L (>89) mL/min Random Glucose 121 H (74-106) mg/dL AST 46 H (15-37) U/L Total Protein 8.3 H D (6.4-8.2) g/dL Albumin 2.2 L (3.4-5.0) g/dL MTS Gel Crossmatch See Detail Short CBC 01/02/18 Range/Units 13:18 WBC 9.8 (4.0-11.0) th/mm3 Hgb 10.4 L D (13.0-17.0) gm/dL Hct 31.1 L (39.0-51.0) % Plt Count 564 H (150-450) th/mm3 BMP 01/02/18 13:18 Sodium 141 Potassium 3.6 Chloride 106 Carbon Dioxide 27.4 BUN 13 Creatinine 1.02 Calcium 8.8 Liver Function 01/02/18 Range/Units 13:18 Total Bilirubin 0.6 (0.2-1.0) mg/dL AST 46 H (15-37) U/L ALT 40 (12-78) U/L Alkaline Phosphatase 47 (45-117) U/L Albumin 2.2 L (3.4-5.0) g/dL Physical Exam Vital signs: Vital Signs 01/02/18 12:00 01/02/18 16:00 01/02/18 20:00 Temperature 97.6 F 97.8 F 98.1 F Pulse Rate 58 L 55 L 52 L Respiratory Rate 18 16 19 Blood Pressure 142/78 H 139/77 135/72 Pulse Oximetry 100 99 99 01/03/18 00:00 01/03/18 04:00 01/03/18 08:00 Temperature 97.9 F 98.1 F 97.8 F Pulse Rate 53 L 53 L 50 L Respiratory Rate 19 19 19 Blood Pressure 149/78 H 160/92 H 131/85 Pulse Oximetry 98 99 99 Intake & Output 01/02/18 01/03/18 01/03/18 18:59 06:59 18:59 Intake Total 3100 / 3100 520 / 520 Output Total 1600 / 1600 2000 / 2000 Balance 1500 / 1500 -1480 / -1480 Weight 90.5 kg Intake: IV 300 / 300 300 / 300 Prostaphlin Inj 2 GM In NS Inj 300 / 300 300 / 300 100 ML @ 200 mls/hr IV.SIG Q4H [facility] Rx#:[id number] Oral 2400 / 2400 220 / 220 Intake (Blood Product) Amt 400 / 400 Rbc As-3 Leukoreduced Unit 0 / 0 [id number] Rbc As-3 Leukoreduced Unit 400 / 400 [id number] Output: Urine 1600 / 1600 1999 / 1999 Other: Date of Last Bowel Movement 12/29/17 - Constitutional no acute distress, average body habitus, cooperative - Routine HEENT Exam Head: Present: normocephalic, atraumatic. Absent: cushingoid faces, laceration , facial swelling Eye: Present: EOMI, PERRL. Absent: conjunctival icterus, scleral injection ENT: Present: external ear normal - Routine Neck Exam Present: supple, trachea midline - Routine Respiratory Exam Present: CTA bilaterally. Absent: accessory muscle use, decreased breath sounds , prolonged expiratory phase, rales, respiratory distress, rhonchi - Routine Cardiovascular Exam Present: RRR. Absent: murmur, gallop, rubs - Routine Abdominal Exam Present: soft. Absent: tenderness, distended, rebound - Routine Extremities Exam Absent: cyanosis, clubbing, edema - Routine Skin Exam Present: intact. Absent: cyanosis, erythema - Routine Neurological Exam Present: alert, oriented X3, CN II-XII intact. Absent: sensory deficit, motor deficit - Urinary Catheter Management Indwelling Urethral Catheter Cath placed during this visit: yes, but has since been removed by the nurse Reason for continuing: Hourly intake/output Insertion date: 12/20/17 Insertion time: 08:10 Removal date: 12/24/17 Removal time: 11:00 Assessment and Plan - Assessment (1) Sepsis Code(s): A41.9 - Sepsis, unspecified organism Status: Acute Plan: Afebrile since 12/20 at 1600, WBC then normalized Bacteremia with MSSA on 12/20. Repeat blood cultures 12/23: negative ID consulted, appreciate recommendations -Strong suspicion of endocarditis due to positive blood cx x4. -Cardiology consulted for a HANNAH. If positive, will require continuous IV antibiotic treatment, likely for 6 weeks. -HANNAH is scheduled today On admission: Febrile, WBC 21 possible consolidation on initial chest x-ray, however repeat chest x-ray shows no infiltrate or effusion Blood cultures: Final methicillin sensitive Staphylococcus aureus, pansensitive. Repeat blood cultures: Negative Final Urine cultures: No growth final pneumococcal and Legionella urinary antigens: Negative (2) Hypertension Code(s): I10 - Essential (primary) hypertension Status: Acute Plan: Stable Vasotec 1.25 mg q6h prn (not used since 12/24) Clonidine 0.1 mg scheduled every 8 hours Continue to monitor vital signs every 4 hours. (3) Renal hemorrhage, right Code(s): N28.89 - Other specified disorders of kidney and ureter Status: Acute Plan: History of renal cell carcinoma, right kidney with hemorrhage into the kidney, gross hematuria Associated with pain in back, neck, abdomen s/p renal embolization of R kidney on 12/26. Urology recommendations proceed with right radical nephrectomy as outpatient. CT: Right kidney hemorrhage and mass measuring 12.1 cm Patient complaining of new blood in urine on 01/01. This has mostly resolved today. Continues to be asymptomatic. -Last Hb on 01/01 8.3. He was transfused. He may continue to have some blood from that kidney indefinitely until it surgically removed. He may need transfusion again at some point. (4) Renal cell carcinoma Code(s): C64.9 - Malignant neoplasm of unspecified kidney, except renal pelvis Status: Acute Plan: Urology for right radical nephrectomy as outpatient Pain control: [place] 10/325 po scheduled q6h Dilaudid 4 mg p.o. every 4 as needed for breakthrough pain (5) IVDU (intravenous drug user) Code(s): F19.90 - Other psychoactive substance use, unspecified, uncomplicated Status: Chronic Plan: Signs of sepsis, IV drug user, bacteremia positive Echocardiogram: Normal -Follow-up HANNAH UDS: Positive opiates, positive cocaine Continue to monitor for signs of withdrawal Discuss with Case Management about outpatient help to keep him from using any further drugs. (6) Nutrition, metabolism, and development symptoms Code(s): R63.8 - Other symptoms and signs concerning food and fluid intake Status: Acute Plan: Fluids: tolerating p.o. Electrolytes: Monitor and replete as needed. Nutrition: Regular diet DVT ppx: SCDs only, hemorrhages contraindication to anticoagulation - Assessment and Plan 52 y/o M, IVDU with hx of Renal Cell Carcinoma, presents meeting SEPSIS criteria and is found to have lung consolidation now resolved, renal hemorrhage and gross hematuria, also resolved. Urology to do nephrectomy as an outpatient, ID continues to have strong suspicions of endocarditis. HANNAH scheduled for tomorrow afternoon. If positive, patient will require extra IV antibiotic treatment. If negative, patient will be discharged on p.o. medicine and will return as an outpatient for his procedure with urology. Currently on p.o. pain control. Case management working to arrange outpatient surgery. They cannot provide hotel accommodations or pain medicine (we can provide rx), but they can help with antibiotics. (1) Sepsis Qualifiers: Sepsis type: methicillin susceptible Staphylococcus aureus Qualified Code(s) : A41.01 - Sepsis due to Methicillin susceptible Staphylococcus aureus (2) Hypertension Qualifiers: Hypertension type: essential hypertension Qualified Code(s): I10 - Essential (primary) hypertension
[2018-01-03] MEDS: Ferrous Sulfate 325 MG Tablet PO SCH ×2 (09:49→21:31)
[2018-01-03] MEDS ORDERED: Lidocaine PF 1% Inj 5 ML Syringe INFILTRATN ONE (12:00)
[2018-01-03 12:02] LABS: Baso # (Auto) 0.1 th/mm3 (0.0-0.2); Baso % (Auto) 1.4 % (0.0-2.0); Eos # (Auto) 0.4 th/mm3 (0.0-0.4); Hematocrit 33.1 % (39.0-51.0); Hemoglobin 10.8 gm/dL (13.0-17.0); Lymph # (Auto) 1.8 th/mm3 (1.0-4.8); Lymph % (Auto) 20.1 % (9.0-44.0); Mean Corpuscular HGB Conc 32.6 % (32.0-36.0); Mean Corpuscular Hemoglobin 27.9 pg (27.0-34.0); Mean Corpuscular Volume 85.4 fL (80.0-100.0); Mean Platelet Volume 7.4 fL (7.0-11.0); Mono # (Auto) 0.7 th/mm3 (0.0-0.9); Mono % (Auto) 8.2 % (0.0-8.0); Neut % (Auto) 66.3 % (16.0-70.0); Platelet Count 570 th/mm3 (150-450); Red Blood Count 3.88 mil/mm3 (4.50-5.90); Red Cell Distribution Width 15.4 % (11.6-17.2); White Blood Count 9.1 th/mm3 (4.0-11.0)
[2018-01-03 12:25] LABS: Albumin 2.2 g/dL (3.4-5.0); Anion Gap 6 meq/L (5-15); Aspartate Aminotransferase 44 U/L (15-37); Blood Urea Nitrogen 12 mg/dL (7-18); Carbon Dioxide 28.5 meq/L (21.0-32.0); Chloride 106 meq/L (98-107); Glomerular Filtration Rate 84 mL/min (>89); Glucose,Random 77 mg/dL (74-106); Potassium 4.3 meq/L (3.5-5.1); Sodium 140 meq/L (136-145)
[2018-01-03 12:29] LABS: Alanine Aminotransferase 39 U/L (12-78); Alkaline Phosphatase 51 U/L (45-117); Total Protein 8.4 g/dL (6.4-8.2)
--- NOTE | 2018-01-03 12:41 | P.PNCA ---
<Yulia Canales N - Last Filed: 01/03/18 12:39> Subjective Interval history: Patient denies any palpitations, pressure, dizziness, edema or shortness of breath. Patient does complain of atypical chest pain that increases with deep inspiration. Physical Exam Vital signs: Vital Signs 01/02/18 16:00 01/02/18 20:00 01/03/18 00:00 Temperature 97.8 F 98.1 F 97.9 F Pulse Rate 55 L 52 L 53 L Respiratory Rate 16 19 19 Blood Pressure 139/77 135/72 149/78 H Pulse Oximetry 99 99 98 01/03/18 04:00 01/03/18 08:00 01/03/18 11:51 Temperature 98.1 F 97.8 F Pulse Rate 53 L 50 L Respiratory Rate 19 19 7 L Blood Pressure 160/92 H 131/85 Pulse Oximetry 99 99 01/03/18 12:00 Temperature 97.8 F Pulse Rate 47 L Respiratory Rate 19 Blood Pressure 145/88 H Pulse Oximetry 100 Intake & Output 01/02/18 01/03/18 01/03/18 18:59 06:59 18:59 Intake Total 3100 / 3100 520 / 520 100 / 100 Output Total 1600 / 1600 2000 / 2000 Balance 1500 / 1500 -1480 / -1480 100 / 100 Weight 90.5 kg Intake: IV 300 / 300 300 / 300 100 / 100 Prostaphlin Inj 2 GM In NS Inj 300 / 300 300 / 300 100 / 100 100 ML @ 200 mls/hr IV.SIG Q4H [facility] Rx#:[id number] Oral 2400 / 2400 220 / 220 Intake (Blood Product) Amt 400 / 400 Rbc As-3 Leukoreduced Unit 0 / 0 [id number] Rbc As-3 Leukoreduced Unit 400 / 400 [id number] Output: Urine 1600 / 1600 1999 / 1999 Other: Date of Last Bowel Movement 12/29/17 - Constitutional no acute distress - Routine HEENT Exam Head: Present: normocephalic Eye: Present: PERRL ENT: Present: mucous membranes moist - Routine Neck Exam Present: full ROM - Routine Respiratory Exam Present: CTA bilaterally - Routine Cardiovascular Exam Present: S1, S2. Absent: murmur, gallop, rubs - Routine Abdominal Exam Present: soft, normoactive bowel sounds - Routine Extremities Exam Present: full ROM, pulses intact, normal capillary refill. Absent: cyanosis, clubbing, edema - Routine Skin Exam Present: intact - Routine Neurological Exam Present: oriented X3 - Detailed Neurological Exam: Coma Scale Eye Opening: Spontaneous Verbal Response: Oriented Motor Response: Obey commands [place] Coma Scale Total: 15 - Routine Psychiatric Exam Present: normal affect - Urinary Catheter Management Indwelling Urethral Catheter Cath placed during this visit: yes, but has since been removed by the nurse Reason for continuing: Hourly intake/output Insertion date: 12/20/17 Insertion time: 08:10 Removal date: 12/24/17 Removal time: 11:00 Assessment and Plan - Assessment (1) Sepsis Code(s): A41.9 - Sepsis, unspecified organism Status: Acute (2) Pneumonia Code(s): J18.9 - Pneumonia, unspecified organism Status: Acute (3) Renal hemorrhage, right Code(s): N28.89 - Other specified disorders of kidney and ureter Status: Acute (4) Renal cell carcinoma Code(s): C64.9 - Malignant neoplasm of unspecified kidney, except renal pelvis Status: Acute (5) IVDU (intravenous drug user) Code(s): F19.90 - Other psychoactive substance use, unspecified, uncomplicated Status: Chronic - Plan Patient has been npo since midnight for HANNAH today. Continue current cardiac treatment plan and will adjust as needed. Infectious disease evaluation in progress. The patient was seen and evaluated by Dr. Oswald who participated in care, management and decision making. <Johana Oswald - Last Filed: 01/03/18 15:09> Physical Exam Vital signs: Vital Signs 01/02/18 16:00 01/02/18 20:00 01/03/18 00:00 Temperature 97.8 F 98.1 F 97.9 F Pulse Rate 55 L 52 L 53 L Respiratory Rate 16 19 19 Blood Pressure 139/77 135/72 149/78 H Pulse Oximetry 99 99 98 01/03/18 04:00 01/03/18 08:00 01/03/18 11:51 Temperature 98.1 F 97.8 F Pulse Rate 53 L 50 L Respiratory Rate 19 19 7 L Blood Pressure 160/92 H 131/85 Pulse Oximetry 99 99 01/03/18 12:00 Temperature 97.8 F Pulse Rate 47 L Respiratory Rate 19 Blood Pressure 145/88 H Pulse Oximetry 100 Intake & Output 01/02/18 01/03/18 01/03/18 18:59 06:59 18:59 Intake Total 3100 / 3100 520 / 520 100 / 100 Output Total 1599 / 1599 Balance 1500 / 1500 -1480 / -1480 100 / 100 Weight 199 lb 8.293 oz 199 lb 8.293 oz Intake: IV 300 / 300 300 / 300 100 / 100 Prostaphlin Inj 2 GM In NS Inj 300 / 300 300 / 300 100 / 100 100 ML @ 200 mls/hr IV.SIG Q4H [facility] Rx#:[id number] Oral 2400 / 2400 220 / 220 Intake (Blood Product) Amt 400 / 400 Rbc As-3 Leukoreduced Unit 0 / 0 [id number] Rbc As-3 Leukoreduced Unit 400 / 400 [id number] Output: Urine 1599 Other: Date of Last Bowel Movement 12/29/17 - Urinary Catheter Management Indwelling Urethral Catheter Cath placed during this visit: no Assessment and Plan - Assessment (1) Sepsis Code(s): A41.9 - Sepsis, unspecified organism Status: Acute (2) Pneumonia Code(s): J18.9 - Pneumonia, unspecified organism Status: Acute (3) Renal hemorrhage, right Code(s): N28.89 - Other specified disorders of kidney and ureter Status: Acute (4) Renal cell carcinoma Code(s): C64.9 - Malignant neoplasm of unspecified kidney, except renal pelvis Status: Acute (5) IVDU (intravenous drug user) Code(s): F19.90 - Other psychoactive substance use, unspecified, uncomplicated Status: Chronic - Attending Attestation Patient seen and examined. I reviewed and agree with the evaluation and plan as presented. HANNAH today to evaluate for endocarditis. <Yulia Canales - Last Filed: 01/03/18 12:39> (1) Sepsis Qualifiers: Sepsis type: methicillin susceptible Staphylococcus aureus Qualified Code(s) : A41.01 - Sepsis due to Methicillin susceptible Staphylococcus aureus <Johana Oswald - Last Filed: 01/03/18 15:09> (1) Sepsis Qualifiers: Sepsis type: methicillin susceptible Staphylococcus aureus Qualified Code(s) : A41.01 - Sepsis due to Methicillin susceptible Staphylococcus aureus
--- NOTE | 2018-01-03 13:54 | P.PNID ---
Subjective Remarks: no c/o afebrile repeat blood clx negative forr HANNAH today Antibiotics: oxacillin Allergies/Adverse Reactions: Allergies codeine Allergy (Mild, Verified 12/20/17 07:49) Itching iodine Allergy (Unknown, Verified 12/20/17 07:49) unknown potassium iodide Allergy (Unknown, Verified 12/20/17 07:49) unknown povidone-iodine Allergy (Unknown, Verified 12/20/17 07:49) unknown sodium iodide Allergy (Unknown, Verified 12/20/17 07:49) unknown sodium iodide Allergy (Unknown, Verified 12/20/17 07:49) unknown Objective Vital Signs 01/02/18 16:00 01/02/18 20:00 01/03/18 00:00 Temperature 97.8 F 98.1 F 97.9 F Pulse Rate 55 L 52 L 53 L Respiratory Rate 16 19 19 Blood Pressure 139/77 135/72 149/78 H Pulse Oximetry 99 99 98 01/03/18 04:00 01/03/18 08:00 01/03/18 11:51 Temperature 98.1 F 97.8 F Pulse Rate 53 L 50 L Respiratory Rate 19 19 7 L Blood Pressure 160/92 H 131/85 Pulse Oximetry 99 99 01/03/18 12:00 Temperature 97.8 F Pulse Rate 47 L Respiratory Rate 19 Blood Pressure 145/88 H Pulse Oximetry 100 Intake & Output 01/02/18 01/03/18 01/03/18 18:59 06:59 18:59 Intake Total 3100 / 3100 520 / 520 100 / 100 Output Total 1600 / 1600 1999 / 1999 Balance 1500 / 1500 -1480 / -1480 100 / 100 Weight 90.5 kg Intake: IV 300 / 300 300 / 300 100 / 100 Prostaphlin Inj 2 GM In NS Inj 300 / 300 300 / 300 100 / 100 100 ML @ 200 mls/hr IV.SIG Q4H [facility] Rx#:[id number] Oral 2400 / 2400 220 / 220 Intake (Blood Product) Amt 400 / 400 Rbc As-3 Leukoreduced Unit 0 / 0 [id number] Rbc As-3 Leukoreduced Unit 400 / 400 [id number] Output: Urine 1600 / 1600 1999 / 1999 Other: Date of Last Bowel Movement 12/29/17 01/01/18 06:07 Sputum - Expectorated Sputum Gram Stain - Final 01/01/18 06:07 Sputum - Expectorated Sputum Sputum Culture - Final Heavy growth normal respiratory jessy Lab - Hematology Results 01/01/18 01/02/18 01/03/18 15:00 13:18 11:01 WBC 7.6 9.8 9.1 RBC 2.91 L 3.66 L 3.88 L Hgb 8.3 L 10.4 L D 10.8 L Hct 25.1 L 31.1 L 33.1 L MCV 86.0 85.2 85.4 MCH 28.6 28.6 27.9 MCHC 33.3 33.5 32.6 RDW 15.2 15.3 15.4 Plt Count 458 H 564 H 570 H MPV 7.8 7.5 7.4 Neut % (Auto) 66.3 Lymph % (Auto) 20.1 [place] % (Auto) 8.2 H Eos % (Auto) 4.0 Baso % (Auto) 1.4 Neut # (Auto) 6.0 Lymph # (Auto) 1.8 [place] # (Auto) 0.7 Eos # (Auto) 0.4 Baso # (Auto) 0.1 WBC Differential . Differential Comment Auto diff final Lab - Chemistry Results 12/28/17 01/02/18 01/03/18 04:29 13:18 11:01 Sodium 141 140 Potassium 3.6 4.3 Chloride 106 106 Carbon Dioxide 27.4 28.5 Anion Gap 8 6 BUN 13 12 Creatinine 1.02 0.95 Estimated GFR 77 L 84 L Random Glucose 121 H 77 Calcium 8.8 9.0 Total Bilirubin 0.6 0.4 AST 46 H 44 H ALT 40 39 Alkaline Phosphatase 47 51 Total Protein 8.3 H D 8.4 H Albumin 2.2 L 2.2 L RBC Folate 668 Imaging: ITS Impressions Head CT 12/20/17 00:00 CONCLUSION: Negative CT Head non contrast. . Thoracic Aorta CT 12/22/17 00:00 CONCLUSION: 1. Normal CTA of the thoracic and abdominal aorta. 2. Greater than 12 cm right renal mass derives its blood supply from the right renal artery. Chest X-Ray 12/22/17 03:12 CONCLUSION: Small infiltrate in the lingula without consolidation. Renal Arteriogram 12/26/17 00:00 CONCLUSION: 1. Patient has a main right with 2 accessory renal arteries. The upper pole accessory appears to supply a normal upper pole cortex. 2. The lower pole accessory appear to supply the normal lower pole with 2 branch vessels showing tumoral vascularity. The 2 branch vessels were subselected and embolized as described above. 3. Main right renal artery shows extensive tumoral vascularity. The entire vessel was embolized with a series of PVA particles, Gelfoam and coils as detailed above. Chest CT 12/28/17 00:00 CONCLUSION: 1. Minimal bibasilar consolidation. 2. Tiny bilateral pleural effusions. 3. No masses are seen. Abdomen/Pelvis CT 12/28/17 14:33 CONCLUSION: 1. Status post embolization of the right kidney without significant change compared to the prior examination. No free fluid or loculated fluid collections are seen in the abdomen. 2. Bibasilar atelectasis. 3. Nonspecific edema throughout the body wall suggestive of anasarca. 4. Residual contrast versus stone in the base of the urinary bladder. Physical Exam: GENERAL: NAD SKIN: Warm and dry. No embolic phenomena no splinter hemorrhages no skin abscesses HEAD: Atraumatic. Normocephalic. EYES: Pupils equal and round. No scleral icterus. No injection or drainage. ENT: No nasal bleeding or discharge. Mucous membranes pink and moist. NECK: Trachea midline. No JVD. CARDIOVASCULAR: Regular rate and rhythm. No palpable cords RESPIRATORY: No accessory muscle use. Clear to auscultation. Breath sounds equal bilaterally. GASTROINTESTINAL: Abdomen soft, non-tender, nondistended. Hepatic and splenic margins not palpable. MUSCULOSKELETAL: Extremities without clubbing, cyanosis, or edema. No obvious deformities. NEUROLOGICAL: Awake and alert. No obvious cranial nerve deficits. Motor grossly within normal limits. Five out of 5 muscle strength in the arms and legs. Normal speech. PSYCHIATRIC: Appropriate mood and affect; insight and judgment normal. Assessment and Plan - Plan Renal cancer MSSA sepsis on presentation - risk factors: active IVDU No back pain to suspect diskitis/osteo cont oxacillin will follow HANNAH results Anticipate dcv on Oxacillin or cefaZolin x 6 weeks in case of + HANNAH Rocephin 2 gm daily x 4 weeks in case of negative HANNAH dw case mngr
[2018-01-03] MEDS ORDERED: Sodium Chlor 0.9% Inj 500 ML IV.SIG SCH (14:00)
[2018-01-03] MEDS ORDERED: Metoprolol Tartrate 25 MG Tablet PO SCH (14:00)
[2018-01-03] MEDS ORDERED: Chlorhexidine Gluconate 2% 1 Pack (2 Cloths) TOPICAL SCH (14:00)
--- NOTE | 2018-01-03 14:23 | P.PNADD ---
Addendum to Inpatient Note Additional information: HANNAH negative dw Dr Real OK to dc on 4 weeks of Rocephin PICC
--- NOTE | 2018-01-03 14:26 | P.DCO ---
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 [] May leave port accessed during therapy. [] May leave peripheral site accessed for duration of therapy. [x] If patient has SOB or respiratory distress, check oxygen saturation. If less than 90% or clinical signs of respiratory distress, administer oxygen at 2 L/min. via nasal cannula and notify physician. [x] Anaphylaxis/Reaction orders: * Stop infusion. * Keep IV line open with saline flush. * Notify physician. * Monitor vital signs every 15 minutes until symptoms resolve. * Check Oxygen saturation; Oxygen at 2 L/min. via nasal cannula if less than 90% or clinical signs of respiratory distress. * Administer diphenhydramine (Benadryl) 25 mg IV STAT, (unless patient has received as pre-med). May repeat once, if necessary. * Solu-Cortef 250 mg IVP over 30-60 seconds, use 100 mg vials for each dissolution. * Epinephrine (1mg/1 ml) 0.3 mg subcutaneously or IVP now with any signs of respiratory distress. * Check with physician for new additional pre-med orders if patient is re- challenged or re-treated. [x] May remove PICC line when treatment complete, after confirming with Physician. [x] If the patient is admitted to the hospital, the ED, or transferred via [facility] , complete transfer form including medication reconciliation order sheet. Weekly Labs: CBC w/diff, CMP Allergies codeine Allergy (Mild, Verified 12/20/17 07:49) Itching iodine Allergy (Unknown, Verified 12/20/17 07:49) unknown potassium iodide Allergy (Unknown, Verified 12/20/17 07:49) unknown povidone-iodine Allergy (Unknown, Verified 12/20/17 07:49) unknown sodium iodide Allergy (Unknown, Verified 12/20/17 07:49) unknown sodium iodide Allergy (Unknown, Verified 12/20/17 07:49) unknown (1) Sepsis Qualifiers: Sepsis type: methicillin susceptible Staphylococcus aureus Qualified Code(s) : A41.01 - Sepsis due to Methicillin susceptible Staphylococcus aureus
--- NOTE | 2018-01-03 14:37 | P.DCO ---
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 [] May leave port accessed during therapy. [] May leave peripheral site accessed for duration of therapy. [x] If patient has SOB or respiratory distress, check oxygen saturation. If less than 90% or clinical signs of respiratory distress, administer oxygen at 2 L/min. via nasal cannula and notify physician. [x] Anaphylaxis/Reaction orders: * Stop infusion. * Keep IV line open with saline flush. * Notify physician. * Monitor vital signs every 15 minutes until symptoms resolve. * Check Oxygen saturation; Oxygen at 2 L/min. via nasal cannula if less than 90% or clinical signs of respiratory distress. * Administer diphenhydramine (Benadryl) 25 mg IV STAT, (unless patient has received as pre-med). May repeat once, if necessary. * Solu-Cortef 250 mg IVP over 30-60 seconds, use 100 mg vials for each dissolution. * Epinephrine (1mg/1 ml) 0.3 mg subcutaneously or IVP now with any signs of respiratory distress. * Check with physician for new additional pre-med orders if patient is re- challenged or re-treated. [x] May remove PICC line when treatment complete, after confirming with Physician. [x] If the patient is admitted to the hospital, the ED, or transferred via [facility] , complete transfer form including medication reconciliation order sheet. Weekly Labs: CBC w/diff, CMP Allergies codeine Allergy (Mild, Verified 12/20/17 07:49) Itching iodine Allergy (Unknown, Verified 12/20/17 07:49) unknown potassium iodide Allergy (Unknown, Verified 12/20/17 07:49) unknown povidone-iodine Allergy (Unknown, Verified 12/20/17 07:49) unknown sodium iodide Allergy (Unknown, Verified 12/20/17 07:49) unknown sodium iodide Allergy (Unknown, Verified 12/20/17 07:49) unknown
--- NOTE | 2018-01-03 14:52 | CF ---
cc: Johana Oswald MD DATE: 01/03/2018 INDICATION: Sepsis, evaluation for endocarditis. PROCEDURE PERFORMED: Transesophageal echocardiogram. PROCEDURE: After the patient was sedated by Anesthesia, transesophageal probe was placed without difficulty. Tomographic images were obtained. Left ventricular function was preserved with estimated ejection fraction of 55% with no segmental wall motion abnormalities. The left atrial appendage was visualized and there was no evidence of left atrial thrombus. Mitral valve was structurally normal. There was no evidence of mitral stenosis. There was evidence of trace mitral regurgitation. Aortic valve was structurally normal. There was no evidence of aortic stenosis or regurgitation. There was no evidence of mitral or aortic valve vegetations. Tricuspid valve was structurally normal. There was no evidence of tricuspid stenosis. There was evidence of trace tricuspid regurgitation. There was no evidence of tricuspid valve vegetations. Pulmonary valve was visualized. There was no evidence of pulmonary vegetation. There was evidence of trace pulmonary regurgitation. Bubble study was performed and there was no evidence of [id number] shunt. Descending thoracic aorta had no significant plaque. DIAGNOSES: 1. No evidence of valvular vegetations. 2. Preserved left ventricular systolic function. 3. Trace mitral regurgitation. 4. Trace tricuspid regurgitation. 5. No evidence of patent foramen ovale. IMPRESSION: No evidence of endocarditis. Johana Oswald MD OQ/es/ll , 01:50 PM , 01:58 PM [facility]ITAL[facility]uan Antonio
[2018-01-04 04:02] VITALS: RESP 18
[2018-01-04] MEDS: Baclofen 10 MG Tablet PO SCH ×2 (05:48→13:54)
[2018-01-04 07:20] LABS: Baso # (Auto) 0.2 th/mm3 (0.0-0.2); Baso % (Auto) 1.7 % (0.0-2.0); Eos # (Auto) 0.4 th/mm3 (0.0-0.4); Eos % (Auto) 4.5 % (0.0-4.0); Hemoglobin 10.1 gm/dL (13.0-17.0); Lymph # (Auto) 1.8 th/mm3 (1.0-4.8); Lymph % (Auto) 18.4 % (9.0-44.0); Mean Corpuscular HGB Conc 33.6 % (32.0-36.0); Mean Corpuscular Hemoglobin 28.5 pg (27.0-34.0); Mean Corpuscular Volume 84.8 fL (80.0-100.0); Mean Platelet Volume 7.5 fL (7.0-11.0); Mono # (Auto) 0.8 th/mm3 (0.0-0.9); Mono % (Auto) 8.3 % (0.0-8.0); Neut # (Auto) 6.5 th/mm3 (1.8-7.7); Neut % (Auto) 67.1 % (16.0-70.0); Platelet Count 537 th/mm3 (150-450); Red Blood Count 3.54 mil/mm3 (4.50-5.90); Red Cell Distribution Width 15.5 % (11.6-17.2); White Blood Count 9.7 th/mm3 (4.0-11.0)
[2018-01-04 07:27] LABS: Albumin 2.1 g/dL (3.4-5.0); Anion Gap 8 meq/L (5-15); Aspartate Aminotransferase 49 U/L (15-37); Blood Urea Nitrogen 19 mg/dL (7-18); Calcium 8.6 mg/dL (8.5-10.1); Carbon Dioxide 25.9 meq/L (21.0-32.0); Chloride 107 meq/L (98-107); Glomerular Filtration Rate 70 mL/min (>89); Glucose,Random 88 mg/dL (74-106); Potassium 3.8 meq/L (3.5-5.1); Sodium 141 meq/L (136-145)
[2018-01-04 07:28] LABS: Alanine Aminotransferase 42 U/L (12-78)
[2018-01-04 07:30] LABS: Alkaline Phosphatase 53 U/L (45-117); Total Protein 7.8 g/dL (6.4-8.2)
[2018-01-04] MEDS: Ferrous Sulfate 325 MG Tablet PO SCH (08:48)
--- NOTE | 2018-01-04 09:45 | P.PNFP ---
Subjective Interval history: Mr Granados is feeling well today and is happy to be discharged. He understands that he needs to go to the infusion clinic every single day. Results - Labs Result diagrams: 01/04/18 06:00 01/04/18 06:00 Abnormal lab results 01/03/18 01/03/18 01/04/18 Range/Units 11:01 11:01 06:00 RBC 3.88 L 3.54 L (4.50-5.90) mil/mm3 Hgb 10.8 L 10.1 L (13.0-17.0) gm/dL Hct 33.1 L 30.0 L (39.0-51.0) % Plt Count 570 H 537 H (150-450) th/mm3 Smyth % (Auto) 8.2 H 8.3 H (0.0-8.0) % Eos % (Auto) 4.5 H (0.0-4.0) % BUN (7-18) mg/dL Estimated GFR 84 L (>89) mL/min AST 44 H (15-37) U/L Total Protein 8.4 H (6.4-8.2) g/dL Albumin 2.2 L (3.4-5.0) g/dL 01/04/18 Range/Units 06:00 RBC (4.50-5.90) mil/mm3 Hgb (13.0-17.0) gm/dL Hct (39.0-51.0) % Plt Count (150-450) th/mm3 [place]th % (Auto) (0.0-8.0) % Eos % (Auto) (0.0-4.0) % BUN 19 H (7-18) mg/dL Estimated GFR 70 L (>89) mL/min AST 49 H (15-37) U/L Total Protein (6.4-8.2) g/dL Albumin 2.1 L (3.4-5.0) g/dL Short CBC 01/03/18 01/04/18 Range/Units 11:01 06:00 WBC 9.1 9.7 (4.0-11.0) th/mm3 Hgb 10.8 L 10.1 L (13.0-17.0) gm/dL Hct 33.1 L 30.0 L (39.0-51.0) % Plt Count 570 H 537 H (150-450) th/mm3 BMP 01/03/18 01/04/18 11:01 06:00 Sodium 140 141 Potassium 4.3 3.8 Chloride 106 107 Carbon Dioxide 28.5 25.9 BUN 12 19 H Creatinine 0.95 1.11 Calcium 9.0 8.6 Liver Function 01/03/18 01/04/18 Range/Units 11:01 06:00 Total Bilirubin 0.4 0.2 (0.2-1.0) mg/dL AST 44 H 49 H (15-37) U/L ALT 39 42 (12-78) U/L Alkaline Phosphatase 51 53 (45-117) U/L Albumin 2.2 L 2.1 L (3.4-5.0) g/dL Physical Exam Vital signs: Vital Signs 01/03/18 11:51 01/03/18 12:00 01/03/18 16:00 Temperature 97.8 F 98.1 F Pulse Rate 47 L 46 L Respiratory Rate 7 L 19 18 Blood Pressure 145/88 H 152/87 H Pulse Oximetry 100 100 01/03/18 20:15 01/04/18 00:14 01/04/18 04:01 Temperature 97.2 F L 97.5 F L 97.8 F Pulse Rate 58 L 52 L 53 L Respiratory Rate 17 17 18 Blood Pressure 111/63 127/71 131/81 Pulse Oximetry 96 97 96 01/04/18 08:00 Temperature 97.9 F Pulse Rate 55 L Respiratory Rate 18 Blood Pressure 131/75 Pulse Oximetry 99 Intake & Output 01/03/18 01/04/18 01/04/18 18:59 06:59 18:59 Intake Total 440 / 440 1080 / 1080 100 / 100 Output Total 1600 / 1600 1500 / 1500 Balance -1160 / -1160 -420 / -420 100 / 100 Weight 90.5 kg 81 kg Intake: IV 100 / 100 300 / 300 100 / 100 Prostaphlin Inj 2 GM In NS Inj 100 / 100 300 / 300 100 / 100 100 ML @ 200 mls/hr IV.SIG Q4H [facility] Rx#:[id number] Oral 340 / 340 780 / 780 Output: Urine 1600 / 1600 1500 / 1500 Other: # Bowel Movements 1 - Constitutional no acute distress, thin, cooperative - Routine HEENT Exam Head: Present: normocephalic, atraumatic. Absent: facial swelling Eye: Present: EOMI, PERRL ENT: Present: external ear normal - Routine Neck Exam Present: supple, full ROM - Routine Respiratory Exam Present: CTA bilaterally. Absent: accessory muscle use, patient mechanically ventilated, respiratory distress, rhonchi - Routine Cardiovascular Exam Present: RRR, bradycardia. Absent: murmur, gallop, rubs, tachycardia - Routine Abdominal Exam Present: soft. Absent: tenderness, distended, rebound - Routine Extremities Exam Absent: cyanosis, clubbing, edema - Routine Skin Exam Present: intact, dry - Routine Neurological Exam Present: alert, oriented X3, moving all extremities - Urinary Catheter Management Indwelling Urethral Catheter Cath placed during this visit: yes, but has since been removed by the nurse Reason for continuing: Hourly intake/output Insertion date: 12/20/17 Insertion time: 08:10 Removal date: 12/24/17 Removal time: 11:00 Assessment and Plan - Assessment (1) Sepsis Code(s): A41.9 - Sepsis, unspecified organism Status: Acute Plan: Afebrile since 12/20 at 1600, WBC normalized Bacteremia with MSSA on 12/20 x 4 Repeat blood cultures 12/23: negative ID consulted, appreciate recommendations -Strong suspicion of endocarditis due to positive blood cx x4. -Cardiology consulted for a HANNAH. If positive, will require continuous IV antibiotic treatment, until Jan 26 -HANNAH was fine On admission: Febrile, WBC 21 possible consolidation on initial chest x-ray, however repeat chest x-ray shows no infiltrate or effusion Blood cultures: Final methicillin sensitive Staphylococcus aureus, pansensitive x 4. Repeat blood cultures: Negative Final Urine cultures: No growth final pneumococcal and Legionella urinary antigens: Negative (2) Hypertension Code(s): I10 - Essential (primary) hypertension Status: Acute Plan: Stable Vasotec 1.25 mg q6h prn (not used since 12/24) Clonidine 0.1 mg scheduled every 8 hours, will need to wean as he is going to be an outpt. will place a patch so it weans itself prior to discharge Continue to monitor vital signs every 4 hours. (3) Renal hemorrhage, right Code(s): N28.89 - Other specified disorders of kidney and ureter Status: Acute Plan: History of renal cell carcinoma, right kidney with hemorrhage into the kidney, gross hematuria Associated with pain in back, neck, abdomen s/p renal embolization of R kidney on 12/26. Urology recommendations proceed with right radical nephrectomy as outpatient. CT: Right kidney hemorrhage and mass measuring 12.1 cm Patient complaining of new blood in urine on 01/01. This has mostly resolved today. Continues to be asymptomatic. -Last Hb on 01/01 8.3. He was transfused. He may continue to have some blood from that kidney indefinitely until it surgically removed. He may need transfusion again at some point. (4) Renal cell carcinoma Code(s): C64.9 - Malignant neoplasm of unspecified kidney, except renal pelvis Status: Acute Plan: Urology for right radical nephrectomy as outpatient Pain control: [place] 10/325 po scheduled q6h Dilaudid 4 mg p.o. every 4 as needed for breakthrough pain (5) IVDU (intravenous drug user) Code(s): F19.90 - Other psychoactive substance use, unspecified, uncomplicated Status: Chronic Plan: Signs of sepsis, IV drug user, bacteremia positive Echocardiogram: Normal -Follow-up HANNAH UDS: Positive opiates, positive cocaine Continue to monitor for signs of withdrawal Discuss with Case Management about outpatient help to keep him from using any further drugs. (6) Nutrition, metabolism, and development symptoms Code(s): R63.8 - Other symptoms and signs concerning food and fluid intake Status: Acute Plan: Fluids: tolerating p.o. Electrolytes: Monitor and replete as needed. Nutrition: Regular diet DVT ppx: SCDs only, hemorrhages contraindication to anticoagulation - Assessment and Plan 52 y/o M, IVDU with hx of Renal Cell Carcinoma, presents meeting SEPSIS criteria and is found to have lung consolidation now resolved, renal hemorrhage and gross hematuria, also resolved. Urology to do nephrectomy as an outpatient, ID continues to have strong suspicions of endocarditis. HANNAH scheduled for tomorrow afternoon. If positive, patient will require extra IV antibiotic treatment. If negative, patient will be discharged on p.o. medicine and will return as an outpatient for his procedure with urology. Currently on p.o. pain control. Case management working to arrange outpatient surgery. They cannot provide hotel accommodations or pain medicine (we can provide rx), but they can help with antibiotics. (1) Sepsis Qualifiers: Qualified Code(s): A41.01 - Sepsis due to Methicillin susceptible Staphylococcus aureus (2) Hypertension Qualifiers: Qualified Code(s): I10 - Essential (primary) hypertension
--- NOTE | 2018-01-04 10:16 | P.DS ---
<Aleja Carroll V - Last Filed: 01/04/18 13:26> Date of admission: 12/20/17 10:52 Primary care physician: No Primary Care Physician Brief History from admission: 52 y/o M, IVDU with hx of Renal Cell Carcinoma, presents meeting SEPSIS criteria and is found to have lung consolidation, renal hemorrhage and gross hematuria. Pt comes in because of no urination x 24 hours. The last time he urinated was yesterday morning and it was only a small amount. This has happened once before and he was admitted to the [facility] and left AMA. He has had decreased urination for about 3 months now. He has been having burning with urination and he thinks he had a UTI when he was at the hospital 1 month ago. He has not been experiencing any chills. He has been feeling increased fatigue, SOB - with productive black mucous starting 1 month ago. Patient complains of abdominal pain that is throbbing, he cannot characterize it well. He feels abdominal pain to light touch and also can feel the pain when he moves. His most severe pain is in his back between his scapula; he states the pain is so bad that he cannot sit up at all. He has had exquisite back pain 1 day. Denies any sick contacts. Denies CP. Denies any cough or shortness of breath. Denies any confusion or change in mental status. DS: Diagnosis - Discharge Diagnosis (1) Sepsis Status: Acute (2) Bacteremia Status: Deleted (3) Hypertension Status: Acute (4) Renal hemorrhage, right Status: Acute (5) Renal cell carcinoma Status: Acute (6) IVDU (intravenous drug user) Status: Chronic (7) Nutrition, metabolism, and development symptoms Status: Acute DS: Medications - Discharge Medications Prescriptions: baclofen 5 mg PO Q8HR #21 tab baclofen 5 mg PO BID #21 tab ferrous sulfate [FeroSul] 325 mg PO BID 30 Days #60 tab hydrocodone-acetaminophen 1 tab PO Q6-12H #18 tab DS: Summary Hospital Course: Mr Ho is a 52 yr old male with PMH of Renal Cell Carcinoma, IV drug use ( heroin), whom presented to the ED on 12/20 with abdominal pain, blood on his urine , and difficulty urinating. He was found to be septic, due to elevated WBC, fever, and consolidation on x-ray. Pt placed on Zosyn and vancomycin. * CT abdomen also confirmed RCC of his R kidney. Urology and Interventional Radiology where consulted due to bleeding. He underwent an embolization of R renal artery on 12/26. Pt tolerated procedure well, bleeding resolved until 01/01, when patient complaint of bright red urine. Pt was found to be anemic and transfused 2 units of pRBC. Urology will perform a Nephrectomy as an outpatient once pt completes antibiotic cycle (see below). * During this hospitalization, Pt was also found to have 4 positive blood cultures with MS Staph aureus, with high suspicious of IV drug use being the source. Infectious Disease team was consulted, whom changed antibiotics to Oxacillin. High suspicious for endocarditis, ruled out by negative echocardiogram and negative HANNAH. * Pt discharged on 01/04/19 with instructions to go to infusion center to receive daily IV antibiotics of Ceftriaxone 2gr until January 26 via a PICC line. * Pt will follow up schedule outpatient surgery for his Nephrectomy once completed antibiotic cycle. - Time Spent with Patient Total time spent providing and/or coordinating discharge services: Less than 30 minutes Exam Vital signs: Vital Signs 01/03/18 11:51 01/03/18 12:00 01/03/18 16:00 Temperature 97.8 F 98.1 F Pulse Rate 47 L 46 L Respiratory Rate 7 L 19 18 Blood Pressure 145/88 H 152/87 H Pulse Oximetry 100 100 01/03/18 20:15 01/04/18 00:14 01/04/18 04:01 Temperature 97.2 F L 97.5 F L 97.8 F Pulse Rate 58 L 52 L 53 L Respiratory Rate 17 17 18 Blood Pressure 111/63 127/71 131/81 Pulse Oximetry 96 97 96 01/04/18 08:00 Temperature 97.9 F Pulse Rate 55 L Respiratory Rate 18 Blood Pressure 131/75 Pulse Oximetry 99 Intake & Output 01/03/18 01/04/18 01/04/18 18:59 06:59 18:59 Intake Total 440 / 440 1080 / 1080 100 / 100 Output Total 1600 / 1600 1500 / 1500 Balance -1160 / -1160 -420 / -420 100 / 100 Weight 90.5 kg 81 kg Intake: IV 100 / 100 300 / 300 100 / 100 Prostaphlin Inj 2 GM In NS Inj 100 / 100 300 / 300 100 / 100 100 ML @ 200 mls/hr IV.SIG Q4H [facility] Rx#:[id number] Oral 340 / 340 780 / 780 Output: Urine 1600 / 1600 1500 / 1500 Other: # Bowel Movements 1 Narrative: GENERAL: Well-nourished, well-developed patient. In NAD SKIN: Warm and dry. CARDIOVASCULAR: Regular rate and rhythm without murmurs, gallops, or rubs. RESPIRATORY: Breath sounds equal bilaterally. No accessory muscle use. ABDOMEN/GI: Abdomen soft, non-tender, bowel sounds present, no rebound, no guarding EXTREMITIES: No cyanosis or edema. PICC line placed on RUE - no erythema or sign of infection. NEUROLOGICAL: Awake and alert. Motor and sensory grossly within normal limits.Normal speech. Results Procedures completed during hospitalization: R renal artery embolization Echocardiogram HANNAH Labs on day of discharge: Labs from last 24 hours 01/04/18 01/04/18 01/03/18 06:00 06:00 11:01 WBC 9.7 RBC 3.54 L Hgb 10.1 L Hct 30.0 L MCV 84.8 MCH 28.5 MCHC 33.6 RDW 15.5 Plt Count 537 H MPV 7.5 Neut % (Auto) 67.1 Lymph % (Auto) 18.4 [place] % (Auto) 8.3 H Eos % (Auto) 4.5 H Baso % (Auto) 1.7 Neut # (Auto) 6.5 Lymph # (Auto) 1.8 [place] # (Auto) 0.8 Eos # (Auto) 0.4 Baso # (Auto) 0.2 WBC Differential . Differential Comment Auto diff final Sodium 141 140 Potassium 3.8 4.3 Chloride 107 106 Carbon Dioxide 25.9 28.5 Anion Gap 8 6 BUN 19 H 12 Creatinine 1.11 0.95 Estimated GFR 70 L 84 L Random Glucose 88 77 Calcium 8.6 9.0 Total Bilirubin 0.2 0.4 AST 49 H 44 H ALT 42 39 Alkaline Phosphatase 53 51 Total Protein 7.8 D 8.4 H Albumin 2.1 L 2.2 L 01/03/18 11:01 WBC 9.1 RBC 3.88 L Hgb 10.8 L Hct 33.1 L MCV 85.4 MCH 27.9 MCHC 32.6 RDW 15.4 Plt Count 570 H MPV 7.4 Neut % (Auto) 66.3 Lymph % (Auto) 20.1 [place] % (Auto) 8.2 H Eos % (Auto) 4.0 Baso % (Auto) 1.4 Neut # (Auto) 6.0 Lymph # (Auto) 1.8 [place]arro # (Auto) 0.7 Eos # (Auto) 0.4 Baso # (Auto) 0.1 WBC Differential . Differential Comment Auto diff final Sodium Potassium Chloride Carbon Dioxide Anion Gap BUN Creatinine Estimated GFR Random Glucose Calcium Total Bilirubin AST ALT Alkaline Phosphatase Total Protein Albumin - Impressions ITS Impressions Head CT 12/20/17 00:00 CONCLUSION: Negative CT Head non contrast. . Thoracic Aorta CT 12/22/17 00:00 CONCLUSION: 1. Normal CTA of the thoracic and abdominal aorta. 2. Greater than 12 cm right renal mass derives its blood supply from the right renal artery. Chest X-Ray 12/22/17 03:12 CONCLUSION: Small infiltrate in the lingula without consolidation. Renal Arteriogram 12/26/17 00:00 CONCLUSION: 1. Patient has a main right with 2 accessory renal arteries. The upper pole accessory appears to supply a normal upper pole cortex. 2. The lower pole accessory appear to supply the normal lower pole with 2 branch vessels showing tumoral vascularity. The 2 branch vessels were subselected and embolized as described above. 3. Main right renal artery shows extensive tumoral vascularity. The entire vessel was embolized with a series of PVA particles, Gelfoam and coils as detailed above. Chest CT 12/28/17 00:00 CONCLUSION: 1. Minimal bibasilar consolidation. 2. Tiny bilateral pleural effusions. 3. No masses are seen. Abdomen/Pelvis CT 12/28/17 14:33 CONCLUSION: 1. Status post embolization of the right kidney without significant change compared to the prior examination. No free fluid or loculated fluid collections are seen in the abdomen. 2. Bibasilar atelectasis. 3. Nonspecific edema throughout the body wall suggestive of anasarca. 4. Residual contrast versus stone in the base of the urinary bladder. <Amber Navarrete - Last Filed: 01/06/18 12:16> Date of admission: 12/20/17 10:52 Primary care physician: No Primary Care Physician DS: Diagnosis - Discharge Diagnosis (1) Sepsis Status: Acute (2) Hypertension Status: Acute (3) Renal hemorrhage, right Status: Acute (4) Renal cell carcinoma Status: Acute (5) IVDU (intravenous drug user) Status: Chronic (6) Nutrition, metabolism, and development symptoms Status: Acute DS: Summary - Time Spent with Patient Total time spent providing and/or coordinating discharge services: Results - Impressions ITS Impressions Head CT 12/20/17 00:00 CONCLUSION: Negative CT Head non contrast. . Thoracic Aorta CT 12/22/17 00:00 CONCLUSION: 1. Normal CTA of the thoracic and abdominal aorta. 2. Greater than 12 cm right renal mass derives its blood supply from the right renal artery. Chest X-Ray 12/22/17 03:12 CONCLUSION: Small infiltrate in the lingula without consolidation. Renal Arteriogram 12/26/17 00:00 CONCLUSION: 1. Patient has a main right with 2 accessory renal arteries. The upper pole accessory appears to supply a normal upper pole cortex. 2. The lower pole accessory appear to supply the normal lower pole with 2 branch vessels showing tumoral vascularity. The 2 branch vessels were subselected and embolized as described above. 3. Main right renal artery shows extensive tumoral vascularity. The entire vessel was embolized with a series of PVA particles, Gelfoam and coils as detailed above. Chest CT 12/28/17 00:00 CONCLUSION: 1. Minimal bibasilar consolidation. 2. Tiny bilateral pleural effusions. 3. No masses are seen. Abdomen/Pelvis CT 12/28/17 14:33 CONCLUSION: 1. Status post embolization of the right kidney without significant change compared to the prior examination. No free fluid or loculated fluid collections are seen in the abdomen. 2. Bibasilar atelectasis. 3. Nonspecific edema throughout the body wall suggestive of anasarca. 4. Residual contrast versus stone in the base of the urinary bladder. Attestation Attestation: The exam, history, and the medical decision-making described in the above note were completed with the assistance of the resident physician. I reviewed and agree with the findings presented. I attest that I had a [id number] encounter with the patient on the same day, and personally performed and documented my assessment and findings in the medical record. Mr. Hinojosa is a difficult case because he does have a large renal cell carcinoma however he has used heroin in the past. He has had significant pain due to his cancer as well as infarction of part of the kidney and the bleeding. Based on all of these problems even though he has used heroin on occasion I did give him 18 of his Fin[place] pills as he will not be returning to the hospital for definitive surgery to remove his kidney for about a month. He will be given a clonidine patch to help him wean down on his clonidine but he has been taking p.o. in the hospital if you leave the patch on it leans itself. He also has been getting baclofen on a regular basis so will give him a tapering dose of that. He is very happy to be leaving the hospital and knows how important it is to continue getting his antibiotics and has bus passes and the directions and everything else to get back to the infusion center. Discharge Plan - Discharge Order Discharge Orders: Discharge Order (Routine); Ordered 01/04/18 Ordered By: Aleja Spann - Physicians Team Primary Care Provider: Primary Care Jerri Soliman Attending Provider: Amber Navarrete Other Providers: Johnny Fung DO ; Garett Marroquin MD ; Sherry Martino MD ; Johana Oswald MD
[2018-01-04 20:30] VITALS: BP 165/93; PULSE 58; TEMP 97.4; O2SAT 97
== END 2018-01-04 20:51 | disposition home or self-care (01) ==
LOC: NEPE 07:29 → NEDA 10:52 → N07 14:35
PROVIDERS: ADMIT Family Medicine; ATTEND Family Medicine

== ENCOUNTER 2018-01-10 20:17 | Observation (INO) ==
[2018-01-10 21:46] LABS: Baso # (Auto) 0.2 th/mm3 (0.0-0.2); Baso % (Auto) 1.9 % (0.0-2.0); Eos # (Auto) 0.8 th/mm3 (0.0-0.4); Eos % (Auto) 9.7 % (0.0-4.0); Hematocrit 30.4 % (39.0-51.0); Hemoglobin 10.3 gm/dL (13.0-17.0); Lymph # (Auto) 2.3 th/mm3 (1.0-4.8); Lymph % (Auto) 29.4 % (9.0-44.0); Mean Corpuscular HGB Conc 33.8 % (32.0-36.0); Mean Corpuscular Hemoglobin 28.4 pg (27.0-34.0); Mean Corpuscular Volume 84.2 fL (80.0-100.0); Mean Platelet Volume 7.7 fL (7.0-11.0); Mono # (Auto) 0.8 th/mm3 (0.0-0.9); Neut # (Auto) 3.9 th/mm3 (1.8-7.7); Platelet Count 383 th/mm3 (150-450); Red Blood Count 3.62 mil/mm3 (4.50-5.90); Red Cell Distribution Width 15.9 % (11.6-17.2); White Blood Count 7.9 th/mm3 (4.0-11.0)
--- NOTE | 2018-01-10 21:46 | XR ---
EXAM DATE: 01/10/2018 9:44 PM EDT AGE/SEX: 52 years / Male INDICATIONS: Midline chest pain. CLINICAL DATA: This is the patient's initial encounter. Patient reports that signs and symptoms have been present for 1 day and indicates a pain score of 4/10. MEDICAL/SURGICAL HISTORY: None. None. [place] [facility] [place]. . FINDINGS: A single AP view of the chest demonstrates the lungs to be symmetrically aerated without evidence of mass, infiltrate or effusion. Interval resolution of the infiltrate in the lingula. The cardiomedias tinal contours are unremarkable. Osseous structures are intact. CONCLUSION: The lungs are clear. Electronically signed by: Kenton Frankel MD 01/10/2018 9:45 PM EDT
[2018-01-10 22:09] LABS: Anion Gap 7 meq/L (5-15); Blood Urea Nitrogen 18 mg/dL (7-18); Calcium 8.8 mg/dL (8.5-10.1); Carbon Dioxide 25.8 meq/L (21.0-32.0); Chloride 108 meq/L (98-107); Glomerular Filtration Rate Greater Than 89 mL/min (>89); Glucose,Random 88 mg/dL (74-106); Lipase 455 U/L (73-393); Potassium 3.7 meq/L (3.5-5.1); Sodium 141 meq/L (136-145)
[2018-01-10 22:12] LABS: Activated Partial Thrombo Time 27.1 sec (24.3-30.1); INR 1.1 Ratio; Prothrombin Time 10.8 sec (9.8-11.6)
[2018-01-10 22:15] LABS: Magnesium 1.8 mg/dL (1.5-2.5)
[2018-01-10] MEDS ORDERED: Acetaminophen 325 MG Tablet PO ONE (22:17)
[2018-01-10] MEDS ORDERED: HYDROmorphone PF Inj 4 MG/ML Ampul IV.PUSH ONE (23:11)
[2018-01-10] MEDS ORDERED: Sodium Chlor 0.9% Inj 500 ML IV.SIG SCH (23:45)
[2018-01-11 00:02] LABS: Amphetamine Screen,Urine Pos (Neg); Barbiturate Screen,Urine Neg (Neg); Cannabinoid Screen,Urine Neg (Neg); Cocaine Screen,Urine Neg (Neg); Opiate Screen,Urine Pos (Neg)
--- NOTE | 2018-01-11 01:41 | ED ---
HPI General Chief Complaint: Chest Pain Stated Complaint: chest pain Time Seen by Provider: 01/10/18 20:39 Source: patient Mode of arrival: ambulatory Limitations: no limitations History of Present Illness MD complaint: chest pain Complete Quality Measures for STEMI Alert Patients STEMI Alert: No Onset (ago): hour(s) Duration: constant Onset: during rest Pain location: substernal Severity: moderate Quality: tightness and aching Pain radiation: LUE Relieving factors: nothing Exacerbating factors: nothing Context: recent illness Treatments prior to arrival chest pain: none Related Data Home Medications Medication Instructions Recorded Confirmed ceftriaxone 2 gm IV DAILY 01/05/18 01/10/18 baclofen 5 mg PO BID 01/10/18 01/10/18 Previous Rx's Medication Instructions Recorded ferrous sulfate [FeroSul] 325 mg PO BID 30 Days #60 tab 01/04/18 hydrocodone-acetaminophen 1 tab PO Q6-12H #18 tab 01/04/18 Allergies Allergy/AdvReac Type Severity Reaction Status Date / Time codeine Allergy Mild Itching Verified 01/10/18 09:21 iodine Allergy Unknown unknown Verified 01/10/18 09:21 potassium iodide Allergy Unknown unknown Verified 01/10/18 09:21 povidone-iodine Allergy Unknown unknown Verified 01/10/18 09:21 sodium iodide Allergy Unknown unknown Verified 01/10/18 09:21 sodium iodide Allergy Unknown unknown Verified 01/10/18 09:21 Review of Systems ROS: all other systems reviewed are negative [facility] Medical History Medical History Ankle fracture, right (Acute) Heroin abuse (Acute) Kidney malignancy (Acute) Kidney mass (Acute) Social History Social History Substance History: Active Abuse and Past History Second Hand Smoke Exposure: Yes Smoking Status: Current every day smoker Tobacco Type: Cigarettes How Often Do You Have a Drink Containing Alcohol: Never Recent Travel in [place] within the Last 8 Weeks: No Recent Out of Country Travel within the Last 8 Weeks: No Substance Abuse Detail Heroin: Substance Use Status: Early Remission Route Used Substance Abuse: Intravenously Substance Abuse Comment: Pt states he hasn't used any substances in a month Reason for Use: Get High Immunization History Tetanus Immunization: <5 Years Hx Influenza Vaccine This Season: No Exam Narrative Exam Narrative: GENERAL: Well-nourished, well-developed patient. SKIN: Focused skin assessment warm/dry. HEAD: Normocephalic. EYES: No scleral icterus. No injection or drainage. NECK: Supple, trachea midline. No JVD or lymphadenopathy. CARDIOVASCULAR: Regular rate and rhythm without murmurs, gallops, or rubs. RESPIRATORY: Breath sounds equal bilaterally. No accessory muscle use. GASTROINTESTINAL: Abdomen soft, non-tender, nondistended. MUSCULOSKELETAL: No cyanosis, or edema. BACK: Nontender without obvious deformity. No CVA tenderness. Course Initial Documented Vital Signs Temperature 97.9 F 01/10/18 20:25 Pulse Rate 74 01/10/18 20:25 Respiratory Rate 22 01/10/18 20:25 Blood Pressure 196/116 H 01/10/18 20:25 Pulse Oximetry 100 01/10/18 20:25 Last Documented Vital Signs Temperature 97.9 F 01/10/18 20:25 Pulse Rate 60 01/10/18 21:55 Respiratory Rate 13 01/10/18 21:55 Blood Pressure 144/89 H 01/10/18 21:55 Pulse Oximetry 98 01/10/18 21:55 Medical Decision Making MDM Narrative Medical decision making narrative: 52-year-old male with known recent admission for MSSA sepsis renal carcinoma with hemorrhage status post embolectomy negative echo for vegetations for endocarditis, receiving outpatient ceftriaxone 2 g IV piggyback via PICC line through infusion center daily since to be extended through 01/26/18 and then to undergo nephrectomy by surgery. Resents with retrosternal subxiphoid chest pain with discomfort to the left axilla since 10 AM. No pleuritic chest pain no shortness of breath no nausea no vomiting some sweats. Patient denies substance use. IV access obtained specimens collected and sent for resulting patient placed on nuclear monitoring technician with continuous pulse oximetry aspirin and sublingual nitroglycerin administered. Some improvement of chest discomfort after sublingual nitroglycerin although complains of headache after nitroglycerin. Patient administered acetaminophen. Troponin I less than 0.02, not elevated and urine drug screen positive for amphetamines. Patient's case discussed with [facility] for admission Medical Screen Exam Complete: Yes Emergency Medical Condition: Yes Differential Diagnosis Differential Diagnosis: Chest pain, atypical chest pain, ACS, NC, PE, pneumonia , polysubstance ingestion, gastritis, Medical Records Medical records reviewed: Yes I reviewed the patient's medical records. Lab Data Lab results reviewed: Yes I reviewed the patient's lab results. Result diagrams: 01/10/18 21:20 01/10/18 21:20 Lab Results 01/10/18 01/10/18 01/10/18 Range/Units 21:20 21:20 21:20 WBC 7.9 (4.0-11.0) th/mm3 RBC 3.62 L (4.50-5.90) mil/mm3 Hgb 10.3 L (13.0-17.0) gm/dL Hct 30.4 L (39.0-51.0) % MCV 84.2 (80.0-100.0) fL MCH 28.4 (27.0-34.0) pg MCHC 33.8 (32.0-36.0) % RDW 15.9 (11.6-17.2) % Plt Count 383 (150-450) th/mm3 MPV 7.7 (7.0-11.0) fL Neut % (Auto) 49.0 (16.0-70.0) % Lymph % (Auto) 29.4 (9.0-44.0) % [place] % (Auto) 10.0 H (0.0-8.0) % Eos % (Auto) 9.7 H (0.0-4.0) % Baso % (Auto) 1.9 (0.0-2.0) % Neut # (Auto) 3.9 (1.8-7.7) th/mm3 Lymph # (Auto) 2.3 (1.0-4.8) th/mm3 [place] # (Auto) 0.8 (0.0-0.9) th/mm3 Eos # (Auto) 0.8 H (0.0-0.4) th/mm3 Baso # (Auto) 0.2 (0.0-0.2) th/mm3 WBC Differential . Differential Comment Auto diff final PT 10.8 (9.8-11.6) sec INR 1.1 Ratio APTT 27.1 (24.3-30.1) sec Sodium 141 (136-145) meq/L Potassium 3.7 (3.5-5.1) meq/L Chloride 108 H (98-107) meq/L Carbon Dioxide 25.8 (21.0-32.0) meq/L Anion Gap 7 (5-15) meq/L BUN 18 (7-18) mg/dL Creatinine 0.89 (0.60-1.30) mg/dL Estimated GFR Greater than 89 (>89) mL/min Random Glucose 88 (74-106) mg/dL Calcium 8.8 (8.5-10.1) mg/dL Magnesium (1.5-2.5) mg/dL Total Creatine Kinase (39-308) U/L Troponin I Less than 0.02 L (0.02-0.05) ng/mL Lipase 455 H (73-393) U/L Urine Opiates Screen (Neg) Ur Barbiturates Screen (Neg) Ur Amphetamines Screen (Neg) U Benzodiazepines Scrn (Neg) Urine Cocaine Screen (Neg) U Cannabinoids Screen (Neg) Serum Alcohol Less than 3 (0-5) mg/dL 01/10/18 01/10/18 Range/Units 21:20 23:40 WBC (4.0-11.0) th/mm3 RBC (4.50-5.90) mil/mm3 Hgb (13.0-17.0) gm/dL Hct (39.0-51.0) % MCV (80.0-100.0) fL MCH (27.0-34.0) pg MCHC (32.0-36.0) % RDW (11.6-17.2) % Plt Count (150-450) th/mm3 MPV (7.0-11.0) fL Neut % (Auto) (16.0-70.0) % Lymph % (Auto) (9.0-44.0) % [place] % (Auto) (0.0-8.0) % Eos % (Auto) (0.0-4.0) % Baso % (Auto) (0.0-2.0) % Neut # (Auto) (1.8-7.7) th/mm3 Lymph # (Auto) (1.0-4.8) th/mm3 [place] # (Auto) (0.0-0.9) th/mm3 Eos # (Auto) (0.0-0.4) th/mm3 Baso # (Auto) (0.0-0.2) th/mm3 WBC Differential Differential Comment PT (9.8-11.6) sec INR Ratio APTT (24.3-30.1) sec Sodium (136-145) meq/L Potassium (3.5-5.1) meq/L Chloride (98-107) meq/L Carbon Dioxide (21.0-32.0) meq/L Anion Gap (5-15) meq/L BUN (7-18) mg/dL Creatinine (0.60-1.30) mg/dL Estimated GFR (>89) mL/min Random Glucose (74-106) mg/dL Calcium (8.5-10.1) mg/dL Magnesium 1.8 (1.5-2.5) mg/dL Total Creatine Kinase 41 (39-308) U/L Troponin I (0.02-0.05) ng/mL Lipase (73-393) U/L Urine Opiates Screen Pos H (Neg) Ur Barbiturates Screen Neg (Neg) Ur Amphetamines Screen Pos H (Neg) U Benzodiazepines Scrn Neg (Neg) Urine Cocaine Screen Neg (Neg) U Cannabinoids Screen Neg (Neg) Serum Alcohol (0-5) mg/dL Imaging Data Radiologist's impression: Chest X-Ray 01/10/18 20:39 CONCLUSION: The lungs are clear. ECG Data Interpretation: EKG: Normal sinus rhythm rate [address] elevation injury pattern or ectopy noted Discharge Plan Discharge Disposition Patient Disposition: 30 Still Patient Discharge Condition Condition: Stable Discharge Details Diagnosis: Chest pain, IVDU (intravenous drug user) Physicians Team ED Provider: Janae Bosch Primary Care Provider: UNKNOWN, Rxs /Orders / Referrals /Forms Prescriptions: No Action hydrocodone-acetaminophen 10-325 mg Tablet 1 tab PO Q6-12H Qty: 18 RF: 0 ferrous sulfate [FeroSul] 325 mg (65 mg iron) Tablet 325 mg PO BID 30 Days Qty: 60 RF: 2 baclofen 10 mg Tablet 5 mg PO BID RF: 0 ceftriaxone 2 gm IV DAILY RF: 0 Discharge Instructions Patient Printed Instructions: Chest Pain (ED) Status ED Status: With Doctor
[2018-01-11] MEDS ORDERED: Acetaminophen 325 MG Tablet PO PRN (03:25)
[2018-01-11] MEDS ORDERED: Bisacodyl 10 MG Supp RECTAL PRN (03:25)
[2018-01-11] MEDS: Sod Chloride 0.9% Inj 1,000 ML IV.CONT SCH ×2 (04:40→18:55)
[2018-01-11 05:26] LABS: Creatine Kinase 93 U/L (39-308)
--- NOTE | 2018-01-11 06:03 | P.HP ---
History of Present Illness Service: [facility] Primary Care Physician: UNKNOWN History of Present Illness: 52-year-old male with a past medical history significant for a history of IV drug abuse, recent treatment of presumptive endocarditis with daily infusions of Rocephin and renal cell carcinoma status post embolization of the right renal artery on 12/26/17 secondary to bleeding presented to the emergency department for the evaluation of chest pain. The patient reports that he has not used IV drugs in more than 30 days. He denies any fevers/chills. He states that he had new onset chest pain earlier yesterday that has since resolved. Initial troponin negative. EKG without signs of ischemia. No abdominal pain. No nausea/vomiting/diarrhea. No associated shortness of breath or diaphoresis. Review of Systems All other systems reviewed negative except as stated in HPI PMFSH - History History Provided By: Patient - Medical / Surgical Hx Neg / Unobtainable Surgical History: No Previous Surgery - Medical History Medical History: Medical History (Last Reviewed 01/11/18 @ 01:36 by Janae Bosch MD) Ankle fracture, right Heroin abuse Kidney malignancy Kidney mass - Family History Family History: Family History (Last Updated 01/11/18 @ 05:55 by Cielo Lisa MD) Other Family history normal - Tobacco History Second Hand Smoke Exposure: Yes Tobacco Use In Past 30 Days: Yes Smoking Status: Current every day smoker Tobacco Type: Cigarettes - Alcohol History How Often Do You Have a Drink Containing Alcohol: Never - Substance Use History Substance History: Active Abuse, Past History - Substance Use Type Heroin Status: Early Remission Route Used: Intravenously Reason for Use: Get High Comment: Pt states he hasn't used any substances in a month - Travel History Recent Travel in the [facility] [email or web address]] Within the Last 8 Weeks: No Recent Travel Out of the Country Within the Last 8 Weeks: No - Immunization History Tetanus Immunization: <5 Years Hx Influenza Vaccine This Season: No Medications and Allergies Active Medications: Active Medications Acetaminophen (Tylenol) 650 mg PO Q4H PRN PRN Reason: Temp > 100.4 Al Hydroxide/Mg Hydroxide (Milk Of Magnesia Liq) 30 ml PO Q12H PRN PRN Reason: Mild Constipation Bisacodyl (Dulcolax Supp) 10 mg RECTAL DAILY PRN PRN Reason: SEVERE CONSITIPATION Sodium Chloride (Ns Inj) 500 mls @ 0 mls/hr IV.SIG BOLUS YRN Sodium Chloride (Ns Inj) 1,000 mls @ 100 mls/hr IV.CONT .Q10H YRN Last Admin: 01/11/18 04:40 Dose: 100 mls/hr Ceftriaxone Sodium 2,000 mg/ (Sodium Chloride) 100 mls @ 100 mls/hr IV.SIG DAILY YRN Lactulose (Lactulose Liq) 30 ml PO DAILY PRN PRN Reason: SEVERE CONSITIPATION Ondansetron HCl (Zofran Inj) 4 mg IV.PUSH Q6H PRN PRN Reason: NAUSEA OR VOMITING Senna/Docusate Sodium (Eva-Colace) 1 tab PO BID YRN Sennosides (Senokot) 17.2 mg PO Q12H PRN PRN Reason: Moderate Constipation Sodium Chloride (Ns Flush) 2 ml IV.FLUSH UNSCH PRN PRN Reason: FLUSH AFTER USING IV ACCESS Allergies Allergy/AdvReac Type Severity Reaction Status Date / Time codeine Allergy Mild Itching Verified 01/10/18 09:21 iodine Allergy Unknown unknown Verified 01/10/18 09:21 potassium iodide Allergy Unknown unknown Verified 01/10/18 09:21 povidone-iodine Allergy Unknown unknown Verified 01/10/18 09:21 sodium iodide Allergy Unknown unknown Verified 01/10/18 09:21 sodium iodide Allergy Unknown unknown Verified 01/10/18 09:21 Home Medications Medication Instructions Recorded Confirmed Type ceftriaxone 2 gm IV DAILY 01/05/18 01/10/18 History baclofen 5 mg PO BID 01/10/18 01/10/18 History Exam Vital signs: Vital Signs 01/10/18 20:25 01/10/18 21:32 01/10/18 21:35 Temperature 97.9 F Pulse Rate 74 65 64 Respiratory Rate 22 14 15 Blood Pressure 196/116 H 165/92 H 148/89 H Pulse Oximetry 100 98 99 01/10/18 21:40 01/10/18 21:45 01/10/18 21:50 Temperature Pulse Rate 60 73 63 Respiratory Rate 15 13 13 Blood Pressure 148/90 H 141/88 H 150/90 H Pulse Oximetry 98 98 99 01/10/18 21:55 01/10/18 22:00 01/11/18 03:05 Temperature Pulse Rate 60 60 58 L Respiratory Rate 13 13 13 Blood Pressure 144/89 H 141/88 H 172/89 H Pulse Oximetry 98 98 100 01/11/18 04:16 01/11/18 04:50 Temperature Pulse Rate 55 L Respiratory Rate 12 13 Blood Pressure 159/84 H Pulse Oximetry 98 Intake & Output 01/10/18 01/10/18 01/11/18 06:59 18:59 06:59 Weight 90.718 kg Narrative: Gen.: No acute distress Head: Normocephalic. Atraumatic. EENT: Pupils equal round and reactive to light. Nose without drainage. Airway intact. Throat without injection. Cardiovascular: Regular rate and rhythm. No murmurs, rubs or gallops. Respiratory: Lungs clear to auscultation bilaterally. No wheezes or rhonchi. Abdomen: Soft, nontender, nondistended. No peritoneal signs. Musculoskeletal: No gross deformities. No edema. Skin: No obvious rashes or erythema. PICC line in place in right upper extremity, no signs of infection. Neuro: Sensory and motor grossly intact. Cranial nerves II through XII grossly intact. Results - Labs CBC & Chem 7: 01/10/18 21:20 01/10/18 21:20 Labs: Laboratory Results - last 24 hr 01/10/18 01/10/18 01/10/18 21:20 21:20 21:20 WBC 7.9 RBC 3.62 L Hgb 10.3 L Hct 30.4 L MCV 84.2 MCH 28.4 MCHC 33.8 RDW 15.9 Plt Count 383 MPV 7.7 Neut % (Auto) 49.0 Lymph % (Auto) 29.4 [place] % (Auto) 10.0 H Eos % (Auto) 9.7 H Baso % (Auto) 1.9 Neut # (Auto) 3.9 Lymph # (Auto) 2.3 [place] # (Auto) 0.8 Eos # (Auto) 0.8 H Baso # (Auto) 0.2 WBC Differential . Differential Comment Auto diff final PT 10.8 INR 1.1 APTT 27.1 Sodium 141 Potassium 3.7 Chloride 108 H Carbon Dioxide 25.8 Anion Gap 7 BUN 18 Creatinine 0.89 Estimated GFR Greater than 89 Random Glucose 88 Calcium 8.8 Magnesium Total Creatine Kinase Troponin I Less than 0.02 L Lipase 455 H Urine Opiates Screen Ur Barbiturates Screen Ur Amphetamines Screen U Benzodiazepines Scrn Urine Cocaine Screen U Cannabinoids Screen Serum Alcohol Less than 3 01/10/18 01/10/18 01/11/18 21:20 23:40 04:35 WBC RBC Hgb Hct MCV MCH MCHC RDW Plt Count MPV Neut % (Auto) Lymph % (Auto) [place] % (Auto) Eos % (Auto) Baso % (Auto) Neut # (Auto) Lymph # (Auto) [place] # (Auto) Eos # (Auto) Baso # (Auto) WBC Differential Differential Comment PT INR APTT Sodium Potassium Chloride Carbon Dioxide Anion Gap BUN Creatinine Estimated GFR Random Glucose Calcium Magnesium 1.8 Total Creatine Kinase 41 93 Troponin I Less than 0.02 L Lipase Urine Opiates Screen Pos H Ur Barbiturates Screen Neg Ur Amphetamines Screen Pos H U Benzodiazepines Scrn Neg Urine Cocaine Screen Neg U Cannabinoids Screen Neg Serum Alcohol - Imaging Impressions Chest X-Ray 01/10/18 20:39 CONCLUSION: The lungs are clear. Caprini VTE Risk Assessment Caprini VTE Risk Assessment: No/Low Risk (score <= 1) Caprini Risk Assessment Model: Point Value = 1 Point Value = 2 Point Value = 3 Point Value = 5 Age 41-60 Minor surgery BMI > 25 kg/m2 Swollen legs Varicose veins or History of unexplained or recurrent spontaneous Oral contraceptives or hormone replacement Sepsis (< 1 month) Serious lung disease, including pneumonia (< 1 month) Abnormal pulmonary function Acute myocardial infarction Congestive heart failure (< 1 month) History of inflammatory bowel disease Medical patient at bed rest Age 61-74 Arthroscopic surgery Major open surgery (> 45 min) Laparoscopic surgery (> 45 min) Malignancy Confined to bed (> 72 hours) Immobilizing plaster cast Central venous access Age >= 75 History of VTE Family history of VTE Factor V Leiden Prothrombin [id number] Lupus anticoagulant Anticardiolipin antibodies Elevated serum homocysteine Heparin-induced thrombocytopenia Other congenital or acquired thrombophilia Stroke (< 1 month) Elective arthroplasty Hip, pelvis, or leg fracture Acute spinal cord injury (< 1 month) Prophylaxis Regimen: Total Risk Factor Score Risk Level Prophylaxis Regimen 0-1 Low Early ambulation 2 Moderate Order ONE of the following: *Sequential Compression Device (SCD) *Heparin 5000 units SQ BID 3-4 Higher Order ONE of the following medications: *Heparin 5000 units SQ TID *Enoxaparin/Lovenox 40 mg SQ daily (WT < 150 kg, CrCl > 30 mL/min) *Enoxaparin/Lovenox 30 mg SQ daily (WT < 150 kg, CrCl > 10-29 mL/min) *Enoxaparin/Lovenox 30 mg SQ BID (WT < 150 kg, CrCl > 30 mL/min) AND/OR *Sequential Compression Device (SCD) 5 or more Highest Order ONE of the following medications: *Heparin 5000 units SQ TID (Preferred with Epidurals) *Enoxaparin/Lovenox 40 mg SQ daily (WT < 150 kg, CrCl > 30 mL/min) *Enoxaparin/Lovenox 30 mg SQ daily (WT < 150 kg, CrCl > 10-29 mL/min) *Enoxaparin/Lovenox 30 mg SQ BID (WT < 150 kg, CrCl > 30 mL/min) AND *Sequential Compression Device (SCD) Assessment and Plan - Plan Assessment/plan: 1. Chest pain Initial troponin negative 2 EKG signs of ischemia, personally reviewed ACS rule out pending; serial troponins/EKGs 2. Treatment for endocarditis With positive blood cultures on previous admission Echo without vegetations however given patient's history of IV drug abuse and positive blood cultures he is placed on endocarditis treatment with Rocephin 2 g daily. The infusion center to be completed on 01/26/18 Continue Rocephin 3. Renal cell carcinoma Patient evaluated by neurology during previous hospitalization He will follow-up as an outpatient to schedule surgery for his nephrectomy once he has completed his antibiotic cycle 4. History of IV drug abuse Patient reports no IV drug use for more than 30 days Cessation counseling provided FEN N.p.o. Electrolytes: Monitor and replete as needed NS at 100 cc/hour
--- NOTE | 2018-01-11 08:47 | P.PN ---
Subjective Interval history: no complains of chest pain have right sided flank/abdominal pain - per patient chronic from [facility] no nausea or vomiting, denies any reflux symptoms no change in bowel habits "starving and wanting to eat" d/w him elevated lipase denies any alcohol use or any substance abuse- "clean" no fever + flatus Physical Exam Vital signs: Vital Signs 01/10/18 20:25 01/10/18 21:32 01/10/18 21:35 Temperature 97.9 F Pulse Rate 74 65 64 Respiratory Rate 22 14 15 Blood Pressure 196/116 H 165/92 H 148/89 H Pulse Oximetry 100 98 99 01/10/18 21:40 01/10/18 21:45 01/10/18 21:50 Temperature Pulse Rate 60 73 63 Respiratory Rate 15 13 13 Blood Pressure 148/90 H 141/88 H 150/90 H Pulse Oximetry 98 98 99 01/10/18 21:55 01/10/18 22:00 01/11/18 03:05 Temperature Pulse Rate 60 60 58 L Respiratory Rate 13 13 13 Blood Pressure 144/89 H 141/88 H 172/89 H Pulse Oximetry 98 98 100 01/11/18 04:16 01/11/18 04:50 01/11/18 05:52 Temperature 97.7 F Pulse Rate 55 L 56 L Respiratory Rate 12 13 19 Blood Pressure 159/84 H 188/95 H Pulse Oximetry 98 97 01/11/18 08:00 Temperature 97.4 F L Pulse Rate 56 L Respiratory Rate 16 Blood Pressure 173/103 H Pulse Oximetry 98 Intake & Output 01/10/18 01/11/18 01/11/18 18:59 06:59 18:59 Weight 75.3 kg Other: Date of Last Bowel Movement 01/10/18 Narrative: awake and alert, oriented x 3 anicteric lungs- no rales regular rhythm abdomen- soft, good bowel sounds, slight tenderenss on deep palpation of right upper quadrant area, no guarding lower extremities no edema- RUE- PICC- in place Results - Labs CBC & Chem 7: 01/10/18 21:20 01/10/18 21:20 Laboratory Results - last 24 hr 01/10/18 01/10/18 01/10/18 21:20 21:20 21:20 WBC 7.9 RBC 3.62 L Hgb 10.3 L Hct 30.4 L MCV 84.2 MCH 28.4 MCHC 33.8 RDW 15.9 Plt Count 383 MPV 7.7 Neut % (Auto) 49.0 Lymph % (Auto) 29.4 [place] % (Auto) 10.0 H Eos % (Auto) 9.7 H Baso % (Auto) 1.9 Neut # (Auto) 3.9 Lymph # (Auto) 2.3 [place] # (Auto) 0.8 Eos # (Auto) 0.8 H Baso # (Auto) 0.2 WBC Differential . Differential Comment Auto diff final PT 10.8 INR 1.1 APTT 27.1 Sodium 141 Potassium 3.7 Chloride 108 H Carbon Dioxide 25.8 Anion Gap 7 BUN 18 Creatinine 0.89 Estimated GFR Greater than 89 Random Glucose 88 Calcium 8.8 Magnesium Total Creatine Kinase Troponin I Less than 0.02 L Lipase 455 H Urine Opiates Screen Ur Barbiturates Screen Ur Amphetamines Screen U Benzodiazepines Scrn Urine Cocaine Screen U Cannabinoids Screen Serum Alcohol Less than 3 01/10/18 01/10/18 01/11/18 21:20 23:40 04:35 WBC RBC Hgb Hct MCV MCH MCHC RDW Plt Count MPV Neut % (Auto) Lymph % (Auto) [place] % (Auto) Eos % (Auto) Baso % (Auto) Neut # (Auto) Lymph # (Auto) [place] # (Auto) Eos # (Auto) Baso # (Auto) WBC Differential Differential Comment PT INR APTT Sodium Potassium Chloride Carbon Dioxide Anion Gap BUN Creatinine Estimated GFR Random Glucose Calcium Magnesium 1.8 Total Creatine Kinase 41 93 Troponin I Less than 0.02 L Lipase Urine Opiates Screen Pos H Ur Barbiturates Screen Neg Ur Amphetamines Screen Pos H U Benzodiazepines Scrn Neg Urine Cocaine Screen Neg U Cannabinoids Screen Neg Serum Alcohol - Imaging Impressions Chest X-Ray 01/10/18 20:39 CONCLUSION: The lungs are clear. Assessment and Plan - Plan 52 years old male Chest pain- atypical - now resolved Initial troponin negative 2 EKG no signs of ischemia, doubt cardiac Pancreatitis - elevated lipase- abdominal pain mild- states pain on the right side is his sual pain from his [facility]- not different - denies alcohol use - repeat lipase now - get LFT - get abdomeninal US- L, GB, panc - patient starving - continue IVF - clear liquids if lipase down Treatment for endocarditis- Hx of IVDU - patient motivated and have stayed clean -With positive blood cultures on previous admission - Echo without vegetations however given patient's history of IV drug abuse and positive blood cultures he is placed on endocarditis treatment - on Rocephin 2 g daily. The infusion center to be completed on 01/26/18 Renal cell carcinoma Patient evaluated by neurology during previous hospitalization He will follow-up as an outpatient to schedule surgery for his nephrectomy once he has completed his antibiotic cycle History of IV drug abuse Patient reports no IV drug use for more than 30 days Cessation counseling provided FEN N.p.o. Electrolytes: Monitor and replete as needed NS at 100 cc/hour Up and ambulate
[2018-01-11] MEDS ORDERED: CEFTRIAXONE 2 GM IV.SIG SCH (09:00)
[2018-01-11 09:36] LABS: Alanine Aminotransferase 52 U/L (12-78); Albumin 2.9 g/dL (3.4-5.0); Anion Gap 6 meq/L (5-15); Aspartate Aminotransferase 44 U/L (15-37); Blood Urea Nitrogen 15 mg/dL (7-18); Carbon Dioxide 28.4 meq/L (21.0-32.0); Chloride 107 meq/L (98-107); Glomerular Filtration Rate Greater Than 89 mL/min (>89); Glucose,Random 80 mg/dL (74-106); Potassium 3.8 meq/L (3.5-5.1); Sodium 141 meq/L (136-145)
[2018-01-11 09:39] LABS: Alkaline Phosphatase 57 U/L (45-117); Total Protein 8.6 g/dL (6.4-8.2)
[2018-01-11 09:46] LABS: Creatine Kinase 23 U/L (39-308)
[2018-01-11] MEDS: Senna/Docusate Sodium 8.6/50 MG Tablet PO SCH ×2 (11:40→20:41)
--- NOTE | 2018-01-11 12:27 | US ---
EXAM DATE: 01/11/2018 12:17 PM EDT AGE/SEX: 52 years / Male INDICATIONS: Elevated lipase. CLINICAL DATA: This is the patient's subsequent encounter. Patient reports that signs and symptoms h ave been present for 1 day and indicates a pain score of 6/10. MEDICAL/SURGICAL HISTORY: . IV heroin abuse. Endocarditis. Hypertension. Renal cell carcinom a. Smoker. . Renal embolization. Right ankle fracture. COMPARISON: [facility] [place] ABDOMEN & PELVIS W/O CONTRAST, 12/28/2017. . MEASUREMENTS: Liver:__ 19.3 cm. Common Bile Duct:___ 4mm. Right Kidney:___14.9 x 7.5 x 8.4 cm. Left Kidney:___14.3 x 5.3 x 5.8 cm. Spleen:___12.9 cm. FINDINGS: Liver: Normal echotexture without focal lesion or ductal dilatation. Portal Vein: Hepatopedal flow seen in portal vein. Common Duct: No intraluminal mass or stone visualized. Gallbladder: Demonstrates no wall thickening or pericholecystic fluid. No stones visualized. Pancreas: The visualized portions are within normal limits Right Kidney: Diffuse abnormal masslike appearance of the right kidney as seen on previous CT scan. Left Kidney: Normal echotexture and cortical thickness. No mass or hydronephrosis. Ascites: None Pleural Effusion: None Spleen: No focal lesion. Aorta: Non aneurysmal. IVC: Within normal limits Other: None. CONCLUSION: 1. Diffuse abnormal appearance of the right kidney with masslike appearance. Patient is supposedly s tatus post embolization. 2. Pancreas appears unremarkable. Electronically signed by: Moses Chiu MD 01/11/2018 12:26 PM EDT
--- NOTE | 2018-01-11 12:48 | ECG ---
Date Performed: 01/10/2018 Time Performed: 20:35:51 PTAGE: 52 years EKG: Sinus rhythm NORMAL ECG PREVIOUS TRACING : 12/22/2017 03.34 Since the previous tracing, no significant change noted DOCTOR: Higinio Quiroga Interpretating Date/Time 01/11/2018 12:45:00
--- NOTE | 2018-01-11 12:48 | ECG ---
Date Performed: 01/11/2018 Time Performed: 04:23:50 PTAGE: 52 years EKG: SINUS BRADYCARDIA BORDERLINE ECG PREVIOUS TRACING : 01/10/2018 20.35 Since the previous tracing, no significant change noted DOCTOR: Higinio Quiroga Interpretating Date/Time 01/11/2018 12:45:10
[2018-01-12] MEDS: Sod Chloride 0.9% Inj 1,000 ML IV.CONT SCH (05:34)
[2018-01-12 08:17] VITALS: RESP 16; O2SAT 99
--- NOTE | 2018-01-12 11:08 | P.PN ---
Subjective Interval history: no complains 'tolerating po well no nauseao r vomting Physical Exam Vital signs: Vital Signs 01/11/18 12:00 01/11/18 16:00 01/11/18 19:46 Temperature 97.5 F L 97.9 F 97.6 F Pulse Rate 58 L 57 L 61 Respiratory Rate 16 16 20 Blood Pressure 157/97 H 159/93 H 167/93 H Pulse Oximetry 99 97 98 01/11/18 20:07 01/12/18 00:00 01/12/18 04:00 Temperature 97.7 F 97.5 F L Pulse Rate 58 L 55 L Respiratory Rate 18 20 Blood Pressure 156/99 H 158/97 H Pulse Oximetry 100 98 97 01/12/18 08:00 Temperature 97.6 F Pulse Rate 54 L Respiratory Rate 16 Blood Pressure 152/99 H Pulse Oximetry 99 Intake & Output 01/11/18 01/12/18 01/12/18 18:59 06:59 18:59 Intake Total 1999 2440 / 2440 Balance 1999 2440 / 2440 Intake: IV 1999 1000 / 1000 NS Inj 1,000 ML @ 100 mls/hr IV 1000 / 1000 1000 / 1000 .CONT .Q10H YRN Rx#:[id number] Rocephin Inj 2,000 MG In NS Inj 1000 / 1000 100 ML @ 100 mls/hr IV.SIG DAILY YRN Rx#:[id number] Oral 1440 / 1440 Other: # Voids 4 Date of Last Bowel Movement 01/10/18 01/10/18 Narrative: awake and alert, oriented x 3 anicteric lungs- no rales regular rhythm abdomen- soft, good bowel sounds, no guarding, no tendernesss, good bowel sounds lower extremities no edema- RUE- PICC- in place Results - Labs CBC & Chem 7: 01/10/18 21:20 01/11/18 09:00 - Imaging Impressions Abdomen Ultrasound 01/11/18 00:00 CONCLUSION: 1. Diffuse abnormal appearance of the right kidney with masslike appearance. Patient is supposedly status post embolization. 2. Pancreas appears unremarkable. Assessment and Plan - Plan 52 years old male Chest pain- atypical - now resolved Initial troponin negative 2 EKG no signs of ischemia, doubt cardiac Pancreatitis - elevated lipase- resolved- lipase down abdominal pain mild- states pain on the right side is his sual pain from his RCC - not different - denies alcohol use - repeat lipase now - get LFT - get abdomeninal US- L, GB, panc= GB, Flores normal - toelating po Treatment for endocarditis- Hx of IVDU - patient motivated and have stayed clean -With positive blood cultures on previous admission - Echo without vegetations however given patient's history of IV drug abuse and positive blood cultures he is placed on endocarditis treatment - on Rocephin 2 g daily. The infusion center to be completed on 01/26/18 Renal cell carcinoma Patient evaluated by neurology during previous hospitalization He will follow-up as an outpatient to schedule surgery for his nephrectomy once he has completed his antibiotic cycle History of IV drug abuse Patient reports no IV drug use for more than 30 days Cessation counseling provided DC today instyruct nurse to give rocphin dose today prior to DC
[2018-01-12 12:13] VITALS: BP 161/97; PULSE 56; TEMP 97.9
--- NOTE | 2018-01-12 21:43 | ECG ---
Date Performed: 01/11/2018 Time Performed: 10:41:13 PTAGE: 52 years EKG: SINUS BRADYCARDIA BORDERLINE ECG Since the PREVIOUS TRACING , no significant change noted DOCTOR: Johana Oswald Interpretating Date/Time 01/12/2018 21:42:23
== END 2018-01-12 15:04 | disposition home or self-care (01) ==
LOC: NEPC 20:17 → NEDA 20:17 → NEPGCP 01-11 05:20
PROVIDERS: ADMIT Internal Medicine; ATTEND Internal Medicine

== ENCOUNTER 2018-07-06 19:23 | Inpatient (IN) ==
[2018-07-06] MEDS ORDERED: HYDROmorphone PF Inj 0.5 MG/0.5 ML Syringe IV.PUSH ONE ×2 (21:02→23:30)
[2018-07-06 21:19] LABS: Baso # (Auto) 0.3 th/mm3 (0.0-0.2); Eos # (Auto) 0.2 th/mm3 (0.0-0.4); Eos % (Auto) 1.8 % (0.0-4.0); Hematocrit 47.9 % (39.0-51.0); Hemoglobin 15.5 gm/dL (13.0-17.0); Lymph # (Auto) 1.6 th/mm3 (1.0-4.8); Lymph % (Auto) 15.5 % (9.0-44.0); Mean Corpuscular HGB Conc 32.3 % (32.0-36.0); Mean Corpuscular Hemoglobin 27.4 pg (27.0-34.0); Mean Corpuscular Volume 84.8 fL (80.0-100.0); Mean Platelet Volume 9.8 fL (7.0-11.0); Mono # (Auto) 0.9 th/mm3 (0.0-0.9); Mono % (Auto) 8.9 % (0.0-8.0); Neut # (Auto) 7.1 th/mm3 (1.8-7.7); Neut % (Auto) 70.8 % (16.0-70.0); Platelet Count 291 th/mm3 (150-450); Red Blood Count 5.65 mil/mm3 (4.50-5.90); Red Cell Distribution Width 15.3 % (11.6-17.2); White Blood Count 10.1 th/mm3 (4.0-11.0)
[2018-07-06] MEDS: Sod Chloride 0.9% Inj 1,000 ML IV.CONT SCH (21:19)
[2018-07-06 21:25] LABS: Chloride 104 meq/L (98-107); Sodium 133 meq/L (136-145)
[2018-07-06 21:29] LABS: Albumin 2.9 g/dL (3.4-5.0); Anion Gap 5 meq/L (5-15); Blood Urea Nitrogen 19 mg/dL (7-18); Calcium 8.4 mg/dL (8.5-10.1); Carbon Dioxide 23.6 meq/L (21.0-32.0); Glucose,Random 108 mg/dL (74-106); Lipase 285 U/L (73-393); Magnesium 2.1 mg/dL (1.5-2.5); Potassium 4.7 meq/L (3.5-5.1)
[2018-07-06 21:32] LABS: Alanine Aminotransferase 248 U/L (12-78); Aspartate Aminotransferase 285 U/L (15-37); Glomerular Filtration Rate 89 mL/min (>89)
[2018-07-06 21:35] LABS: Alkaline Phosphatase 61 U/L (45-117)
[2018-07-06 22:18] LABS: Bilirubin,Urine Negative (Negative); Clarity,Urine Slightly Cloudy (Clear); Color,Urine Yellow (Yellw/Straw); Glucose,Urine (UA) Negative (Negative); Leukocyte Esterase,Urine Negative (Negative); Nitrite,Urine Negative (Negative)
--- NOTE | 2018-07-06 22:18 | CT ---
EXAM DATE: 07/06/2018 10:09 PM EST AGE/SEX: 52 years / Male INDICATIONS: Right lower quadrant pain for two days. CLINICAL DATA: This is the patient's initial encounter. Patient reports that signs and symptoms have been present for 1 day and indicates a pain score of 7/10. MEDICAL/SURGICAL HISTORY: . Heroin abuse. Kidney malignancy. Kidney mass. MRSA infection. . RADIATION DOSE: 9.99 CTDI (mGy) COMPARISON: [facility] [place], CT ABDOMEN & PELVIS W/O CONTRAST, 05/01/2018. . TECHNIQUE: Multiple contiguous axial images were obtained through the abdomen. Images were obtained using multiple row detector helical technique. Using automated exposure control and adjustment of the mA and/or kV according to patient size, radiation dose was kept as low as reasonably achievable to o btain optimal diagnostic quality images. DICOM format image data is available electronically for rev iew and comparison. FINDINGS: Lung bases are clear. No acute findings in the liver, spleen, adrenals, left kidney or pancreas. Smal l nonobstructing calculus lower pole left kidney. Right kidney remains enlarged measuring up to 13 cm in length with large mass remaining present. Curv ilinear calcifications are noted. Embolization coils present medially. Appearance is unchanged from D 2018. There is a diffuse ileus present. No free air. No pelvic mass identified. CONCLUSION: 1. Stable masslike enlargement of the right kidney which is status post embolization. Appearance is stable since April 2018. 2. Diffuse ileus. 3. Stable small nonobstructing calculus lower pole left kidney. Electronically signed by: Andry Guillen MD Board Certified Radiologist 07/06/2018 10:17 PM EST
[2018-07-06 22:24] LABS: Amorphous Sediment,Urine Moderate /hpf; Squamous Epithelial Cell,Urine 0-5 /hpf (0-5); WBC,Urine 0-5 /hpf (0-5)
--- NOTE | 2018-07-06 22:29 | ED ---
HPI General Chief Complaint: Abdominal Pain Stated Complaint: ABD PAIN x3DAYS Time Seen by Provider: 07/06/18 20:59 Source: patient Mode of arrival: ambulatory Limitations: no limitations History of Present Illness HPI narrative: 52-year-old male presents to the emergency department for 3 days of progressively worsening abdominal pain primarily the right lower quadrant. Patient denies fever or chills. Patient had poor oral intake. No vomiting or diarrhea. Patient denies hematemesis coffee-ground emesis melena or hematochezia. Patient had good urine output denies flank pain. Patient has been evaluated and admitted recently for right renal hemorrhage renal cell carcinoma has known history of IV drug abuse of heroin. Patient is taking no antibiotic. Patient denies any chest pain or shortness of breath. Patient is scheduled to see his urologist on Saturday or Saturday of this upcoming week. Patient has stopped using heroin according to him. Patient states that he has not noticed any abdominal distention but notes that he is intolerant of oral intake. MD complaint: Reports abdominal pain Onset (ago): day(s) (3) Pain Consistency: constant Location: Reports diffuse Severity: severe Severity scale (1-10): 8 Quality: Reports cramping and aching Radiation: Reports none Migration to: Reports no migration Relieving factors: nothing Exacerbating factors: eating Context: Reports recent surgery/procedure (renal mass embolization 04/2018); Denies foreign travel, possible food poisoning, sick contacts and recent antibiotic use Associated symptoms: Reports nausea, chills and anorexia; Denies vomiting, diarrhea, fever, constipation, dysuria, hematemesis, hematochezia, melena, hematuria and syncope Treatments prior to arrival: Denies NSAIDs and prescription analgesics Related Data Home Medications Medication Instructions Recorded Confirmed No Known Home Medications 04/29/18 07/06/18 Allergies Allergy/AdvReac Type Severity Reaction Status Date / Time codeine Allergy Mild Itching Verified 07/06/18 19:41 iodine Allergy Unknown unknown Verified 07/06/18 19:41 potassium iodide Allergy Unknown unknown Verified 07/06/18 19:41 povidone-iodine Allergy Unknown unknown Verified 07/06/18 19:41 sodium iodide Allergy Unknown unknown Verified 07/06/18 19:41 sodium iodide Allergy Unknown unknown Verified 07/06/18 19:41 Review of Systems ROS: all other systems reviewed are negative [facility] Medical History Medical History Ankle fracture, right (Acute) Heroin abuse (Acute) Kidney malignancy (Acute) Kidney mass (Acute) MRSA infection (Acute) Family History Family History Other Family history normal Social History Social History Substance History: Active Abuse Second Hand Smoke Exposure: Yes Smoking Status: Current every day smoker Tobacco Type: Cigarettes How Often Do You Have a Drink Containing Alcohol: Never Recent Travel in [facility] within the Last 8 Weeks: No Recent Out of Country Travel within the Last 8 Weeks: No Substance Abuse Detail Heroin: Substance Use Status: Active Immunization History Tetanus Immunization: <5 Years Exam Narrative Exam Narrative: GENERAL: Well-nourished, well-developed patient. SKIN: Focused skin assessment warm/dry. HEAD: Normocephalic. EYES: No scleral icterus. No injection or drainage. NECK: Supple, trachea midline. No JVD or lymphadenopathy. CARDIOVASCULAR: Regular rate and rhythm without murmurs, gallops, or rubs. RESPIRATORY: Breath sounds equal bilaterally. No accessory muscle use. GASTROINTESTINAL: Abdomen soft, very tender to palpation of the right lower quadrant with voluntary guarding no rebound, nondistended. MUSCULOSKELETAL: No cyanosis, or edema. BACK: Nontender without obvious deformity. No CVA tenderness. Course Initial Documented Vital Signs Temperature 97.6 F 07/06/18 19:41 Pulse Rate 52 L 07/06/18 19:41 Respiratory Rate 20 07/06/18 19:41 Blood Pressure 172/100 H 07/06/18 19:41 Pulse Oximetry 99 07/06/18 19:41 Last Documented Vital Signs Temperature 97.6 F 07/06/18 19:41 Pulse Rate 51 L 07/07/18 02:11 Respiratory Rate 15 07/07/18 02:11 Blood Pressure 143/80 H 07/07/18 02:11 Pulse Oximetry 100 07/07/18 02:11 Medical Decision Making MDM Narrative Medical decision making narrative: Patient with progressively worsening abdominal pain with recent diagnosis of renal mass renal cell carcinoma and history of IV drug abuse of heroin recent discontinuation of opiate abuse patient with poor oral intake no vomiting no fever chills no hematuria no dysuria urgency on physical exam is markedly tender to palpation of the right lower quadrant IV access obtained specimens collected and sent for resulting CT abdomen pelvis performed CT abdomen pelvis unchanged shows evidence of large right renal mass with recent embolization and diffuse ileus Patient identified to have hypertension unable to tolerate oral dose of clonidine as it precipitates increased abdominal discomfort but no vomiting. Patient given additional antihypertensive hydralazine with good blood pressure control IV fluids administered lab values otherwise stable. Case discussed with on-call medicine service for admission for diffuse ileus, hypertensive urgency, recent diagnosis of renal cell carcinoma with large renal mass. Medical Screen Exam Complete: Yes Emergency Medical Condition: Yes Differential Diagnosis Differential Diagnosis: Abdominal pain, bowel obstruction, ileus, diverticulitis , renal mass hematoma, hydronephrosis/hydroureter, renal colic Medical Records Medical records reviewed: Yes I reviewed the patient's medical records. Lab Data Lab results reviewed: Yes I reviewed the patient's lab results. Result diagrams: 07/06/18 21:10 07/06/18 21:10 Lab Results 07/06/18 07/06/18 07/06/18 Range/Units 21:10 21:10 22:10 CBC w Diff Auto diff final WBC 10.1 (4.0-11.0) th/mm3 RBC 5.65 (4.50-5.90) mil/mm3 Hgb 15.5 (13.0-17.0) gm/dL Hct 47.9 (39.0-51.0) % MCV 84.8 (80.0-100.0) fL MCH 27.4 (27.0-34.0) pg MCHC 32.3 (32.0-36.0) % RDW 15.3 (11.6-17.2) % Plt Count 291 (150-450) th/mm3 MPV 9.8 (7.0-11.0) fL Neut % (Auto) 70.8 H (16.0-70.0) % Lymph % (Auto) 15.5 (9.0-44.0) % [place] % (Auto) 8.9 H (0.0-8.0) % Eos % (Auto) 1.8 (0.0-4.0) % Baso % (Auto) 3.0 H (0.0-2.0) % Neut # (Auto) 7.1 (1.8-7.7) th/mm3 Lymph # (Auto) 1.6 (1.0-4.8) th/mm3 [place] # (Auto) 0.9 (0.0-0.9) th/mm3 Eos # (Auto) 0.2 (0.0-0.4) th/mm3 Baso # (Auto) 0.3 H (0.0-0.2) th/mm3 WBC Differential . Differential Comment . Sodium 133 L (136-145) meq/L Potassium 4.7 (3.5-5.1) meq/L Chloride 104 (98-107) meq/L Carbon Dioxide 23.6 (21.0-32.0) meq/L Anion Gap 5 (5-15) meq/L BUN 19 H (7-18) mg/dL Creatinine 0.90 (0.60-1.30) mg/dL Estimated GFR 89 (>89) mL/min Random Glucose 108 H (74-106) mg/dL Calcium 8.4 L (8.5-10.1) mg/dL Magnesium 2.1 (1.5-2.5) mg/dL Total Bilirubin 0.8 (0.2-1.0) mg/dL AST 285 H (15-37) U/L ALT 248 H (12-78) U/L Alkaline Phosphatase 61 (45-117) U/L Total Protein 9.0 H (6.4-8.2) g/dL Albumin 2.9 L (3.4-5.0) g/dL Lipase 285 (73-393) U/L Urine Color Yellow (Yellw/Straw) Urine Clarity Slightly cloudy (Clear) Urine pH 7.0 (5.0-8.5) Ur Specific [place] 1.020 (1.002-1.035) Urine Protein Trace (Neg-Trace) mg/dL Urine Glucose (UA) Negative (Negative) mg/dL Urine Ketones Negative (Negative) mg/dL Urine Occult Blood Negative (Negative) Urine Nitrate Negative (Negative) Urine Bilirubin Negative (Negative) Urine Urobilinogen 1.0 (Less than 2) mg/dL Ur Leukocyte Esterase Negative (Negative) Urine RBC 4-15 H (0-3) /hpf Urine WBC 0-5 (0-5) /hpf Ur Squamous Epith Cells 0-5 (0-5) /hpf Amorphous Sediment Moderate H (None) /hpf Micro UA Comment Culture not ind Ur Microscopic Review Microscopic reviewed Urine Culture Comments Culture not ind Imaging Data Radiologist's impression: Abdomen/Pelvis CT 07/06/18 21:01 CONCLUSION: 1. Stable masslike enlargement of the right kidney which is status post embolization. Appearance is stable since April 2018. 2. Diffuse ileus. 3. Stable small nonobstructing calculus lower pole left kidney. Discharge Plan Discharge Disposition Patient Disposition: ED Admit(ED Internal Use Only) Discharge Condition Condition: Stable Discharge Order Discharge Orders: ED Use Only Admit Order (Routine); Ordered 07/07/18 Ordered By: Janae Bosch Discharge Details Diagnosis: Adynamic ileus, Hypertension, Renal mass, right Physicians Team ED Provider: Janae Bosch Primary Care Provider: Primary Care Jerri Soliman Attending Provider: Kadi Godfrey Status ED Status: Admitted Patient
[2018-07-07] MEDS ORDERED: hydrALAZINE HCl Inj 20 MG/ML Vial IV.PUSH ONE (00:28)
[2018-07-07] MEDS ORDERED: Bisacodyl 10 MG Supp RECTAL PRN (02:16)
[2018-07-07] MEDS ORDERED: Acetaminophen 325 MG Tablet PO PRN (02:16)
[2018-07-07] MEDS ORDERED: Morphine Sulfate Inj 2 MG/ML Vial IV.PUSH PRN (02:16)
[2018-07-07] MEDS: Sod Chloride 0.9% Inj 1,000 ML IV.CONT SCH ×4 (02:36→14:33)
[2018-07-07 05:44] VITALS: O2SAT 97
--- NOTE | 2018-07-07 07:57 | P.HPIM ---
History of Present Illness Primary Care Physician: No Primary Care Physician Chief Complaint: Abdominal pain History of Present Illness: 52-year-old male with known history of renal cell carcinoma, IV drug use who presented to the hospital for abdominal pain. Patient states that the pain started 3 days ago which is located in the right lower quadrant. 10/10 on a pain scale. Patient indicates that he has been having pretty much watery diarrhea. Patient had workup done in the emergency department and was found to have an ileus which what appears to be possible fecal impaction in the rectum and sigmoid colon. Patient has had within the year recent diagnosis of renal cell carcinoma. At the time evaluating patient this morning he states that he still have an watery stool. He has not had any solid stool. Denies any nausea, vomiting, melena, hematochezia. Patient indicates last time he used IV drugs was 3 days ago. Inpatient Certification Inpatient Certification: I certify that the inpatient services were ordered in accordance with Medicare regulations governing the order. This includes certification that hospital inpatient services are reasonable and necessary and in the case of services not specified as inpatient-only under 42 CFR 419.22(n), that they are appropriately provided as inpatient services in accordance to with the 2-midnight benchmark under 43 CFR 412.3(e) Estimated Total Length of Stay (Days): 2 Plans for Post Hospital Care: Not yet determined Review of Systems Review of Systems: all other systems reviewed are negative Gastrointestinal: Reports abdominal pain and Reports diarrhea PMFSH Medical History Medical History Ankle fracture, right (Acute) Heroin abuse (Acute) Kidney malignancy (Acute) Kidney mass (Acute) MRSA infection (Acute) Surgical History Surgical History History of ankle surgery (Acute) Social History Social History Substance History: Active Abuse Second Hand Smoke Exposure: Yes Smoking Status: Former smoker Tobacco Type: Cigarettes Packs Per Day: 1 Cigarettes Per Day: 20.0 Years Smoked: 30 Pack-Years: 30.00 Smoking End Date: Patient states that he quit smoking 3 days ago How Often Do You Have a Drink Containing Alcohol: Never Recent Travel in [facility] within the Last 8 Weeks: No Recent Out of Country Travel within the Last 8 Weeks: No Substance Abuse Detail Heroin: Substance Use Status: Early Remission Route Used Substance Abuse: Intravenously Reason for Use: Calm Down and Feels Good Immunization History Tetanus Immunization: >5 Years Hx Influenza Vaccine This Season: No Medications and Allergies Allergies Allergy/AdvReac Type Severity Reaction Status Date / Time codeine Allergy Mild Itching Verified 07/06/18 19:41 iodine Allergy Unknown unknown Verified 07/06/18 19:41 potassium iodide Allergy Unknown unknown Verified 07/06/18 19:41 povidone-iodine Allergy Unknown unknown Verified 07/06/18 19:41 sodium iodide Allergy Unknown unknown Verified 07/06/18 19:41 sodium iodide Allergy Unknown unknown Verified 07/06/18 19:41 Home Medications Medication Instructions Recorded Confirmed Type No Known Home Medications 04/29/18 07/06/18 History Active Medications: Active Medications Acetaminophen (Tylenol) 650 mg PO Q4H PRN PRN Reason: Temp > 100.4 Al Hydroxide/Mg Hydroxide (Milk Of Magnesia Liq) 30 ml PO Q12H PRN PRN Reason: Mild Constipation Bisacodyl (Dulcolax Supp) 10 mg RECTAL DAILY PRN PRN Reason: SEVERE CONSITIPATION Sodium Chloride (Ns Inj) 1,000 mls @ 125 mls/hr IV.CONT .Q8H [facility] Last Infusion: 07/07/18 02:27 Dose: Infused Sodium Chloride (Ns Inj) 1,000 mls @ 100 mls/hr IV.CONT .Q10H [facility] Last Admin: 07/07/18 02:36 Dose: 100 mls/hr Lactulose (Lactulose Liq) 30 ml PO DAILY PRN PRN Reason: SEVERE CONSITIPATION Lorazepam (Ativan Inj) 1 mg IV.PUSH Q2H PRN PRN Reason: AGITATION/WITHDRAWAL Metoclopramide HCl (Reglan Inj) 10 mg IV.PUSH Q8HR [facility]; Protocol Last Admin: 07/07/18 05:05 Dose: 10 mg Morphine Sulfate (Morphine Inj) 2 mg IV.PUSH Q4H PRN PRN Reason: PAIN SCALE 6 TO 10 Ondansetron HCl (Zofran Inj) 4 mg IV.PUSH Q6H PRN PRN Reason: NAUSEA OR VOMITING Senna/Docusate Sodium (Eva-Colace) 1 tab PO BID [facility] Sennosides (Senokot) 17.2 mg PO Q12H PRN PRN Reason: Moderate Constipation Sodium Chloride (Ns Flush) 2 ml IV.FLUSH PRN PRN PRN Reason: FLUSH AFTER USING IV ACCESS Sodium Chloride (Ns Flush) 2 ml IV.FLUSH BID YRN Sodium Chloride (Ns Flush) 2 ml IV.FLUSH PRN PRN PRN Reason: FLUSH AFTER USING IV ACCESS Physical Exam Vital signs: Vital Signs 07/06/18 19:41 07/06/18 22:40 07/06/18 23:58 Temperature 97.6 F Pulse Rate 52 L 52 L 52 L Respiratory Rate 20 16 16 Blood Pressure 172/100 H 197/106 H 183/112 H Pulse Oximetry 99 99 100 07/07/18 00:36 07/07/18 01:03 07/07/18 02:11 Temperature Pulse Rate 54 L 54 L 51 L Respiratory Rate 18 15 15 Blood Pressure 159/89 H 167/99 H 143/80 H Pulse Oximetry 98 97 100 07/07/18 04:35 07/07/18 05:43 Temperature 97.9 F Pulse Rate 52 L 80 Respiratory Rate 16 16 Blood Pressure 164/90 H 158/87 H Pulse Oximetry 98 97 Intake & Output 07/06/18 07/07/18 07/07/18 18:59 06:59 18:59 Intake Total 621 / 621 Output Total 350 / 350 Balance 271 / 271 Weight 73.6 kg Intake: IV 621 / 621 NS Inj 1,000 ML @ 125 mls/hr IV 621 / 621 .CONT .Q8H YRN Rx#:[id number] Output: Urine 350 / 350 Other: # Voids 1 Weight On Admission 73.6 kg Narrative: GENERAL: Well-developed, well-nourished, in no acute distress. alert and orientated HEENT: Head is normocephalic without any lesions or masses noted. Facial features are symmetric. Eyes: Pupils equal round reactive to light. Extraocular muscles are intact. Conjunctivae were clear. Oropharyngeal: Pharynx without any erythema edema. Tongue is midline without deviation. Buccal mucosa is moist without any masses or lesions NECK: Supple without any masses. Trachea midline no deviation. No JVD, no bruits are appreciated CARDIAC: Regular rhythm, regular rate. S1/S2 are heard. No murmurs gallops or rubs. LUNGS: Clear to auscultation bilaterally. No wheeze, rhonchi or rales. No use of accessory muscles on inspiration or expiration. ABDOMEN: Soft, mild tenderness noted in the right lower quadrant. Nondistended. Tympanic to percussion in the upper and left abdomen. Bowel sounds heard in all 4 quadrants. No organomegaly or masses. Negative rebound, negative guarding EXTREMITIES: No edema, pulses are equal bilaterally. No cyanosis or clubbing NEUROLOGY: Mood and affect appear appropriate. Cranial nerves II through XII grossly intact. Muscle strength 5/5 in upper and lower extremities bilaterally. Deep tendon reflexes are 2+ in upper and lower extremities bilaterally. Results Labs CBC & Chem 7: 07/06/18 21:10 07/06/18 21:10 Imaging Impressions Abdomen/Pelvis CT 07/06/18 21:01 CONCLUSION: 1. Stable masslike enlargement of the right kidney which is status post embolization. Appearance is stable since April 2018. 2. Diffuse ileus. 3. Stable small nonobstructing calculus lower pole left kidney. Caprini VTE Risk Assessment Caprini VTE Risk Assessment: No/Low Risk (score <= 1) Caprini Risk Assessment Model: Point Value = 1 Point Value = 2 Point Value = 3 Point Value = 5 Age 41-60 Minor surgery BMI > 25 kg/m2 Swollen legs Varicose veins or History of unexplained or recurrent spontaneous Oral contraceptives or hormone replacement Sepsis (< 1 month) Serious lung disease, including pneumonia (< 1 month) Abnormal pulmonary function Acute myocardial infarction Congestive heart failure (< 1 month) History of inflammatory bowel disease Medical patient at bed rest Age 61-74 Arthroscopic surgery Major open surgery (> 45 min) Laparoscopic surgery (> 45 min) Malignancy Confined to bed (> 72 hours) Immobilizing plaster cast Central venous access Age >= 75 History of VTE Family history of VTE Factor V Leiden Prothrombin [id number] Lupus anticoagulant Anticardiolipin antibodies Elevated serum homocysteine Heparin-induced thrombocytopenia Other congenital or acquired thrombophilia Stroke (< 1 month) Elective arthroplasty Hip, pelvis, or leg fracture Acute spinal cord injury (< 1 month) Prophylaxis Regimen: Total Risk Factor Score Risk Level Prophylaxis Regimen 0-1 Low Early ambulation 2 Moderate Order ONE of the following: *Sequential Compression Device (SCD) *Heparin 5000 units SQ BID 3-4 Higher Order ONE of the following medications: *Heparin 5000 units SQ TID *Enoxaparin/Lovenox 40 mg SQ daily (WT < 150 kg, CrCl > 30 mL/min) *Enoxaparin/Lovenox 30 mg SQ daily (WT < 150 kg, CrCl > 10-29 mL/min) *Enoxaparin/Lovenox 30 mg SQ BID (WT < 150 kg, CrCl > 30 mL/min) AND/OR *Sequential Compression Device (SCD) 5 or more Highest Order ONE of the following medications: *Heparin 5000 units SQ TID (Preferred with Epidurals) *Enoxaparin/Lovenox 40 mg SQ daily (WT < 150 kg, CrCl > 30 mL/min) *Enoxaparin/Lovenox 30 mg SQ daily (WT < 150 kg, CrCl > 10-29 mL/min) *Enoxaparin/Lovenox 30 mg SQ BID (WT < 150 kg, CrCl > 30 mL/min) AND *Sequential Compression Device (SCD) Assessment and Plan Plan Abdominal pain with ileus by CT Upon review of CT scan it does appear patient does have significant amount of stool noted in the rectal vault and sigmoid colon. Patient having watery stools. KUB with standing and upright films indicate nonspecific bowel gas pattern. Upon comparison looks like a significant improvement from CT scan. On clinical correlation. Patient does not have any abdominal distention. No significant abdominal pain. Patient indicates that he is feeling much better. Notify him that we will advance his diet and if tolerates he can go home. Advance diet as tolerated Continue IV fluids If patient tolerates diet could anticipate discharge home later today. IV drug use with heroin Patient counseled on cessation Monitor for withdrawal DVT prevention Sequential compression devices Discussed Condition With: Patient, nursing staff, Dr. Zavaleta Discharge Planning: Discharge home in stable condition Activity: Ad gloria. Diet: Regular diet Medication per medication reconciliation Follow-up with primary medical doctor in 1 week H&P: Quality VTE Deep Vein Thrombosis/Pulmonary Embolism Present on Admission: No
--- NOTE | 2018-07-07 08:20 | XR ---
EXAM DATE: 07/07/2018 8:10 AM EST AGE/SEX: 52 years / Male INDICATIONS: Abdominal pain posteriorly with history of renal cancer. CLINICAL DATA: This is the patient's initial encounter. Patient reports that signs and symptoms have been present for 3 weeks and indicates a pain score of 7/10. MEDICAL/SURGICAL HISTORY: . Heroin abuse. Kidney malignancy. Kidney mass. MRSA infection . COMPARISON: [facility], CT ABDOMEN & PELVIS W/O CONTRAST, 07/06/2018. . FINDINGS: Lung bases are clear. Stabilization clips are seen in the right renal fossa. Lung bases are clear. Rowdy wel gas pattern is unremarkable. Degenerative changes are seen in the lower lumbar spine. CONCLUSION: Nonspecific bowel gas pattern. Electronically signed by: Ashish Low MD Board Certified Radiologist 07/07/2018 8:19 AM EST
[2018-07-07] MEDS ORDERED: Senna/Docusate Sodium 8.6/50 MG Tablet PO SCH (09:00)
[2018-07-07 12:58] VITALS: BP 179/99; PULSE 52; TEMP 96.3
[2018-07-07 13:56] VITALS: RESP 18
== END 2018-07-07 17:16 | disposition home or self-care (01) | DRG 389 ==
LOC: PHED 19:23 → PHEDA 07-07 02:17 → PH3 07-07 04:41
PROVIDERS: ADMIT Hospitalist; ATTEND Hospitalist
CPT/HCPCS: 74019; 74176; 80053; 81001; 83690; 83735; 85025; 90774; 90775; 90776; 96374; 96375; 96376; 99285; C8952; J0360; J1170; J2270; J2405; J2765; J7030